=== PATIENT | female | born 1965 | race African-American/Black ===

== ENCOUNTER 2018-04-17 06:35 | Day surgery (SDC) | payer MEDICARE, OTHER ==
--- NOTE | 2018-04-15 10:47 | Pre-Procedure Note/Attestation ---
Pre-Procedure Note/Attestation Complete Prior to Procedure Planned Procedure: right Procedure Narrative: Phaco with IOL Indications for Procedure Pre-Operative Diagnosis: cataract Attestation I attest that I discussed the nature of the procedure; its benefits; risks and complications; and alternatives (and the risks and benefits of such alternatives ), prior to the procedure, with the patient (or the patient's legal outbound call center representative). I attest that, if there was a reasonable possibility of needing a blood transfusion, the patient (or the patient's legal outbound call center representative) was given the [facility] standardized written summary, pursuant to the Piyush [place] Blood Safety Act ([place] Health and Safety Code # 1645, as amended). I attest that I re-evaluated the patient just prior to the surgery and that there has been no change in the patient's H&P, except as documented below: Justus Vail MD Apr 15, 2018 10:47
--- NOTE | 2018-04-15 11:33 | Opthalmology H&P ---
Ophthalmology H&P H&P Chief Complaint: decreased vision in right eye HPI Vision Affects Ability to: read, manage personal affairs Past Ocular History: opacification HPI Narrative BLURRY VISION Exam Visual Acuity: OD; 20/80 OS;20/50 Tension: OD; 14 OS;15 Eye Exam: normal OU: external exam, palpebral fissure-width, marginal reflex distance, levator function, corneas, anterior chambers; findings: lens - OD;NS OS;NS, fundus exam - NPDR OU Assessment/Plan Diagnosis: (1) Nuclear sclerotic cataract of right eye Treatment Plan: cataract extraction w/ lens implant Goals of Treatment: improvement of vision, enhance quality of life Attestation Attestation The risks and benefits of the surgery as well as alternative procedures were explained to the patient in detail. Justus Vail MD Apr 15, 2018 11:33
[~2018-04-17] VITALS: Ht 154.9 cm; Wt 80.3 kg
[2018-04-17] VITALS (11 sets, daily range): BP systolic 103–115; BP diastolic 57–68
[~2018-04-17 06:35] MED LIST: NOVOLOG100 UNITS1 SUBQ; TOUJEO SOL300 UNIT/1 SQ
[2018-04-17] MEDS ORDERED: Tetracaine 0.5% Opth 4ml Soln RIGHT EYE ONE (07:00)
[2018-04-17] MEDS ORDERED: Diclofenac Sod 0.1% Op Soln RIGHT EYE SCH (07:00)
[2018-04-17] MEDS ORDERED: Akten 3.5% 1ml Btl RIGHT EYE ONE (07:00)
[2018-04-17] MEDS ORDERED: Proparacaine 0.5% Opth Soln 15ml RIGHT EYE ONE (07:00)
[2018-04-17] MEDS ORDERED: Dexamethasone 4mg/ml vial ONE (10:00)
[2018-04-17] MEDS ORDERED: Maxitrol Opth Oint 3.5gm ONE (10:00)
[2018-04-17] MEDS ORDERED: Pred Forte 1% Opth Susp 1ml ONE (10:00)
[2018-04-17] MEDS: Cyclopentolate 1% Opth Sol 2ml RIGHT EYE SCH ×3 (10:51→11:17)
[2018-04-17] MEDS: Tropicamide 1% Opth 15ml Soln RIGHT EYE SCH ×3 (10:52→11:17)
[2018-04-17] MEDS: Phenylephrine 10% Opth Soln 5ml RIGHT EYE SCH ×3 (10:53→11:17)
[2018-04-17] MEDS: Tobramycin Op Soln 0.3% 5ml RIGHT EYE SCH ×3 (10:53→11:17)
[2018-04-17] MEDS ORDERED: Pilocarpine 2% Opth 15ml Soln ONE (11:00)
[2018-04-17] MEDS ORDERED: LR 1000ml ONE (11:00)
[2018-04-17] MEDS ORDERED: BSS 500ml btl ONE (11:05)
[2018-04-17] MEDS ORDERED: EPINEPHrine 1mg/1ml Amp ONE (11:05)
[2018-04-17] MEDS ORDERED: BSS 15ml BTL ONE (11:06)
[2018-04-17] MEDS ORDERED: Sodium Hyaluronate 14 mg/ml 0.85ml ONE (11:06)
[2018-04-17] MEDS ORDERED: Povidone-Iodine 5% opth solution ONE (11:06)
--- NOTE | 2018-04-17 11:22 | Anethesia Preoperative Eval ---
Anesthesia Pre-op PMH/ROS General Date of Evaluation: Apr 17, 2018 Time of Evaluation: 11:20 Anesthesiologist: Perry ASA Score: ASA 1 Mallampati Score Class I : Soft palate, uvula, fauces, pillars visible Class II: Soft palate, uvula, fauces visible Class III: Soft palate, base of uvula visible Class IV: Only hard plate visible Mallampati Classification: Class II Surgeon: Genna Diagnosis: right eye cataract removal Surgical Procedure: Right eye cataract removal with IOL Anesthesia History: none Family History: no anesthesia problems Allergies: Coded Allergies: No Known Allergies (Unverified , 04/14/18) Medications: see eMAR Patient NPO?: Yes NPO Date: Apr 17, 2018 Past Medical History Cardiovascular: Denies: HTN, CAD, [place], valve dz, arrhythmia, other Pulmonary: Denies: asthma, COPD, JEREMIAS, other Gastrointestinal/Genitourinary: Denies: GERD, CRI, ESRD, other Neurologic/Psychiatric: Denies: dementia, CVA, depression/anxiety, TIA, other Endocrine: Reports: DM HEENT: Reports: cataract (L), cataract (R) Hematology/Immune: Denies: anemia, DVT, bleeding disorder, other Musculoskeletal/Integumentary: Reports: OA - right hip and knee Anesthesia Pre-op Phys. Exam Physician Exam Last Vital Signs Date Time Temp Pulse Resp B/P (MAP) Pulse Ox O2 Delivery O2 Flow Rate FiO2 04/17/18 11:06 97.9 97 20 105/64 100 Room Air Constitutional: NAD Neurologic: CN 2-12 intact Cardiovascular: RRR Respiratory: CTA Gastrointestinal: S/NT/ND Airway Exam Mallampati Score: Class II MO: full ROM: full Teeth: missing Dentures: no upper, no lower Anesthesia Pre-op A/P Labs chart reviewed Accucheck BS 166 Risk Assessment & Plan Assessment: A&Ox4 Plan: MAC Status Change Before Surgery: No Pre-Antibiotics Given Within 1 Hr of Incision: No Alexandrea Amador CRNA Apr 17, 2018 11:22
[2018-04-17] MEDS ORDERED: fentaNYL 100 mcg/2 mL IV ONE (11:28)
[2018-04-17] MEDS ORDERED: Midazolam 2mg/2ml Inj ONE ×2 (11:28→11:34)
--- NOTE | 2018-04-17 11:42 | Immediate Post-Op Evaluation ---
Immediate Post-Op Evalulation Immediate Post-Op Evalulation Procedure: right eye cataract removal Date of Evaluation: Apr 17, 2018 Time of Evaluation: 11:58 IV Fluids: LR 300 ml Blood Products: 0 Estimated Blood Loss: 0 Urinary Output: 0 Blood Pressure Systolic: 100 Blood Pressure Diastolic: 60 Pulse Rate: 98 Respiratory Rate: 18 O2 Sat by Pulse Oximetry: 98 Temperature (Fahrenheit): 97.6 Pain Score (1-10): 0 Nausea: No Vomiting: No Complications none Patient Status: awake, reacts, patent Hydration Status: adequate Given Within 1 Hr of Incision: Alexandrea Voss CRNA Apr 17, 2018 11:42
--- NOTE | 2018-04-17 11:43 | 48 Hour Post Anesthesia Eval ---
Post Anesthesia Evaluation Procedure: right eye cataract removal Date of Evaluation: Apr 17, 2018 Time of Evaluation: 12:52 Blood Pressure Systolic: 104 0: 62 Pulse Rate: 95 Respiratory Rate: 18 Temperature (Fahrenheit): 97.6 O2 Sat by Pulse Oximetry: 99 Airway: patent Nausea: No Vomiting: No Pain Intensity: 0 Hydration Status: adequate Cardiopulmonary Status: WNL Mental Status/LOC: patient returned to baseline Follow-up care needed: patient intructions given Alexandrea Amador CRNA Apr 17, 2018 11:43
--- NOTE | 2018-04-18 13:09 | Brief Operative Note ---
Immediate Post Operative Note Operative Note Chief Complaint: blurry vision Pre-op Diagnosis: cataract, OD Procedure: phaco with IOL Post-op Diagnosis: Pseudophakia Post-op Diagnosis: same as pre-op Findings: consistent w/pre-op dx studies Surgeon: Genna Anesthesiologist: Perry Specimen: none Complications: none Fluids: LR Estimated Blood Loss: none Drains: none Implant(s) used?: Yes Justus Vail MD Apr 18, 2018 13:09
--- NOTE | 2018-04-18 13:12 | Operative Note - PDOC ---
Operative Note Operative Note Chief Complaint: blurry vision Pre-op Diagnosis: cataract, OD Procedure: phaco with IOL Post-op Diagnosis: Pseudophakia Post-op Diagnosis: same as pre-op Operative Findings: consistent w/pre-op dx studies Surgeon: Genna Anesthesiologist: Perry Specimen: none Complications: none Fluids: LR Estimated Blood Loss: none Drains: none Implant(s) used?: Yes Indications for Procedure cataract Description of Procedure This patient has been complaining visually significant cataract in the affected eye with the best corrected visual acuity under moderate glare conditions worse. The patient complains of difficulties with glare in performing activities of daily living and wants to manage personal affairs with comfort and accuracy and see well enough to move with safety at home and outdoors. The risks, benefits and alternatives of the procedure were discussed with the patient in the office prior to scheduling surgery. All questions from the patient were answered after the surgical procedure was explained in detail. The risks of the procedure as explained to the patient include, but are not limited to, pain, infection, bleeding, loss of vision, retinal detachment, need for further surgery, loss of lens nucleus, double vision, etc. Alternative procedures were discussed which include, to do nothing or seek a second opinion. Informed consent for this procedure was obtained from the patient. The patient was referred to a primary care physician for a cardiopulmonary clearance prior to surgery, after proper evaluation was done patient was properly scheduled for outpatient surgery. The patient was brought to the operating room where the anesthesiologist established I.V. lines and cardiac monitoring leads. Mild intravenous sedation was administered. The patient was then prepared with a 5% solution of povidone -iodine to the conjunctival fornix and lashes, and a 5% solution of povidone- iodine to the lids and periorbital skin. The patient was then draped in the usual sterile fashion. A lid speculum was then placed in the operative eye. A keratome blade was then used to create a biplanar incision into the anterior chamber. Viscoelastics was then instilled into the anterior chamber. A 3-mm single pass clear corneal incision was made just anterior to the vascular arcade of the temporal limbus using a keratome. Anterior capsulorrhexis was created. The nucleus was hydrodissected and hydrodelineated, and was freely movable in the capsular bag. The nucleus was then phacoemulsified. Following the deep groove formation, the lens was split bimanually and epicortex removed under vacuum burst-mode phacoemulsification. Peripheral cortex was removed with the irrigation and aspiration handpiece. The capsular bag was expanded with viscoelastic. The intraocular lens was then inspected for right power and size and thought to be satisfactory. The implant was inspected under the microscope and found to be free of defects. The implant was inserted into the cartridge system under viscoelastic and placed in the capsular bag. The trailing haptic was positioned with the cartridge system. Viscoelastics was removed from the anterior chamber using the irrigation and aspiration unit. The corneal wound was then tested for leaks and none were found. The lid speculum were then removed. Sponge and needle counts were correct. An eye patch and shield were placed over the operative eye. The patient was taken to the recovery room in stable condition. There were no complications. The patient tolerated the procedure well. The patient was then transferred to the ambulatory surgery unit in stable and satisfactory condition , was given detailed written instructions and asked to follow up in the office the next day. Justus Vail MD Apr 18, 2018 13:12
== END 2018-04-17 13:30 | disposition home or self-care (01) ==
LOC: SUR 06:35
DX: H25.11 Age-related nuclear cataract, right eye (principal); E11.9 Type 2 diabetes mellitus without complications; Z79.4 Long term (current) use of insulin; M54.16 Radiculopathy, lumbar region; M16.11 Unilateral primary osteoarthritis, right hip; M17.11 Unilateral primary osteoarthritis, right knee
CPT/HCPCS: 66984; 82962; J0171; J1100; J2250; J3010; J3370; V2632; 94003; 94150

== ENCOUNTER 2018-05-22 05:05 | Day surgery (SDC) | payer MEDICARE, OTHER ==
--- NOTE | 2018-05-19 13:00 | Brief Operative Note ---
Immediate Post Operative Note Operative Note Chief Complaint: Blurry Vision Pre-op Diagnosis: Cataract Procedure: Cataract Extraction With Intra Ocular Lens Implant Left Eye Post-op Diagnosis: Pseudophakia Post-op Diagnosis: same as pre-op Surgeon: Justus Vail MD Anesthesiologist: Alvina Anesthesia: MAC Specimen: none Complications: none Condition: stable Fluids: LR Estimated Blood Loss: none Drains: none Implant(s) used?: Yes - IOL OS Justus Vail MD May 19, 2018 13:00
--- NOTE | 2018-05-19 13:01 | Pre-Procedure Note/Attestation ---
Pre-Procedure Note/Attestation Complete Prior to Procedure Planned Procedure: left Procedure Narrative: Cataract Extraction With Inner Ocular Lens Implant Left Eye Indications for Procedure Pre-Operative Diagnosis: Cataract Attestation I attest that I discussed the nature of the procedure; its benefits; risks and complications; and alternatives (and the risks and benefits of such alternatives ), prior to the procedure, with the patient (or the patient's legal patient support representative). I attest that, if there was a reasonable possibility of needing a blood transfusion, the patient (or the patient's legal patient support representative) was given the [facility] standardized written summary, pursuant to the Piyush [place] Blood Safety Act ([place] Health and Safety Code # 1645, as amended). I attest that I re-evaluated the patient just prior to the surgery and that there has been no change in the patient's H&P, except as documented below: Justus Vail MD May 19, 2018 13:01
--- NOTE | 2018-05-19 13:09 | Opthalmology H&P ---
Ophthalmology H&P H&P Chief Complaint: decreased vision in left eye HPI Vision Affects Ability to: read, manage personal affairs Past Ocular History: glaucoma HPI Narrative Blurry Vision Exam Visual Acuity: OD 20/30 OS Counting Fingers Eye Exam: normal OU: external exam, palpebral fissure-width, marginal reflex distance, levator function, corneas, anterior chambers; findings: lens - Nuclear Sclerotic Cataract OS, fundus exam - NPDR MILD Assessment/Plan Treatment Plan: cataract extraction w/ lens implant Goals of Treatment: improvement of vision Attestation Attestation The risks and benefits of the surgery as well as alternative procedures were explained to the patient in detail. Justus Vail MD May 19, 2018 13:09
--- NOTE | 2018-05-19 13:12 | Operative Note - PDOC ---
Operative Note Operative Note Date of Operation/Procedure: May 22, 2018 Chief Complaint: Blurry Vision Pre-op Diagnosis: Cataract Procedure: Cataract Extraction With lens implant, Left Eye Post-op Diagnosis: Pseudophakia Post-op Diagnosis: same as pre-op Surgeon: Justus Vail MD Anesthesiologist: Alvina Anesthesia: MAC Specimen: none Complications: none Condition: stable Fluids: LR Estimated Blood Loss: none Drains: none Implant(s) used?: Yes Indications for Procedure Cataract Description of Procedure This patient has been complaining visually significant cataract in the affected eye with the best corrected visual acuity under moderate glare conditions worse. The patient complains of difficulties with glare in performing activities of daily living and wants to manage personal affairs with comfort and accuracy and see well enough to move with safety at home and outdoors. The risks, benefits and alternatives of the procedure were discussed with the patient in the office prior to scheduling surgery. All questions from the patient were answered after the surgical procedure was explained in detail. The risks of the procedure as explained to the patient include, but are not limited to, pain, infection, bleeding, loss of vision, retinal detachment, need for further surgery, loss of lens nucleus, double vision, etc. Alternative procedures were discussed which include, to do nothing or seek a second opinion. Informed consent for this procedure was obtained from the patient. The patient was referred to a primary care physician for a cardiopulmonary clearance prior to surgery, after proper evaluation was done patient was properly scheduled for outpatient surgery. The patient was brought to the operating room where the anesthesiologist established I.V. lines and cardiac monitoring leads. Mild intravenous sedation was administered. The patient was then prepared with a 5% solution of povidone -iodine to the conjunctival fornix and lashes, and a 5% solution of povidone- iodine to the lids and periorbital skin. The patient was then draped in the usual sterile fashion. A lid speculum was then placed in the operative eye. A keratome blade was then used to create a biplanar incision into the anterior chamber. Viscoelastics was then instilled into the anterior chamber. A capsulorrhexis was then fashioned with an utrata forceps. BSS and a cannula were then used to hydrodissect and hydro delineate the lens. Paracentesis incision was made at 3 o'clock with sharp blade. The phacoemulsification unit, after being properly adjusted and tested, was then used to emulsify the nucleus. Residual cortical material was aspirated with the irrigation and aspiration unit. Healon was then instilled into the anterior chamber. The corneal wound was then enlarged to the size of the optic with the red keratome blade. The intraocular lens was then inspected for right power and size and thought to be satisfactory. Then the lens was gently placed in the capsular bag. Positioning within the capsular bag was confirmed by direct visualization. Optic centration was accomplished with a Sinskey hook. Viscoelastics was removed from the anterior chamber using the irrigation and aspiration unit. The corneal wound was then tested for leaks and none were found. The lid speculum were then removed. Sponge and needle counts were correct. An eye patch and shield were placed over the operative eye. The patient was taken to the recovery room in stable condition. There were no complications. The patient tolerated the procedure well. The patient was then transferred to the ambulatory surgery unit in stable and satisfactory condition , was given detailed written instructions and asked to follow up in the office the next day. Justus Vail MD May 19, 2018 13:12
[2018-05-22] VITALS (7 sets, daily range): BP systolic 96–117; BP diastolic 59–74
[~2018-05-22] VITALS: Ht 152.4 cm; Wt 80.3 kg
[2018-05-22] MEDS: Cyclopentolate 1% Opth Sol 2ml LEFT EYE SCH ×3 (05:47→06:24)
[2018-05-22] MEDS: Diclofenac Sod 0.1% Op Soln LEFT EYE SCH ×3 (05:47→06:25)
[2018-05-22] MEDS: Tropicamide 1% Opth 15ml Soln LEFT EYE SCH ×3 (05:48→06:25)
[2018-05-22] MEDS: Tobramycin Op Soln 0.3% 5ml LEFT EYE SCH ×3 (05:48→06:25)
[2018-05-22] MEDS: Phenylephrine 10% Opth Soln 5ml LEFT EYE SCH ×3 (05:48→06:25)
[2018-05-22] MEDS ORDERED: Tetracaine 0.5% Opth 4ml Soln LEFT EYE ONE (07:00)
[2018-05-22] MEDS ORDERED: Proparacaine 0.5% Opth Soln 15ml LEFT EYE ONE (07:00)
[2018-05-22] MEDS ORDERED: Akten 3.5% 1ml Btl LEFT EYE ONE (07:00)
[2018-05-22] MEDS ORDERED: Midazolam 2mg/2ml Inj ONE (07:08)
[2018-05-22] MEDS ORDERED: Propofol 200mg/20ml IV ONE (07:08)
[2018-05-22] MEDS ORDERED: fentaNYL 100 mcg/2 mL IV ONE (07:08)
[2018-05-22] MEDS ORDERED: EPINEPHrine 1mg/1ml Amp ONE (07:13)
[2018-05-22] MEDS ORDERED: Lidocaine 2% MPF 5ml Vial INJ ONE (07:13)
[2018-05-22] MEDS ORDERED: Lidocaine 4% Amp ONE (07:13)
[2018-05-22] MEDS ORDERED: acetaZOLAMIDE 500mg Inj ONE (07:14)
[2018-05-22] MEDS ORDERED: BSS 500ml btl ONE (07:14)
[2018-05-22] MEDS ORDERED: Povidone-Iodine 5% opth solution ONE (07:14)
[2018-05-22] MEDS ORDERED: Carbachol 0.01% Op Soln 1.5ml vial ONE (07:14)
[2018-05-22] MEDS ORDERED: BSS 15ml BTL ONE (07:14)
[2018-05-22] MEDS ORDERED: Bupivacaine 0.75% 30ml vial INJ ONE (07:15)
[2018-05-22] MEDS ORDERED: Sodium Hyaluronate 14 mg/ml 0.85ml ONE (07:15)
[2018-05-22] MEDS ORDERED: LR 1000ml 1,000 ML IVLG SCH (07:29)
--- NOTE | 2018-05-22 07:29 | Anethesia Preoperative Eval ---
Anesthesia Pre-op PMH/ROS General Date of Evaluation: May 22, 2018 Time of Evaluation: 07:26 Anesthesiologist: Alvina ASA Score: ASA 3 Mallampati Score Class I : Soft palate, uvula, fauces, pillars visible Class II: Soft palate, uvula, fauces visible Class III: Soft palate, base of uvula visible Class IV: Only hard plate visible Mallampati Classification: Class II Surgeon: Genna Diagnosis: L eye cataract Surgical Procedure: L eye cataract extraction Anesthesia History: none Family History: no anesthesia problems Allergies: Coded Allergies: No Known Allergies (Unverified , 04/14/18) Patient NPO?: Yes Past Medical History Cardiovascular: Denies: HTN, CAD, [place], valve dz, arrhythmia, other Pulmonary: Denies: asthma, COPD, JEREMIAS, other Gastrointestinal/Genitourinary: Reports: GERD; Denies: CRI, ESRD, other Neurologic/Psychiatric: Denies: dementia, CVA, depression/anxiety, TIA, other Endocrine: Reports: DM - on insulin; Denies: hypothyroidism, steroids, other HEENT: Reports: cataract (L), cataract (R); Denies: glaucoma, IGIUGIG (L), IGIUGIG (R), other Hematology/Immune: Reports: anemia - mild Musculoskeletal/Integumentary: Denies: OA, RA, DJD, DDD, edema, other Other: other - overweight PMH Narrative: as above PSxH Narrative: R eye cataract Anesthesia Pre-op Phys. Exam Physician Exam Last Vital Signs Date Time Temp Pulse Resp B/P (MAP) Pulse Ox O2 Delivery O2 Flow Rate FiO2 05/22/18 05:53 98.6 98 20 117/68 99 Room Air Constitutional: NAD Neurologic: CN 2-12 intact Cardiovascular: RRR, no M/R/G Respiratory: CTA Gastrointestinal: S/NT/ND Airway Exam Mallampati Score: Class II MO: full Neck: flexible ROM: full Teeth: missing Dentures: no upper, no lower Anesthesia Pre-op A/P Labs see chart Accucheck 211 at admission Studies Pre-op Studies: EKG - NSR Risk Assessment & Plan Assessment: ASA 3 Plan: MAC Status Change Before Surgery: No Pre-Antibiotics Drug: none Félix Tinsley MD May 22, 2018 07:29
[2018-05-22] MEDS ORDERED: LR 1000ml ONE (07:30)
[2018-05-22] MEDS ORDERED: fentaNYL 100 mcg/2 mL IV PRN (07:30)
[2018-05-22] MEDS ORDERED: DiphenhydrAMINE 50mg/ml Inj IVP PRN (07:30)
--- NOTE | 2018-05-22 08:18 | Immediate Post-Op Evaluation ---
Immediate Post-Op Evalulation Immediate Post-Op Evalulation Procedure: R eye cataract extraction with IOL Date of Evaluation: May 22, 2018 Time of Evaluation: 08:17 IV Fluids: 300 Blood Products: none Estimated Blood Loss: none Urinary Output: none Blood Pressure Systolic: 94 Blood Pressure Diastolic: 56 Pulse Rate: 82 Respiratory Rate: 20 O2 Sat by Pulse Oximetry: 99 Temperature (Fahrenheit): 97.6 Pain Score (1-10): 1 Nausea: No Vomiting: No Complications none Patient Status: awake, patent, none Hydration Status: adequate Félix Tinsley MD May 22, 2018 08:18
[2018-05-22] MEDS ORDERED: Pred Forte 1% Opth Susp 1ml ONE (08:30)
[2018-05-22] MEDS ORDERED: Maxitrol Opth Oint 3.5gm ONE (08:30)
[2018-05-22] MEDS ORDERED: Dexamethasone 4mg/ml vial ONE (08:30)
[2018-05-22] MEDS ORDERED: Pilocarpine 1% Opth 15ml Soln ONE (08:30)
--- NOTE | 2018-05-22 08:49 | 48 Hour Post Anesthesia Eval ---
Post Anesthesia Evaluation Procedure: R eye cataract extraction with IOL Date of Evaluation: May 22, 2018 Time of Evaluation: 08:48 Blood Pressure Systolic: 94 0: 52 Pulse Rate: 86 Respiratory Rate: 20 Temperature (Fahrenheit): 97.6 O2 Sat by Pulse Oximetry: 98 Airway: patent Nausea: No Vomiting: No Pain Intensity: 1 Hydration Status: adequate Cardiopulmonary Status: stable Mental Status/LOC: patient returned to baseline Follow-up Care/Observations: n/a Post-Anesthesia Complications: none Follow-up care needed: ready to discharge Félix Tinsley MD May 22, 2018 08:49
--- NOTE | 2018-05-23 15:38 | Brief Operative Note ---
Immediate Post Operative Note Operative Note Chief Complaint: blurry vision Pre-op Diagnosis: Cataract Procedure: Phaco with IOL, Left Eye Post-op Diagnosis: Pseudophakia Post-op Diagnosis: same as pre-op Findings: consistent w/pre-op dx studies Surgeon: Genna Anesthesiologist: Alvina Anesthesia: MAC Specimen: none Complications: none Condition: stable Fluids: LR Estimated Blood Loss: none Drains: none Implant(s) used?: Yes Justus Vail MD May 23, 2018 15:38
--- NOTE | 2018-05-23 15:41 | Operative Note - PDOC ---
Operative Note Operative Note Date of Operation/Procedure: May 22, 2018 Chief Complaint: blurry vision Pre-op Diagnosis: Cataract Procedure: Phaco with IOL, Left Eye Post-op Diagnosis: Pseudophakia Post-op Diagnosis: same as pre-op Operative Findings: consistent w/pre-op dx studies Surgeon: Genna Anesthesiologist: Alvina Anesthesia: MAC Specimen: none Complications: none Condition: stable Fluids: LR Estimated Blood Loss: none Drains: none Implant(s) used?: Yes Indications for Procedure cataract Description of Procedure This patient has been complaining visually significant cataract in the affected eye with the best corrected visual acuity under moderate glare conditions worse. The patient complains of difficulties with glare in performing activities of daily living and wants to manage personal affairs with comfort and accuracy and see well enough to move with safety at home and outdoors. The risks, benefits and alternatives of the procedure were discussed with the patient in the office prior to scheduling surgery. All questions from the patient were answered after the surgical procedure was explained in detail. The risks of the procedure as explained to the patient include, but are not limited to, pain, infection, bleeding, loss of vision, retinal detachment, need for further surgery, loss of lens nucleus, double vision, etc. Alternative procedures were discussed which include, to do nothing or seek a second opinion. Informed consent for this procedure was obtained from the patient. The patient was referred to a primary care physician for a cardiopulmonary clearance prior to surgery, after proper evaluation was done patient was properly scheduled for outpatient surgery. The patient was brought to the operating room where the anesthesiologist established I.V. lines and cardiac monitoring leads. Mild intravenous sedation was administered. The patient was then prepared with a 5% solution of povidone -iodine to the conjunctival fornix and lashes, and a 5% solution of povidone- iodine to the lids and periorbital skin. The patient was then draped in the usual sterile fashion. A lid speculum was then placed in the operative eye. A keratome blade was then used to create a biplanar incision into the anterior chamber. Viscoelastics was then instilled into the anterior chamber. A curvilinear capsulorrhexis was then fashioned with an utrata forceps. The lens nucleus was hydrodissected and hydrodelineated with a G 27 Cannula with a BSS. Paracentesis incision was made at 3 o'clock with sharp blade. The phacoemulsification unit, after being properly adjusted and tested, was then used to emulsify the nucleus followed by aspiration and irrigation of residual cortical material. Healon was then instilled into the anterior chamber. The corneal wound was then enlarged to the size of the optic with the red keratome blade. The intraocular lens was then inspected for right power and size and thought to be satisfactory. Then the lens was gently placed in the capsular bag. Positioning within the capsular bag was confirmed by direct visualization. Optic centration was accomplished with a Sinskey hook. Viscoelastics was removed from the anterior chamber using the irrigation and aspiration unit. The corneal wound was then tested for leaks and none were found. The lid speculum were then removed. Sponge and needle counts were correct. An eye patch and shield were placed over the operative eye. The patient was taken to the recovery room in stable condition. There were no complications. The patient tolerated the procedure well. The patient was then transferred to the ambulatory surgery unit in stable and satisfactory condition , was given detailed written instructions and asked to follow up in the office the next day. Justus Vail MD May 23, 2018 15:41
== END 2018-05-22 09:25 | disposition home or self-care (01) ==
LOC: SUR 05:05
DX: H25.12 Age-related nuclear cataract, left eye (principal); H40.9 Unspecified glaucoma; E11.9 Type 2 diabetes mellitus without complications; K21.9 Gastro-esophageal reflux disease without esophagitis; D64.9 Anemia, unspecified; M54.16 Radiculopathy, lumbar region; M54.30 Sciatica, unspecified side; E66.3 Overweight
CPT/HCPCS: 66984; 82962; J0171; J1100; J2250; J2704; J3010; J3370; V2632; 94003; 94150

== ENCOUNTER 2019-10-11 13:01 | Inpatient (IN) | payer MEDICARE, OTHER ==
[~2019-10-11] VITALS: Ht 167.6 cm; Wt 90.3 kg
[2019-10-11] VITALS (26 sets, daily range): BP systolic 74–106; BP diastolic 36–56
[2019-10-11 13:19] LABS: HEMATOCRIT 52.1 % (37.0-47.0); HEMOGLOBIN 15.4 G/DL (12.0-16.0); MEAN CORPUSCULAR VOLUME 82 FL (80-99); PLATELET COUNT 570 K/UL (150-450); RED BLOOD COUNT 6.31 M/UL (4.20-5.40); RED CELL DISTRIBUTION WIDTH 14.2 % (11.6-14.8)
[2019-10-11 13:27] LABS: WHITE BLOOD COUNT 33.9 K/UL (4.8-10.8)
--- NOTE | 2019-10-11 13:36 | Diagnostic Imaging Report ---
Indications: Altered mental status Technique: Spiral acquisitions obtained through the brain. Angled axial and coronal 5 x 5 mm slices were reconstructed. Total dose length product mGycm. CTDI vol(s) 992 mGy. Dose reduction achieved using automated exposure control Comparison: 53 Findings: Extra-axial CSF spaces are somewhat prominent for age. Ventricles are normal in caliber. No acute intracranial hemorrhage or edema. No mass effect nor midline shift. Chapman-white differentiation is normal. There is questionably evidence of prior bilateral cataract surgery. The visualized orbits are otherwise unremarkable. The sinuses are clear. The mastoids are clear. The calvarium is intact. There is questionably empty sella noted. Impression: Negative for acute intracranial bleed or mass effect Mild cerebral cortical volume loss The CT scanner at [facility] is accredited by the [employer] and the scans are performed using protocols designed to limit radiation exposure to as low as reasonably achievable to attain images of sufficient resolution adequate for diagnostic evaluation.
[2019-10-11] MEDS ORDERED: Azithromycin 500 MG in NS 275 ML IV ONE (13:45)
[2019-10-11] MEDS ORDERED: cefTRIAXone 1 GM in NS 55 ML IVPB ONE (13:45)
[2019-10-11 14:08] LABS: APPEARANCE,URINE CLEAR; BILIRUBIN, URINE NEGATIVE (NEGATIVE); COLOR,URINE PALE YELLOW; GLUCOSE, URINE (UA) 4+ (NEGATIVE); KETONES,URINE 4+ (NEGATIVE); LEUKOCYTE ESTERASE ,URINE NEGATIVE (NEGATIVE); NITRITE,URINE NEGATIVE (NEGATIVE); PH,URINE 5 (4.5-8.0); PROTEIN,URINE 1+ (NEGATIVE); UROBILINOGEN,URINE NORMAL MG/DL (0.0-1.0)
[2019-10-11] MEDS ORDERED: Insulin Reg 100 units Premix 100 ML IV SCH (14:30)
[2019-10-11 14:42] LABS: ALANINE AMINOTRANSFERASE 18 U/L (12-78); ALBUMIN 2.6 G/DL (3.4-5.0); ALBUMIN/GLOBULIN RATIO 0.8 (1.0-2.7); ALKALINE PHOSPHATASE 110 U/L (46-116); ASPARTATE AMINO TRANSFERASE 17 U/L (15-37); BILIRUBIN,TOTAL 0.3 MG/DL (0.2-1.0); BLOOD UREA NITROGEN 48 mg/dL (7-18); CALCIUM 8.1 MG/DL (8.5-10.1); CHLORIDE 112 MMOL/L (98-107); CREATININE 2.1 MG/DL (0.55-1.30); POTASSIUM 5.2 MMOL/L (3.5-5.1); SODIUM 151 MMOL/L (136-145)
[2019-10-11 14:44] LABS: CARBON DIOXIDE < 5 MMOL/L (21-32)
--- NOTE | 2019-10-11 14:51 | Diagnostic Imaging Report ---
Indication: Abdominal distention Technique: Spiral acquisitions obtained through the abdomen and pelvis. No oral contrast utilized, per emergency room physician request No IV contrast utilized, per referring physician request.. Multiplanar reconstructions were generated. Total dose length product 556 mGycm. CTDIvol(s) 10 mGy. Dose reduction achieved using automated exposure control Comparison: None Findings: Lack of enteric contrast limits assessment of the GI tract. The stomach is mildly distended and fluid-filled. No small bowel distention. No free or loculated intraperitoneal gas or fluid is evident. The rectum is minimally distended with stool. No evidence of diverticulosis or diverticulitis. The appendix is not definitely visualized, but no findings to suggest acute appendicitis are evident. Lack of IV contrast limits assessment of the solid organs. The liver, gallbladder, bile ducts, pancreas, spleen, adrenals, kidneys are unremarkable. No renal or ureteral calculi, hydronephrosis, or hydroureter. The uterus is mildly enlarged without discrete abnormality other than a few calcifications. The bladder is distended, reaches the level of the umbilicus. Otherwise, no pelvic mass or adenopathy demonstrated. No retroperitoneal or mesenteric mass or adenopathy. The included lung bases demonstrate patchy groundglass opacities bilaterally, with a more discrete focal abnormality seen in the left lung. The bones are unremarkable except for mild degenerative spondylosis changes. Impression: Bilateral basilar pulmonary groundglass opacities, may indicate early pneumonia changes. Correlate with clinical findings Limited assessment of the GI tract, due to lack of enteric contrast administration. Mild rectal distention with stool, mild rectal fecal impaction possible Distended bladder Mildly enlarged uterus with calcifications, may indicate diffuse fibroid change. Distended bladder. Incidental finding of degenerative spondylosis Findings discussed by phone with Dr. Raymundo in the emergency room at the time of interpretation The CT scanner at [facility] is accredited by the [employer] and the scans are performed using protocols designed to limit radiation exposure to as low as reasonably achievable to attain images of sufficient resolution adequate for diagnostic evaluation.
[2019-10-11 14:53] LABS: PHOSPHORUS 10.9 MG/DL (2.5-4.9)
[2019-10-11] MEDS ORDERED: Insulin Reg 100 units Premix 100 ML IVPB SCH ×2 (14:54→17:28)
--- NOTE | 2019-10-11 14:58 | Emergency Room Report ---
History of Present Illness General Chief Complaint: Abnormal Labs Source: Patient, Medical Record Present Illness HPI This patient has a history of type 1 diabetes. The patient is unable to give any type of history and the history obtained from EMS and the family is very limited. Apparently over the past couple days the patient has had recurrent vomiting and has been sleeping. The daughter of the patient states that she went to check on her mom today and found that she is completely unresponsive and does not seem to know her. There is no report of any other recent illness. There is no report of any other complaints other than vomiting over the past couple days. History is very limited. Allergies: Coded Allergies: No Known Allergies (Unverified , 04/14/18) COVID-19 Screening Contact w/high risk pt: No Recent Travel to affected area: No Experienced COVID-19 symptoms?: No COVID-19 Testing performed DRAPERY HANGER: No Patient History Past Medical History: see triage record, DM, other - OA Past Surgical History: unable to obtain Pertinent Family History: unable to obtain Social History: Denies: smoking, alcohol use, drug use Reviewed Nursing Documentation: PMH: Agreed; PSxH: Agreed Nursing Documentation-PMH Hx Cardiac Problems: No Hx Diabetes: Yes Hx Cancer: No Hx Gastrointestinal Problems: No Hx Neurological Problems: No Review of Systems All Other Systems: limited Physical Exam Vital Signs Date Time Temp Pulse Resp B/P (MAP) Pulse Ox O2 Delivery O2 Flow Rate FiO2 10/11/19 12:53 97.9 100 24 91/51 (64) 99 Room Air Sp02 EP Interpretation: reviewed, normal General Appearance: alert, other - Not responsive to verbal response. Eyes open. Head: normocephalic, atraumatic Eyes: bilateral eye normal inspection ENT: normal ENT inspection, no angioedema Neck: full range of motion, supple/symm/no masses Respiratory: lungs clear, normal breath sounds, no respiratory distress, no retraction, no accessory muscle use Cardiovascular #1: regular rate, rhythm, no edema Gastrointestinal: normal bowel sounds, distended - Large smooth mass palpated in lower abdomen Rectal: deferred Musculoskeletal: normal inspection, non-tender Neurologic: other - Altered, not answering questions. Non-focal. Psychiatric: judgement/insight normal, memory normal, mood/affect normal, no suicidal/homicidal ideation Skin: no rash, normal color Medical Decision Making Diagnostic Impression: Primary Impression: DKA (diabetic ketoacidoses) Additional Impressions: Leukocytosis Hypothermia Encephalopathy Hyperglycemia Suspected 2019 novel coronavirus infection Urinary retention Renal failure Metabolic acidosis ER Course This patient is critically ill. The patient is in severe DKA. She was given aggressive IV fluid resuscitation and started on insulin drip. The patient was also hypothermic. She is placed on a bear hugger. She underwent CT of the head as a precaution given her altered mental status and this was unremarkable. There were no focal findings on exam although her neurologic exam was limited secondary to her mental status. She underwent CT of the abdomen and pelvis because I had palpated a mass in her lower abdomen, and the CT identified ground -glass opacities in her lung bases during the current COVID-19 pandemic this likely represents COVID-19 infection. It was also identified that the mass I was palpating was a very distended bladder. Therefore, Coleman catheter was placed. Patient is in renal failure and has a leukocytosis. Although I did not identify a bacterial infection, given the findings on lab, I did go ahead and give the patient broad-spectrum antibiotics. This patient will be admitted to the ICU. This patient is critically ill. This patient required complex medical decision- making, aggressive intervention, extensive laboratory workup and monitoring. Critical care time: 40 minutes. This patient was evaluated in the context of the global COVID-19 pandemic, which necessitated consideration that the patient might be at risk for infection with the [id number] virus that causes COVID-19. Institutional protocols and algorithms that pertain to the evaluation of patients at risk for COVID-19 and the state of rapid change based on information released by multiple regulatory bodies including the CDC and federal and state organizations. These policies and algorithms were followed during the patient' s care in the ED. Laboratory Tests Test 10/11/19 13:05 10/11/19 13:30 10/11/19 14:18 White Blood Count 33.9 K/UL (4.8-10.8) *H Red Blood Count 6.31 M/UL (4.20-5.40) H Hemoglobin 15.4 G/DL (12.0-16.0) Hematocrit 52.1 % (37.0-47.0) H Mean Corpuscular Volume 82 FL (80-99) Mean Corpuscular Hemoglobin 24.4 PG (27.0-31.0) L Mean Corpuscular Hemoglobin Concent 29.5 G/DL (32.0-36.0) L Red Cell Distribution Width 14.2 % (11.6-14.8) Platelet Count 570 K/UL (150-450) H Mean Platelet Volume 6.2 FL (6.5-10.1) L Neutrophils (%) (Auto) % (45.0-75.0) Lymphocytes (%) (Auto) % (20.0-45.0) Monocytes (%) (Auto) % (1.0-10.0) Eosinophils (%) (Auto) % (0.0-3.0) Basophils (%) (Auto) % (0.0-2.0) Differential Total Cells Counted 100 Neutrophils % (Manual) 76 % (45-75) H Lymphocytes % (Manual) 13 % (20-45) L Monocytes % (Manual) 7 % (1-10) Eosinophils % (Manual) 0 % (0-3) Basophils % (Manual) 0 % (0-2) Band Neutrophils 4 % (0-8) Platelet Estimate Increased H Platelet Morphology Normal Anisocytosis 1+ Lactic Acid Level 3.50 mmol/L (0.4-2.0) H Pending Phosphorus Level Pending Total Creatine Kinase Pending Creatine Kinase MB Pending Troponin I 0.000 ng/mL (0.000-0.056) Urine Color Pale yellow Urine Appearance Clear Urine pH 5 (4.5-8.0) Urine Specific [place] 1.020 (1.005-1.035) Urine Protein 1+ (NEGATIVE) H Urine Glucose (UA) 4+ (NEGATIVE) H Urine Ketones 4+ (NEGATIVE) H Urine Blood Negative (NEGATIVE) Urine Nitrite Negative (NEGATIVE) Urine Bilirubin Negative (NEGATIVE) Urine Urobilinogen Normal MG/DL (0.0-1.0) Urine Leukocyte Esterase Negative (NEGATIVE) Urine RBC 0 /HPF (0 - 2) Urine WBC 0-2 /HPF (0 - 2) Urine Squamous Epithelial Cells Occasional /LPF Urine Bacteria Occasional /HPF (NONE) Sodium Level Pending Potassium Level Pending Chloride Level Pending Carbon Dioxide Level Pending Blood Urea Nitrogen Pending Creatinine Pending Estimated Glomerular Filtration Rate Pending Glucose Level Pending Calcium Level Pending Magnesium Level Pending Total Bilirubin Pending Aspartate Amino Transferase (AST) Pending Alanine Aminotransferase (ALT) Pending Alkaline Phosphatase Pending Total Protein Pending Albumin Pending Globulin Pending Acetone Level Pending EKG Diagnostic Results Rate: normal Rhythm: other - A.flutter ST Segments: no acute changes Rhythm Strip Diag. Results EP Interpretation: yes Rate: 90's Rhythm: no PVC's, no ectopy Chest X-Ray Diagnostic Results Chest X-Ray Diagnostic Results : Chest X-Ray Ordered: Yes # of Views/Limited/Complete: 1 View Indication: Other - ams EP Interpretation: Yes Interpretation: other - Questionable diffuse patchy opacities vs. poor technique/inspiration. Elevated R. hemidiaprhagm Impression: Other - See above. CT/MRI/US Diagnostic Results CT/MRI/US Diagnostic Results : Imaging Test Ordered: CT head, CT Abd/pelvis Impression No acute findings. Specifically no intracranial bleed, mass effect or edema. See official report. CT abd/pelvis: Distended bladder. Groundglass opacities in the lung bases. See the official report in electronic medical record. Last Vital Signs Date Time Temp Pulse Resp B/P (MAP) Pulse Ox O2 Delivery O2 Flow Rate FiO2 10/11/19 13:38 89.2 94 30 93/50 100 Room Air Disposition: ADMITTED INPATIENT Condition: Critical Referrals: NON PHYSICIAN (PCP) Jacqueline Vuong DO Oct 11, 2019 14:58
[2019-10-11] MEDS ORDERED: CYCLOBENZAPRINE10 MG ORAL (15:15)
[2019-10-11] MEDS ORDERED: CYMBALTA30 MG ORAL (15:15)
[2019-10-11] MEDS ORDERED: DICLOFENAC SOD100 MG PO (15:15)
[2019-10-11] MEDS ORDERED: PRILOSEC OTC20 MG ORAL (15:15)
[2019-10-11] MEDS ORDERED: TIZANIDINE HCL4 MG ORAL (15:15)
[2019-10-11] MEDS ORDERED: NOVOLOG100 UNITS1 SQ (15:15)
--- NOTE | 2019-10-11 16:21 | Diagnostic Imaging Report ---
Indication: Shortness of breath Technique: One view of the chest Comparison: none Findings: Bilateral mild interstitial prominence is noted. The heart size is upper limits normal. Pleural spaces are clear. Impression: Bilateral mild interstitial prominence, could indicate early infiltrates versus edema. Correlate with clinical findings
[2019-10-11] MEDS ORDERED: LORazepam Inj 2mg/ml 1ml IV PRN (17:30)
[2019-10-11] MEDS ORDERED: Miralax 17gm pkt ORAL PRN (17:30)
[2019-10-11] MEDS ORDERED: Nitroglycerin Subl 0.4mg tab SL PRN (17:30)
[2019-10-11] MEDS ORDERED: Albuterol/Ipratropium 3ml neb HHN PRN (17:30)
[2019-10-11] MEDS: DULoxetine 30mg cap ORAL SCH (18:00)
[2019-10-11] MEDS: Insulin Human Regular 100units/ml 3ml IV PRN ×6 (19:00→23:50)
[2019-10-11] MEDS: Heparin 5000 units/ml inj SUBQ SCH (20:29)
[2019-10-11 20:31] LABS: ALANINE AMINOTRANSFERASE 26 U/L (12-78); ALBUMIN 3.1 G/DL (3.4-5.0); ALBUMIN/GLOBULIN RATIO 0.8 (1.0-2.7); ALKALINE PHOSPHATASE 123 U/L (46-116); ANION GAP 30 mmol/L (5-15); ASPARTATE AMINO TRANSFERASE 21 U/L (15-37); BILIRUBIN,TOTAL 0.4 MG/DL (0.2-1.0); BLOOD UREA NITROGEN 56 mg/dL (7-18); CALCIUM 7.9 MG/DL (8.5-10.1); CHLORIDE 116 MMOL/L (98-107); POTASSIUM 4.3 MMOL/L (3.5-5.1); SODIUM 152 MMOL/L (136-145)
[2019-10-11 21:10] LABS: CARBON DIOXIDE 7 MMOL/L (21-32)
[2019-10-11] MEDS: Insulin Rate Change 1 Each MISC PRN ×3 (21:56→23:50)
[2019-10-11] MEDS: Insulin Reg 100 units Premix 100 ML IVPB SCH (22:38)
[2019-10-12] VITALS (46 sets, daily range): BP systolic 97–150; BP diastolic 40–78
[2019-10-12] MEDS: Insulin Reg 100 units Premix 100 ML IVPB SCH ×2 (00:07→15:53)
[2019-10-12] MEDS: Insulin Rate Change 1 Each MISC PRN ×6 (01:06→05:56)
[2019-10-12 08:11] LABS: ANION GAP 19 mmol/L (5-15); BLOOD UREA NITROGEN 51 mg/dL (7-18); CALCIUM 8.3 MG/DL (8.5-10.1); CARBON DIOXIDE 13 MMOL/L (21-32); CHLORIDE 129 MMOL/L (98-107); CREATININE 1.7 MG/DL (0.55-1.30); POTASSIUM 3.6 MMOL/L (3.5-5.1)
[2019-10-12 08:16] LABS: SODIUM 161 MMOL/L (136-145)
[2019-10-12 08:20] LABS: ALANINE AMINOTRANSFERASE 25 U/L (12-78); ALBUMIN 2.8 G/DL (3.4-5.0); ALKALINE PHOSPHATASE 98 U/L (46-116); ASPARTATE AMINO TRANSFERASE 32 U/L (15-37); BILIRUBIN,DIRECT < 0.1 MG/DL (0.0-0.3); BILIRUBIN,TOTAL 0.2 MG/DL (0.2-1.0)
[2019-10-12] MEDS: Cyclobenzaprine 10mg Tab ORAL SCH ×2 (08:40→09:00)
[2019-10-12] MEDS: DULoxetine 30mg cap ORAL SCH ×3 (08:40→17:50)
[2019-10-12] MEDS: Heparin 5000 units/ml inj SUBQ SCH ×2 (08:41→20:24)
[2019-10-12 09:42] LABS: CHOLESTEROL 162 MG/DL (< 200); HDL CHOLESTEROL 51 MG/DL (40-60); TRIGLYCERIDES 88 MG/DL (30-150)
[2019-10-12] MEDS ORDERED: Acetaminophen 650 MG SUPP RECTAL PRN (09:45)
[2019-10-12] MEDS: Potassium Phosphate 15mm/250ml 250 ML IVPB SCH ×2 (10:05→14:02)
[2019-10-12] MEDS: Morphine Sulfate 4mg/ml Inj (IV USE ONLY) IVP PRN ×3 (10:14→21:42)
[2019-10-12] MEDS ORDERED: D5W w/KCl 20mEq 1,000 ML IV SCH (11:30)
--- NOTE | 2019-10-12 12:01 | Consultation ---
History of Present Illness General Date patient seen: Oct 12, 2019 Chief Complaint: Abnormal Labs Reason for Consultation: icu management Present Illness HPI 54 year old female with history of type 1 diabetes presented to [facility] [place] with CC of recurrent vomiting and sleeping over a few days. The patient's daughter stated that she went to check on her mom today and found that she is completely unresponsive and does not seem to know her. There is no report of any other recent illness. She was found to be in severe DKA and admitted to ICU. She received around 5 liters of the fluid. She is awake and comfortable now but doesn't answer any question and keeps starring at the interviewer. Allergies: Coded Allergies: No Known Allergies (Unverified , 04/14/18) Medication History Scheduled Diclofenac Sodium (Diclofenac Sodium), Unknown Dose PO DAILY, (Reported) Duloxetine Hcl* (Cymbalta*), 30 MG ORAL TWICE A DAY, (Reported) Insulin Aspart (Novolog Flexpen), 30 UNIT SUBQ BE, (Reported) Insulin Glargine,Hum.rec.anlog (Toujeo Solostar), 5-7 UNIT SQ AC, (Reported) Omeprazole Magnesium (Prilosec Otc), 20 MG ORAL DAILY, (Reported) Tizanidine Hcl* (Zanaflex*), 4 MG ORAL Q4HR, (Reported) Miscellaneous Medications Cyclobenzaprine Hcl* (Flexeril*), 5 MG ORAL, (Reported) Insulin Aspart (Novolog Flexpen), SQ, (Reported) Patient History Healthcare decision maker N Resuscitation status Advanced Directive on File Past Medical/Surgical History Past Medical/Surgical History: (1) Diabetes mellitus Review of Systems All Other Systems: negative except mentioned in HPI Physical Exam General Appearance: WD/WN, confused Lines, tubes and drains: peripheral HEENT: normocephalic, atraumatic Neck: non-tender, normal alignment Respiratory/Chest: chest wall non-tender, lungs clear Breasts: no masses Cardiovascular/Chest: normal peripheral pulses Abdomen: normal bowel sounds Genitourinary/Rectal: normal genital exam Extremities: normal range of motion Neurologic: smash fixer II-XII grossly normal Last 24 Hour Vital Signs Date Time Temp Pulse Resp B/P (MAP) Pulse Ox O2 Delivery O2 Flow Rate FiO2 10/12/19 10:24 100.0 10/12/19 10:00 100.0 119 21 125/60 (81) 98 10/12/19 09:30 120 21 121/54 (76) 98 10/12/19 09:00 121 19 115/57 (76) 98 10/12/19 08:30 122 25 107/54 (71) 97 10/12/19 08:00 100.5 123 25 116/47 (70) 98 10/12/19 08:00 Room Air 10/12/19 07:41 123 10/12/19 07:37 123 24 96 Room Air 21 10/12/19 07:30 124 26 105/44 (64) 98 10/12/19 07:00 123 25 107/47 (67) 98 10/12/19 06:30 123 26 107/50 (69) 98 10/12/19 06:00 125 24 110/52 (71) 99 10/12/19 05:00 128 25 97/78 (84) 99 10/12/19 04:45 128 31 116/44 (68) 98 10/12/19 04:30 129 33 112/43 (66) 100 10/12/19 04:15 99.5 130 31 112/41 (64) 98 10/12/19 04:00 131 10/12/19 04:00 131 32 109/44 (65) 98 10/12/19 04:00 Room Air 10/12/19 03:45 131 34 108/44 (65) 98 10/12/19 03:30 131 34 111/43 (65) 98 10/12/19 03:00 132 37 113/43 (66) 98 10/12/19 02:30 134 39 116/40 (65) 98 10/12/19 02:00 99.5 135 36 115/43 (67) 98 10/12/19 01:30 135 38 111/43 (65) 99 10/12/19 01:00 136 36 109/44 (65) 98 10/12/19 00:15 136 41 102/42 (62) 99 10/12/19 00:00 Room Air 10/12/19 00:00 100.3 137 36 100/44 (62) 98 10/11/19 23:45 139 36 105/43 (63) 98 10/11/19 23:31 138 10/11/19 23:30 137 36 106/39 (61) 98 10/11/19 23:15 137 33 101/44 (63) 98 10/11/19 23:00 138 32 99/40 (59) 98 10/11/19 22:45 136 35 99/42 (61) 98 10/11/19 22:30 135 35 96/43 (60) 98 10/11/19 22:15 134 31 99/42 (61) 98 10/11/19 22:00 131 33 100/43 (62) 98 10/11/19 21:30 129 32 95/40 (58) 98 10/11/19 21:15 126 28 94/39 (57) 99 10/11/19 21:00 126 30 97/38 (57) 99 10/11/19 20:45 125 30 91/37 (55) 99 10/11/19 20:30 124 29 85/38 (54) 99 10/11/19 20:15 125 29 82/36 (51) 99 10/11/19 20:00 Room Air 10/11/19 20:00 98.6 126 27 75/40 (52) 99 10/11/19 19:49 124 28 77/37 (50) 99 10/11/19 19:46 123 26 79/38 (52) 99 10/11/19 19:32 120 26 77/38 (51) 99 10/11/19 19:23 121 10/11/19 19:07 117 29 75/39 (51) 99 10/11/19 19:05 116 25 74/43 (53) 99 10/11/19 19:00 117 31 99 10/11/19 17:30 108 28 84/48 (60) 100 10/11/19 17:15 Room Air 10/11/19 17:00 94.1 106 29 87/43 (58) 100 10/11/19 16:30 104 23 99/56 (70) 100 10/11/19 16:20 89.2 95 29 95/48 100 Room Air 10/11/19 15:11 95 29 95/48 100 Room Air 10/11/19 13:38 89.2 94 30 93/50 100 Room Air 10/11/19 13:10 97.9 99 24 91/51 99 Room Air 10/11/19 12:53 97.9 100 24 91/51 (64) 99 Room Air Intake and Output 10/11/19 10/12/19 19:00 07:00 Intake Total 4934.5 ml Output Total 400 ml 1000 ml Balance -400 ml 3934.5 ml Intake IV Total 4934.5 ml Output Urine Total 400 ml 1000 ml Laboratory Tests Test 10/11/19 13:05 10/11/19 13:30 10/11/19 14:18 10/11/19 19:03 White Blood Count 33.9 K/UL (4.8-10.8) *H Red Blood Count 6.31 M/UL (4.20-5.40) H Hemoglobin 15.4 G/DL (12.0-16.0) Hematocrit 52.1 % (37.0-47.0) H Mean Corpuscular Volume 82 FL (80-99) Mean Corpuscular Hemoglobin 24.4 PG (27.0-31.0) L Mean Corpuscular Hemoglobin Concent 29.5 G/DL (32.0-36.0) L Red Cell Distribution Width 14.2 % (11.6-14.8) Platelet Count 570 K/UL (150-450) H Mean Platelet Volume 6.2 FL (6.5-10.1) L Neutrophils (%) (Auto) % (45.0-75.0) Lymphocytes (%) (Auto) % (20.0-45.0) Monocytes (%) (Auto) % (1.0-10.0) Eosinophils (%) (Auto) % (0.0-3.0) Basophils (%) (Auto) % (0.0-2.0) Differential Total Cells Counted 100 Neutrophils % (Manual) 76 % (45-75) H Lymphocytes % (Manual) 13 % (20-45) L Monocytes % (Manual) 7 % (1-10) Eosinophils % (Manual) 0 % (0-3) Basophils % (Manual) 0 % (0-2) Band Neutrophils 4 % (0-8) Platelet Estimate Increased H Platelet Morphology Normal Anisocytosis 1+ Lactic Acid Level 3.50 mmol/L (0.4-2.0) H 2.70 mmol/L (0.66-2.22) H Phosphorus Level 10.9 MG/DL (2.5-4.9) H Total Creatine Kinase 236 U/L (26-308) Creatine Kinase MB 4.0 NG/ML (0.0-3.6) H Creatine Kinase MB Relative Index 1.6 Troponin I 0.000 ng/mL (0.000-0.056) Urine Color Pale yellow Urine Appearance Clear Urine pH 5 (4.5-8.0) Urine Specific [place] 1.020 (1.005-1.035) Urine Protein 1+ (NEGATIVE) H Urine Glucose (UA) 4+ (NEGATIVE) H Urine Ketones 4+ (NEGATIVE) H Urine Blood Negative (NEGATIVE) Urine Nitrite Negative (NEGATIVE) Urine Bilirubin Negative (NEGATIVE) Urine Urobilinogen Normal MG/DL (0.0-1.0) Urine Leukocyte Esterase Negative (NEGATIVE) Urine RBC 0 /HPF (0 - 2) Urine WBC 0-2 /HPF (0 - 2) Urine Squamous Epithelial Cells Occasional /LPF Urine Bacteria Occasional /HPF (NONE) Sodium Level 151 MMOL/L (136-145) H Potassium Level 5.2 MMOL/L (3.5-5.1) H Chloride Level 112 MMOL/L (98-107) H Carbon Dioxide Level < 5 MMOL/L (21-32) *L Blood Urea Nitrogen 48 mg/dL (7-18) H Creatinine 2.1 MG/DL (0.55-1.30) H Estimat Glomerular Filtration Rate 29.8 mL/min (>60) Glucose Level 929 MG/DL (74-106) *H Calcium Level 8.1 MG/DL (8.5-10.1) L Magnesium Level 2.9 MG/DL (1.8-2.4) H Total Bilirubin 0.3 MG/DL (0.2-1.0) Aspartate Amino Transf (AST/SGOT) 17 U/L (15-37) Alanine Aminotransferase (ALT/SGPT) 18 U/L (12-78) Alkaline Phosphatase 110 U/L (46-116) Total Protein 6.0 G/DL (6.4-8.2) L Albumin 2.6 G/DL (3.4-5.0) L Globulin 3.4 g/dL Albumin/Globulin Ratio 0.8 (1.0-2.7) L Acetone Level Positive-moderate (NEGATIVE) Arterial Blood pH 6.971 (7.350-7.450) Arterial Blood Partial Pressure CO2 16.2 mmHg (35.0-45.0) *L Arterial Blood Partial Pressure O2 142.4 mmHg (75.0-100.0) H Arterial Blood HCO3 3.7 mmol/L (22.0-26.0) *L Arterial Blood Oxygen Saturation 98.2 % (95-100) Arterial Blood Base Excess -26.5 (-2-2) *L Apolinar Test Positive Test 10/11/19 19:27 10/11/19 22:07 10/12/19 05:19 10/12/19 07:37 Sodium Level 152 MMOL/L (136-145) H 161 MMOL/L (136-145) *H Potassium Level 4.3 MMOL/L (3.5-5.1) 3.6 MMOL/L (3.5-5.1) Chloride Level 116 MMOL/L (98-107) H 129 MMOL/L (98-107) H Carbon Dioxide Level 7 MMOL/L (21-32) *L 13 MMOL/L (21-32) L Anion Gap 30 mmol/L (5-15) H 19 mmol/L (5-15) H Blood Urea Nitrogen 56 mg/dL (7-18) H 51 mg/dL (7-18) H Creatinine 2.0 MG/DL (0.55-1.30) H 1.7 MG/DL (0.55-1.30) H Estimat Glomerular Filtration Rate 31.5 mL/min (>60) 37.9 mL/min (>60) Glucose Level 672 MG/DL (74-106) #*H 139 MG/DL (74-106) #H Lactic Acid Level 1.60 mmol/L (0.4-2.0) Calcium Level 7.9 MG/DL (8.5-10.1) L 8.3 MG/DL (8.5-10.1) L Total Bilirubin 0.4 MG/DL (0.2-1.0) 0.2 MG/DL (0.2-1.0) Aspartate Amino Transf (AST/SGOT) 21 U/L (15-37) 32 U/L (15-37) Alanine Aminotransferase (ALT/SGPT) 26 U/L (12-78) 25 U/L (12-78) Alkaline Phosphatase 123 U/L (46-116) H 98 U/L (46-116) Total Protein 7.0 G/DL (6.4-8.2) 5.8 G/DL (6.4-8.2) L Albumin 3.1 G/DL (3.4-5.0) L 2.8 G/DL (3.4-5.0) L Globulin 3.9 g/dL Albumin/Globulin Ratio 0.8 (1.0-2.7) L Arterial Blood pH 7.180 (7.350-7.450) 7.401 (7.350-7.450) Arterial Blood Partial Pressure CO2 18.8 mmHg (35.0-45.0) *L 23.0 mmHg (35.0-45.0) *L Arterial Blood Partial Pressure O2 106.7 mmHg (75.0-100.0) H 91.3 mmHg (75.0-100.0) Arterial Blood HCO3 6.9 mmol/L (22.0-26.0) *L 14.0 mmol/L (22.0-26.0) *L Arterial Blood Oxygen Saturation 97.3 % (95-100) 96.9 % (95-100) Arterial Blood Base Excess -19.5 (-2-2) *L -9.0 (-2-2) L Apolinar Test Positive Positive Prothrombin Time 10.8 SEC (9.30-11.50) Prothromb Time International Ratio 1.0 (0.9-1.1) Activated Partial Thromboplast Time 22 SEC (23-33) L Hemoglobin A1c 15.8 % (4.3-6.0) H Phosphorus Level 1.0 MG/DL (2.5-4.9) L Direct Bilirubin < 0.1 MG/DL (0.0-0.3) Triglycerides Level 88 MG/DL (30-150) Cholesterol Level 162 MG/DL (< 200) LDL Cholesterol 87 mg/dL (<100) HDL Cholesterol 51 MG/DL (40-60) Cholesterol/HDL Ratio 3.2 (3.3-4.4) L Microbiology Date/Time Source Procedure Growth Status 10/11/19 15:00 Nasopharynx Coronavirus COVID-19 PCR (GOOD) - Final Complete 10/11/19 13:30 Rectum Received Height (Feet): 5 Height (Inches): 6.00 Weight (Pounds): 192 Medications Current Medications Medications (Trade) Dose Ordered Sig/Saul Route PRN Reason Start Time Stop Time Status Last Admin Dose Admin Acetaminophen (Tylenol) 650 mg Q4H PRN ORAL Fever 10/11/19 17:30 11/10/19 17:29 Acetaminophen (Tylenol) 650 mg Q4H PRN RECTAL Temp >100.5 10/12/19 09:45 11/11/19 09:44 10/12/19 09:54 Albuterol/ Ipratropium (Albuterol/ Ipratropium) 3 ml Q4H PRN HHN Shortness of Breath 10/11/19 17:30 10/16/19 17:29 Cyclobenzaprine HCl (Flexeril) 5 mg DAILY ORAL 10/12/19 09:00 11/11/19 08:59 Dextrose (Dextrose 50%) 25 ml Q30M PRN IV [id number] 10/11/19 17:30 01/09/20 17:29 Dextrose (Dextrose 50%) 50 ml Q30M PRN IV Hypoglycemia 10/11/19 17:30 01/09/20 17:29 Dextrose/ Electrolytes 1,000 ml @ 75 mls/hr [id number] IV 10/12/19 12:00 11/11/19 11:59 Duloxetine HCl (Cymbalta) 30 mg TWICE A DAY ORAL 10/11/19 18:00 01/09/20 17:59 Heparin Sodium (Porcine) (Heparin 5000 units/ml) 5,000 units EVERY 12 HOURS SUBQ 10/11/19 21:00 11/25/19 20:59 10/12/19 08:41 Insulin Human (Reg)/Sodium Chloride 100 ml @ 0 mls/hr Q24H IVPB 10/11/19 22:15 01/09/20 22:14 10/12/19 00:07 Insulin Human Regular (NovoLIN R) 5 units PRN PRN IV BS 200-299 10/11/19 17:30 01/09/20 17:29 10/11/19 23:50 Insulin Human Regular (NovoLIN R) 10 units PRN PRN IV BS=>300 10/11/19 17:30 01/09/20 17:29 10/11/19 21:54 Lorazepam (Ativan 2mg/ml 1ml) 2 mg Q2H PRN IV agitation 10/11/19 17:30 10/18/19 17:29 Miscellaneous Medication (Insulin Rate Change) 1 ea PRN PRN MISC To Patient Comfort 10/11/19 17:30 01/09/20 17:29 10/12/19 05:56 Morphine Sulfate (Morphine Sulfate) 4 mg Q4H PRN IVP Severe Pain (Pain Scale 7-10) 10/11/19 17:30 10/18/19 17:29 10/12/19 10:14 Nitroglycerin (Ntg) 0.4 mg Q5M PRN SL Prn Chest Pain 10/11/19 17:30 11/10/19 17:29 Ondansetron HCl (Zofran) 4 mg Q6H PRN IVP Nausea & Vomiting 10/11/19 17:30 11/10/19 17:29 10/12/19 05:59 Polyethylene Glycol (Miralax) 17 gm DAILYPRN PRN ORAL Constipation 10/11/19 17:30 11/10/19 17:29 Potassium Phosphate 250 ml @ 62.5 mls/hr Q4H IVPB 10/12/19 10:00 10/12/19 17:59 10/12/19 10:05 Tizanidine HCl (Zanaflex) 4 mg Q4HR ORAL 10/11/19 21:00 01/09/20 20:59 UNV Assessment/Plan Problem List: (1) DKA (diabetic ketoacidoses) ICD Codes: E11.10 - Type 2 diabetes mellitus with ketoacidosis without coma SNOMED: 490305696, 67612705 (2) Urinary retention ICD Codes: R33.9 - Retention of urine, unspecified SNOMED: 426218457 (3) Renal failure ICD Codes: N19 - Unspecified kidney failure SNOMED: 82903336, 177050168 (4) Suspected 2019 novel coronavirus infection ICD Codes: Z20.828 - Contact with and (suspected) exposure to other viral communicable diseases SNOMED: 219094272 Assessment/Plan: iv fluids check electrolytes K and phos supplement keep insulin drip until anion gap closes change IV fluid to D5w + kcl keep NPO until mental status improves Gera Nunn MD Oct 12, 2019 12:01
[2019-10-12] MEDS ORDERED: Insulin Reg 100 units Premix 100 ML IVPB SCH (12:02)
[2019-10-12 12:21] LABS: CREATINE KINASE 631 U/L (26-308)
[2019-10-12] MEDS: D5W w/KCl 20mEq 1,000 ML IV SCH (12:36)
--- NOTE | 2019-10-12 12:50 | Consultation ---
History of Present Illness General Date patient seen: Oct 12, 2019 Chief Complaint: Abnormal Labs Reason for Consultation: icu management Present Illness HPI 54 y/o M with hx of Dm1 presented to ED on 10/10 with few days of recurrent vomiting and after being found unresponsive by daughter. Upon admission, patient was found to be on severe DKA and admitted to ICU. She received around 5L of fluid. Allergies: Coded Allergies: No Known Allergies (Unverified , 04/14/18) Medication History Scheduled Diclofenac Sodium (Diclofenac Sodium), Unknown Dose PO DAILY, (Reported) Duloxetine Hcl* (Cymbalta*), 30 MG ORAL TWICE A DAY, (Reported) Insulin Aspart (Novolog Flexpen), 30 UNIT SUBQ BE, (Reported) Insulin Glargine,Hum.rec.anlog (Toujeo Solostar), 5-7 UNIT SQ AC, (Reported) Omeprazole Magnesium (Prilosec Otc), 20 MG ORAL DAILY, (Reported) Tizanidine Hcl* (Zanaflex*), 4 MG ORAL Q4HR, (Reported) Miscellaneous Medications Cyclobenzaprine Hcl* (Flexeril*), 5 MG ORAL, (Reported) Insulin Aspart (Novolog Flexpen), SQ, (Reported) Patient History Healthcare decision maker N Resuscitation status Advanced Directive on File Patient History Narrative Pmhx: as above SHx: Denies: smoking, alcohol use, drug use Fhx: non contributory Review of Systems All Other Systems: negative except mentioned in HPI Physical Exam Physical Exam Narrative General Appearance: alert, other - Not responsive to verbal response. Eyes open. Head: normocephalic, atraumatic Eyes: bilateral eye normal inspection ENT: normal ENT inspection, no angioedema Neck: full range of motion, supple/symm/no masses Respiratory: lungs clear, normal breath sounds, no respiratory distress, no retraction, no accessory muscle use Cardiovascular : regular rate, rhythm, no edema Gastrointestinal: normal bowel sounds, distended - Large smooth mass palpated in lower abdomen Musculoskeletal: normal inspection, non-tender Neurologic: other - Altered, not answering questions. Non-focal. Skin: no rash, normal color Last 24 Hour Vital Signs Date Time Temp Pulse Resp B/P (MAP) Pulse Ox O2 Delivery O2 Flow Rate FiO2 10/12/19 12:00 Room Air 10/12/19 12:00 99.2 115 19 117/54 (75) 97 10/12/19 11:30 116 22 113/53 (73) 97 10/12/19 11:00 118 21 123/57 (79) 98 10/12/19 10:30 121 19 122/55 (77) 98 10/12/19 10:24 100.0 10/12/19 10:00 100.0 119 21 125/60 (81) 98 10/12/19 09:30 120 21 121/54 (76) 98 10/12/19 09:00 121 19 115/57 (76) 98 10/12/19 08:30 122 25 107/54 (71) 97 10/12/19 08:00 100.5 123 25 116/47 (70) 98 10/12/19 08:00 Room Air 10/12/19 07:41 123 10/12/19 07:37 123 24 96 Room Air 21 10/12/19 07:30 124 26 105/44 (64) 98 10/12/19 07:00 123 25 107/47 (67) 98 10/12/19 06:30 123 26 107/50 (69) 98 10/12/19 06:00 125 24 110/52 (71) 99 10/12/19 05:00 128 25 97/78 (84) 99 10/12/19 04:45 128 31 116/44 (68) 98 10/12/19 04:30 129 33 112/43 (66) 100 10/12/19 04:15 99.5 130 31 112/41 (64) 98 10/12/19 04:00 131 10/12/19 04:00 131 32 109/44 (65) 98 10/12/19 04:00 Room Air 10/12/19 03:45 131 34 108/44 (65) 98 10/12/19 03:30 131 34 111/43 (65) 98 10/12/19 03:00 132 37 113/43 (66) 98 10/12/19 02:30 134 39 116/40 (65) 98 10/12/19 02:00 99.5 135 36 115/43 (67) 98 10/12/19 01:30 135 38 111/43 (65) 99 10/12/19 01:00 136 36 109/44 (65) 98 10/12/19 00:15 136 41 102/42 (62) 99 10/12/19 00:00 Room Air 10/12/19 00:00 100.3 137 36 100/44 (62) 98 10/11/19 23:45 139 36 105/43 (63) 98 10/11/19 23:31 138 10/11/19 23:30 137 36 106/39 (61) 98 10/11/19 23:15 137 33 101/44 (63) 98 10/11/19 23:00 138 32 99/40 (59) 98 10/11/19 22:45 136 35 99/42 (61) 98 10/11/19 22:30 135 35 96/43 (60) 98 10/11/19 22:15 134 31 99/42 (61) 98 10/11/19 22:00 131 33 100/43 (62) 98 10/11/19 21:30 129 32 95/40 (58) 98 10/11/19 21:15 126 28 94/39 (57) 99 10/11/19 21:00 126 30 97/38 (57) 99 10/11/19 20:45 125 30 91/37 (55) 99 10/11/19 20:30 124 29 85/38 (54) 99 10/11/19 20:15 125 29 82/36 (51) 99 10/11/19 20:00 Room Air 10/11/19 20:00 98.6 126 27 75/40 (52) 99 10/11/19 19:49 124 28 77/37 (50) 99 10/11/19 19:46 123 26 79/38 (52) 99 10/11/19 19:32 120 26 77/38 (51) 99 10/11/19 19:23 121 10/11/19 19:07 117 29 75/39 (51) 99 10/11/19 19:05 116 25 74/43 (53) 99 10/11/19 19:00 117 31 99 10/11/19 17:30 108 28 84/48 (60) 100 10/11/19 17:15 Room Air 10/11/19 17:00 94.1 106 29 87/43 (58) 100 10/11/19 16:30 104 23 99/56 (70) 100 10/11/19 16:20 89.2 95 29 95/48 100 Room Air 10/11/19 15:11 95 29 95/48 100 Room Air 10/11/19 13:38 89.2 94 30 93/50 100 Room Air 10/11/19 13:10 97.9 99 24 99 Room Air 10/11/19 12:53 97.9 100 24 (64) 99 Room Air Intake and Output 10/11/19 10/12/19 19:00 07:00 Intake Total 4934.5 ml Output Total 400 ml 1000 ml Balance -400 ml 3934.5 ml Intake IV Total 4934.5 ml Output Urine Total 400 ml 1000 ml Laboratory Tests Test 10/11/19 13:05 10/11/19 13:30 10/11/19 14:18 10/11/19 19:03 White Blood Count 33.9 K/UL (4.8-10.8) *H Red Blood Count 6.31 M/UL (4.20-5.40) H Hemoglobin 15.4 G/DL (12.0-16.0) Hematocrit 52.1 % (37.0-47.0) H Mean Corpuscular Volume 82 FL (80-99) Mean Corpuscular Hemoglobin 24.4 PG (27.0-31.0) L Mean Corpuscular Hemoglobin Concent 29.5 G/DL (32.0-36.0) L Red Cell Distribution Width 14.2 % (11.6-14.8) Platelet Count 570 K/UL (150-450) H Mean Platelet Volume 6.2 FL (6.5-10.1) L Neutrophils (%) (Auto) % (45.0-75.0) Lymphocytes (%) (Auto) % (20.0-45.0) Monocytes (%) (Auto) % (1.0-10.0) Eosinophils (%) (Auto) % (0.0-3.0) Basophils (%) (Auto) % (0.0-2.0) Differential Total Cells Counted 100 Neutrophils % (Manual) 76 % (45-75) H Lymphocytes % (Manual) 13 % (20-45) L Monocytes % (Manual) 7 % (1-10) Eosinophils % (Manual) 0 % (0-3) Basophils % (Manual) 0 % (0-2) Band Neutrophils 4 % (0-8) Platelet Estimate Increased H Platelet Morphology Normal Anisocytosis 1+ Lactic Acid Level 3.50 mmol/L (0.4-2.0) H 2.70 mmol/L (0.66-2.22) H Phosphorus Level 10.9 MG/DL (2.5-4.9) H Total Creatine Kinase 236 U/L (26-308) Creatine Kinase MB 4.0 NG/ML (0.0-3.6) H Creatine Kinase MB Relative Index 1.6 Troponin I 0.000 ng/mL (0.000-0.056) Urine Color Pale yellow Urine Appearance Clear Urine pH 5 (4.5-8.0) Urine Specific [place] 1.020 (1.005-1.035) Urine Protein 1+ (NEGATIVE) H Urine Glucose (UA) 4+ (NEGATIVE) H Urine Ketones 4+ (NEGATIVE) H Urine Blood Negative (NEGATIVE) Urine Nitrite Negative (NEGATIVE) Urine Bilirubin Negative (NEGATIVE) Urine Urobilinogen Normal MG/DL (0.0-1.0) Urine Leukocyte Esterase Negative (NEGATIVE) Urine RBC 0 /HPF (0 - 2) Urine WBC 0-2 /HPF (0 - 2) Urine Squamous Epithelial Cells Occasional /LPF Urine Bacteria Occasional /HPF (NONE) Sodium Level 151 MMOL/L (136-145) H Potassium Level 5.2 MMOL/L (3.5-5.1) H Chloride Level 112 MMOL/L (98-107) H Carbon Dioxide Level < 5 MMOL/L (21-32) *L Blood Urea Nitrogen 48 mg/dL (7-18) H Creatinine 2.1 MG/DL (0.55-1.30) H Estimat Glomerular Filtration Rate 29.8 mL/min (>60) Glucose Level 929 MG/DL (74-106) *H Calcium Level 8.1 MG/DL (8.5-10.1) L Magnesium Level 2.9 MG/DL (1.8-2.4) H Total Bilirubin 0.3 MG/DL (0.2-1.0) Aspartate Amino Transf (AST/SGOT) 17 U/L (15-37) Alanine Aminotransferase (ALT/SGPT) 18 U/L (12-78) Alkaline Phosphatase 110 U/L (46-116) Total Protein 6.0 G/DL (6.4-8.2) L Albumin 2.6 G/DL (3.4-5.0) L Globulin 3.4 g/dL Albumin/Globulin Ratio 0.8 (1.0-2.7) L Acetone Level Positive-moderate (NEGATIVE) Arterial Blood pH 6.971 (7.350-7.450) Arterial Blood Partial Pressure CO2 16.2 mmHg (35.0-45.0) *L Arterial Blood Partial Pressure O2 142.4 mmHg (75.0-100.0) H Arterial Blood HCO3 3.7 mmol/L (22.0-26.0) *L Arterial Blood Oxygen Saturation 98.2 % (95-100) Arterial Blood Base Excess -26.5 (-2-2) *L Apolinar Test Positive Test 10/11/19 19:27 10/11/19 22:07 10/12/19 05:19 10/12/19 07:37 Sodium Level 152 MMOL/L (136-145) H 161 MMOL/L (136-145) *H Potassium Level 4.3 MMOL/L (3.5-5.1) 3.6 MMOL/L (3.5-5.1) Chloride Level 116 MMOL/L (98-107) H 129 MMOL/L (98-107) H Carbon Dioxide Level 7 MMOL/L (21-32) *L 13 MMOL/L (21-32) L Anion Gap 30 mmol/L (5-15) H 19 mmol/L (5-15) H Blood Urea Nitrogen 56 mg/dL (7-18) H 51 mg/dL (7-18) H Creatinine 2.0 MG/DL (0.55-1.30) H 1.7 MG/DL (0.55-1.30) H Estimat Glomerular Filtration Rate 31.5 mL/min (>60) 37.9 mL/min (>60) Glucose Level 672 MG/DL (74-106) #*H 139 MG/DL (74-106) #H Lactic Acid Level 1.60 mmol/L (0.4-2.0) Calcium Level 7.9 MG/DL (8.5-10.1) L 8.3 MG/DL (8.5-10.1) L Total Bilirubin 0.4 MG/DL (0.2-1.0) 0.2 MG/DL (0.2-1.0) Aspartate Amino Transf (AST/SGOT) 21 U/L (15-37) 32 U/L (15-37) Alanine Aminotransferase (ALT/SGPT) 26 U/L (12-78) 25 U/L (12-78) Alkaline Phosphatase 123 U/L (46-116) H 98 U/L (46-116) Total Protein 7.0 G/DL (6.4-8.2) 5.8 G/DL (6.4-8.2) L Albumin 3.1 G/DL (3.4-5.0) L 2.8 G/DL (3.4-5.0) L Globulin 3.9 g/dL Albumin/Globulin Ratio 0.8 (1.0-2.7) L Arterial Blood pH 7.180 (7.350-7.450) 7.401 (7.350-7.450) Arterial Blood Partial Pressure CO2 18.8 mmHg (35.0-45.0) *L 23.0 mmHg (35.0-45.0) *L Arterial Blood Partial Pressure O2 106.7 mmHg (75.0-100.0) H 91.3 mmHg (75.0-100.0) Arterial Blood HCO3 6.9 mmol/L (22.0-26.0) *L 14.0 mmol/L (22.0-26.0) *L Arterial Blood Oxygen Saturation 97.3 % (95-100) 96.9 % (95-100) Arterial Blood Base Excess -19.5 (-2-2) *L -9.0 (-2-2) L Apolinar Test Positive Positive Prothrombin Time 10.8 SEC (9.30-11.50) Prothromb Time International Ratio 1.0 (0.9-1.1) Activated Partial Thromboplast Time 22 SEC (23-33) L Hemoglobin A1c 15.8 % (4.3-6.0) H Uric Acid 11.5 MG/DL (2.6-7.2) H Phosphorus Level 1.0 MG/DL (2.5-4.9) L Direct Bilirubin < 0.1 MG/DL (0.0-0.3) Total Creatine Kinase 631 U/L (26-308) H Triglycerides Level 88 MG/DL (30-150) Cholesterol Level 162 MG/DL (< 200) LDL Cholesterol 87 mg/dL (<100) HDL Cholesterol 51 MG/DL (40-60) Cholesterol/HDL Ratio 3.2 (3.3-4.4) L Microbiology Date/Time Source Procedure Growth Status 10/11/19 15:00 Nasopharynx Coronavirus COVID-19 PCR (GOOD) - Final Complete 10/11/19 13:30 Rectum Received Height (Feet): 5 Height (Inches): 6.00 Weight (Pounds): 192 Medications Current Medications Medications (Trade) Dose Ordered Sig/Saul Route PRN Reason Start Time Stop Time Status Last Admin Dose Admin Acetaminophen (Tylenol) 650 mg Q4H PRN ORAL Fever 10/11/19 17:30 11/10/19 17:29 Acetaminophen (Tylenol) 650 mg Q4H PRN RECTAL Temp >100.5 10/12/19 09:45 11/11/19 09:44 10/12/19 09:54 Albuterol/ Ipratropium (Albuterol/ Ipratropium) 3 ml Q4H PRN HHN Shortness of Breath 10/11/19 17:30 10/16/19 17:29 Cyclobenzaprine HCl (Flexeril) 5 mg DAILY ORAL 10/12/19 09:00 11/11/19 08:59 Dextrose (Dextrose 50%) 25 ml Q30M PRN IV HYPOGLYCEMIA 10/11/19 17:30 01/09/20 17:29 Dextrose (Dextrose 50%) 50 ml Q30M PRN IV Hypoglycemia 10/11/19 17:30 01/09/20 17:29 Dextrose/ Electrolytes 1,000 ml @ 75 mls/hr [id number] IV 10/12/19 12:00 11/11/19 11:59 Duloxetine HCl (Cymbalta) 30 mg TWICE A DAY ORAL 10/11/19 18:00 01/09/20 17:59 Heparin Sodium (Porcine) (Heparin 5000 units/ml) 5,000 units EVERY 12 HOURS SUBQ 10/11/19 21:00 11/25/19 20:59 10/12/19 08:41 Insulin Human (Reg)/Sodium Chloride 100 ml @ 0 mls/hr Q24H IVPB 10/12/19 12:02 01/10/20 12:01 Insulin Human Regular (NovoLIN R) 5 units PRN PRN IV BS 200-299 10/11/19 17:30 01/09/20 17:29 10/11/19 23:50 Insulin Human Regular (NovoLIN R) 10 units PRN PRN IV BS=>300 10/11/19 17:30 01/09/20 17:29 10/11/19 21:54 Lorazepam (Ativan 2mg/ml 1ml) 2 mg Q2H PRN IV agitation 10/11/19 17:30 10/18/19 17:29 Miscellaneous Medication (Insulin Rate Change) 1 ea PRN PRN MISC To Patient Comfort 10/11/19 17:30 01/09/20 17:29 10/12/19 05:56 Morphine Sulfate (Morphine Sulfate) 4 mg Q4H PRN IVP Severe Pain (Pain Scale 7-10) 10/11/19 17:30 10/18/19 17:29 10/12/19 10:14 Nitroglycerin (Ntg) 0.4 mg Q5M PRN SL Prn Chest Pain 10/11/19 17:30 11/10/19 17:29 Ondansetron HCl (Zofran) 4 mg Q6H PRN IVP Nausea & Vomiting 10/11/19 17:30 11/10/19 17:29 10/12/19 05:59 Polyethylene Glycol (Miralax) 17 gm DAILYPRN PRN ORAL Constipation 10/11/19 17:30 11/10/19 17:29 Potassium Phosphate 250 ml @ 62.5 mls/hr Q4H IVPB 10/12/19 10:00 10/12/19 17:59 10/12/19 10:05 Tizanidine HCl (Zanaflex) 4 mg Q4HR ORAL 10/11/19 21:00 01/09/20 20:59 UNV Assessment/Plan Assessment/Plan: Abx: Ceftriaxone x1 10/10 Azithromycin x1 10/10 Assessment: Severe sepsis Probable pNA vs pulmonary edema- r/o COVID -10/10 SARS-COV2 PCR neg Low grade fever Leukocytosis -CT abd/p: Bilateral basilar pulmonary groundglass opacities, may indicate early pneumonia changes. Limited assessment of the GI tract, due to lack of enteric contrast administration.Mild rectal distention with stool, mild rectal fecal impaction possible. Distended bladder. Mildly enlarged uterus with calcifications, may indicate diffuse fibroid change. Distended bladder. Incidental finding of degenerative spondylosis DKA severe anion gap metabolic acidosis ТАТЬЯНА, improving Acute encephalopathy- 2ry to above -CT head: no acute findings Dm1, uncontrolled Plan: -Continue empiric Ceftriaxone and Azithromycin #2 -f/u cx -Monitor CBC/CMP, temperature -COVID19 isolation and testing; send 2nd test -aspiration precautions Thank you for consulting [facility]. Will continue to follow along with you. Oxana Chi M.D. Oct 12, 2019 12:50
--- NOTE | 2019-10-12 12:58 | Consultation ---
Consult Note Consult Note I am asked to evaluate the patient at the request of PMD for fluid and electrolyte management. Patient also have abnormal renal parameters, abnormal electrolytes, and abnormal blood chemistries. Patient was seen in ICU room E. Evaluated data reviewed. Discussed with RN. Patient lethargic. Emergency room note: This patient has a history of type 1 diabetes. The patient is unable to give any type of history and the history obtained from EMS and the family is very limited. Apparently over the past couple days the patient has had recurrent vomiting and has been sleeping. The daughter of the patient states that she went to check on her mom today and found that she is completely unresponsive and does not seem to know her. There is no report of any other recent illness. There is no report of any other complaints other than vomiting over the past couple days. History is very limited. No Known Allergies (Unverified , 04/14/18) COVID-19 Screening Contact w/high risk pt: No Recent Travel to affected area: No Experienced COVID-19 symptoms?: No COVID-19 Testing performed STOCKROOM ASSOCIATE: No Past Medical History: see triage record, DM, other - OA Hx Diabetes: Yes History of psych disease Patient examined Data reviewed Discussed with RN . Assessment/Plan 54-year-old female admitted with a diagnosis of diabetic ketoacidosis Renal failure, mainly prerenal secondary to dehydration due to hyperglycemia and excess water loss Abnormal electrolyte related to underlying DKA and dehydration Leukocytosis, underlying sepsis Toxic metabolic encephalopathy Hypothermia Suspected 2019 novel coronavirus infection Metabolic acidosis due to DKA Suggestions: Hydrate Keep the electrolytes and blood chemistries under check Keep blood pressure and blood sugar under control N.p.o. until mental status improves Discussed with RN Per orders I spent an additional 36 minutes on review of medical records including prior hospital records,consult notes, progress notes, procedures ,imaging labs, hemodynamics, and other clinical documentation. Over 35 min Delvin Armas MD Oct 12, 2019 12:58
[2019-10-12] MEDS: Phospha 250 Neutral tab ORAL SCH ×2 (13:15→17:51)
[2019-10-12] MEDS: Sodium Citrate 30ml ORAL SCH ×3 (13:15→23:17)
[2019-10-12] MEDS: Azithromycin 500 MG in D5W 275 ML IV SCH (13:32)
[2019-10-12] MEDS: cefTRIAXone 1 GM in D5W 55 ML IVPB SCH (14:40)
--- NOTE | 2019-10-12 15:29 | Diagnostic Imaging Report ---
Indication: Abnormal renal function tests Technique: Grayscale and duplex images of the kidneys, retroperitoneum, and bladder were obtained. Comparison: none Findings: Right kidney measures 10.9 cm in length. Left kidney measures 11.2 cm in length. Both kidneys demonstrate normal echogenicity. No hydronephrosis. No focal abnormality. Normal inferior vena cava. Bladder is empty, contains a Coleman catheter. Impression: Negative for hydronephrosis or other renal abnormality Empty bladder with a Coleman catheter.
--- NOTE | 2019-10-12 16:40 | History & Physical ---
History and Physical History & Physicial H&P dictated, Keven Winslow MD Oct 12, 2019 16:40
[2019-10-12 18:09] LABS: ANION GAP 14 mmol/L (5-15); BLOOD UREA NITROGEN 38 mg/dL (7-18); CALCIUM 8.2 MG/DL (8.5-10.1); CARBON DIOXIDE 20 MMOL/L (21-32); CHLORIDE 130 MMOL/L (98-107); CREATININE 1.2 MG/DL (0.55-1.30)
[2019-10-12 18:13] LABS: SODIUM 163 MMOL/L (136-145)
[2019-10-12] MEDS: Pantoprazole Inj IVP SCH (21:41)
[2019-10-13] VITALS (24 sets, daily range): BP systolic 93–150; BP diastolic 53–95
[2019-10-13] MEDS: Insulin Reg 100 units Premix 100 ML IVPB SCH (00:11)
[2019-10-13] MEDS: D5W w/KCl 20mEq 1,000 ML IV SCH (01:59)
[2019-10-13] MEDS: Sodium Citrate 30ml ORAL SCH (05:27)
[2019-10-13 07:19] LABS: HEMATOCRIT 35.2 % (37.0-47.0); HEMOGLOBIN 11.9 G/DL (12.0-16.0); LYMPHOCYTES % (AUTO) 23.2 % (20.0-45.0); MEAN CORPUSCULAR VOLUME 76 FL (80-99); MONOCYTES % (AUTO) 7.6 % (1.0-10.0); NEUTROPHILS % (AUTO) 68.2 % (45.0-75.0); PLATELET COUNT 221 K/UL (150-450); RED BLOOD COUNT 4.65 M/UL (4.20-5.40); RED CELL DISTRIBUTION WIDTH 13.6 % (11.6-14.8); WHITE BLOOD COUNT 13.8 K/UL (4.8-10.8)
[2019-10-13 07:52] LABS: ALANINE AMINOTRANSFERASE 24 U/L (12-78); ALBUMIN 2.6 G/DL (3.4-5.0); ALBUMIN/GLOBULIN RATIO 0.8 (1.0-2.7); ALKALINE PHOSPHATASE 85 U/L (46-116); ANION GAP 12 mmol/L (5-15); ASPARTATE AMINO TRANSFERASE 60 U/L (15-37); BILIRUBIN,TOTAL 0.3 MG/DL (0.2-1.0); BLOOD UREA NITROGEN 23 mg/dL (7-18); CALCIUM 8.4 MG/DL (8.5-10.1); CARBON DIOXIDE 21 MMOL/L (21-32); CHLORIDE 129 MMOL/L (98-107); CREATININE 0.9 MG/DL (0.55-1.30); PHOSPHORUS 1.4 MG/DL (2.5-4.9); POTASSIUM 3.1 MMOL/L (3.5-5.1)
[2019-10-13 07:53] LABS: SODIUM 163 MMOL/L (136-145)
[2019-10-13 08:43] LABS: % IRON SATURATION 9 % (15-50); IRON 20 ug/dL (50-175); TOTAL IRON BINDING CAPACITY 212 ug/dL (250-450)
[2019-10-13] MEDS ORDERED: NovoLOG Insulin Flexpen SUBQ SCH (09:00)
[2019-10-13] MEDS: NovoLOG Insulin Flexpen SUBQ SCH ×8 (09:00→21:00)
[2019-10-13] MEDS: Cyclobenzaprine 10mg Tab ORAL SCH (09:27)
[2019-10-13] MEDS: Pantoprazole Inj IVP SCH ×2 (09:27→20:33)
[2019-10-13] MEDS: DULoxetine 30mg cap ORAL SCH ×2 (09:31→17:25)
[2019-10-13] MEDS: Phospha 250 Neutral tab ORAL SCH (09:31)
[2019-10-13] MEDS: Heparin 5000 units/ml inj SUBQ SCH ×2 (09:33→20:35)
[2019-10-13] MEDS: Levemir Flexpen SUBQ SCH ×2 (09:34→17:26)
--- NOTE | 2019-10-13 10:21 | Pulmonolgy Critical Care Note ---
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 Critical Care - Objective Last 24 Hour Vital Signs Date Time Temp Pulse Resp B/P (MAP) Pulse Ox O2 Delivery O2 Flow Rate FiO2 10/13/19 07:00 110 23 130/95 (107) 98 10/13/19 06:00 109 23 120/60 (80) 97 10/13/19 05:00 108 20 104/53 (70) 97 10/13/19 04:00 98.5 109 24 93/54 (67) 95 10/13/19 04:00 109 10/13/19 04:00 Room Air 10/13/19 03:00 115 21 141/93 (109) 100 10/13/19 02:00 110 19 129/63 (85) 98 10/13/19 01:00 114 19 143/69 (93) 100 10/13/19 00:00 Room Air 10/13/19 00:00 98.7 112 17 139/69 (92) 99 10/13/19 00:00 113 10/12/19 23:00 107 17 116/56 (76) 98 10/12/19 22:12 98.3 10/12/19 22:00 110 17 129/64 (85) 97 10/12/19 21:00 116 17 139/76 (97) 100 10/12/19 20:40 116 15 150/67 (94) 100 10/12/19 20:00 Room Air 10/12/19 20:00 98.5 115 22 150/67 (94) 97 10/12/19 20:00 115 10/12/19 19:42 111 22 92 Room Air 21 10/12/19 19:00 111 22 116/54 (74) 97 10/12/19 18:30 112 22 126/57 (80) 99 10/12/19 18:00 109 18 130/60 (83) 97 10/12/19 17:30 111 18 134/59 (84) 99 10/12/19 17:00 109 17 129/57 (81) 98 10/12/19 16:30 110 17 130/60 (83) 97 10/12/19 16:07 111 10/12/19 16:00 Room Air 10/12/19 16:00 98.3 110 25 114/60 (78) 98 10/12/19 15:30 109 15 119/60 (79) 97 10/12/19 15:00 114 23 126/67 (86) 98 10/12/19 14:30 113 22 117/64 (81) 98 10/12/19 14:00 113 22 110/58 (75) 97 10/12/19 13:30 116 20 131/56 (81) 97 10/12/19 13:00 117 20 127/62 (83) 98 10/12/19 12:30 116 22 130/58 (82) 100 10/12/19 12:26 116 10/12/19 12:00 Room Air 10/12/19 12:00 99.2 115 19 117/54 (75) 97 10/12/19 11:30 116 22 113/53 (73) 97 10/12/19 11:00 118 21 123/57 (79) 98 10/12/19 10:30 121 19 122/55 (77) 98 10/12/19 10:24 100.0 Status: somnolent Condition: critical Neck: full ROM Lungs: clear Heart: HR/BP stable, regular Abdomen: soft, active bowel sounds Extremities: no C/C/E Decubiti: location Micro: Microbiology Date/Time Source Procedure Growth Status 10/11/19 13:05 Blood Blood Culture - Preliminary NO GROWTH AFTER 24 HOURS Resulted 10/11/19 13:05 Blood Blood Culture - Preliminary NO GROWTH AFTER 24 HOURS Resulted 10/12/19 16:00 Nasopharynx Coronavirus COVID-19 PCR (GOOD) - Final Complete 10/11/19 15:00 Nasopharynx Coronavirus COVID-19 PCR (GOOD) - Final Complete 10/11/19 13:30 Nasal Nares MRSA Culture - Final NO METHICILLIN RESISTANT STAPH AUREUS... Complete 10/11/19 13:30 Rectum VRE Culture - Final NO VANCOMYCIN RESISTANT ENTEROCOCCUS ... Complete 10/11/19 13:00 Rectum - Final NO CARBAPENEM-RESISTANT ENTEROBACTERI... Complete Accucheck: 125 Critical Care - Subjective ROS Limited/Unobtainable: No Interval Events: still confused FI02: 21 Sputum Amount: None I&O: Intake and Output 10/12/19 10/13/19 19:00 07:00 Intake Total 1510.79 ml 1254.5 ml Output Total 850 ml 1095 ml Balance 660.79 ml 159.5 ml Intake IV Total 1510.79 ml 1254.5 ml Output Urine Total 850 ml 1095 ml Labs: Laboratory Tests Test 10/12/19 16:00 10/12/19 17:25 10/13/19 05:59 Urine Legionella Antigen Pending Sodium Level 163 MMOL/L (136-145) *H 163 MMOL/L (136-145) *H Potassium Level 3.0 MMOL/L (3.5-5.1) L 3.1 MMOL/L (3.5-5.1) L Chloride Level 130 MMOL/L (98-107) H 129 MMOL/L (98-107) H Carbon Dioxide Level 20 MMOL/L (21-32) L 21 MMOL/L (21-32) Anion Gap 14 mmol/L (5-15) 12 mmol/L (5-15) Blood Urea Nitrogen 38 mg/dL (7-18) H 23 mg/dL (7-18) H Creatinine 1.2 MG/DL (0.55-1.30) 0.9 MG/DL (0.55-1.30) Estimat Glomerular Filtration Rate 56.7 mL/min (>60) > 60 mL/min (>60) Glucose Level 129 MG/DL (74-106) H 147 MG/DL (74-106) H Calcium Level 8.2 MG/DL (8.5-10.1) L 8.4 MG/DL (8.5-10.1) L White Blood Count 13.8 K/UL (4.8-10.8) H Red Blood Count 4.65 M/UL (4.20-5.40) Hemoglobin 11.9 G/DL (12.0-16.0) L Hematocrit 35.2 % (37.0-47.0) L Mean Corpuscular Volume 76 FL (80-99) L Mean Corpuscular Hemoglobin 25.5 PG (27.0-31.0) L Mean Corpuscular Hemoglobin Concent 33.7 G/DL (32.0-36.0) Red Cell Distribution Width 13.6 % (11.6-14.8) Platelet Count 221 K/UL (150-450) Mean Platelet Volume 5.7 FL (6.5-10.1) L Neutrophils (%) (Auto) 68.2 % (45.0-75.0) Lymphocytes (%) (Auto) 23.2 % (20.0-45.0) Monocytes (%) (Auto) 7.6 % (1.0-10.0) Eosinophils (%) (Auto) 0.0 % (0.0-3.0) Basophils (%) (Auto) 1.0 % (0.0-2.0) Erythrocyte Sedimentation Rate 65 MM/HR (0-30) H Uric Acid 8.4 MG/DL (2.6-7.2) H Phosphorus Level 1.4 MG/DL (2.5-4.9) L Magnesium Level 2.1 MG/DL (1.8-2.4) Iron Level 20 ug/dL (50-175) L Total Iron Binding Capacity 212 ug/dL (250-450) L Percent Iron Saturation 9 % (15-50) L Unsaturated Iron Binding 192 ug/dL (112-346) Ferritin 144 NG/ML (8-388) Total Bilirubin 0.3 MG/DL (0.2-1.0) Gamma Glutamyl Transpeptidase 25 U/L (5-85) Aspartate Amino Transf (AST/SGOT) 60 U/L (15-37) H Alanine Aminotransferase (ALT/SGPT) 24 U/L (12-78) Alkaline Phosphatase 85 U/L (46-116) Troponin I 0.015 ng/mL (0.000-0.056) C-Reactive Protein, Quantitative 2.7 mg/dL (0.00-0.90) H Pro-B-Type Natriuretic Peptide 738 pg/mL (0-125) H Total Protein 5.9 G/DL (6.4-8.2) L Albumin 2.6 G/DL (3.4-5.0) L Globulin 3.3 g/dL Albumin/Globulin Ratio 0.8 (1.0-2.7) L Vitamin B12 Level 1012 PG/ML (193-986) H Folate 19.9 NG/ML (8.6-58.9) Gera Nunn MD Oct 13, 2019 10:21
--- NOTE | 2019-10-13 10:23 | Nephrology Progress Note ---
Assessment/Plan Problem List: (1) Renal failure Assessment: Mainly acute secondary to dehydration (2) DKA (diabetic ketoacidoses) (3) Urinary retention (4) Encephalopathy Assessment: Toxic metabolic (5) Dehydration (6) Electrolyte imbalance Assessment 54-year-old female admitted with a diagnosis of diabetic ketoacidosis Renal failure, mainly prerenal secondary to dehydration due to hyperglycemia and excess water loss Abnormal electrolyte related to underlying DKA and dehydration Leukocytosis, underlying sepsis Toxic metabolic encephalopathy Hypothermia Suspected 2019 novel coronavirus infection Metabolic acidosis due to DKA Plan Hydrate Keep the electrolytes and blood chemistries under check Keep blood pressure and blood sugar under control N.p.o. until mental status improves Discussed with RN Per orders Subjective ROS Limited/Unobtainable: No Constitutional: Reports: malaise, weakness Objective Objective Last 24 Hour Vital Signs Date Time Temp Pulse Resp B/P (MAP) Pulse Ox O2 Delivery O2 Flow Rate FiO2 10/13/19 07:00 110 23 130/95 (107) 98 10/13/19 06:00 109 23 120/60 (80) 97 10/13/19 05:00 108 20 104/53 (70) 97 10/13/19 04:00 98.5 109 24 93/54 (67) 95 10/13/19 04:00 109 10/13/19 04:00 Room Air 10/13/19 03:00 115 21 141/93 (109) 100 10/13/19 02:00 110 19 129/63 (85) 98 10/13/19 01:00 114 19 143/69 (93) 100 10/13/19 00:00 Room Air 10/13/19 00:00 98.7 112 17 139/69 (92) 99 10/13/19 00:00 113 10/12/19 23:00 107 17 116/56 (76) 98 10/12/19 22:12 98.3 10/12/19 22:00 110 17 129/64 (85) 97 10/12/19 21:00 116 17 139/76 (97) 100 10/12/19 20:40 116 15 150/67 (94) 100 10/12/19 20:00 Room Air 10/12/19 20:00 98.5 115 22 150/67 (94) 97 10/12/19 20:00 115 10/12/19 19:42 111 22 92 Room Air 21 10/12/19 19:00 111 22 116/54 (74) 97 10/12/19 18:30 112 22 126/57 (80) 99 10/12/19 18:00 109 18 130/60 (83) 97 10/12/19 17:30 111 18 134/59 (84) 99 10/12/19 17:00 109 17 129/57 (81) 98 10/12/19 16:30 110 17 130/60 (83) 97 10/12/19 16:07 111 10/12/19 16:00 Room Air 10/12/19 16:00 98.3 110 25 114/60 (78) 98 10/12/19 15:30 109 15 119/60 (79) 97 10/12/19 15:00 114 23 126/67 (86) 98 10/12/19 14:30 113 22 117/64 (81) 98 10/12/19 14:00 113 22 110/58 (75) 97 10/12/19 13:30 116 20 131/56 (81) 97 10/12/19 13:00 117 20 127/62 (83) 98 10/12/19 12:30 116 22 130/58 (82) 100 10/12/19 12:26 116 10/12/19 12:00 Room Air 10/12/19 12:00 99.2 115 19 117/54 (75) 97 10/12/19 11:30 116 22 113/53 (73) 97 10/12/19 11:00 118 21 123/57 (79) 98 10/12/19 10:30 121 19 122/55 (77) 98 10/12/19 10:24 100.0 Intake and Output 10/12/19 10/13/19 19:00 07:00 Intake Total 1510.79 ml 1254.5 ml Output Total 850 ml 1095 ml Balance 660.79 ml 159.5 ml Intake IV Total 1510.79 ml 1254.5 ml Output Urine Total 850 ml 1095 ml Laboratory Tests 10/12/19 16:00: Urine Legionella Antigen [Pending] 10/12/19 17:25: Sodium Level 163*H, Potassium Level 3.0L, Chloride Level 130H, Carbon Dioxide Level 20L, Anion Gap 14, Blood Urea Nitrogen 38H, Creatinine 1.2, Estimat Glomerular Filtration Rate 56.7, Glucose Level 129H, Calcium Level 8.2L 10/13/19 05:59: Sodium Level 163*H, Potassium Level 3.1L, Chloride Level 129H, Carbon Dioxide Level 21, Anion Gap 12, Blood Urea Nitrogen 23H, Creatinine 0.9, Estimat Glomerular Filtration Rate > 60, Glucose Level 147H, Calcium Level 8.4L, White Blood Count 13.8H, Red Blood Count 4.65, Hemoglobin 11.9L, Hematocrit 35.2L, Mean Corpuscular Volume 76L, Mean Corpuscular Hemoglobin 25.5L, Mean Corpuscular Hemoglobin Concent 33.7, Red Cell Distribution Width 13.6, Platelet Count 221, Mean Platelet Volume 5.7L, Neutrophils (%) (Auto) 68.2, Lymphocytes ( %) (Auto) 23.2, Monocytes (%) (Auto) 7.6, Eosinophils (%) (Auto) 0.0, Basophils (%) (Auto) 1.0, Erythrocyte Sedimentation Rate 65H, Uric Acid 8.4H, Phosphorus Level 1.4L, Magnesium Level 2.1, Iron Level 20L, Total Iron Binding Capacity 212L, Percent Iron Saturation 9L, Unsaturated Iron Binding 192, Ferritin 144, Total Bilirubin 0.3, Gamma Glutamyl Transpeptidase 25, Aspartate Amino Transf ( AST/SGOT) 60H, Alanine Aminotransferase (ALT/SGPT) 24, Alkaline Phosphatase 85, Troponin I 0.015, C-Reactive Protein, Quantitative 2.7H, Pro-B-Type Natriuretic Peptide 738H, Total Protein 5.9L, Albumin 2.6L, Globulin 3.3, Albumin/Globulin Ratio 0.8L, Vitamin B12 Level 1012H, Folate 19.9 Height (Feet): 5 Height (Inches): 6.00 Weight (Pounds): 191 General Appearance: no apparent distress, lethargic Cardiovascular: tachycardia Respiratory/Chest: decreased breath sounds Abdomen: soft Delvin Armas MD Oct 13, 2019 10:23
[2019-10-13] MEDS: Potassium Phosphate 15mm/250ml 250 ML IVPB SCH ×3 (11:58→20:33)
[2019-10-13] MEDS: Azithromycin 500 MG in D5W 275 ML IV SCH (12:01)
[2019-10-13] MEDS: cefTRIAXone 1 GM in D5W 55 ML IVPB SCH (14:05)
--- NOTE | 2019-10-13 15:35 | Internal Med Progress Note ---
Subjective Date of Service: Oct 13, 2019 Physician Name Jagdish Bear Attending Physician Keven Winslow MD Current Medications Medications (Trade) Dose Ordered Sig/Saul Route PRN Reason Start Time Stop Time Status Last Admin Dose Admin Acetaminophen (Tylenol) 650 mg Q4H PRN ORAL Fever 10/11/19 17:30 11/10/19 17:29 Acetaminophen (Tylenol) 650 mg Q4H PRN RECTAL Temp >100.5 10/12/19 09:45 11/11/19 09:44 10/12/19 09:54 Albuterol/ Ipratropium (Albuterol/ Ipratropium) 3 ml Q4H PRN HHN Shortness of Breath 10/11/19 17:30 10/16/19 17:29 Azithromycin 500 mg/Dextrose 275 ml @ 275 mls/hr Q24HRS IV 10/12/19 13:00 10/18/19 13:59 10/13/19 12:01 Ceftriaxone Sodium 1 gm/ Dextrose 55 ml @ 110 mls/hr Q24H IVPB 10/12/19 14:00 10/19/19 13:59 10/13/19 14:05 Dextrose 1,000 ml @ 75 mls/hr [id number] IV 10/13/19 10:30 11/12/19 10:29 10/13/19 10:30 Dextrose (Dextrose 50%) 25 ml Q30M PRN IV Hypoglycemia 10/13/19 08:00 01/11/20 07:59 Dextrose (Dextrose 50%) 50 ml Q30M PRN IV Hypoglycemia 10/13/19 08:00 01/11/20 07:59 Duloxetine HCl (Cymbalta) 30 mg TWICE A DAY ORAL 10/11/19 18:00 01/09/20 17:59 10/13/19 09:31 Heparin Sodium (Porcine) (Heparin 5000 units/ml) 5,000 units EVERY 12 HOURS SUBQ 10/11/19 21:00 11/25/19 20:59 10/13/19 09:33 Insulin Aspart (NovoLOG) 4 units Q4HR SUBQ 10/13/19 09:00 01/11/20 08:59 10/13/19 09:35 Insulin Aspart (NovoLOG) Administer even if pt is NPO Q4HR SUBQ 10/13/19 09:00 01/11/20 08:59 Insulin Detemir (Levemir) 20 units BID SUBQ 10/13/19 09:00 01/11/20 08:59 10/13/19 09:34 Lorazepam (Ativan 2mg/ml 1ml) 2 mg Q2H PRN IV agitation 10/11/19 17:30 10/18/19 17:29 10/13/19 02:30 Morphine Sulfate (Morphine Sulfate) 4 mg Q4H PRN IVP Severe Pain (Pain Scale 7-10) 10/11/19 17:30 10/18/19 17:29 10/12/19 21:42 Nitroglycerin (Ntg) 0.4 mg Q5M PRN SL Prn Chest Pain 10/11/19 17:30 11/10/19 17:29 Ondansetron HCl (Zofran) 4 mg Q6H PRN IVP Nausea & Vomiting 10/11/19 17:30 11/10/19 17:29 10/13/19 02:30 Pantoprazole (Protonix) 40 mg EVERY 12 HOURS IVP 10/12/19 21:30 11/11/19 21:29 10/13/19 09:27 Polyethylene Glycol (Miralax) 17 gm DAILYPRN PRN ORAL Constipation 10/11/19 17:30 11/10/19 17:29 Potassium Phosphate 250 ml @ 62.5 mls/hr Q4H IVPB 10/13/19 12:00 10/13/19 23:59 10/13/19 11:58 Allergies: Coded Allergies: No Known Allergies (Unverified , 04/14/18) ROS Limited/Unobtainable: Yes Subjective 54 YO F admitted with diabetic ketoacidosis. Now pneumonia. Cover for Int Jose Alfredo- Dr Winslow. ICU Objective Last Vital Signs Date Time Temp Pulse Resp B/P (MAP) Pulse Ox O2 Delivery O2 Flow Rate FiO2 10/13/19 15:00 104 19 120/63 (82) 99 10/13/19 12:00 98.6 10/13/19 12:00 Room Air Room Air 10/12/19 19:42 21 General Appearance: WD/WN, no apparent distress, lethargic EENT: PERRL/EOMI, normal ENT inspection, TMs normal Neck: non-tender, normal alignment, supple, normal inspection Cardiovascular: normal peripheral pulses, normal rate, regular rhythm, no gallop/murmur, no JVD Respiratory/Chest: chest wall non-tender, lungs clear, normal breath sounds, no respiratory distress, no accessory muscle use Abdomen: normal bowel sounds, non tender, soft, no organomegaly, no mass Extremities: normal range of motion, non-tender Neurologic: 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 II-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 grossly normal, no motor/sensory deficits Skin: normal pigmentation, warm/dry Laboratory Tests Test 10/12/19 16:00 10/12/19 17:25 10/13/19 05:59 Urine Legionella Antigen Pending Sodium Level 163 MMOL/L (136-145) *H 163 MMOL/L (136-145) *H Potassium Level 3.0 MMOL/L (3.5-5.1) L 3.1 MMOL/L (3.5-5.1) L Chloride Level 130 MMOL/L (98-107) H 129 MMOL/L (98-107) H Carbon Dioxide Level 20 MMOL/L (21-32) L 21 MMOL/L (21-32) Anion Gap 14 mmol/L (5-15) 12 mmol/L (5-15) Blood Urea Nitrogen 38 mg/dL (7-18) H 23 mg/dL (7-18) H Creatinine 1.2 MG/DL (0.55-1.30) 0.9 MG/DL (0.55-1.30) Estimat Glomerular Filtration Rate 56.7 mL/min (>60) > 60 mL/min (>60) Glucose Level 129 MG/DL (74-106) H 147 MG/DL (74-106) H Calcium Level 8.2 MG/DL (8.5-10.1) L 8.4 MG/DL (8.5-10.1) L White Blood Count 13.8 K/UL (4.8-10.8) H Red Blood Count 4.65 M/UL (4.20-5.40) Hemoglobin 11.9 G/DL (12.0-16.0) L Hematocrit 35.2 % (37.0-47.0) L Mean Corpuscular Volume 76 FL (80-99) L Mean Corpuscular Hemoglobin 25.5 PG (27.0-31.0) L Mean Corpuscular Hemoglobin Concent 33.7 G/DL (32.0-36.0) Red Cell Distribution Width 13.6 % (11.6-14.8) Platelet Count 221 K/UL (150-450) Mean Platelet Volume 5.7 FL (6.5-10.1) L Neutrophils (%) (Auto) 68.2 % (45.0-75.0) Lymphocytes (%) (Auto) 23.2 % (20.0-45.0) Monocytes (%) (Auto) 7.6 % (1.0-10.0) Eosinophils (%) (Auto) 0.0 % (0.0-3.0) Basophils (%) (Auto) 1.0 % (0.0-2.0) Erythrocyte Sedimentation Rate 65 MM/HR (0-30) H Uric Acid 8.4 MG/DL (2.6-7.2) H Phosphorus Level 1.4 MG/DL (2.5-4.9) L Magnesium Level 2.1 MG/DL (1.8-2.4) Iron Level 20 ug/dL (50-175) L Total Iron Binding Capacity 212 ug/dL (250-450) L Percent Iron Saturation 9 % (15-50) L Unsaturated Iron Binding 192 ug/dL (112-346) Ferritin 144 NG/ML (8-388) Total Bilirubin 0.3 MG/DL (0.2-1.0) Gamma Glutamyl Transpeptidase 25 U/L (5-85) Aspartate Amino Transf (AST/SGOT) 60 U/L (15-37) H Alanine Aminotransferase (ALT/SGPT) 24 U/L (12-78) Alkaline Phosphatase 85 U/L (46-116) Troponin I 0.015 ng/mL (0.000-0.056) C-Reactive Protein, Quantitative 2.7 mg/dL (0.00-0.90) H Pro-B-Type Natriuretic Peptide 738 pg/mL (0-125) H Total Protein 5.9 G/DL (6.4-8.2) L Albumin 2.6 G/DL (3.4-5.0) L Globulin 3.3 g/dL Albumin/Globulin Ratio 0.8 (1.0-2.7) L Vitamin B12 Level 1012 PG/ML (193-986) H Folate 19.9 NG/ML (8.6-58.9) Microbiology Date/Time Source Procedure Growth Status 10/11/19 13:05 Blood Blood Culture - Preliminary NO GROWTH AFTER 24 HOURS Resulted 10/11/19 13:05 Blood Blood Culture - Preliminary NO GROWTH AFTER 24 HOURS Resulted 10/12/19 16:00 Nasopharynx Coronavirus COVID-19 PCR (GOOD) - Final Complete 10/11/19 15:00 Nasopharynx Coronavirus COVID-19 PCR (GOOD) - Final Complete 10/11/19 13:30 Nasal Nares MRSA Culture - Final NO METHICILLIN RESISTANT STAPH AUREUS... Complete 10/11/19 13:30 Rectum VRE Culture - Final NO VANCOMYCIN RESISTANT ENTEROCOCCUS ... Complete 10/11/19 13:00 Rectum - Final NO CARBAPENEM-RESISTANT ENTEROBACTERI... Complete Intake and Output 10/12/19 10/13/19 19:00 07:00 Intake Total 1510.79 ml 1254.5 ml Output Total 850 ml 1095 ml Balance 660.79 ml 159.5 ml Intake IV Total 1510.79 ml 1254.5 ml Output Urine Total 850 ml 1095 ml Assessment/Plan Problem List: (1) Leukocytosis (2) Pneumonia Assessment & Plan: ID=Dr Chi; Pulmonary = Dr Nunn. Continue ceftriaxone and azithromycin (3) Metabolic acidosis due to diabetes mellitus (4) Hypernatremia (5) DKA (diabetic ketoacidoses) Assessment & Plan: Continue levemir and novolog sliding scale insulin. Endocrinology=Dr Lr (6) Encephalopathy Assessment & Plan: CT brain=normal (7) Diabetes mellitus (8) Renal failure Assessment & Plan: Nephrology = Dr Armas Status: not improved Jagdish Bear MD Oct 13, 2019 15:35
--- NOTE | 2019-10-13 19:14 | Infectious Diseases Prog Note ---
Assessment/Plan Assessment/Plan Abx: Ceftriaxone x1 10/10 Azithromycin x1 10/10 Assessment: Severe sepsis Probable pNA vs pulmonary edema- r/o COVID -10/10 SARS-COV2 PCR neg -10/11 SARS CoV PCR neg Low grade fever Leukocytosis -CT abd/p: Bilateral basilar pulmonary groundglass opacities, may indicate early pneumonia changes. Limited assessment of the GI tract, due to lack of enteric contrast administration.Mild rectal distention with stool, mild rectal fecal impaction possible. Distended bladder. Mildly enlarged uterus with calcifications, may indicate diffuse fibroid change. Distended bladder. Incidental finding of degenerative spondylosis DKA severe anion gap metabolic acidosis ТАТЬЯНА, improving Acute encephalopathy- 2ry to above -CT head: no acute findings Dm1, uncontrolled Plan: -Continue empiric Ceftriaxone and Azithromycin #3 -f/u cx -Monitor CBC/CMP, temperature -SARS CoV PCR neg x2, continue isolation for now given unclear etiology of fevers -aspiration precautions DW RN Thank you for consulting [facility]. Will continue to follow along with you. Subjective Allergies: Coded Allergies: No Known Allergies (Unverified , 04/14/18) Subjective Last fever yesterday morning on RA WBC better now on SQ insulin Objective Vital Signs Last 24 Hour Vital Signs Date Time Temp Pulse Resp B/P (MAP) Pulse Ox O2 Delivery O2 Flow Rate FiO2 10/13/19 18:00 101 24 133/69 (90) 100 10/13/19 17:00 98 21 112/63 (79) 83 10/13/19 16:00 Room Air Room Air 10/13/19 16:00 102 10/13/19 16:00 99.0 101 20 129/70 (89) 98 10/13/19 15:00 104 19 120/63 (82) 99 10/13/19 14:00 102 13 126/64 (84) 99 10/13/19 13:00 103 23 106/72 (83) 96 10/13/19 12:00 98.6 106 21 123/62 (82) 98 10/13/19 12:00 Room Air Room Air 10/13/19 12:00 104 10/13/19 11:00 106 23 113/64 (80) 98 10/13/19 10:00 112 23 120/65 (83) 98 10/13/19 09:00 115 24 127/82 (97) 99 10/13/19 08:00 Room Air Room Air 10/13/19 08:00 106 10/13/19 08:00 98.7 108 23 116/58 (77) 97 10/13/19 07:00 110 23 130/95 (107) 98 10/13/19 06:00 109 23 120/60 (80) 97 10/13/19 05:00 108 20 104/53 (70) 97 10/13/19 04:00 98.5 109 24 93/54 (67) 95 10/13/19 04:00 109 10/13/19 04:00 Room Air 10/13/19 03:00 115 21 141/93 (109) 100 10/13/19 02:00 110 19 129/63 (85) 98 10/13/19 01:00 114 19 143/69 (93) 100 10/13/19 00:00 Room Air 10/13/19 00:00 98.7 112 17 139/69 (92) 99 10/13/19 00:00 113 10/12/19 23:00 107 17 116/56 (76) 98 10/12/19 22:12 98.3 10/12/19 22:00 110 17 129/64 (85) 97 10/12/19 21:00 116 17 139/76 (97) 100 10/12/19 20:40 116 15 150/67 (94) 100 10/12/19 20:00 Room Air 10/12/19 20:00 98.5 115 22 150/67 (94) 97 10/12/19 20:00 115 10/12/19 19:42 111 22 92 Room Air 21 Height (Feet): 5 Height (Inches): 6.00 Weight (Pounds): 191 General Appearance: no acute distress HEENT: atraumatic Respiratory/Chest: no respiratory distress, no accessory muscle use Abdomen: non distended Skin: other - normal pigmentation Neurologic/Psychiatric: alert, responsive Microbiology Date/Time Source Procedure Growth Status 10/11/19 13:05 Blood Blood Culture - Preliminary NO GROWTH AFTER 24 HOURS Resulted 10/11/19 13:05 Blood Blood Culture - Preliminary NO GROWTH AFTER 24 HOURS Resulted 10/12/19 16:00 Nasopharynx Coronavirus COVID-19 PCR (GOOD) - Final Complete 10/11/19 15:00 Nasopharynx Coronavirus COVID-19 PCR (GOOD) - Final Complete 10/11/19 13:30 Nasal Nares MRSA Culture - Final NO METHICILLIN RESISTANT STAPH AUREUS... Complete 10/11/19 13:30 Rectum VRE Culture - Final NO VANCOMYCIN RESISTANT ENTEROCOCCUS ... Complete 10/11/19 13:00 Rectum - Final NO CARBAPENEM-RESISTANT ENTEROBACTERI... Complete Laboratory Tests Test 10/13/19 05:59 White Blood Count 13.8 K/UL (4.8-10.8) H Red Blood Count 4.65 M/UL (4.20-5.40) Hemoglobin 11.9 G/DL (12.0-16.0) L Hematocrit 35.2 % (37.0-47.0) L Mean Corpuscular Volume 76 FL (80-99) L Mean Corpuscular Hemoglobin 25.5 PG (27.0-31.0) L Mean Corpuscular Hemoglobin Concent 33.7 G/DL (32.0-36.0) Red Cell Distribution Width 13.6 % (11.6-14.8) Platelet Count 221 K/UL (150-450) Mean Platelet Volume 5.7 FL (6.5-10.1) L Neutrophils (%) (Auto) 68.2 % (45.0-75.0) Lymphocytes (%) (Auto) 23.2 % (20.0-45.0) Monocytes (%) (Auto) 7.6 % (1.0-10.0) Eosinophils (%) (Auto) 0.0 % (0.0-3.0) Basophils (%) (Auto) 1.0 % (0.0-2.0) Erythrocyte Sedimentation Rate 65 MM/HR (0-30) H Sodium Level 163 MMOL/L (136-145) *H Potassium Level 3.1 MMOL/L (3.5-5.1) L Chloride Level 129 MMOL/L (98-107) H Carbon Dioxide Level 21 MMOL/L (21-32) Anion Gap 12 mmol/L (5-15) Blood Urea Nitrogen 23 mg/dL (7-18) H Creatinine 0.9 MG/DL (0.55-1.30) Estimat Glomerular Filtration Rate > 60 mL/min (>60) Glucose Level 147 MG/DL (74-106) H Uric Acid 8.4 MG/DL (2.6-7.2) H Calcium Level 8.4 MG/DL (8.5-10.1) L Phosphorus Level 1.4 MG/DL (2.5-4.9) L Magnesium Level 2.1 MG/DL (1.8-2.4) Iron Level 20 ug/dL (50-175) L Total Iron Binding Capacity 212 ug/dL (250-450) L Percent Iron Saturation 9 % (15-50) L Unsaturated Iron Binding 192 ug/dL (112-346) Ferritin 144 NG/ML (8-388) Total Bilirubin 0.3 MG/DL (0.2-1.0) Gamma Glutamyl Transpeptidase 25 U/L (5-85) Aspartate Amino Transf (AST/SGOT) 60 U/L (15-37) H Alanine Aminotransferase (ALT/SGPT) 24 U/L (12-78) Alkaline Phosphatase 85 U/L (46-116) Troponin I 0.015 ng/mL (0.000-0.056) C-Reactive Protein, Quantitative 2.7 mg/dL (0.00-0.90) H Pro-B-Type Natriuretic Peptide 738 pg/mL (0-125) H Total Protein 5.9 G/DL (6.4-8.2) L Albumin 2.6 G/DL (3.4-5.0) L Globulin 3.3 g/dL Albumin/Globulin Ratio 0.8 (1.0-2.7) L Vitamin B12 Level 1012 PG/ML (193-986) H Folate 19.9 NG/ML (8.6-58.9) Current Medications Medications (Trade) Dose Ordered Sig/Saul Route PRN Reason Start Time Stop Time Status Last Admin Dose Admin Acetaminophen (Tylenol) 650 mg Q4H PRN ORAL Fever 10/11/19 17:30 11/10/19 17:29 Acetaminophen (Tylenol) 650 mg Q4H PRN RECTAL Temp >100.5 10/12/19 09:45 11/11/19 09:44 10/12/19 09:54 Albuterol/ Ipratropium (Albuterol/ Ipratropium) 3 ml Q4H PRN HHN Shortness of Breath 10/11/19 17:30 10/16/19 17:29 Azithromycin 500 mg/Dextrose 275 ml @ 275 mls/hr Q24HRS IV 10/12/19 13:00 10/18/19 13:59 10/13/19 12:01 Ceftriaxone Sodium 1 gm/ Dextrose 55 ml @ 110 mls/hr Q24H IVPB 10/12/19 14:00 10/19/19 13:59 10/13/19 14:05 Dextrose 1,000 ml @ 75 mls/hr [id number] IV 10/13/19 10:30 11/12/19 10:29 10/13/19 10:30 Dextrose (Dextrose 50%) 25 ml Q30M PRN IV Hypoglycemia 10/13/19 08:00 01/11/20 07:59 10/13/19 17:22 Dextrose (Dextrose 50%) 50 ml Q30M PRN IV Hypoglycemia 10/13/19 08:00 01/11/20 07:59 Duloxetine HCl (Cymbalta) 30 mg TWICE A DAY ORAL 10/11/19 18:00 01/09/20 17:59 10/13/19 09:31 Heparin Sodium (Porcine) (Heparin 5000 units/ml) 5,000 units EVERY 12 HOURS SUBQ 10/11/19 21:00 11/25/19 20:59 10/13/19 09:33 Insulin Aspart (NovoLOG) 4 units Q4HR SUBQ 10/13/19 09:00 01/11/20 08:59 10/13/19 09:35 Insulin Aspart (NovoLOG) Administer even if pt is NPO Q4HR SUBQ 10/13/19 09:00 01/11/20 08:59 Insulin Detemir (Levemir) 20 units BID SUBQ 10/13/19 09:00 01/11/20 08:59 10/13/19 09:34 Lorazepam (Ativan 2mg/ml 1ml) 2 mg Q2H PRN IV agitation 10/11/19 17:30 10/18/19 17:29 10/13/19 02:30 Morphine Sulfate (Morphine Sulfate) 4 mg Q4H PRN IVP Severe Pain (Pain Scale 7-10) 10/11/19 17:30 10/18/19 17:29 10/12/19 21:42 Nitroglycerin (Ntg) 0.4 mg Q5M PRN SL Prn Chest Pain 10/11/19 17:30 11/10/19 17:29 Ondansetron HCl (Zofran) 4 mg Q6H PRN IVP Nausea & Vomiting 10/11/19 17:30 11/10/19 17:29 10/13/19 02:30 Pantoprazole (Protonix) 40 mg EVERY 12 HOURS IVP 10/12/19 21:30 11/11/19 21:29 10/13/19 09:27 Polyethylene Glycol (Miralax) 17 gm DAILYPRN PRN ORAL Constipation 10/11/19 17:30 11/10/19 17:29 Potassium Phosphate 250 ml @ 62.5 mls/hr Q4H IVPB 10/13/19 12:00 10/13/19 23:59 10/13/19 16:00 Gerardo Nguyen MD Oct 13, 2019 19:14
[2019-10-13] MEDS: Morphine Sulfate 4mg/ml Inj (IV USE ONLY) IVP PRN (20:34)
--- NOTE | 2019-10-13 22:30 | Consultation ---
DATE OF CONSULTATION: 10/13/2019 ENDOCRINE CONSULTATION CONSULTING PHYSICIAN: Neo Lr MD REFERRING PHYSICIAN: Gera Nunn MD REASON FOR CONSULTATION: Diabetic ketoacidosis. HISTORY OF PRESENT ILLNESS: Ms. Waterman is a 54-year-old female with a history of type 1 diabetes, on insulin as an outpatient, who was brought into the hospital 2 days ago by paramedics. The patient's daughter went and checked on her on the day of admission and found her unresponsive. Apparently, the patient had nausea and vomiting for the past couple of days before that, no recent illness. The patient was thought to be severe DKA, admitted to the ICU, and started on insulin drip and was given rigorous amount of IV fluid. This was the under care of Dr. Nunn. The patient has been ruled out for COVID infection and so far her rapid test has been negative. PAST MEDICAL HISTORY: Type 1 diabetes, uncontrolled. Her hemoglobin A1c on [facility] lab was 17 in May 2018. PAST SURGICAL HISTORY: Unknown. REVIEW OF SYSTEMS: A 12 point review of systems was performed. The pertinent positives and negatives were mentioned in the history of present illness. ALLERGIES TO MEDICATIONS: None. MEDICATIONS: Reviewed and reconciled. LABORATORY VALUES: WBC 13.8, hemoglobin 11, hematocrit 35, platelets of 221. Sodium 163, potassium 3.1, chloride 129, bicarb 41, anion gap 12, BUN of 223, glucose of 147, hemoglobin A1c of 15.8. Uric acid is 8.4. Lactic acid on presentation was 3.5, but then normalized to 1.6. B12 was elevated at 1012, LDL is 87, triglyceride is 88. Troponin 0.015. PHYSICAL EXAM: VITAL SIGNS: BP 106/72, heart rate 103, temperature 98.6. HEENT: Pupils are equal and reactive to light. Sclerae are anicteric. NECK: No JVD. No thyromegaly. LUNGS: Clear. HEART: Regular rate and rhythm. ABDOMEN: Positive bowel sounds. EXTREMITIES: No clubbing, cyanosis or for edema. DIAGNOSES: 1. DKA. 2. Type 1 diabetes, out of control. PLAN: 1. Discontinue insulin drip. Anion gap is closed. 2. Continue IV fluids to treat hypernatremia. 3. Frequent electrolytes monitoring, repletion if needed. 4. Start Levemir 20 units b.i.d. 5. Start NovoLog 4 units every 4 hours. 6. NovoLog sliding scale before meals and at bedtime. 7. The patient is still on p.o. 8. Hypoglycemia protocol is in order. 9. I will follow the patient during the stay. Thank you Dr. Nunn for the courtesy of this consultation. Neo Lr M.D. DR: JUAQUIN JOB#: [id number] CC: [place]
--- NOTE | 2019-10-13 23:00 | History and Physical Report ---
DATE OF ADMISSION: 10/11/2019 CHIEF COMPLAINT: Altered mental status, nausea, vomiting. HISTORY OF PRESENT ILLNESS: This is a 54-year-old female with past medical history significant for diabetes type 1, morbid obesity, depression who presented to the emergency department complaining about recurrent nausea and vomiting and sleeping over the past few days, more somnolent. The patient's daughter stated that she went to check on her mom and was found to be completely unresponsive and does not seem to know what is going on. The patient has not reported other earlier illness; however, she was found to have severe DKA in the emergency department as well as abnormal chest x-ray with infiltrate. Subsequently, the patient was admitted to the ICU with altered mental status, most likely secondary to toxic metabolic encephalopathy as a result of the DKA as well as possible pneumonia on a chest x-ray, rule out COVID-19. PAST MEDICAL HISTORY AND PAST SURGICAL HISTORY: As above, history of diabetes type 1, morbid obesity, depression. ALLERGIES: No known drug allergies. SOCIAL HISTORY: Unknown. Patient at this time is altered and cannot get any appropriate history. FAMILY HISTORY: Noncontributory. REVIEW OF SYSTEMS: Mostly as above. No fever or chills was reported. However, the patient has been having nausea and vomiting. Denies any hemoptysis or hematochezia. No head or neck trauma was reported. PHYSICAL EXAMINATION: VITAL SIGNS: Temperature 97.9, pulse of 100, respirations 24, blood pressure 91/51. GENERAL: The patient is awake, responsive only with opening her eyes with deep stimulation, cannot follow commands. HEAD AND NECK: Pupils are equal and reactive to light. Extraocular movements intact. Neck was supple. No JVD. LUNGS: Good air entry. Poor inspiratory effort. No wheeze or rhonchi. Occasional crackles in bases. HEART: S1, S2. Regular rhythm. Distant heart sounds. The patient is tachycardic. ABDOMEN: Soft, nondistended, nontender. Positive bowel sounds. The patient has morbid obesity. EXTREMITIES: No cyanosis, clubbing, or edema. NEUROLOGIC: Very limited secondary to the patient's status. The patient is alert and oriented only to her name, x1, and the patient is moving extremities spontaneously; however, cannot follow commands. RECTAL/GENITOURINARY: Refused and deferred. PSYCHIATRIC: Mood and affect, unable to obtain. LABORATORY DATA: On admission from the emergency room is significant for ABG, pH of 6.971, pCO2 of 16, pO2 of 142, saturating 98.2. CBC, WBC of 33.9, hemoglobin 15, hematocrit 52, platelets 570. The patient has 75% neutrophils, 4 neutrophilic bands identified. PT of 10, INR 1.1, PTT of 22. The patient's lactic acid is 3.50, phosphorus is 10.9, sodium 151, potassium 5.2, chloride 112, bicarb is less than 5, BUN is 48, creatinine 2.1, GFR is 29, glucose level is 929, AST of 70, ALT of , alkaline phosphatase 110, total protein is 6.0, albumin is 2.6. Lactate level is positive moderate. Urine is clear, pH is 5, total protein is +1, glucose is +4, negative nitrite, negative leukocytes. The patient's chest x-ray was noted to be bilateral mild interstitial prominence, could indicate early infiltrate versus edema. CT of the head was done, negative for acute intracranial bleed or mass effect. Mild cerebral cortical volume loss. CT of the chest and abdomen, lack of enteric contrast, limited assessment of the GI tract. The stomach is mildly distended with fluid filled, no small bowel distention, no free or loculated intraperitoneal gas or fluid is evident. The rectum is minimally distended with stool. No evidence of diverticulosis or diverticulitis. Appendix is not definitely visualized, but no findings to suggest acute appendicitis are evident. Uterus is mildly enlarged without discrete abnormality. The lung bases demonstrate patchy ground-glass opacity bilaterally with more discrete focal abnormalities seen in the left side. Bones are unremarkable, mild degenerative spondylolysis changes. ASSESSMENT: 1. DKA. 2. Diabetes, type 2, uncontrolled. 3. Morbid obesity. 4. Acute kidney injury and chronic renal insufficiency. 5. Urinary retention. 6. Altered mental status, most likely secondary to toxic metabolic encephalopathy. 7. . 8. Metabolic acidosis. 9. . 10. Dehydration. 11. Pneumonia, possible, rule out COVID-19 infection. PLAN: Admit the patient to ICU. We will follow up with Dr. Nunn from Pulmonary Critical Care and Dr. Chi, Infection Disease, and Dr. Armas from Nephrology. Aggressive IV hydration. Keep the patient NPO. Monitor laboratory as well as cultures. Follow up with potassium phosphate supplements as needed. Monitor series of ABG. Broad-spectrum antibiotic with Rocephin and azithromycin. The patient was admitted to COVID-19 isolation room. Follow up with COVID-19 test. Code status is Full Code. DVT prophylaxis, heparin subcutaneous. Keven Winslow M.D. DR: SALUD JOB#: [id number] CC:
[2019-10-14] VITALS (10 sets, daily range): BP systolic 92–144; BP diastolic 48–87
[2019-10-14] MEDS ORDERED: Nitroglycerin Subl 0.4mg tab SL PRN (01:15)
[2019-10-14] MEDS ORDERED: LORazepam Inj 2mg/ml 1ml IV PRN (01:30)
[2019-10-14] MEDS ORDERED: Albuterol/Ipratropium 3ml neb HHN PRN (01:30)
[2019-10-14] MEDS ORDERED: Miralax 17gm pkt ORAL PRN (01:30)
[2019-10-14] MEDS ORDERED: Acetaminophen 650 MG SUPP RECTAL PRN (01:45)
[2019-10-14] MEDS: Morphine Sulfate 4mg/ml Inj (IV USE ONLY) IVP PRN ×4 (03:06→22:26)
[2019-10-14] MEDS: NovoLOG Insulin Flexpen SUBQ SCH ×9 (04:52→21:00)
--- NOTE | 2019-10-14 07:08 | Pulmonology Progress Note ---
Subjective ROS Limited/Unobtainable: Yes Allergies: Coded Allergies: No Known Allergies (Unverified , 04/14/18) Subjective leuk resolved, afebrile off insulin gtt seen by endo in tele reports being hungry low K this am Objective Last 24 Hour Vital Signs Date Time Temp Pulse Resp B/P (MAP) Pulse Ox O2 Delivery O2 Flow Rate FiO2 10/14/19 04:00 98.2 101 16 138/78 (98) 100 10/14/19 04:00 101 10/14/19 02:00 98.1 95 14 135/81 (99) 98 10/14/19 01:15 97.5 92 19 142/85 (104) 98 10/14/19 01:00 95 18 135/61 (85) 98 10/14/19 00:06 98.5 91 19 134/61 (85) 99 10/14/19 00:00 91 10/14/19 00:00 Room Air Room Air 10/13/19 23:00 95 129/61 (83) 98 10/13/19 22:00 95 18 136/67 (90) 98 10/13/19 21:04 98.7 10/13/19 21:00 94 18 150/90 (110) 99 10/13/19 20:00 99.0 96 19 132/79 (96) 99 10/13/19 20:00 Room Air Room Air 10/13/19 20:00 94 10/13/19 19:28 98 21 97 Room Air 21 10/13/19 19:00 95 31 120/65 (83) 98 10/13/19 18:00 101 24 133/69 (90) 100 10/13/19 17:00 98 21 112/63 (79) 83 10/13/19 16:00 Room Air Room Air 10/13/19 16:00 102 10/13/19 16:00 99.0 101 20 129/70 (89) 98 10/13/19 15:00 104 19 120/63 (82) 99 10/13/19 14:00 102 13 126/64 (84) 99 10/13/19 13:00 103 23 106/72 (83) 96 10/13/19 12:00 98.6 106 21 123/62 (82) 98 10/13/19 12:00 Room Air Room Air 10/13/19 12:00 104 10/13/19 11:00 106 23 113/64 (80) 98 10/13/19 10:00 112 23 120/65 (83) 98 10/13/19 09:00 115 24 127/82 (97) 99 10/13/19 08:00 Room Air Room Air 10/13/19 08:00 106 10/13/19 08:00 98.7 108 23 116/58 (77) 97 Intake and Output 10/13/19 10/14/19 19:00 07:00 Intake Total 1939.0 ml 579.5 ml Output Total 1150 ml 875 ml Balance 789.0 ml -295.5 ml Intake IV Total 1939.0 ml 579.5 ml Output Urine Total 1150 ml 875 ml General Appearance: no acute distress - obese AA female HEENT: anicteric, PERRL Respiratory: lungs clear, no respiratory distress, no accessory muscle use Cardiovascular: normal rate, regular rhythm, no JVD Abdomen: soft, non tender - obese Extremities: no edema Neurologic: alert, oriented x 3, responsive Musculoskeletal: normal muscle bulk Microbiology Date/Time Source Procedure Growth Status 10/11/19 13:05 Blood Blood Culture - Preliminary NO GROWTH AFTER 48 HOURS Resulted 10/11/19 13:05 Blood Blood Culture - Preliminary NO GROWTH AFTER 48 HOURS Resulted 10/12/19 16:00 Nasopharynx Coronavirus COVID-19 PCR (GOOD) - Final Complete 10/11/19 15:00 Nasopharynx Coronavirus COVID-19 PCR (GOOD) - Final Complete 10/11/19 13:30 Nasal Nares MRSA Culture - Final NO METHICILLIN RESISTANT STAPH AUREUS... Complete 10/11/19 13:30 Rectum VRE Culture - Final NO VANCOMYCIN RESISTANT ENTEROCOCCUS ... Complete 10/11/19 13:00 Rectum - Final NO CARBAPENEM-RESISTANT ENTEROBACTERI... Complete Current Medications Medications (Trade) Dose Ordered Sig/Saul Route PRN Reason Start Time Stop Time Status Last Admin Dose Admin Acetaminophen (Tylenol) 650 mg Q4H PRN ORAL Fever 10/14/19 01:30 11/10/19 17:29 Acetaminophen (Tylenol) 650 mg Q4H PRN RECTAL Temp >100.5 10/14/19 01:45 11/11/19 09:44 Albuterol/ Ipratropium (Albuterol/ Ipratropium) 3 ml Q4H PRN HHN Shortness of Breath 10/14/19 01:30 10/16/19 17:29 Azithromycin 500 mg/Dextrose 275 ml @ 275 mls/hr Q24HRS IV 10/14/19 13:00 10/18/19 13:59 Ceftriaxone Sodium 1 gm/ Dextrose 55 ml @ 110 mls/hr Q24H IVPB 10/14/19 14:00 10/19/19 13:59 Dextrose 1,000 ml @ 75 mls/hr [id number] IV 10/14/19 01:15 11/12/19 10:29 10/14/19 01:48 Dextrose (Dextrose 50%) 25 ml Q30M PRN IV Hypoglycemia 10/14/19 01:30 01/11/20 07:59 Dextrose (Dextrose 50%) 50 ml Q30M PRN IV Hypoglycemia 10/14/19 01:30 01/11/20 07:59 Duloxetine HCl (Cymbalta) 30 mg TWICE A DAY ORAL 10/14/19 09:00 01/09/20 17:59 Heparin Sodium (Porcine) (Heparin 5000 units/ml) 5,000 units EVERY 12 HOURS SUBQ 10/14/19 09:00 11/25/19 20:59 Insulin Aspart (NovoLOG) 4 units Q4HR SUBQ 10/14/19 05:00 01/11/20 08:59 Insulin Aspart (NovoLOG) Administer even if pt is NPO Q4HR SUBQ 10/14/19 05:00 01/11/20 08:59 Insulin Detemir (Levemir) 20 units BID SUBQ 10/14/19 09:00 01/11/20 08:59 Lorazepam (Ativan 2mg/ml 1ml) 2 mg Q2H PRN IV agitation 10/14/19 01:30 10/18/19 17:29 Morphine Sulfate (Morphine Sulfate) 4 mg Q4H PRN IVP Severe Pain (Pain Scale 7-10) 10/14/19 01:30 10/18/19 17:29 10/14/19 03:06 Nitroglycerin (Ntg) 0.4 mg Q5M PRN SL Prn Chest Pain 10/14/19 01:15 11/10/19 17:29 Ondansetron HCl (Zofran) 4 mg Q6H PRN IVP Nausea & Vomiting 10/14/19 01:30 11/10/19 01:29 Pantoprazole (Protonix) 40 mg EVERY 12 HOURS IVP 10/14/19 09:00 11/11/19 21:29 Polyethylene Glycol (Miralax) 17 gm DAILYPRN PRN ORAL Constipation 10/14/19 01:30 11/10/19 01:29 Assessment/Plan Assessment/Plan ASSESSMENT Sepsis Possible pneumonia Suspected COVID-19 infection DKA Diabetes mellitus [id number] with hemoglobin A1c 15.3 Renal failure, prerenal Dehydration Toxic metabolic encephalopathy Electrolyte imbalance Anemia PLAN OF CARE tele O2, pulmonary toilet fup with CXR in am abx as per ID DVT prophylaxis off insulin gtt on Levemir and NovoLog, per endo , optimize as needed Hemoglobin A1c 15.3 start diabetic diet IV fluids, monitor renal parameters, correct electrolytes as needed avoid nephrotoxic renal US -> no hydro replace K this am, Mg stable CT head no acute IC pathology GI prophylaxis monitor H&H with goal to keep hemoglobin above 7 anemia work-up C/W anemia of chronic disease supportive care case discussed and evaluated by supervising physician Britney Flannery NP Oct 14, 2019 07:08
[2019-10-14 07:50] LABS: HEMATOCRIT 33.8 % (37.0-47.0); HEMOGLOBIN 11.4 G/DL (12.0-16.0); MEAN CORPUSCULAR VOLUME 75 FL (80-99); PLATELET COUNT 240 K/UL (150-450); RED BLOOD COUNT 4.51 M/UL (4.20-5.40); RED CELL DISTRIBUTION WIDTH 13.5 % (11.6-14.8)
[2019-10-14 08:15] LABS: ALANINE AMINOTRANSFERASE 25 U/L (12-78); ALBUMIN 2.7 G/DL (3.4-5.0); ALBUMIN/GLOBULIN RATIO 0.8 (1.0-2.7); ALKALINE PHOSPHATASE 82 U/L (46-116); ANION GAP 12 mmol/L (5-15); ASPARTATE AMINO TRANSFERASE 57 U/L (15-37); BILIRUBIN,TOTAL 0.4 MG/DL (0.2-1.0); BLOOD UREA NITROGEN 13 mg/dL (7-18); CALCIUM 8.3 MG/DL (8.5-10.1); CARBON DIOXIDE 24 MMOL/L (21-32); CHLORIDE 119 MMOL/L (98-107); CREATININE 0.6 MG/DL (0.55-1.30); PHOSPHORUS 2.4 MG/DL (2.5-4.9); POTASSIUM 3.1 MMOL/L (3.5-5.1); SODIUM 155 MMOL/L (136-145)
[2019-10-14] MEDS ORDERED: Levemir Flexpen SUBQ SCH ×2 (09:00→21:00)
[2019-10-14] MEDS ORDERED: Pantoprazole Inj IVP SCH (09:00)
[2019-10-14] MEDS: DULoxetine 30mg cap ORAL SCH ×2 (09:08→17:17)
[2019-10-14] MEDS: Heparin 5000 units/ml inj SUBQ SCH ×2 (09:10→22:16)
--- NOTE | 2019-10-14 10:22 | Nephrology Progress Note ---
Assessment/Plan Problem List: (1) Renal failure Assessment: Mainly acute secondary to dehydration (2) DKA (diabetic ketoacidoses) (3) Urinary retention (4) Encephalopathy Assessment: Toxic metabolic (5) Dehydration (6) Electrolyte imbalance Assessment 54-year-old female admitted with a diagnosis of diabetic ketoacidosis Renal failure, mainly prerenal secondary to dehydration due to hyperglycemia and excess water loss Abnormal electrolyte related to underlying DKA and dehydration Leukocytosis, underlying sepsis Toxic metabolic encephalopathy Hypothermia Suspected 2019 novel coronavirus infection Metabolic acidosis due to DKA Plan October 13: Continue to correct low potassium and low phosphorus and low magnesium as needed. Continue to keep blood sugar and blood pressure in check. Patient clinically improving. Patient now on medium carbohydrate diet. Hydrate as needed. Keep the electrolytes and blood chemistries under check Keep blood pressure and blood sugar under control Discussed with RN Per orders Subjective ROS Limited/Unobtainable: No Interval Events/Complaints Much more alert and responsive Constitutional: Reports: malaise Objective Objective Last 24 Hour Vital Signs Date Time Temp Pulse Resp B/P (MAP) Pulse Ox O2 Delivery O2 Flow Rate FiO2 10/14/19 08:00 97.9 80 17 144/66 (92) 93 10/14/19 04:00 98.2 101 16 138/78 (98) 100 10/14/19 04:00 101 10/14/19 02:00 98.1 95 14 135/81 (99) 98 10/14/19 01:15 97.5 92 19 142/85 (104) 98 10/14/19 01:00 95 18 135/61 (85) 98 10/14/19 00:06 98.5 91 19 134/61 (85) 99 10/14/19 00:00 91 10/14/19 00:00 Room Air Room Air 10/13/19 23:00 95 129/61 (83) 98 10/13/19 22:00 95 18 136/67 (90) 98 10/13/19 21:04 98.7 10/13/19 21:00 94 18 150/90 (110) 99 10/13/19 20:00 99.0 96 19 132/79 (96) 99 10/13/19 20:00 Room Air Room Air 10/13/19 20:00 94 10/13/19 19:28 98 21 97 Room Air 21 10/13/19 19:00 95 31 120/65 (83) 98 10/13/19 18:00 101 24 133/69 (90) 100 10/13/19 17:00 98 21 112/63 (79) 83 10/13/19 16:00 Room Air Room Air 10/13/19 16:00 102 10/13/19 16:00 99.0 101 20 129/70 (89) 98 10/13/19 15:00 104 19 120/63 (82) 99 10/13/19 14:00 102 13 126/64 (84) 99 10/13/19 13:00 103 23 106/72 (83) 96 10/13/19 12:00 98.6 106 21 123/62 (82) 98 10/13/19 12:00 Room Air Room Air 10/13/19 12:00 104 10/13/19 11:00 106 23 113/64 (80) 98 Intake and Output 10/13/19 10/14/19 19:00 07:00 Intake Total 1939.0 ml 579.5 ml Output Total 1150 ml 875 ml Balance 789.0 ml -295.5 ml Intake IV Total 1939.0 ml 579.5 ml Output Urine Total 1150 ml 875 ml Laboratory Tests 10/14/19 06:20: White Blood Count 10.0, Red Blood Count 4.51, Hemoglobin 11.4L, Hematocrit 33.8L , Mean Corpuscular Volume 75L, Mean Corpuscular Hemoglobin 25.4L, Mean Corpuscular Hemoglobin Concent 33.8, Red Cell Distribution Width 13.5, Platelet Count 240, Mean Platelet Volume 5.5L, Neutrophils (%) (Auto) , Lymphocytes (%) ( Auto) , Monocytes (%) (Auto) , Eosinophils (%) (Auto) , Basophils (%) (Auto) , Differential Total Cells Counted 100, Neutrophils % (Manual) 47, Lymphocytes % ( Manual) 47H, Monocytes % (Manual) 6, Eosinophils % (Manual) 0, Basophils % ( Manual) 0, Band Neutrophils 0, Platelet Estimate Adequate, Platelet Morphology Normal, Microcytosis 1+, Erythrocyte Sedimentation Rate 54H, Sodium Level 155H, Potassium Level 3.1L, Chloride Level 119H, Carbon Dioxide Level 24, Anion Gap 12 , Blood Urea Nitrogen 13, Creatinine 0.6, Estimat Glomerular Filtration Rate > 60, Glucose Level 121H, Uric Acid 5.5, Calcium Level 8.3L, Phosphorus Level 2.4L , Magnesium Level 2.0, Total Bilirubin 0.4, Aspartate Amino Transf (AST/SGOT) 57H, Alanine Aminotransferase (ALT/SGPT) 25, Alkaline Phosphatase 82, C- Reactive Protein, Quantitative 1.4H, Pro-B-Type Natriuretic Peptide 424H, Total Protein 6.0L, Albumin 2.7L, Globulin 3.3, Albumin/Globulin Ratio 0.8L Height (Feet): 5 Height (Inches): 6.00 Weight (Pounds): 194 General Appearance: no apparent distress Cardiovascular: tachycardia Respiratory/Chest: decreased breath sounds Abdomen: distended Delvin Armas MD Oct 14, 2019 10:22
[2019-10-14] MEDS ORDERED: Phospha 250 Neutral tab ORAL SCH (10:30)
[2019-10-14] MEDS: Potassium Phosphate 15mm/250ml 250 ML IVPB SCH ×2 (12:22→14:57)
[2019-10-14] MEDS: Azithromycin 500 MG in D5W 275 ML IV SCH (12:22)
[2019-10-14] MEDS: cefTRIAXone 1 GM in D5W 55 ML IVPB SCH (14:05)
--- NOTE | 2019-10-14 14:34 | Internal Med Progress Note ---
Subjective Date of Service: Oct 14, 2019 Physician Name MarianelaJagdish Attending Physician Keven Winslow MD Current Medications Medications (Trade) Dose Ordered Sig/Saul Route PRN Reason Start Time Stop Time Status Last Admin Dose Admin Acetaminophen (Tylenol) 650 mg Q4H PRN ORAL Fever 10/14/19 01:30 11/10/19 17:29 Acetaminophen (Tylenol) 650 mg Q4H PRN RECTAL Temp >100.5 10/14/19 01:45 11/11/19 09:44 Albuterol/ Ipratropium (Albuterol/ Ipratropium) 3 ml Q4H PRN HHN Shortness of Breath 10/14/19 01:30 10/16/19 17:29 Azithromycin 500 mg/Dextrose 275 ml @ 275 mls/hr Q24HRS IV 10/14/19 13:00 10/18/19 13:59 10/14/19 12:22 Ceftriaxone Sodium 1 gm/ Dextrose 55 ml @ 110 mls/hr Q24H IVPB 10/14/19 14:00 10/19/19 13:59 10/14/19 14:05 Dextrose 1,000 ml @ 75 mls/hr [id number] IV 10/14/19 01:15 11/12/19 10:29 10/14/19 14:05 Dextrose (Dextrose 50%) 25 ml Q30M PRN IV Hypoglycemia 10/14/19 01:30 01/11/20 07:59 Dextrose (Dextrose 50%) 50 ml Q30M PRN IV Hypoglycemia 10/14/19 01:30 01/11/20 07:59 Duloxetine HCl (Cymbalta) 30 mg TWICE A DAY ORAL 10/14/19 09:00 01/09/20 17:59 10/14/19 09:08 Heparin Sodium (Porcine) (Heparin 5000 units/ml) 5,000 units EVERY 12 HOURS SUBQ 10/14/19 09:00 11/25/19 20:59 10/14/19 09:10 Insulin Aspart (NovoLOG) 4 units Q4HR SUBQ 10/14/19 05:00 01/11/20 08:59 10/14/19 13:04 Insulin Aspart (NovoLOG) Administer even if pt is NPO Q4HR SUBQ 10/14/19 05:00 01/11/20 08:59 10/14/19 09:32 Insulin Detemir (Levemir) 20 units BID SUBQ 10/14/19 09:00 01/11/20 08:59 10/14/19 09:30 Lorazepam (Ativan 2mg/ml 1ml) 2 mg Q2H PRN IV agitation 10/14/19 01:30 10/18/19 17:29 Morphine Sulfate (Morphine Sulfate) 4 mg Q4H PRN IVP Severe Pain (Pain Scale 7-10) 10/14/19 01:30 10/18/19 17:29 10/14/19 09:24 Nitroglycerin (Ntg) 0.4 mg Q5M PRN SL Prn Chest Pain 10/14/19 01:15 11/10/19 17:29 Ondansetron HCl (Zofran) 4 mg Q6H PRN IVP Nausea & Vomiting 10/14/19 01:30 11/10/19 01:29 Pantoprazole (Protonix) 40 mg EVERY 12 HOURS ORAL 10/14/19 21:00 11/13/19 20:59 Polyethylene Glycol (Miralax) 17 gm DAILYPRN PRN ORAL Constipation 10/14/19 01:30 11/10/19 01:29 Potassium Phosphate 250 ml @ 62.5 mls/hr Q4H IVPB 10/14/19 11:00 10/14/19 18:59 10/14/19 12:22 Allergies: Coded Allergies: No Known Allergies (Unverified , 04/14/18) ROS Limited/Unobtainable: No HEENT: Reports: no symptoms Cardiovascular: Reports: no symptoms Respiratory: Reports: no symptoms Gastrointestinal/Abdominal: Reports: no symptoms Genitourinary: Reports: no symptoms Neurologic/Psychiatric: Reports: no symptoms Subjective 54 YO F admitted with diabetic ketoacidosis. Now pneumonia. Cover for Int Jose Alfredo- Dr Winslow. Tele Objective Last Vital Signs Date Time Temp Pulse Resp B/P (MAP) Pulse Ox O2 Delivery O2 Flow Rate FiO2 10/14/19 12:00 92 10/14/19 12:00 97.9 18 104/55 (71) 100 10/14/19 09:00 Room Air Room Air 10/13/19 19:28 21 Laboratory Tests Test 10/14/19 06:20 White Blood Count 10.0 K/UL (4.8-10.8) Red Blood Count 4.51 M/UL (4.20-5.40) Hemoglobin 11.4 G/DL (12.0-16.0) L Hematocrit 33.8 % (37.0-47.0) L Mean Corpuscular Volume 75 FL (80-99) L Mean Corpuscular Hemoglobin 25.4 PG (27.0-31.0) L Mean Corpuscular Hemoglobin Concent 33.8 G/DL (32.0-36.0) Red Cell Distribution Width 13.5 % (11.6-14.8) Platelet Count 240 K/UL (150-450) Mean Platelet Volume 5.5 FL (6.5-10.1) L Neutrophils (%) (Auto) % (45.0-75.0) Lymphocytes (%) (Auto) % (20.0-45.0) Monocytes (%) (Auto) % (1.0-10.0) Eosinophils (%) (Auto) % (0.0-3.0) Basophils (%) (Auto) % (0.0-2.0) Differential Total Cells Counted 100 Neutrophils % (Manual) 47 % (45-75) Lymphocytes % (Manual) 47 % (20-45) H Monocytes % (Manual) 6 % (1-10) Eosinophils % (Manual) 0 % (0-3) Basophils % (Manual) 0 % (0-2) Band Neutrophils 0 % (0-8) Platelet Estimate Adequate Platelet Morphology Normal Microcytosis 1+ Erythrocyte Sedimentation Rate 54 MM/HR (0-30) H Sodium Level 155 MMOL/L (136-145) H Potassium Level 3.1 MMOL/L (3.5-5.1) L Chloride Level 119 MMOL/L (98-107) H Carbon Dioxide Level 24 MMOL/L (21-32) Anion Gap 12 mmol/L (5-15) Blood Urea Nitrogen 13 mg/dL (7-18) Creatinine 0.6 MG/DL (0.55-1.30) Estimat Glomerular Filtration Rate > 60 mL/min (>60) Glucose Level 121 MG/DL (74-106) H Uric Acid 5.5 MG/DL (2.6-7.2) Calcium Level 8.3 MG/DL (8.5-10.1) L Phosphorus Level 2.4 MG/DL (2.5-4.9) L Magnesium Level 2.0 MG/DL (1.8-2.4) Total Bilirubin 0.4 MG/DL (0.2-1.0) Aspartate Amino Transf (AST/SGOT) 57 U/L (15-37) H Alanine Aminotransferase (ALT/SGPT) 25 U/L (12-78) Alkaline Phosphatase 82 U/L (46-116) C-Reactive Protein, Quantitative 1.4 mg/dL (0.00-0.90) H Pro-B-Type Natriuretic Peptide 424 pg/mL (0-125) H Total Protein 6.0 G/DL (6.4-8.2) L Albumin 2.7 G/DL (3.4-5.0) L Globulin 3.3 g/dL Albumin/Globulin Ratio 0.8 (1.0-2.7) L Microbiology Date/Time Source Procedure Growth Status 10/12/19 16:00 Nasopharynx Coronavirus COVID-19 PCR (GOOD) - Final Complete 10/11/19 15:00 Nasopharynx Coronavirus COVID-19 PCR (GOOD) - Final Complete Intake and Output 10/13/19 10/14/19 19:00 07:00 Intake Total 1939.0 ml 579.5 ml Output Total 1150 ml 875 ml Balance 789.0 ml -295.5 ml Intake IV Total 1939.0 ml 579.5 ml Output Urine Total 1150 ml 875 ml Objective General Appearance: WD/WN, no apparent distress EENT: PERRL/EOMI, normal ENT inspection, TMs normal Neck: non-tender, normal alignment, supple, normal inspection Cardiovascular: normal peripheral pulses, normal rate, regular rhythm, no gallop/murmur, no JVD Respiratory/Chest: chest wall non-tender, lungs clear, normal breath sounds, no respiratory distress, no accessory muscle use Abdomen: normal bowel sounds, non tender, soft, no organomegaly, no mass Extremities: normal range of motion, non-tender Neurologic: executive secretary social welfare II-XII grossly normal, no motor/sensory deficits Skin: normal pigmentation, warm/dry Assessment/Plan Problem List: (1) Leukocytosis Assessment & Plan: Resolved on antibiotic (2) Pneumonia Assessment & Plan: ID=Dr Chi; Pulmonary = Dr Nunn. Continue ceftriaxone and azithromycin (3) Metabolic acidosis due to diabetes mellitus (4) Hypernatremia (5) DKA (diabetic ketoacidoses) Assessment & Plan: Continue levemir and novolog sliding scale insulin. Endocrinology=Dr Lr (6) Encephalopathy Assessment & Plan: CT brain=normal (7) Diabetes mellitus (8) Renal failure Assessment & Plan: Nephrology = Jagdish Vela MD Oct 14, 2019 14:34
--- NOTE | 2019-10-14 15:52 | General Progress Note ---
Assessment/Plan Problem List: (1) Foot drop, right (2) DKA (diabetic ketoacidoses) (3) Diabetes mellitus Assessment/Plan: change Levemir to 20 units qhs change Novolog to 6 units ac tid change Novolog sliding scale to ac / hs Hypoglycemia protocol in order consider neurology consultation Subjective Allergies: Coded Allergies: No Known Allergies (Unverified , 04/14/18) All Systems: reviewed and negative except above Subjective events noted interval notes reviewed glucose values improved diet initiated she is complaining of right foot drop Item Value Date Time Bedside Blood Glucose 131 mg/dl H 10/14/19 1304 Bedside Blood Glucose 151 mg/dl H 10/14/19 0932 Bedside Blood Glucose 108 mg/dl 10/14/19 0452 Bedside Blood Glucose 81 mg/dl 10/14/19 0031 Bedside Blood Glucose 67 mg/dl L 10/13/19 2100 Bedside Blood Glucose 98 mg/dl 10/13/19 1737 Bedside Blood Glucose 92 mg/dl 10/13/19 1245 Bedside Blood Glucose 125 mg/dl H 10/13/19 0935 Objective Last 24 Hour Vital Signs Date Time Temp Pulse Resp B/P (MAP) Pulse Ox O2 Delivery O2 Flow Rate FiO2 10/14/19 12:00 92 10/14/19 12:00 97.9 71 18 104/55 (71) 100 10/14/19 09:00 Room Air Room Air 10/14/19 08:00 97.9 67 18 95/48 (64) 100 10/14/19 08:00 89 10/14/19 04:00 98.2 101 16 138/78 (98) 100 10/14/19 04:00 101 10/14/19 02:00 98.1 95 14 135/81 (99) 98 10/14/19 01:15 97.5 92 19 142/85 (104) 98 10/14/19 01:00 95 18 135/61 (85) 98 10/14/19 00:06 98.5 91 19 134/61 (85) 99 10/14/19 00:00 91 10/14/19 00:00 Room Air Room Air 10/13/19 23:00 95 129/61 (83) 98 10/13/19 22:00 95 18 136/67 (90) 98 10/13/19 21:04 98.7 10/13/19 21:00 94 18 150/90 (110) 99 10/13/19 20:00 99.0 96 19 132/79 (96) 99 10/13/19 20:00 Room Air Room Air 10/13/19 20:00 94 10/13/19 19:28 98 21 97 Room Air 21 10/13/19 19:00 95 31 120/65 (83) 98 10/13/19 18:00 101 24 133/69 (90) 100 10/13/19 17:00 98 21 112/63 (79) 83 10/13/19 16:00 Room Air Room Air 10/13/19 16:00 102 10/13/19 16:00 99.0 101 20 129/70 (89) 98 Intake and Output 10/13/19 10/14/19 19:00 07:00 Intake Total 1939.0 ml 579.5 ml Output Total 1150 ml 875 ml Balance 789.0 ml -295.5 ml Intake IV Total 1939.0 ml 579.5 ml Output Urine Total 1150 ml 875 ml Laboratory Tests 10/14/19 06:20: White Blood Count 10.0, Red Blood Count 4.51, Hemoglobin 11.4L, Hematocrit 33.8L , Mean Corpuscular Volume 75L, Mean Corpuscular Hemoglobin 25.4L, Mean Corpuscular Hemoglobin Concent 33.8, Red Cell Distribution Width 13.5, Platelet Count 240, Mean Platelet Volume 5.5L, Neutrophils (%) (Auto) , Lymphocytes (%) ( Auto) , Monocytes (%) (Auto) , Eosinophils (%) (Auto) , Basophils (%) (Auto) , Differential Total Cells Counted 100, Neutrophils % (Manual) 47, Lymphocytes % ( Manual) 47H, Monocytes % (Manual) 6, Eosinophils % (Manual) 0, Basophils % ( Manual) 0, Band Neutrophils 0, Platelet Estimate Adequate, Platelet Morphology Normal, Microcytosis 1+, Erythrocyte Sedimentation Rate 54H, Sodium Level 155H, Potassium Level 3.1L, Chloride Level 119H, Carbon Dioxide Level 24, Anion Gap 12 , Blood Urea Nitrogen 13, Creatinine 0.6, Estimat Glomerular Filtration Rate > 60, Glucose Level 121H, Uric Acid 5.5, Calcium Level 8.3L, Phosphorus Level 2.4L , Magnesium Level 2.0, Total Bilirubin 0.4, Aspartate Amino Transf (AST/SGOT) 57H, Alanine Aminotransferase (ALT/SGPT) 25, Alkaline Phosphatase 82, C- Reactive Protein, Quantitative 1.4H, Pro-B-Type Natriuretic Peptide 424H, Total Protein 6.0L, Albumin 2.7L, Globulin 3.3, Albumin/Globulin Ratio 0.8L Height (Feet): 5 Height (Inches): 6.00 Weight (Pounds): 194 General Appearance: no apparent distress Neck: normal alignment Cardiovascular: normal rate Respiratory/Chest: lungs clear Abdomen: normal bowel sounds Neurologic: other - R foot drop Neo Lr MD Oct 14, 2019 15:52
[2019-10-15 04:00] VITALS: BP 118/66
[2019-10-15] MEDS: NovoLOG Insulin Flexpen SUBQ SCH ×7 (06:30→21:18)
--- NOTE | 2019-10-15 07:53 | General Progress Note ---
Assessment/Plan Problem List: (1) Foot drop, right ICD Codes: M21.371 - Foot drop, right foot SNOMED: 6662822, [id number] (2) DKA (diabetic ketoacidoses) ICD Codes: E11.10 - Type 2 diabetes mellitus with ketoacidosis without coma SNOMED: 482387563, [id number] (3) Diabetes mellitus ICD Codes: E11.9 - Type 2 diabetes mellitus without complications SNOMED: 20750479 Assessment/Plan: change Levemir to 12 units qhs change Novolog to 4 units ac tid change Novolog sliding scale to ac / hs Hypoglycemia protocol in order consider neurology consultation Subjective Allergies: Coded Allergies: No Known Allergies (Unverified , 04/14/18) All Systems: reviewed and negative except above Subjective events noted interval notes reviewed hypoglycemia this morning after Levremi 20 units last night Item Value Date Time Bedside Blood Glucose 160 mg/dl H 10/15/19 0702 Bedside Blood Glucose 56 mg/dl L 10/15/19 0634 Bedside Blood Glucose 133 mg/dl H 10/14/19 2217 Bedside Blood Glucose 100 mg/dl 10/14/19 1630 Bedside Blood Glucose 131 mg/dl H 10/14/19 1304 Bedside Blood Glucose 151 mg/dl H 10/14/19 0932 Bedside Blood Glucose 108 mg/dl 10/14/19 0452 Objective Last 24 Hour Vital Signs Date Time Temp Pulse Resp B/P (MAP) Pulse Ox O2 Delivery O2 Flow Rate FiO2 10/15/19 04:00 98.2 93 16 118/66 (83) 97 10/15/19 04:00 88 10/15/19 00:00 91 10/14/19 23:34 97.8 89 15 121/68 (85) 97 10/14/19 21:00 Room Air Room Air 10/14/19 20:24 101 21 96 Room Air 21 10/14/19 20:00 98.3 92 16 92/52 (65) 97 10/14/19 20:00 89 10/14/19 16:55 98.1 90 20 114/72 (86) 98 10/14/19 16:00 90 10/14/19 12:00 92 10/14/19 12:00 98.0 92 20 124/87 (99) 99 10/14/19 09:00 Room Air Room Air 10/14/19 08:00 98.1 89 20 131/79 (96) 99 10/14/19 08:00 89 Intake and Output 10/14/19 10/15/19 19:00 07:00 Intake Total 400 ml 1305 ml Output Total 1000 ml Balance 400 ml 305 ml Intake Oral 400 ml 480 ml IV Total 825 ml Output Urine Total 1000 ml # Voids 1 Height (Feet): 5 Height (Inches): 6.00 Weight (Pounds): 195 General Appearance: no apparent distress Neck: normal alignment Cardiovascular: normal rate Respiratory/Chest: lungs clear Abdomen: normal bowel sounds Objective Current Medications Medications (Trade) Dose Ordered Sig/Saul Route PRN Reason Start Time Stop Time Status Last Admin Dose Admin Acetaminophen (Tylenol) 650 mg Q4H PRN ORAL Fever 10/14/19 01:30 11/10/19 17:29 Acetaminophen (Tylenol) 650 mg Q4H PRN RECTAL Temp >100.5 10/14/19 01:45 11/11/19 09:44 Albuterol/ Ipratropium (Albuterol/ Ipratropium) 3 ml Q4H PRN HHN Shortness of Breath 10/14/19 01:30 10/16/19 17:29 Azithromycin 500 mg/Dextrose 275 ml @ 275 mls/hr Q24HRS IV 10/14/19 13:00 10/18/19 13:59 10/14/19 12:22 Ceftriaxone Sodium 1 gm/ Dextrose 55 ml @ 110 mls/hr Q24H IVPB 10/14/19 14:00 10/19/19 13:59 10/14/19 14:05 Dextrose 1,000 ml @ 75 mls/hr [id number] IV 10/14/19 01:15 11/12/19 10:29 10/14/19 14:05 Dextrose (Dextrose 50%) 25 ml Q30M PRN IV Hypoglycemia 10/14/19 01:30 01/11/20 07:59 Dextrose (Dextrose 50%) 50 ml Q30M PRN IV Hypoglycemia 10/14/19 01:30 01/11/20 07:59 10/15/19 06:34 Diphenhydramine HCl (Benadryl) 50 mg HSPRN PRN ORAL Insomnia 10/14/19 22:45 11/13/19 22:44 Duloxetine HCl (Cymbalta) 30 mg TWICE A DAY ORAL 10/14/19 09:00 01/09/20 17:59 10/14/19 17:17 Heparin Sodium (Porcine) (Heparin 5000 units/ml) 5,000 units EVERY 12 HOURS SUBQ 10/14/19 09:00 11/25/19 20:59 10/14/19 22:16 Insulin Aspart (NovoLOG) 6 units BEFORE MEALS SUBQ 10/14/19 16:30 01/11/20 08:59 Insulin Aspart (NovoLOG) Administer even if pt is NPO BEFORE MEALS AND HS SUBQ 10/14/19 16:30 01/11/20 08:59 Insulin Detemir (Levemir) 20 units QHS SUBQ 10/14/19 21:00 01/11/20 08:59 10/14/19 22:17 Lorazepam (Ativan 2mg/ml 1ml) 2 mg Q2H PRN IV agitation 10/14/19 01:30 10/18/19 17:29 Morphine Sulfate (Morphine Sulfate) 4 mg Q4H PRN IVP Severe Pain (Pain Scale 7-10) 10/14/19 01:30 10/18/19 17:29 10/14/19 22:26 Nitroglycerin (Ntg) 0.4 mg Q5M PRN SL Prn Chest Pain 10/14/19 01:15 11/10/19 17:29 Ondansetron HCl (Zofran) 4 mg Q6H PRN IVP Nausea & Vomiting 10/14/19 01:30 11/10/19 01:29 Pantoprazole (Protonix) 40 mg EVERY 12 HOURS ORAL 10/14/19 21:00 11/13/19 20:59 10/14/19 22:15 Polyethylene Glycol (Miralax) 17 gm DAILYPRN PRN ORAL Constipation 10/14/19 01:30 11/10/19 01:29 Neo Lr MD Oct 15, 2019 07:53
[2019-10-15 08:00] VITALS: BP 142/81
[2019-10-15] MEDS: DULoxetine 30mg cap ORAL SCH ×2 (08:10→16:59)
[2019-10-15] MEDS: Heparin 5000 units/ml inj SUBQ SCH ×2 (08:19→20:48)
--- NOTE | 2019-10-15 09:41 | Nephrology Progress Note ---
Assessment/Plan Problem List: (1) Renal failure Assessment: Mainly acute secondary to dehydration (2) DKA (diabetic ketoacidoses) (3) Urinary retention (4) Encephalopathy Assessment: Toxic metabolic (5) Dehydration (6) Electrolyte imbalance Assessment 54-year-old female admitted with a diagnosis of diabetic ketoacidosis Renal failure, mainly prerenal secondary to dehydration due to hyperglycemia and excess water loss Abnormal electrolyte related to underlying DKA and dehydration Leukocytosis, underlying sepsis Toxic metabolic encephalopathy Hypothermia Suspected 2019 novel coronavirus infection Metabolic acidosis due to DKA Plan October 14: Today's labs still pending. Aim to correct the electrolyte abnormalities. Continue per consultants. October 13: Continue to correct low potassium and low phosphorus and low magnesium as needed. Continue to keep blood sugar and blood pressure in check. Patient clinically improving. Patient now on medium carbohydrate diet. Hydrate as needed. Keep the electrolytes and blood chemistries under check Keep blood pressure and blood sugar under control Discussed with RN Per orders Subjective ROS Limited/Unobtainable: No Constitutional: Reports: malaise, weakness Objective Objective Last 24 Hour Vital Signs Date Time Temp Pulse Resp B/P (MAP) Pulse Ox O2 Delivery O2 Flow Rate FiO2 10/15/19 08:00 96.8 80 17 142/81 (101) 100 10/15/19 04:00 98.2 93 16 118/66 (83) 97 10/15/19 04:00 88 10/15/19 00:00 91 10/14/19 23:34 97.8 89 15 121/68 (85) 97 10/14/19 21:00 Room Air Room Air 10/14/19 20:24 101 21 96 Room Air 21 10/14/19 20:00 98.3 92 16 92/52 (65) 97 10/14/19 20:00 89 10/14/19 16:55 98.1 90 20 114/72 (86) 98 10/14/19 16:00 90 10/14/19 12:00 92 10/14/19 12:00 98.0 92 20 124/87 (99) 99 Intake and Output 10/14/19 10/15/19 19:00 07:00 Intake Total 400 ml 1305 ml Output Total 1000 ml Balance 400 ml 305 ml Intake Oral 400 ml 480 ml IV Total 825 ml Output Urine Total 1000 ml # Voids 1 Laboratory Tests 10/15/19 09:00: Sodium Level [Pending], Potassium Level [Pending], Chloride Level [Pending], Carbon Dioxide Level [Pending], Blood Urea Nitrogen [Pending], Creatinine [ Pending], Estimat Glomerular Filtration Rate [Pending], Glucose Level [Pending] , Calcium Level [Pending], Phosphorus Level [Pending], Magnesium Level [Pending] , Total Bilirubin [Pending], Aspartate Amino Transf (AST/SGOT) [Pending], Alanine Aminotransferase (ALT/SGPT) [Pending], Alkaline Phosphatase [Pending], Total Protein [Pending], Albumin [Pending], Globulin [Pending] Height (Feet): 5 Height (Inches): 6.00 Weight (Pounds): 195 General Appearance: no apparent distress Cardiovascular: normal rate Respiratory/Chest: decreased breath sounds Abdomen: soft Objective No change Delvin Armas MD Oct 15, 2019 09:41
[2019-10-15 09:57] LABS: PHOSPHORUS 3.4 MG/DL (2.5-4.9)
[2019-10-15 10:01] LABS: ALANINE AMINOTRANSFERASE 21 U/L (12-78); ALBUMIN 2.6 G/DL (3.4-5.0); ALKALINE PHOSPHATASE 84 U/L (46-116); ANION GAP 12 mmol/L (5-15); ASPARTATE AMINO TRANSFERASE 38 U/L (15-37); BILIRUBIN,TOTAL 0.3 MG/DL (0.2-1.0); BLOOD UREA NITROGEN 8 mg/dL (7-18); CARBON DIOXIDE 26 MMOL/L (21-32); CHLORIDE 110 MMOL/L (98-107); CREATININE 0.6 MG/DL (0.55-1.30); POTASSIUM 3.9 MMOL/L (3.5-5.1); SODIUM 148 MMOL/L (136-145)
[2019-10-15] MEDS: Morphine Sulfate 4mg/ml Inj (IV USE ONLY) IVP PRN (10:47)
--- NOTE | 2019-10-15 11:53 | Pulmonology Progress Note ---
Subjective ROS Limited/Unobtainable: No Constitutional: Reports: no symptoms HEENT: Repors: no symptoms Respiratory: Reports: no symptoms Allergies: Coded Allergies: No Known Allergies (Unverified , 04/14/18) All Systems: reviewed and negative except above Objective Last 24 Hour Vital Signs Date Time Temp Pulse Resp B/P (MAP) Pulse Ox O2 Delivery O2 Flow Rate FiO2 10/15/19 11:17 96.8 10/15/19 08:00 96.8 80 17 142/81 (101) 100 10/15/19 08:00 91 10/15/19 07:00 80 20 100 Room Air 21 10/15/19 04:00 98.2 93 16 118/66 (83) 97 10/15/19 04:00 88 10/15/19 00:00 91 10/14/19 23:34 97.8 89 15 121/68 (85) 97 10/14/19 21:00 Room Air Room Air 10/14/19 20:24 101 21 96 Room Air 21 10/14/19 20:00 98.3 92 16 92/52 (65) 97 10/14/19 20:00 89 10/14/19 16:55 98.1 90 20 114/72 (86) 98 10/14/19 16:00 90 10/14/19 12:00 92 10/14/19 12:00 98.0 92 20 124/87 (99) 99 Intake and Output 10/14/19 10/15/19 19:00 07:00 Intake Total 400 ml 1305 ml Output Total 1000 ml Balance 400 ml 305 ml Intake Oral 400 ml 480 ml IV Total 825 ml Output Urine Total 1000 ml # Voids 1 General Appearance: no acute distress - obese AA female HEENT: anicteric, PERRL Respiratory: lungs clear, no respiratory distress, no accessory muscle use Cardiovascular: normal rate, regular rhythm, no JVD Abdomen: soft, non tender - obese Extremities: no cyanosis, no edema Skin: no rash Neurologic: alert, oriented x 3, responsive Musculoskeletal: normal muscle bulk Microbiology Date/Time Source Procedure Growth Status 10/12/19 16:00 Nasopharynx Coronavirus COVID-19 PCR (GOOD) - Final Complete Laboratory Tests 10/15/19 09:00: Sodium Level 148H, Potassium Level 3.9, Chloride Level 110H, Carbon Dioxide Level 26, Anion Gap 12, Blood Urea Nitrogen 8, Creatinine 0.6, Estimat Glomerular Filtration Rate > 60, Glucose Level 158H, Calcium Level 8.0L, Phosphorus Level 3.4, Magnesium Level 1.9, Total Bilirubin 0.3, Aspartate Amino Transf (AST/SGOT) 38H, Alanine Aminotransferase (ALT/SGPT) 21, Alkaline Phosphatase 84, Total Protein 5.3L, Albumin 2.6L, Globulin 2.7, Albumin/ Globulin Ratio 1.0 Current Medications Medications (Trade) Dose Ordered Sig/Saul Route PRN Reason Start Time Stop Time Status Last Admin Dose Admin Acetaminophen (Tylenol) 650 mg Q4H PRN ORAL Fever 10/14/19 01:30 11/10/19 17:29 Acetaminophen (Tylenol) 650 mg Q4H PRN RECTAL Temp >100.5 10/14/19 01:45 11/11/19 09:44 Albuterol/ Ipratropium (Albuterol/ Ipratropium) 3 ml Q4H PRN HHN Shortness of Breath 10/14/19 01:30 10/16/19 17:29 Azithromycin 500 mg/Dextrose 275 ml @ 275 mls/hr Q24HRS IV 10/14/19 13:00 10/18/19 13:59 10/14/19 12:22 Ceftriaxone Sodium 1 gm/ Dextrose 55 ml @ 110 mls/hr Q24H IVPB 10/14/19 14:00 10/19/19 13:59 10/14/19 14:05 Dextrose 1,000 ml @ 75 mls/hr [id number] IV 10/14/19 01:15 11/12/19 10:29 10/14/19 14:05 Dextrose (Dextrose 50%) 25 ml Q30M PRN IV Hypoglycemia 10/14/19 01:30 01/11/20 07:59 Dextrose (Dextrose 50%) 50 ml Q30M PRN IV Hypoglycemia 10/14/19 01:30 01/11/20 07:59 10/15/19 06:34 Diphenhydramine HCl (Benadryl) 50 mg HSPRN PRN ORAL Insomnia 10/14/19 22:45 11/13/19 22:44 Duloxetine HCl (Cymbalta) 30 mg TWICE A DAY ORAL 10/14/19 09:00 01/09/20 17:59 10/15/19 08:10 Heparin Sodium (Porcine) (Heparin 5000 units/ml) 5,000 units EVERY 12 HOURS SUBQ 10/14/19 09:00 11/25/19 20:59 10/15/19 08:19 Insulin Aspart (NovoLOG) BEFORE MEALS AND HS SUBQ 10/15/19 11:30 01/13/20 11:29 Insulin Aspart (NovoLOG) 4 units BEFORE MEALS SUBQ 10/15/19 11:30 01/11/20 08:59 Insulin Detemir (Levemir) 12 units QHS SUBQ 10/15/19 21:00 01/11/20 08:59 Lorazepam (Ativan 2mg/ml 1ml) 2 mg Q2H PRN IV agitation 10/14/19 01:30 10/18/19 17:29 Morphine Sulfate (Morphine Sulfate) 4 mg Q4H PRN IVP Severe Pain (Pain Scale 7-10) 10/14/19 01:30 10/18/19 17:29 10/15/19 10:47 Nitroglycerin (Ntg) 0.4 mg Q5M PRN SL Prn Chest Pain 10/14/19 01:15 11/10/19 17:29 Ondansetron HCl (Zofran) 4 mg Q6H PRN IVP Nausea & Vomiting 10/14/19 01:30 11/10/19 01:29 Pantoprazole (Protonix) 40 mg EVERY 12 HOURS ORAL 10/14/19 21:00 11/13/19 20:59 10/15/19 08:10 Polyethylene Glycol (Miralax) 17 gm DAILYPRN PRN ORAL Constipation 10/14/19 01:30 11/10/19 01:29 Assessment/Plan Problems: (1) DKA (diabetic ketoacidoses) (2) Urinary retention (3) Renal failure (4) Suspected 2019 novel coronavirus infection Assessment/Plan improving dc IV fluids off insulin drip eating well BS between 90 and 150 neuro called for acute right foot drop watch electrolytes anemia w/u Venfor IV Gera Nunn MD Oct 15, 2019 11:53
[2019-10-15 12:00] VITALS: BP 138/84
[2019-10-15] MEDS: Azithromycin 500 MG in D5W 275 ML IV SCH (12:23)
--- NOTE | 2019-10-15 13:05 | Internal Med Progress Note ---
Subjective Date of Service: Oct 15, 2019 Physician Name MarianelaJagdish Attending Physician Keven Winslow MD Current Medications Medications (Trade) Dose Ordered Sig/Saul Route PRN Reason Start Time Stop Time Status Last Admin Dose Admin Acetaminophen (Tylenol) 650 mg Q4H PRN ORAL Fever 10/14/19 01:30 11/10/19 17:29 Acetaminophen (Tylenol) 650 mg Q4H PRN RECTAL Temp >100.5 10/14/19 01:45 11/11/19 09:44 Albuterol/ Ipratropium (Albuterol/ Ipratropium) 3 ml Q4H PRN HHN Shortness of Breath 10/14/19 01:30 10/16/19 17:29 Azithromycin 500 mg/Dextrose 275 ml @ 275 mls/hr Q24HRS IV 10/14/19 13:00 10/18/19 13:59 10/15/19 12:23 Ceftriaxone Sodium 1 gm/ Dextrose 55 ml @ 110 mls/hr Q24H IVPB 10/14/19 14:00 10/19/19 13:59 10/14/19 14:05 Dextrose (Dextrose 50%) 25 ml Q30M PRN IV Hypoglycemia 10/14/19 01:30 01/11/20 07:59 Dextrose (Dextrose 50%) 50 ml Q30M PRN IV Hypoglycemia 10/14/19 01:30 01/11/20 07:59 10/15/19 06:34 Diphenhydramine HCl (Benadryl) 50 mg HSPRN PRN ORAL Insomnia 10/14/19 22:45 11/13/19 22:44 Duloxetine HCl (Cymbalta) 30 mg TWICE A DAY ORAL 10/14/19 09:00 01/09/20 17:59 10/15/19 08:10 Heparin Sodium (Porcine) (Heparin 5000 units/ml) 5,000 units EVERY 12 HOURS SUBQ 10/14/19 09:00 11/25/19 20:59 10/15/19 08:19 Insulin Aspart (NovoLOG) BEFORE MEALS AND HS SUBQ 10/15/19 11:30 01/13/20 11:29 Insulin Aspart (NovoLOG) 4 units BEFORE MEALS SUBQ 10/15/19 11:30 01/11/20 08:59 Insulin Detemir (Levemir) 12 units QHS SUBQ 10/15/19 21:00 01/11/20 08:59 Lorazepam (Ativan 2mg/ml 1ml) 2 mg Q2H PRN IV agitation 10/14/19 01:30 10/18/19 17:29 Morphine Sulfate (Morphine Sulfate) 4 mg Q4H PRN IVP Severe Pain (Pain Scale 7-10) 10/14/19 01:30 10/18/19 17:29 10/15/19 10:47 Nitroglycerin (Ntg) 0.4 mg Q5M PRN SL Prn Chest Pain 10/14/19 01:15 11/10/19 17:29 Ondansetron HCl (Zofran) 4 mg Q6H PRN IVP Nausea & Vomiting 10/14/19 01:30 11/10/19 01:29 Pantoprazole (Protonix) 40 mg EVERY 12 HOURS ORAL 10/14/19 21:00 11/13/19 20:59 10/15/19 08:10 Polyethylene Glycol (Miralax) 17 gm DAILYPRN PRN ORAL Constipation 10/14/19 01:30 11/10/19 01:29 Allergies: Coded Allergies: No Known Allergies (Unverified , 04/14/18) ROS Limited/Unobtainable: No Constitutional: Reports: no symptoms HEENT: Reports: no symptoms Cardiovascular: Reports: no symptoms Respiratory: Reports: no symptoms Gastrointestinal/Abdominal: Reports: no symptoms Genitourinary: Reports: no symptoms Neurologic/Psychiatric: Reports: no symptoms Subjective 54 YO F admitted with diabetic ketoacidosis. Now pneumonia. Cover for Int Jose Alfredo- Dr Winslow. Tele Objective Last Vital Signs Date Time Temp Pulse Resp B/P (MAP) Pulse Ox O2 Delivery O2 Flow Rate FiO2 10/15/19 12:59 85 10/15/19 11:17 96.8 10/15/19 09:00 Room Air Room Air 10/15/19 08:00 17 142/81 (101) 100 10/15/19 07:00 21 Laboratory Tests Test 10/15/19 09:00 Sodium Level 148 MMOL/L (136-145) H Potassium Level 3.9 MMOL/L (3.5-5.1) Chloride Level 110 MMOL/L (98-107) H Carbon Dioxide Level 26 MMOL/L (21-32) Anion Gap 12 mmol/L (5-15) Blood Urea Nitrogen 8 mg/dL (7-18) Creatinine 0.6 MG/DL (0.55-1.30) Estimat Glomerular Filtration Rate > 60 mL/min (>60) Glucose Level 158 MG/DL (74-106) H Calcium Level 8.0 MG/DL (8.5-10.1) L Phosphorus Level 3.4 MG/DL (2.5-4.9) Magnesium Level 1.9 MG/DL (1.8-2.4) Total Bilirubin 0.3 MG/DL (0.2-1.0) Aspartate Amino Transf (AST/SGOT) 38 U/L (15-37) H Alanine Aminotransferase (ALT/SGPT) 21 U/L (12-78) Alkaline Phosphatase 84 U/L (46-116) Total Protein 5.3 G/DL (6.4-8.2) L Albumin 2.6 G/DL (3.4-5.0) L Globulin 2.7 g/dL Albumin/Globulin Ratio 1.0 (1.0-2.7) Microbiology Date/Time Source Procedure Growth Status 10/12/19 16:00 Nasopharynx Coronavirus COVID-19 PCR (GOOD) - Final Complete Intake and Output 10/14/19 10/15/19 19:00 07:00 Intake Total 400 ml 1305 ml Output Total 1000 ml Balance 400 ml 305 ml Intake Oral 400 ml 480 ml IV Total 825 ml Output Urine Total 1000 ml # Voids 1 Objective General Appearance: WD/WN, no apparent distress EENT: PERRL/EOMI, normal ENT inspection, TMs normal Neck: non-tender, normal alignment, supple, normal inspection Cardiovascular: normal peripheral pulses, normal rate, regular rhythm, no gallop/murmur, no JVD Respiratory/Chest: chest wall non-tender, lungs clear, normal breath sounds, no respiratory distress, no accessory muscle use Abdomen: normal bowel sounds, non tender, soft, no organomegaly, no mass Extremities: normal range of motion, non-tender Neurologic: lap hand tool II-XII grossly normal, no motor/sensory deficits Skin: normal pigmentation, warm/dry Assessment/Plan Problem List: (1) Leukocytosis Assessment & Plan: Resolved on antibiotic (2) Pneumonia Assessment & Plan: ID=Dr Chi; Pulmonary = Dr Nunn. Continue ceftriaxone and azithromycin (3) Metabolic acidosis due to diabetes mellitus (4) Hypernatremia (5) DKA (diabetic ketoacidoses) Assessment & Plan: Continue levemir and novolog sliding scale insulin. Endocrinology=Dr Lr (6) Encephalopathy Assessment & Plan: CT brain=normal (7) Diabetes mellitus (8) Renal failure Assessment & Plan: Nephrology = Dr Armas Status: progressing Jagdish Bear MD Oct 15, 2019 13:05
--- NOTE | 2019-10-15 13:56 | Diagnostic Imaging Report ---
Indication: Shortness of breath Technique: One view of the chest Comparison: 10/11/2019 Findings: Lungs and pleural spaces are clear. Heart size is normal. Previously demonstrated central congestive changes are no longer evident Impression: No acute process
[2019-10-15] MEDS: cefTRIAXone 1 GM in D5W 55 ML IVPB SCH (14:33)
--- NOTE | 2019-10-15 15:33 | Infectious Diseases Prog Note ---
Assessment/Plan Assessment/Plan Assessment: Severe sepsis Probable pNA vs pulmonary edema- COVIDneg x2 -10/14 CXR: no acute process -10/11 SARS CoV PCR neg -10/10 SARS-COV2 PCR neg BCx NTD u/a neg Low grade fever; SP Hyper Leukocytosis; SP -CT abd/p: Bilateral basilar pulmonary groundglass opacities, may indicate early pneumonia changes. Limited assessment of the GI tract, due to lack of enteric contrast administration.Mild rectal distention with stool, mild rectal fecal impaction possible. Distended bladder. Mildly enlarged uterus with calcifications, may indicate diffuse fibroid change. Distended bladder. Incidental finding of degenerative spondylosis DKA severe anion gap metabolic acidosis ТАТЬЯНА, improving -REnla US: Negative for hydronephrosis or other renal abnormality. Empty bladder with a Coleman catheter. Acute encephalopathy- 2ry to above -CT head: no acute findings Dm1, uncontrolled Plan: -Continue empiric Ceftriaxone and Azithromycin #5/5 -f/u cx -Monitor CBC/CMP, temperature -SARS CoV PCR neg x2, continue isolation for now given unclear etiology of fevers -aspiration precautions DW RN Thank you for consulting [facility]. Will continue to follow along with you. Subjective Allergies: Coded Allergies: No Known Allergies (Unverified , 04/14/18) Subjective afebrile >72hrs at RA Objective Vital Signs Last 24 Hour Vital Signs Date Time Temp Pulse Resp B/P (MAP) Pulse Ox O2 Delivery O2 Flow Rate FiO2 10/15/19 12:59 85 10/15/19 12:00 96.7 81 18 138/84 (102) 96 10/15/19 11:17 96.8 10/15/19 09:00 Room Air Room Air 10/15/19 08:00 96.8 80 17 142/81 (101) 100 10/15/19 08:00 91 10/15/19 07:00 80 20 100 Room Air 21 10/15/19 04:00 98.2 93 16 118/66 (83) 97 10/15/19 04:00 88 10/15/19 00:00 91 10/14/19 23:34 97.8 89 15 121/68 (85) 97 10/14/19 21:00 Room Air Room Air 10/14/19 20:24 101 21 96 Room Air 21 10/14/19 20:00 98.3 92 16 92/52 (65) 97 10/14/19 20:00 89 10/14/19 16:55 98.1 90 20 114/72 (86) 98 10/14/19 16:00 90 Height (Feet): 5 Height (Inches): 6.00 Weight (Pounds): 195 Objective General Appearance: no acute distress HEENT: atraumatic Respiratory/Chest: no respiratory distress, no accessory muscle use Abdomen: non distended Skin: other - normal pigmentation Neurologic/Psychiatric: alert, responsiv Microbiology Date/Time Source Procedure Growth Status 10/12/19 16:00 Nasopharynx Coronavirus COVID-19 PCR (GOOD) - Final Complete Laboratory Tests Test 10/15/19 09:00 Sodium Level 148 MMOL/L (136-145) H Potassium Level 3.9 MMOL/L (3.5-5.1) Chloride Level 110 MMOL/L (98-107) H Carbon Dioxide Level 26 MMOL/L (21-32) Anion Gap 12 mmol/L (5-15) Blood Urea Nitrogen 8 mg/dL (7-18) Creatinine 0.6 MG/DL (0.55-1.30) Estimat Glomerular Filtration Rate > 60 mL/min (>60) Glucose Level 158 MG/DL (74-106) H Calcium Level 8.0 MG/DL (8.5-10.1) L Phosphorus Level 3.4 MG/DL (2.5-4.9) Magnesium Level 1.9 MG/DL (1.8-2.4) Total Bilirubin 0.3 MG/DL (0.2-1.0) Aspartate Amino Transf (AST/SGOT) 38 U/L (15-37) H Alanine Aminotransferase (ALT/SGPT) 21 U/L (12-78) Alkaline Phosphatase 84 U/L (46-116) Total Protein 5.3 G/DL (6.4-8.2) L Albumin 2.6 G/DL (3.4-5.0) L Globulin 2.7 g/dL Albumin/Globulin Ratio 1.0 (1.0-2.7) Current Medications Medications (Trade) Dose Ordered Sig/Saul Route PRN Reason Start Time Stop Time Status Last Admin Dose Admin Acetaminophen (Tylenol) 650 mg Q4H PRN ORAL Fever 10/14/19 01:30 11/10/19 17:29 Acetaminophen (Tylenol) 650 mg Q4H PRN RECTAL Temp >100.5 10/14/19 01:45 11/11/19 09:44 Albuterol/ Ipratropium (Albuterol/ Ipratropium) 3 ml Q4H PRN HHN Shortness of Breath 10/14/19 01:30 10/16/19 17:29 Azithromycin 500 mg/Dextrose 275 ml @ 275 mls/hr Q24HRS IV 10/14/19 13:00 10/18/19 13:59 10/15/19 12:23 Ceftriaxone Sodium 1 gm/ Dextrose 55 ml @ 110 mls/hr Q24H IVPB 10/14/19 14:00 10/19/19 13:59 10/15/19 14:33 Dextrose (Dextrose 50%) 25 ml Q30M PRN IV Hypoglycemia 10/14/19 01:30 01/11/20 07:59 Dextrose (Dextrose 50%) 50 ml Q30M PRN IV Hypoglycemia 10/14/19 01:30 01/11/20 07:59 10/15/19 06:34 Diphenhydramine HCl (Benadryl) 50 mg HSPRN PRN ORAL Insomnia 10/14/19 22:45 11/13/19 22:44 Duloxetine HCl (Cymbalta) 30 mg TWICE A DAY ORAL 10/14/19 09:00 01/09/20 17:59 10/15/19 08:10 Heparin Sodium (Porcine) (Heparin 5000 units/ml) 5,000 units EVERY 12 HOURS SUBQ 10/14/19 09:00 11/25/19 20:59 10/15/19 08:19 Insulin Aspart (NovoLOG) BEFORE MEALS AND HS SUBQ 10/15/19 11:30 01/13/20 11:29 Insulin Aspart (NovoLOG) 4 units BEFORE MEALS SUBQ 10/15/19 11:30 01/11/20 08:59 Insulin Detemir (Levemir) 12 units QHS SUBQ 10/15/19 21:00 01/11/20 08:59 Lorazepam (Ativan 2mg/ml 1ml) 2 mg Q2H PRN IV agitation 10/14/19 01:30 10/18/19 17:29 Morphine Sulfate (Morphine Sulfate) 4 mg Q4H PRN IVP Severe Pain (Pain Scale 7-10) 10/14/19 01:30 10/18/19 17:29 10/15/19 10:47 Nitroglycerin (Ntg) 0.4 mg Q5M PRN SL Prn Chest Pain 10/14/19 01:15 11/10/19 17:29 Ondansetron HCl (Zofran) 4 mg Q6H PRN IVP Nausea & Vomiting 10/14/19 01:30 11/10/19 01:29 10/15/19 14:32 Pantoprazole (Protonix) 40 mg EVERY 12 HOURS ORAL 10/14/19 21:00 11/13/19 20:59 10/15/19 08:10 Polyethylene Glycol (Miralax) 17 gm DAILYPRN PRN ORAL Constipation 10/14/19 01:30 11/10/19 01:29 Oxana Chi M.D. Oct 15, 2019 15:33
[2019-10-15 16:00] VITALS: BP 137/85
[2019-10-15] MEDS ORDERED: D5W 275ml ONE (16:43)
[2019-10-15] MEDS ORDERED: Tubing IV Secondary IV ONE (16:43)
[2019-10-15 20:00] VITALS: BP 139/81
[2019-10-15] MEDS: Levemir Flexpen SUBQ SCH (21:17)
[2019-10-16] VITALS: BP 135/85
[2019-10-16] MEDS: Morphine Sulfate 4mg/ml Inj (IV USE ONLY) IVP PRN ×2 (01:14→16:09)
[2019-10-16 04:00] VITALS: BP 120/78
[2019-10-16] MEDS: NovoLOG Insulin Flexpen SUBQ SCH ×7 (06:30→22:06)
[2019-10-16 07:05] LABS: EOSINOPHILS % (AUTO) 3.8 % (0.0-3.0); HEMATOCRIT 34.2 % (37.0-47.0); HEMOGLOBIN 11.5 G/DL (12.0-16.0); MEAN CORPUSCULAR VOLUME 76 FL (80-99); MONOCYTES % (AUTO) 5.9 % (1.0-10.0); NEUTROPHILS % (AUTO) 44.4 % (45.0-75.0); PLATELET COUNT 223 K/UL (150-450); RED BLOOD COUNT 4.53 M/UL (4.20-5.40); RED CELL DISTRIBUTION WIDTH 12.9 % (11.6-14.8); WHITE BLOOD COUNT 8.3 K/UL (4.8-10.8)
[2019-10-16 07:45] LABS: ANION GAP 10 mmol/L (5-15); BLOOD UREA NITROGEN 7 mg/dL (7-18); CALCIUM 8.8 MG/DL (8.5-10.1); CARBON DIOXIDE 30 MMOL/L (21-32); CHLORIDE 108 MMOL/L (98-107); CREATININE 0.5 MG/DL (0.55-1.30); POTASSIUM 3.5 MMOL/L (3.5-5.1); SODIUM 148 MMOL/L (136-145)
[2019-10-16 08:00] VITALS: BP 120/69
--- NOTE | 2019-10-16 08:28 | General Progress Note ---
Assessment/Plan Problem List: (1) Foot drop, right ICD Codes: M21.371 - Foot drop, right foot SNOMED: 6115567, 9256367 (2) DKA (diabetic ketoacidoses) ICD Codes: E11.10 - Type 2 diabetes mellitus with ketoacidosis without coma SNOMED: 364295310, 81088350 (3) Diabetes mellitus ICD Codes: E11.9 - Type 2 diabetes mellitus without complications SNOMED: 38174870 Status: progressing Assessment/Plan: continue Levemir 12 units qhs continue Novolog 4 units ac tid change Novolog sliding scale to ac / hs Hypoglycemia protocol in order Subjective Allergies: Coded Allergies: No Known Allergies (Unverified , 04/14/18) All Systems: reviewed and negative except above Subjective events noted glucose values are more stable Item Value Date Time Bedside Blood Glucose 77 mg/dl 10/16/19 0630 Bedside Blood Glucose 175 mg/dl H 10/15/19 2118 Bedside Blood Glucose 134 mg/dl H 10/15/19 1631 Bedside Blood Glucose 99 mg/dl 10/15/19 1127 Bedside Blood Glucose 160 mg/dl H 10/15/19 0702 Bedside Blood Glucose 56 mg/dl L 10/15/19 0634 Objective Last 24 Hour Vital Signs Date Time Temp Pulse Resp B/P (MAP) Pulse Ox O2 Delivery O2 Flow Rate FiO2 10/16/19 04:00 99.5 91 20 120/78 (92) 98 10/16/19 04:00 93 10/16/19 00:00 99.8 97 21 135/85 (102) 95 10/16/19 00:00 97 10/15/19 21:43 100.3 10/15/19 21:00 Room Air Room Air 10/15/19 20:00 95 10/15/19 20:00 101.5 93 20 139/81 (100) 99 10/15/19 19:31 80 20 100 Room Air 21 10/15/19 16:00 89 10/15/19 16:00 98.1 84 20 137/85 (102) 98 10/15/19 12:59 85 10/15/19 12:00 96.7 81 18 138/84 (102) 96 10/15/19 11:17 96.8 10/15/19 09:00 Room Air Room Air Intake and Output 10/15/19 10/16/19 19:00 07:00 Intake Total 500 ml 1500 ml Output Total 1900 ml 2200 ml Balance -1400 ml -700 ml Intake Oral 1500 ml IV Total 500 ml Output Urine Total 1900 ml 2200 ml Laboratory Tests 10/15/19 09:00: Sodium Level 148H, Potassium Level 3.9, Chloride Level 110H, Carbon Dioxide Level 26, Anion Gap 12, Blood Urea Nitrogen 8, Creatinine 0.6, Estimat Glomerular Filtration Rate > 60, Glucose Level 158H, Calcium Level 8.0L, Phosphorus Level 3.4, Magnesium Level 1.9, Total Bilirubin 0.3, Aspartate Amino Transf (AST/SGOT) 38H, Alanine Aminotransferase (ALT/SGPT) 21, Alkaline Phosphatase 84, Total Protein 5.3L, Albumin 2.6L, Globulin 2.7, Albumin/ Globulin Ratio 1.0 10/16/19 05:40: Sodium Level 148H, Potassium Level 3.5, Chloride Level 108H, Carbon Dioxide Level 30, Anion Gap 10, Blood Urea Nitrogen 7, Creatinine 0.5L, Estimat Glomerular Filtration Rate > 60, Glucose Level 91, Calcium Level 8.8, Phosphorus Level [Pending], Magnesium Level [Pending], Total Bilirubin [Pending] , Aspartate Amino Transf (AST/SGOT) [Pending], Alanine Aminotransferase (ALT/ SGPT) [Pending], Alkaline Phosphatase [Pending], Total Protein [Pending], Albumin [Pending], White Blood Count 8.3, Red Blood Count 4.53, Hemoglobin 11.5L , Hematocrit 34.2L, Mean Corpuscular Volume 76L, Mean Corpuscular Hemoglobin 25.3L, Mean Corpuscular Hemoglobin Concent 33.5, Red Cell Distribution Width 12.9, Platelet Count 223, Mean Platelet Volume 5.5L, Neutrophils (%) (Auto) 44.4L, Lymphocytes (%) (Auto) 45.0, Monocytes (%) (Auto) 5.9, Eosinophils (%) ( Auto) 3.8H, Basophils (%) (Auto) 1.0, Direct Bilirubin [Pending] Height (Feet): 5 Height (Inches): 6.00 Weight (Pounds): 194 General Appearance: no apparent distress Neck: normal alignment Cardiovascular: normal rate Respiratory/Chest: lungs clear Abdomen: normal bowel sounds Pelvis: normal external exam Objective Current Medications Medications (Trade) Dose Ordered Sig/Saul Route PRN Reason Start Time Stop Time Status Last Admin Dose Admin Acetaminophen (Tylenol) 650 mg Q4H PRN ORAL Fever 10/14/19 01:30 11/10/19 17:29 Acetaminophen (Tylenol) 650 mg Q4H PRN RECTAL Temp >100.5 10/14/19 01:45 11/11/19 09:44 10/15/19 21:13 Albuterol/ Ipratropium (Albuterol/ Ipratropium) 3 ml Q4H PRN HHN Shortness of Breath 10/14/19 01:30 10/16/19 17:29 Dextrose (Dextrose 50%) 25 ml Q30M PRN IV Hypoglycemia 10/14/19 01:30 01/11/20 07:59 Dextrose (Dextrose 50%) 50 ml Q30M PRN IV Hypoglycemia 10/14/19 01:30 01/11/20 07:59 10/15/19 06:34 Diphenhydramine HCl (Benadryl) 50 mg HSPRN PRN ORAL Insomnia 10/14/19 22:45 11/13/19 22:44 Duloxetine HCl (Cymbalta) 30 mg TWICE A DAY ORAL 10/14/19 09:00 01/09/20 17:59 10/15/19 16:59 Heparin Sodium (Porcine) (Heparin 5000 units/ml) 5,000 units EVERY 12 HOURS SUBQ 10/14/19 09:00 11/25/19 20:59 10/15/19 20:48 Insulin Aspart (NovoLOG) BEFORE MEALS AND HS SUBQ 10/15/19 11:30 01/13/20 11:29 10/15/19 21:18 Insulin Aspart (NovoLOG) 4 units BEFORE MEALS SUBQ 10/15/19 11:30 01/11/20 08:59 Insulin Detemir (Levemir) 12 units QHS SUBQ 10/15/19 21:00 01/11/20 08:59 10/15/19 21:17 Lorazepam (Ativan 2mg/ml 1ml) 2 mg Q2H PRN IV agitation 10/14/19 01:30 10/18/19 17:29 Morphine Sulfate (Morphine Sulfate) 4 mg Q4H PRN IVP Severe Pain (Pain Scale 7-10) 10/14/19 01:30 10/18/19 17:29 10/16/19 01:14 Nitroglycerin (Ntg) 0.4 mg Q5M PRN SL Prn Chest Pain 10/14/19 01:15 11/10/19 17:29 Ondansetron HCl (Zofran) 4 mg Q6H PRN IVP Nausea & Vomiting 10/14/19 01:30 11/10/19 01:29 10/15/19 14:32 Pantoprazole (Protonix) 40 mg EVERY 12 HOURS ORAL 10/14/19 21:00 11/13/19 20:59 10/15/19 20:58 Polyethylene Glycol (Miralax) 17 gm DAILYPRN PRN ORAL Constipation 10/14/19 01:30 11/10/19 01:29 Neo rL MD Oct 16, 2019 08:28
[2019-10-16 08:32] LABS: ALANINE AMINOTRANSFERASE 25 U/L (12-78); ALBUMIN 2.5 G/DL (3.4-5.0); ALKALINE PHOSPHATASE 86 U/L (46-116); ASPARTATE AMINO TRANSFERASE 34 U/L (15-37); BILIRUBIN,DIRECT < 0.1 MG/DL (0.0-0.3); BILIRUBIN,TOTAL 0.2 MG/DL (0.2-1.0); PHOSPHORUS 3.3 MG/DL (2.5-4.9)
[2019-10-16] MEDS: DULoxetine 30mg cap ORAL SCH ×2 (08:37→17:20)
[2019-10-16] MEDS: Heparin 5000 units/ml inj SUBQ SCH ×2 (08:38→22:04)
--- NOTE | 2019-10-16 10:05 | Nephrology Progress Note ---
Assessment/Plan Problem List: (1) Renal failure Assessment: Mainly acute secondary to dehydration (2) DKA (diabetic ketoacidoses) (3) Urinary retention (4) Encephalopathy Assessment: Toxic metabolic (5) Dehydration (6) Electrolyte imbalance Assessment 54-year-old female admitted with a diagnosis of diabetic ketoacidosis Renal failure, mainly prerenal secondary to dehydration due to hyperglycemia and excess water loss Abnormal electrolyte related to underlying DKA and dehydration Leukocytosis, underlying sepsis Toxic metabolic encephalopathy Hypothermia Suspected 2019 novel coronavirus infection Metabolic acidosis due to DKA Plan October 15: Renal parameters and electrolytes stable. Continue per consultants. Clear for discharge from renal standpoint of view. October 14: Today's labs still pending. Aim to correct the electrolyte abnormalities. Continue per consultants. October 13: Continue to correct low potassium and low phosphorus and low magnesium as needed. Continue to keep blood sugar and blood pressure in check. Patient clinically improving. Patient now on medium carbohydrate diet. Hydrate as needed. Keep the electrolytes and blood chemistries under check Keep blood pressure and blood sugar under control Discussed with RN Per orders Subjective ROS Limited/Unobtainable: No Objective Objective Last 24 Hour Vital Signs Date Time Temp Pulse Resp B/P (MAP) Pulse Ox O2 Delivery O2 Flow Rate FiO2 10/16/19 08:00 98.6 90 21 120/69 (86) 97 10/16/19 04:00 99.5 91 20 120/78 (92) 98 10/16/19 04:00 93 10/16/19 00:00 99.8 97 21 135/85 (102) 95 10/16/19 00:00 97 10/15/19 21:43 100.3 10/15/19 21:00 Room Air Room Air 10/15/19 20:00 95 10/15/19 20:00 101.5 93 20 139/81 (100) 99 10/15/19 19:31 80 20 100 Room Air 21 10/15/19 16:00 89 10/15/19 16:00 98.1 84 20 137/85 (102) 98 10/15/19 12:59 85 10/15/19 12:00 96.7 81 18 138/84 (102) 96 10/15/19 11:17 96.8 Intake and Output 10/15/19 10/16/19 19:00 07:00 Intake Total 500 ml 1500 ml Output Total 1900 ml 2200 ml Balance -1400 ml -700 ml Intake Oral 1500 ml IV Total 500 ml Output Urine Total 1900 ml 2200 ml Current Medications Medications (Trade) Dose Ordered Sig/Saul Route PRN Reason Start Time Stop Time Status Last Admin Dose Admin Acetaminophen (Tylenol) 650 mg Q4H PRN ORAL Fever 10/14/19 01:30 11/10/19 17:29 Acetaminophen (Tylenol) 650 mg Q4H PRN RECTAL Temp >100.5 10/14/19 01:45 11/11/19 09:44 10/15/19 21:13 Albuterol/ Ipratropium (Albuterol/ Ipratropium) 3 ml Q4H PRN HHN Shortness of Breath 10/14/19 01:30 10/16/19 17:29 Dextrose (Dextrose 50%) 25 ml Q30M PRN IV Hypoglycemia 10/14/19 01:30 01/11/20 07:59 Dextrose (Dextrose 50%) 50 ml Q30M PRN IV Hypoglycemia 10/14/19 01:30 01/11/20 07:59 10/15/19 06:34 Diphenhydramine HCl (Benadryl) 50 mg HSPRN PRN ORAL Insomnia 10/14/19 22:45 11/13/19 22:44 Duloxetine HCl (Cymbalta) 30 mg TWICE A DAY ORAL 10/14/19 09:00 01/09/20 17:59 10/16/19 08:37 Heparin Sodium (Porcine) (Heparin 5000 units/ml) 5,000 units EVERY 12 HOURS SUBQ 10/14/19 09:00 11/25/19 20:59 10/16/19 08:38 Insulin Aspart (NovoLOG) BEFORE MEALS AND HS SUBQ 10/15/19 11:30 01/13/20 11:29 10/15/19 21:18 Insulin Aspart (NovoLOG) 4 units BEFORE MEALS SUBQ 10/15/19 11:30 01/11/20 08:59 Insulin Detemir (Levemir) 12 units QHS SUBQ 10/15/19 21:00 01/11/20 08:59 10/15/19 21:17 Lorazepam (Ativan 2mg/ml 1ml) 2 mg Q2H PRN IV agitation 10/14/19 01:30 10/18/19 17:29 Morphine Sulfate (Morphine Sulfate) 4 mg Q4H PRN IVP Severe Pain (Pain Scale 7-10) 10/14/19 01:30 10/18/19 17:29 10/16/19 01:14 Nitroglycerin (Ntg) 0.4 mg Q5M PRN SL Prn Chest Pain 10/14/19 01:15 11/10/19 17:29 Ondansetron HCl (Zofran) 4 mg Q6H PRN IVP Nausea & Vomiting 10/14/19 01:30 11/10/19 01:29 10/15/19 14:32 Pantoprazole (Protonix) 40 mg EVERY 12 HOURS ORAL 10/14/19 21:00 11/13/19 20:59 10/16/19 08:37 Polyethylene Glycol (Miralax) 17 gm DAILYPRN PRN ORAL Constipation 10/14/19 01:30 11/10/19 01:29 Laboratory Tests 10/16/19 05:40: White Blood Count 8.3, Red Blood Count 4.53, Hemoglobin 11.5L, Hematocrit 34.2L , Mean Corpuscular Volume 76L, Mean Corpuscular Hemoglobin 25.3L, Mean Corpuscular Hemoglobin Concent 33.5, Red Cell Distribution Width 12.9, Platelet Count 223, Mean Platelet Volume 5.5L, Neutrophils (%) (Auto) 44.4L, Lymphocytes (%) (Auto) 45.0, Monocytes (%) (Auto) 5.9, Eosinophils (%) (Auto) 3.8H, Basophils (%) (Auto) 1.0, Sodium Level 148H, Potassium Level 3.5, Chloride Level 108H, Carbon Dioxide Level 30, Anion Gap 10, Blood Urea Nitrogen 7, Creatinine 0.5L, Estimat Glomerular Filtration Rate > 60, Glucose Level 91, Calcium Level 8.8, Phosphorus Level 3.3, Magnesium Level 2.1, Total Bilirubin 0.2, Direct Bilirubin < 0.1, Aspartate Amino Transf (AST/SGOT) 34, Alanine Aminotransferase (ALT/SGPT) 25, Alkaline Phosphatase 86, Total Protein 6.0L, Albumin 2.5L Height (Feet): 5 Height (Inches): 6.00 Weight (Pounds): 194 General Appearance: no apparent distress Cardiovascular: normal rate Respiratory/Chest: lungs clear Abdomen: soft Objective No change Delvin Armas MD Oct 16, 2019 10:05
[2019-10-16 12:00] VITALS: BP 146/73
--- NOTE | 2019-10-16 13:04 | Pulmonology Progress Note ---
Subjective ROS Limited/Unobtainable: No Constitutional: Reports: no symptoms HEENT: Repors: no symptoms Respiratory: Reports: no symptoms Allergies: Coded Allergies: No Known Allergies (Unverified , 04/14/18) All Systems: reviewed and negative except above Objective Last 24 Hour Vital Signs Date Time Temp Pulse Resp B/P (MAP) Pulse Ox O2 Delivery O2 Flow Rate FiO2 10/16/19 12:00 99.3 89 19 146/73 (97) 98 10/16/19 09:59 Room Air Room Air 10/16/19 08:00 90 10/16/19 08:00 98.6 90 21 120/69 (86) 97 10/16/19 04:00 99.5 91 20 120/78 (92) 98 10/16/19 04:00 93 10/16/19 00:00 99.8 97 21 135/85 (102) 95 10/16/19 00:00 97 10/15/19 21:43 100.3 10/15/19 21:00 Room Air Room Air 10/15/19 20:00 95 10/15/19 20:00 101.5 93 20 139/81 (100) 99 10/15/19 19:31 80 20 100 Room Air 21 10/15/19 16:00 89 10/15/19 16:00 98.1 84 20 137/85 (102) 98 10/15/19 12:59 85 Intake and Output 10/15/19 10/16/19 19:00 07:00 Intake Total 500 ml 1500 ml Output Total 1900 ml 2200 ml Balance -1400 ml -700 ml Intake Oral 1500 ml IV Total 500 ml Output Urine Total 1900 ml 2200 ml General Appearance: no acute distress - obese AA female HEENT: anicteric, PERRL Respiratory: lungs clear, no respiratory distress, no accessory muscle use Cardiovascular: normal rate, regular rhythm, no JVD Abdomen: soft, non tender - obese Extremities: no cyanosis, no edema Skin: no rash Neurologic: alert, oriented x 3, responsive Musculoskeletal: normal muscle bulk Laboratory Tests 10/16/19 05:40: White Blood Count 8.3, Red Blood Count 4.53, Hemoglobin 11.5L, Hematocrit 34.2L , Mean Corpuscular Volume 76L, Mean Corpuscular Hemoglobin 25.3L, Mean Corpuscular Hemoglobin Concent 33.5, Red Cell Distribution Width 12.9, Platelet Count 223, Mean Platelet Volume 5.5L, Neutrophils (%) (Auto) 44.4L, Lymphocytes (%) (Auto) 45.0, Monocytes (%) (Auto) 5.9, Eosinophils (%) (Auto) 3.8H, Basophils (%) (Auto) 1.0, Sodium Level 148H, Potassium Level 3.5, Chloride Level 108H, Carbon Dioxide Level 30, Anion Gap 10, Blood Urea Nitrogen 7, Creatinine 0.5L, Estimat Glomerular Filtration Rate > 60, Glucose Level 91, Calcium Level 8.8, Phosphorus Level 3.3, Magnesium Level 2.1, Total Bilirubin 0.2, Direct Bilirubin < 0.1, Aspartate Amino Transf (AST/SGOT) 34, Alanine Aminotransferase (ALT/SGPT) 25, Alkaline Phosphatase 86, Total Protein 6.0L, Albumin 2.5L Current Medications Medications (Trade) Dose Ordered Sig/Saul Route PRN Reason Start Time Stop Time Status Last Admin Dose Admin Acetaminophen (Tylenol) 650 mg Q4H PRN ORAL Fever 10/14/19 01:30 11/10/19 17:29 Acetaminophen (Tylenol) 650 mg Q4H PRN RECTAL Temp >100.5 10/14/19 01:45 11/11/19 09:44 10/15/19 21:13 Albuterol/ Ipratropium (Albuterol/ Ipratropium) 3 ml Q4H PRN HHN Shortness of Breath 10/14/19 01:30 10/16/19 17:29 Dextrose (Dextrose 50%) 25 ml Q30M PRN IV Hypoglycemia 10/14/19 01:30 01/11/20 07:59 Dextrose (Dextrose 50%) 50 ml Q30M PRN IV Hypoglycemia 10/14/19 01:30 01/11/20 07:59 10/15/19 06:34 Diphenhydramine HCl (Benadryl) 50 mg HSPRN PRN ORAL Insomnia 10/14/19 22:45 11/13/19 22:44 Duloxetine HCl (Cymbalta) 30 mg TWICE A DAY ORAL 10/14/19 09:00 01/09/20 17:59 10/16/19 08:37 Heparin Sodium (Porcine) (Heparin 5000 units/ml) 5,000 units EVERY 12 HOURS SUBQ 10/14/19 09:00 11/25/19 20:59 10/16/19 08:38 Insulin Aspart (NovoLOG) BEFORE MEALS AND HS SUBQ 10/15/19 11:30 01/13/20 11:29 10/16/19 12:38 Insulin Aspart (NovoLOG) 4 units BEFORE MEALS SUBQ 10/15/19 11:30 01/11/20 08:59 Insulin Detemir (Levemir) 12 units QHS SUBQ 10/15/19 21:00 01/11/20 08:59 10/15/19 21:17 Lorazepam (Ativan 2mg/ml 1ml) 2 mg Q2H PRN IV agitation 10/14/19 01:30 10/18/19 17:29 Morphine Sulfate (Morphine Sulfate) 4 mg Q4H PRN IVP Severe Pain (Pain Scale 7-10) 10/14/19 01:30 10/18/19 17:29 10/16/19 01:14 Nitroglycerin (Ntg) 0.4 mg Q5M PRN SL Prn Chest Pain 10/14/19 01:15 11/10/19 17:29 Ondansetron HCl (Zofran) 4 mg Q6H PRN IVP Nausea & Vomiting 10/14/19 01:30 11/10/19 01:29 10/15/19 14:32 Pantoprazole (Protonix) 40 mg EVERY 12 HOURS ORAL 10/14/19 21:00 11/13/19 20:59 10/16/19 08:37 Polyethylene Glycol (Miralax) 17 gm DAILYPRN PRN ORAL Constipation 10/14/19 01:30 11/10/19 01:29 Assessment/Plan Problems: (1) DKA (diabetic ketoacidoses) (2) Urinary retention (3) Renal failure (4) Suspected 2019 novel coronavirus infection Assessment/Plan improving Low grade fever off insulin drip eating well BS between 90 and 150 neuro called for acute right foot drop watch electrolytes anemia w/u Gera Nunn MD Oct 16, 2019 13:04
--- NOTE | 2019-10-16 14:43 | Infectious Diseases Prog Note ---
Assessment/Plan Assessment/Plan Assessment: Severe sepsis Probable pNA vs pulmonary edema- COVIDneg x2 -10/14 CXR: no acute process -10/11 SARS CoV PCR neg -10/10 SARS-COV2 PCR neg BCx NTD u/a neg Fever; recurrent Hyper Leukocytosis; SP -CT abd/p: Bilateral basilar pulmonary groundglass opacities, may indicate early pneumonia changes. Limited assessment of the GI tract, due to lack of enteric contrast administration.Mild rectal distention with stool, mild rectal fecal impaction possible. Distended bladder. Mildly enlarged uterus with calcifications, may indicate diffuse fibroid change. Distended bladder. Incidental finding of degenerative spondylosis DKA, SP severe anion gap metabolic acidosis ТАТЬЯНА, SP -REnla US: Negative for hydronephrosis or other renal abnormality. Empty bladder with a Coleman catheter. Acute encephalopathy- 2ry to above -CT head: no acute findings Dm1, uncontrolled Plan: -Continue to monitor off abx -10/14 SP Ceftriaxone and Azithromycin #5 -f/u cx -Monitor CBC/CMP, temperature -SARS CoV PCR neg x2, ; recurrent fevers- unclear etiology- will order 3rd test -aspiration precautions -repeat cultures -CBC, CMP, amylase, lipase, CXR am EUFEMIA RN Thank you for consulting [facility]. Will continue to follow along with you. Subjective Allergies: Coded Allergies: No Known Allergies (Unverified , 04/14/18) Subjective Tm 101.8 at RA no leukocytosis Objective Vital Signs Last 24 Hour Vital Signs Date Time Temp Pulse Resp B/P (MAP) Pulse Ox O2 Delivery O2 Flow Rate FiO2 10/16/19 12:00 91 10/16/19 12:00 99.3 89 19 146/73 (97) 98 10/16/19 09:59 Room Air Room Air 10/16/19 08:00 90 10/16/19 08:00 98.6 90 21 120/69 (86) 97 10/16/19 04:00 99.5 91 20 120/78 (92) 98 10/16/19 04:00 93 10/16/19 00:00 99.8 97 21 135/85 (102) 95 10/16/19 00:00 97 10/15/19 21:43 100.3 10/15/19 21:00 Room Air Room Air 10/15/19 20:00 95 10/15/19 20:00 101.5 93 20 139/81 (100) 99 10/15/19 19:31 80 20 100 Room Air 21 10/15/19 16:00 89 10/15/19 16:00 98.1 84 20 137/85 (102) 98 Height (Feet): 5 Height (Inches): 6.00 Weight (Pounds): 194 Objective General Appearance: no acute distress HEENT: atraumatic Respiratory/Chest: no respiratory distress, no accessory muscle use Abdomen: non distended Skin: other - normal pigmentation Neurologic/Psychiatric: alert, responsiv Laboratory Tests Test 10/16/19 05:40 White Blood Count 8.3 K/UL (4.8-10.8) Red Blood Count 4.53 M/UL (4.20-5.40) Hemoglobin 11.5 G/DL (12.0-16.0) L Hematocrit 34.2 % (37.0-47.0) L Mean Corpuscular Volume 76 FL (80-99) L Mean Corpuscular Hemoglobin 25.3 PG (27.0-31.0) L Mean Corpuscular Hemoglobin Concent 33.5 G/DL (32.0-36.0) Red Cell Distribution Width 12.9 % (11.6-14.8) Platelet Count 223 K/UL (150-450) Mean Platelet Volume 5.5 FL (6.5-10.1) L Neutrophils (%) (Auto) 44.4 % (45.0-75.0) L Lymphocytes (%) (Auto) 45.0 % (20.0-45.0) Monocytes (%) (Auto) 5.9 % (1.0-10.0) Eosinophils (%) (Auto) 3.8 % (0.0-3.0) H Basophils (%) (Auto) 1.0 % (0.0-2.0) Sodium Level 148 MMOL/L (136-145) H Potassium Level 3.5 MMOL/L (3.5-5.1) Chloride Level 108 MMOL/L (98-107) H Carbon Dioxide Level 30 MMOL/L (21-32) Anion Gap 10 mmol/L (5-15) Blood Urea Nitrogen 7 mg/dL (7-18) Creatinine 0.5 MG/DL (0.55-1.30) L Estimat Glomerular Filtration Rate > 60 mL/min (>60) Glucose Level 91 MG/DL (74-106) Calcium Level 8.8 MG/DL (8.5-10.1) Phosphorus Level 3.3 MG/DL (2.5-4.9) Magnesium Level 2.1 MG/DL (1.8-2.4) Total Bilirubin 0.2 MG/DL (0.2-1.0) Direct Bilirubin < 0.1 MG/DL (0.0-0.3) Aspartate Amino Transf (AST/SGOT) 34 U/L (15-37) Alanine Aminotransferase (ALT/SGPT) 25 U/L (12-78) Alkaline Phosphatase 86 U/L (46-116) Total Protein 6.0 G/DL (6.4-8.2) L Albumin 2.5 G/DL (3.4-5.0) L Current Medications Medications (Trade) Dose Ordered Sig/Saul Route PRN Reason Start Time Stop Time Status Last Admin Dose Admin Acetaminophen (Tylenol) 650 mg Q4H PRN ORAL Fever 10/14/19 01:30 11/10/19 17:29 Acetaminophen (Tylenol) 650 mg Q4H PRN RECTAL Temp >100.5 10/14/19 01:45 11/11/19 09:44 10/15/19 21:13 Albuterol/ Ipratropium (Albuterol/ Ipratropium) 3 ml Q4H PRN HHN Shortness of Breath 10/14/19 01:30 10/16/19 17:29 Dextrose (Dextrose 50%) 25 ml Q30M PRN IV Hypoglycemia 10/14/19 01:30 01/11/20 07:59 Dextrose (Dextrose 50%) 50 ml Q30M PRN IV Hypoglycemia 10/14/19 01:30 01/11/20 07:59 10/15/19 06:34 Diphenhydramine HCl (Benadryl) 50 mg HSPRN PRN ORAL Insomnia 10/14/19 22:45 11/13/19 22:44 Duloxetine HCl (Cymbalta) 30 mg TWICE A DAY ORAL 10/14/19 09:00 01/09/20 17:59 10/16/19 08:37 Heparin Sodium (Porcine) (Heparin 5000 units/ml) 5,000 units EVERY 12 HOURS SUBQ 10/14/19 09:00 11/25/19 20:59 10/16/19 08:38 Insulin Aspart (NovoLOG) BEFORE MEALS AND HS SUBQ 10/15/19 11:30 01/13/20 11:29 10/16/19 12:38 Insulin Aspart (NovoLOG) 4 units BEFORE MEALS SUBQ 10/15/19 11:30 01/11/20 08:59 Insulin Detemir (Levemir) 12 units QHS SUBQ 10/15/19 21:00 01/11/20 08:59 10/15/19 21:17 Lorazepam (Ativan 2mg/ml 1ml) 2 mg Q2H PRN IV agitation 10/14/19 01:30 10/18/19 17:29 Morphine Sulfate (Morphine Sulfate) 4 mg Q4H PRN IVP Severe Pain (Pain Scale 7-10) 10/14/19 01:30 10/18/19 17:29 10/16/19 01:14 Nitroglycerin (Ntg) 0.4 mg Q5M PRN SL Prn Chest Pain 10/14/19 01:15 11/10/19 17:29 Ondansetron HCl (Zofran) 4 mg Q6H PRN IVP Nausea & Vomiting 10/14/19 01:30 11/10/19 01:29 10/15/19 14:32 Pantoprazole (Protonix) 40 mg EVERY 12 HOURS ORAL 10/14/19 21:00 11/13/19 20:59 10/16/19 08:37 Polyethylene Glycol (Miralax) 17 gm DAILYPRN PRN ORAL Constipation 10/14/19 01:30 11/10/19 01:29 Oxana Chi M.D. Oct 16, 2019 14:43
[2019-10-16 16:00] VITALS: BP 150/80
--- NOTE | 2019-10-16 16:49 | Internal Med Progress Note ---
Subjective Date of Service: Oct 16, 2019 Physician Name Jagdish Bear Attending Physician Keven Winslow MD Current Medications Medications (Trade) Dose Ordered Sig/Saul Route PRN Reason Start Time Stop Time Status Last Admin Dose Admin Acetaminophen (Tylenol) 650 mg Q4H PRN ORAL Fever 10/14/19 01:30 11/10/19 17:29 Acetaminophen (Tylenol) 650 mg Q4H PRN RECTAL Temp >100.5 10/14/19 01:45 11/11/19 09:44 10/15/19 21:13 Acyclovir 900 mg/ Sodium Chloride 275 ml @ 275 mls/hr Q8HR IV 10/16/19 22:00 11/15/19 21:59 Albuterol/ Ipratropium (Albuterol/ Ipratropium) 3 ml Q4H PRN HHN Shortness of Breath 10/14/19 01:30 10/16/19 17:29 Dextrose (Dextrose 50%) 25 ml Q30M PRN IV Hypoglycemia 10/14/19 01:30 01/11/20 07:59 Dextrose (Dextrose 50%) 50 ml Q30M PRN IV Hypoglycemia 10/14/19 01:30 01/11/20 07:59 10/15/19 06:34 Diphenhydramine HCl (Benadryl) 50 mg HSPRN PRN ORAL Insomnia 10/14/19 22:45 11/13/19 22:44 Duloxetine HCl (Cymbalta) 30 mg TWICE A DAY ORAL 10/14/19 09:00 01/09/20 17:59 10/16/19 08:37 Heparin Sodium (Porcine) (Heparin 5000 units/ml) 5,000 units EVERY 12 HOURS SUBQ 10/14/19 09:00 11/25/19 20:59 10/16/19 08:38 Insulin Aspart (NovoLOG) BEFORE MEALS AND HS SUBQ 10/15/19 11:30 01/13/20 11:29 10/16/19 12:38 Insulin Aspart (NovoLOG) 4 units BEFORE MEALS SUBQ 10/15/19 11:30 01/11/20 08:59 Insulin Detemir (Levemir) 12 units QHS SUBQ 10/15/19 21:00 01/11/20 08:59 10/15/19 21:17 Lorazepam (Ativan 2mg/ml 1ml) 2 mg Q2H PRN IV agitation 10/14/19 01:30 10/18/19 17:29 Morphine Sulfate (Morphine Sulfate) 4 mg Q4H PRN IVP Severe Pain (Pain Scale 7-10) 10/14/19 01:30 10/18/19 17:29 10/16/19 16:09 Nitroglycerin (Ntg) 0.4 mg Q5M PRN SL Prn Chest Pain 10/14/19 01:15 11/10/19 17:29 Ondansetron HCl (Zofran) 4 mg Q6H PRN IVP Nausea & Vomiting 10/14/19 01:30 11/10/19 01:29 10/15/19 14:32 Pantoprazole (Protonix) 40 mg EVERY 12 HOURS ORAL 10/14/19 21:00 11/13/19 20:59 10/16/19 08:37 Polyethylene Glycol (Miralax) 17 gm DAILYPRN PRN ORAL Constipation 10/14/19 01:30 11/10/19 01:29 Allergies: Coded Allergies: No Known Allergies (Unverified , 04/14/18) ROS Limited/Unobtainable: Yes Subjective 54 YO F admitted with diabetic ketoacidosis. Now pneumonia. Cover for Int Med- Dr Winslow. Tele Objective Last Vital Signs Date Time Temp Pulse Resp B/P (MAP) Pulse Ox O2 Delivery O2 Flow Rate FiO2 10/16/19 12:00 91 10/16/19 12:00 99.3 19 146/73 (97) 98 10/16/19 09:59 Room Air Room Air 10/15/19 19:31 21 Laboratory Tests Test 10/16/19 05:40 White Blood Count 8.3 K/UL (4.8-10.8) Red Blood Count 4.53 M/UL (4.20-5.40) Hemoglobin 11.5 G/DL (12.0-16.0) L Hematocrit 34.2 % (37.0-47.0) L Mean Corpuscular Volume 76 FL (80-99) L Mean Corpuscular Hemoglobin 25.3 PG (27.0-31.0) L Mean Corpuscular Hemoglobin Concent 33.5 G/DL (32.0-36.0) Red Cell Distribution Width 12.9 % (11.6-14.8) Platelet Count 223 K/UL (150-450) Mean Platelet Volume 5.5 FL (6.5-10.1) L Neutrophils (%) (Auto) 44.4 % (45.0-75.0) L Lymphocytes (%) (Auto) 45.0 % (20.0-45.0) Monocytes (%) (Auto) 5.9 % (1.0-10.0) Eosinophils (%) (Auto) 3.8 % (0.0-3.0) H Basophils (%) (Auto) 1.0 % (0.0-2.0) Sodium Level 148 MMOL/L (136-145) H Potassium Level 3.5 MMOL/L (3.5-5.1) Chloride Level 108 MMOL/L (98-107) H Carbon Dioxide Level 30 MMOL/L (21-32) Anion Gap 10 mmol/L (5-15) Blood Urea Nitrogen 7 mg/dL (7-18) Creatinine 0.5 MG/DL (0.55-1.30) L Estimat Glomerular Filtration Rate > 60 mL/min (>60) Glucose Level 91 MG/DL (74-106) Calcium Level 8.8 MG/DL (8.5-10.1) Phosphorus Level 3.3 MG/DL (2.5-4.9) Magnesium Level 2.1 MG/DL (1.8-2.4) Total Bilirubin 0.2 MG/DL (0.2-1.0) Direct Bilirubin < 0.1 MG/DL (0.0-0.3) Aspartate Amino Transf (AST/SGOT) 34 U/L (15-37) Alanine Aminotransferase (ALT/SGPT) 25 U/L (12-78) Alkaline Phosphatase 86 U/L (46-116) Total Protein 6.0 G/DL (6.4-8.2) L Albumin 2.5 G/DL (3.4-5.0) L Intake and Output 10/15/19 10/16/19 19:00 07:00 Intake Total 500 ml 1500 ml Output Total 1900 ml 2200 ml Balance -1400 ml -700 ml Intake Oral 1500 ml IV Total 500 ml Output Urine Total 1900 ml 2200 ml Objective General Appearance: WD/WN, no apparent distress EENT: PERRL/EOMI, normal ENT inspection, TMs normal Neck: non-tender, normal alignment, supple, normal inspection Cardiovascular: normal peripheral pulses, normal rate, regular rhythm, no gallop/murmur, no JVD Respiratory/Chest: chest wall non-tender, lungs clear, normal breath sounds, no respiratory distress, no accessory muscle use Abdomen: normal bowel sounds, non tender, soft, no organomegaly, no mass Extremities: normal range of motion, non-tender Neurologic: hand crocheter II-XII grossly normal, no motor/sensory deficits Skin: normal pigmentation, warm/dry Assessment/Plan Problem List: (1) Leukocytosis Assessment & Plan: Resolved on antibiotic (2) Pneumonia Assessment & Plan: ID=Dr Chi; Pulmonary = Dr Nunn. Continue ceftriaxone and azithromycin (3) Metabolic acidosis due to diabetes mellitus (4) Hypernatremia (5) DKA (diabetic ketoacidoses) Assessment & Plan: Continue levemir and novolog sliding scale insulin. Endocrinology=Dr Lr (6) Encephalopathy Assessment & Plan: CT brain=normal (7) Diabetes mellitus (8) Renal failure Assessment & Plan: Nephrology = Dr Armas (9) Right foot drop Assessment & Plan: await neuro consult Jagdish Bear MD Oct 16, 2019 16:49
--- NOTE | 2019-10-16 19:07 | Consultation ---
Consult Note Consult Note [facility] NEUROLOGY CONSULTATION October 16, [address] Nunn & Dr. Winslow, I evaluated Ms. Waterman and my assessement is as follows. HISTORY: Ms. Dinorah Waterman is a 54-year-old, right-handed, black lady, who has a long history of diabetes mellitus, obesity and depression. She was functioning relatively well until recently when her daughter noted that she was having significant nausea and vomiting. She apparently lives alone and was seen by her daughter 1 day prior to admission to the hospital functioning relatively well. On the day of hospitalization when her daughter went to see her she was poorly responsive. The paramedics were called in and she was brought into the [facility] emergency room. She was noted to have diabetic ketoacidosis. She was apparently comatose for the next few days and following that a little confused. Her cognitive function then improved and when she started to realize what was going on she noticed that she was unable to move her right foot in a normal manner. She had problems raising the foot up and moving the toes up. Consultation was requested to evaluate and manage the patient's new right foot drop. At this point in time she is unable to move her right foot up and out and in addition has altered sensations over the top of her right foot. She also has a pressure ulcer over her right lateral heel. She feels that her mind has cleared up completely. PAST HISTORY: Diabetes mellitus, obesity and depression. FAMILY HISTORY: Diabetes runs in the family. PERSONAL HISTORY: Home: She lives alone at home. 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 Habits: She used to smoke tobacco numerous years ago. She would also have a rare alcoholic drink on a social basis in the past. She used to smoke cannabinols in the past. ALLERGIES: No known allergies. NEUROLOGIC REVIEW OF SYSTEMS: Benign. PHYSICAL EXAMINATION: GENERAL: She is a well-developed, well-nourished, obese, black lady, lying in bed, in no acute distress. VITAL SIGNS: Pulse: 68/minute and regular. Blood Pressure: 150/80 mm of Hg. Respirations: 20/minute Temperature: 100.4 F HEAD: Normocephalic and atraumatic. NECK: No neck rigidity was observed. EENT: Benign. EXTREMITIES: She had a pressure ulcer over her right lateral heel. She also had tenderness over the right fibular head. NEUROLOGIC EXAMINATION: MENTAL STATUS EXAMINATION: The patient was alert and awake. The patient was oriented to person, place and time, except for the name of the hospital. The patient was able to recall 3/3 words immediately after 1 minute and after 3 minutes, on the second trial. The patient was able to remember Presidents Trump through [place] [employer] with hints. The patient's mathematical skills were good. The patient's visuospatial function was preserved. SPEECH: No dysarthria was noted. LANGUAGE: No aphasia was noted. CRANIAL NERVE EXAMINATION: II: The visual lyons were intact to confrontation testing. III, IV, : External ocular movements were full and pupils 3 mm in diameter equal, round, regular and reactive to light. V: The facial sensations were normal, and the temporales, masseters and pterygoids functioned normally. VII: The facial expressions were normal and no facial asymmetry was seen. VIII: The patient was able to hear well bilaterally and had no nystagmus. IX: The palate moved symmetrically on phonation. X: There was no hoarseness of voice. XI: The sternocleidomastoids and trapezii functioned normally. XII: The tongue was in the midline without any fasciculations or atrophy. MOTOR SYSTEM: The tone was normal in all 4 extremities except for flaccidity at the right ankle. Examination of muscle mass revealed no focal wasting. Examination of power revealed G 5/5 power except for G 0/5 in the ankle dorsiflexors, ankle evertors, and toe extensors. SENSORY EXAMINATION: Sensations to pinprick and light touch were altered in the distribution of the right peroneal nerve. Graphesthesia was normal. COORDINATION: [id number] and [id number] testing were performed normally. REFLEXES: 0 at the biceps, triceps, brachioradialis, knees and ankles. The plantar responses were flexor bilaterally. STANCE: She stood up with support. GAIT: She walks with support with a right foot drop. ABNORMAL MOVEMENTS: None DIAGNOSTIC IMPRESSION: 1. Ms. Dinorah Waterman is a 54-year-old, right-handed, black lady, who has a long history of diabetes mellitus, obesity and depression. She was seen functioning relatively well 1 day prior to admission, but on the day of admission she was found unresponsive at home by her daughter. It is unclear as to how long she had been unresponsive. When she was hospitalized she was found to be in diabetic ketoacidosis and remained unconscious for a few days. On awakening she was confused and disoriented but when she regained her senses she noticed a problem with strength and sensations in the right foot. 2. On neurological examination, at this time, she does have tenderness over her right fibular head, weakness in the right peroneal muscles, and altered sensations in the right peroneal nerve distribution. 3. 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 The compression of the nerve most probably occurred while the patient was unconscious. RECOMMENDATIONS: 1. The patient was given an explanation of the above- mentioned findings. 2. She should be fitted with an ankle foot orthosis on the right side. 3. She should get physical therapy to learn strategies to prevent injury to her right ankle and prevent falls until her nerve heals. 4. She should be worked up thoroughly for other treatable causes of neuropathy. 5. Diabetes should be controlled in the stricter fashion. Thank you for entrusting me to take care of Ms. Waterman's Neurologic needs. I shall follow her with you. Sincerely, Kulwinder Veliz M.D., M.S.P.H. Neurologist & Clinical Neurophysiologist Kulwinder Veliz MD Oct 16, 2019 19:07
[2019-10-16 20:00] VITALS: BP 142/87
[2019-10-16 21:31] LABS: APPEARANCE,URINE CLEAR; BILIRUBIN, URINE NEGATIVE (NEGATIVE); COLOR,URINE PALE YELLOW; GLUCOSE, URINE (UA) 4+ (NEGATIVE); KETONES,URINE 3+ (NEGATIVE); LEUKOCYTE ESTERASE ,URINE NEGATIVE (NEGATIVE); NITRITE,URINE NEGATIVE (NEGATIVE); PH,URINE 7 (4.5-8.0); PROTEIN,URINE NEGATIVE (NEGATIVE); UROBILINOGEN,URINE NORMAL MG/DL (0.0-1.0)
[2019-10-16] MEDS ORDERED: ACYCLOVIR IV SCH ×3 (22:00)
[2019-10-16] MEDS ORDERED: NS IV SCH ×2 (22:00)
[2019-10-16] MEDS ORDERED: D5W IV SCH (22:00)
[2019-10-16] MEDS: Levemir Flexpen SUBQ SCH (22:05)
[2019-10-17] VITALS: BP 135/53
[2019-10-17] MEDS: Morphine Sulfate 4mg/ml Inj (IV USE ONLY) IVP PRN (02:46)
[2019-10-17 04:00] VITALS: BP 129/68
[2019-10-17] MEDS ORDERED: Miralax 17gm pkt ORAL PRN (04:00)
[2019-10-17] MEDS ORDERED: Morphine Sulfate 4mg/ml Inj (IV USE ONLY) IVP PRN (04:00)
[2019-10-17] MEDS ORDERED: LORazepam Inj 2mg/ml 1ml IV PRN (04:00)
[2019-10-17] MEDS ORDERED: Acetaminophen 650 MG SUPP RECTAL PRN (04:00)
[2019-10-17] MEDS ORDERED: Nitroglycerin Subl 0.4mg tab SL PRN (04:00)
[2019-10-17] MEDS: NS IV SCH ×3 (04:45→21:42)
[2019-10-17] MEDS: ACYCLOVIR IV SCH ×3 (04:45→21:42)
[2019-10-17] MEDS: NovoLOG Insulin Flexpen SUBQ SCH ×7 (05:57→21:00)
--- NOTE | 2019-10-17 07:14 | General Progress Note ---
Assessment/Plan Problem List: (1) Foot drop, right ICD Codes: M21.371 - Foot drop, right foot SNOMED: 6833288, 4565518 (2) DKA (diabetic ketoacidoses) ICD Codes: E11.10 - Type 2 diabetes mellitus with ketoacidosis without coma SNOMED: 858790606, 40893980 (3) Diabetes mellitus ICD Codes: E11.9 - Type 2 diabetes mellitus without complications SNOMED: 78755145 Status: progressing Assessment/Plan: continue Levemir 12 units qhs continue Novolog 4 units ac tid change Novolog sliding scale to ac / hs Hypoglycemia protocol in order Subjective Allergies: Coded Allergies: No Known Allergies (Unverified , 04/14/18) All Systems: reviewed and negative except above Subjective events noted glucose values are labile but in fair control no hypoglycemia Item Value Date Time Bedside Blood Glucose 78 mg/dl 10/17/19 0557 Bedside Blood Glucose 241 mg/dl H 10/16/19 2206 Bedside Blood Glucose 240 mg/dl H 10/16/19 1722 Bedside Blood Glucose 180 mg/dl H 10/16/19 1238 Objective Last 24 Hour Vital Signs Date Time Temp Pulse Resp B/P (MAP) Pulse Ox O2 Delivery O2 Flow Rate FiO2 10/17/19 04:00 98.4 94 20 129/68 (88) 92 10/17/19 00:00 99.1 97 18 135/53 (80) 92 10/16/19 21:00 Room Air Room Air 10/16/19 20:00 98.9 89 18 142/87 (105) 96 10/16/19 17:30 99.4 10/16/19 16:39 100.4 10/16/19 16:00 100.4 68 20 150/80 (103) 98 10/16/19 16:00 92 10/16/19 12:00 91 10/16/19 12:00 99.3 89 19 146/73 (97) 98 10/16/19 09:59 Room Air Room Air 10/16/19 08:00 90 10/16/19 08:00 98.6 90 21 120/69 (86) 97 Intake and Output 10/16/19 10/17/19 19:00 07:00 Intake Total 1760 ml 600 ml Output Total 1900 ml 2 ml Balance -140 ml 598 ml Intake Oral 1760 ml Blood Product 600 ml Output Urine Total 1900 ml 2 ml # Voids 1 Laboratory Tests 10/16/19 18:00: Total Protein (PEP) [Pending], Albumin (PEP) [Pending], Globulin (PEP) [Pending] , Albumin/Globulin Ratio [Pending], Dbwsu-3-Ttzldywet [Pending], Alpha-2- Globulins [Pending], Beta Globulins [Pending], Beta Gamma Globulin [Pending], PEP Abnormal Protein Bands [Pending], Protein Electrophoresis Interpret [Pending ], Vitamin D 25-Hydroxy [Pending], 25-Hydroxy Vitamin D2 [Pending], 25-Hydroxy Vitamin D3 [Pending] 10/16/19 20:00: Urine Color Pale yellow, Urine Appearance Clear, Urine pH 7, Urine Specific [place] 1.010, Urine Protein Negative, Urine Glucose (UA) 4+H, Urine Ketones 3+H , Urine Blood 2+H, Urine Nitrite Negative, Urine Bilirubin Negative, Urine Urobilinogen Normal, Urine Leukocyte Esterase Negative, Urine RBC 0-2, Urine WBC 0-2, Urine Squamous Epithelial Cells Occasional, Urine Bacteria None, Urine Yeast FewH 10/17/19 06:49: Vitamin D 25-Hydroxy [Pending], 25-Hydroxy Vitamin D2 [Pending], 25-Hydroxy Vitamin D3 [Pending], White Blood Count [Pending], Red Blood Count [Pending], Hemoglobin [Pending], Hematocrit [Pending], Mean Corpuscular Volume [Pending], Mean Corpuscular Hemoglobin [Pending], Mean Corpuscular Hemoglobin Concent [ Pending], Red Cell Distribution Width [Pending], Platelet Count [Pending], Mean Platelet Volume [Pending], Neutrophils (%) (Auto) [Pending], Lymphocytes (%) ( Auto) [Pending], Monocytes (%) (Auto) [Pending], Eosinophils (%) (Auto) [Pending ], Basophils (%) (Auto) [Pending], CSF Herpes Simplex II DNA (PCR) [Pending], Sodium Level [Pending], Potassium Level [Pending], Chloride Level [Pending], Carbon Dioxide Level [Pending], Blood Urea Nitrogen [Pending], Creatinine [ Pending], Estimat Glomerular Filtration Rate [Pending], Glucose Level [Pending] , Calcium Level [Pending], Total Bilirubin [Pending], Aspartate Amino Transf ( AST/SGOT) [Pending], Alanine Aminotransferase (ALT/SGPT) [Pending], Alkaline Phosphatase [Pending], Total Protein [Pending], Albumin [Pending], Globulin [ Pending], Amylase Level [Pending], Lipase [Pending], Rapid Plasma Reagin [ Pending], Herpes Simplex Virus I DNA (PCR) [Pending], HIV (1&2) Antibody Rapid [ Pending] Height (Feet): 5 Height (Inches): 6.00 Weight (Pounds): 193 General Appearance: no apparent distress Neck: normal alignment Cardiovascular: normal rate Respiratory/Chest: lungs clear Abdomen: normal bowel sounds Pelvis: normal external exam Objective Current Medications Medications (Trade) Dose Ordered Sig/Saul Route PRN Reason Start Time Stop Time Status Last Admin Dose Admin Acetaminophen (Tylenol) 650 mg Q4H PRN ORAL Fever 10/17/19 04:00 11/10/19 03:59 Acetaminophen (Tylenol) 650 mg Q4H PRN RECTAL Temp >100.5 10/17/19 04:00 11/11/19 03:59 Acyclovir 900 mg/ Sodium Chloride 275 ml @ 275 mls/hr Q8HR IV 10/17/19 06:00 11/15/19 21:59 10/17/19 04:45 Dextrose (Dextrose 50%) 25 ml Q30M PRN IV Hypoglycemia 10/17/19 04:00 01/11/20 07:59 Dextrose (Dextrose 50%) 50 ml Q30M PRN IV Hypoglycemia 10/17/19 04:00 01/11/20 07:59 Diphenhydramine HCl (Benadryl) 50 mg HSPRN PRN ORAL Insomnia 10/17/19 04:00 11/13/19 03:59 Duloxetine HCl (Cymbalta) 30 mg TWICE A DAY ORAL 10/17/19 09:00 01/09/20 17:59 Heparin Sodium (Porcine) (Heparin 5000 units/ml) 5,000 units EVERY 12 HOURS SUBQ 10/17/19 09:00 11/25/19 20:59 Insulin Aspart (NovoLOG) BEFORE MEALS AND HS SUBQ 10/17/19 06:30 01/13/20 11:29 Insulin Aspart (NovoLOG) 4 units BEFORE MEALS SUBQ 10/17/19 06:30 01/11/20 08:59 Insulin Detemir (Levemir) 12 units QHS SUBQ 10/17/19 21:00 01/11/20 08:59 Lorazepam (Ativan 2mg/ml 1ml) 2 mg Q2H PRN IV agitation 10/17/19 04:00 10/18/19 03:59 10/17/19 04:16 Morphine Sulfate (Morphine Sulfate) 4 mg Q4H PRN IVP Severe Pain (Pain Scale 7-10) 10/17/19 04:00 10/18/19 03:59 Nitroglycerin (Ntg) 0.4 mg Q5M PRN SL Prn Chest Pain 10/17/19 04:00 11/10/19 17:29 Ondansetron HCl (Zofran) 4 mg Q6H PRN IVP Nausea & Vomiting 10/17/19 04:00 11/10/19 03:59 Pantoprazole (Protonix) 40 mg EVERY 12 HOURS ORAL 10/17/19 09:00 11/13/19 20:59 Polyethylene Glycol (Miralax) 17 gm DAILYPRN PRN ORAL Constipation 10/17/19 04:00 11/16/19 03:59 Neo Lr MD Oct 17, 2019 07:14
[2019-10-17 07:23] LABS: BASOPHILS % (AUTO) 1.3 % (0.0-2.0); EOSINOPHILS % (AUTO) 4.3 % (0.0-3.0); HEMATOCRIT 32.7 % (37.0-47.0); HEMOGLOBIN 11.1 G/DL (12.0-16.0); LYMPHOCYTES % (AUTO) 35.8 % (20.0-45.0); MEAN CORPUSCULAR VOLUME 75 FL (80-99); MONOCYTES % (AUTO) 12.7 % (1.0-10.0); NEUTROPHILS % (AUTO) 45.9 % (45.0-75.0); PLATELET COUNT 222 K/UL (150-450); RED BLOOD COUNT 4.34 M/UL (4.20-5.40); WHITE BLOOD COUNT 7.7 K/UL (4.8-10.8)
[2019-10-17 07:38] LABS: ALANINE AMINOTRANSFERASE 53 U/L (12-78); ALBUMIN 2.3 G/DL (3.4-5.0); ALBUMIN/GLOBULIN RATIO 0.7 (1.0-2.7); ALKALINE PHOSPHATASE 209 U/L (46-116); AMYLASE 32 U/L (25-115); ASPARTATE AMINO TRANSFERASE 148 U/L (15-37); BILIRUBIN,TOTAL 0.2 MG/DL (0.2-1.0); BLOOD UREA NITROGEN 8 mg/dL (7-18); CALCIUM 8.6 MG/DL (8.5-10.1); CARBON DIOXIDE 31 MMOL/L (21-32); CREATININE 0.5 MG/DL (0.55-1.30)
[2019-10-17 07:45] LABS: CHLORIDE 107 MMOL/L (98-107); POTASSIUM 3.3 MMOL/L (3.5-5.1); SODIUM 144 MMOL/L (136-145)
[2019-10-17 08:00] VITALS: BP 115/83
[2019-10-17] MEDS: Heparin 5000 units/ml inj SUBQ SCH ×2 (09:00→21:32)
[2019-10-17] MEDS: DULoxetine 30mg cap ORAL SCH ×2 (09:21→18:00)
--- NOTE | 2019-10-17 09:56 | Nephrology Progress Note ---
Assessment/Plan Problem List: (1) Renal failure Assessment: Mainly acute secondary to dehydration (2) DKA (diabetic ketoacidoses) (3) Urinary retention (4) Encephalopathy Assessment: Toxic metabolic (5) Dehydration (6) Electrolyte imbalance Assessment 54-year-old female admitted with a diagnosis of diabetic ketoacidosis Renal failure, mainly prerenal secondary to dehydration due to hyperglycemia and excess water loss Abnormal electrolyte related to underlying DKA and dehydration Leukocytosis, underlying sepsis Toxic metabolic encephalopathy Hypothermia Suspected 2019 novel coronavirus infection Metabolic acidosis due to DKA Plan October 16: Renal parameters are stable. Additional potassium supplement orally given. Continue per IV management. October 15: Renal parameters and electrolytes stable. Continue per consultants. Continue per ID management. October 14: Today's labs still pending. Aim to correct the electrolyte abnormalities. Continue per consultants. October 13: Continue to correct low potassium and low phosphorus and low magnesium as needed. Continue to keep blood sugar and blood pressure in check. Patient clinically improving. Patient now on medium carbohydrate diet. Hydrate as needed. Keep the electrolytes and blood chemistries under check Keep blood pressure and blood sugar under control Discussed with RN Per orders Subjective ROS Limited/Unobtainable: No Constitutional: Reports: malaise Objective Objective Last 24 Hour Vital Signs Date Time Temp Pulse Resp B/P (MAP) Pulse Ox O2 Delivery O2 Flow Rate FiO2 10/17/19 08:00 98.4 94 18 115/83 (94) 100 10/17/19 04:00 98.4 94 20 129/68 (88) 92 10/17/19 00:00 99.1 97 18 135/53 (80) 92 10/16/19 21:00 Room Air Room Air 10/16/19 20:00 98.9 89 18 142/87 (105) 96 10/16/19 17:30 99.4 10/16/19 16:39 100.4 10/16/19 16:00 100.4 68 20 150/80 (103) 98 10/16/19 16:00 92 10/16/19 12:00 91 10/16/19 12:00 99.3 89 19 146/73 (97) 98 10/16/19 09:59 Room Air Room Air Intake and Output 10/16/19 10/17/19 19:00 07:00 Intake Total 1760 ml 600 ml Output Total 1900 ml 2 ml Balance -140 ml 598 ml Intake Oral 1760 ml Blood Product 600 ml Output Urine Total 1900 ml 2 ml # Voids 1 Current Medications Medications (Trade) Dose Ordered Sig/Saul Route PRN Reason Start Time Stop Time Status Last Admin Dose Admin Acetaminophen (Tylenol) 650 mg Q4H PRN ORAL Fever 10/17/19 04:00 11/10/19 03:59 Acetaminophen (Tylenol) 650 mg Q4H PRN RECTAL Temp >100.5 10/17/19 04:00 11/11/19 03:59 Acyclovir 900 mg/ Sodium Chloride 275 ml @ 275 mls/hr Q8HR IV 10/17/19 06:00 11/15/19 21:59 10/17/19 04:45 Dextrose (Dextrose 50%) 25 ml Q30M PRN IV Hypoglycemia 10/17/19 04:00 01/11/20 07:59 Dextrose (Dextrose 50%) 50 ml Q30M PRN IV Hypoglycemia 10/17/19 04:00 01/11/20 07:59 Diphenhydramine HCl (Benadryl) 50 mg HSPRN PRN ORAL Insomnia 10/17/19 04:00 11/13/19 03:59 Duloxetine HCl (Cymbalta) 30 mg TWICE A DAY ORAL 10/17/19 09:00 01/09/20 17:59 10/17/19 09:21 Heparin Sodium (Porcine) (Heparin 5000 units/ml) 5,000 units EVERY 12 HOURS SUBQ 10/17/19 09:00 11/25/19 20:59 Insulin Aspart (NovoLOG) BEFORE MEALS AND HS SUBQ 10/17/19 06:30 01/13/20 11:29 Insulin Aspart (NovoLOG) 4 units BEFORE MEALS SUBQ 10/17/19 06:30 01/11/20 08:59 Insulin Detemir (Levemir) 12 units QHS SUBQ 10/17/19 21:00 01/11/20 08:59 Lorazepam (Ativan 2mg/ml 1ml) 2 mg Q2H PRN IV agitation 10/17/19 04:00 10/18/19 03:59 10/17/19 04:16 Morphine Sulfate (Morphine Sulfate) 4 mg Q4H PRN IVP Severe Pain (Pain Scale 7-10) 10/17/19 04:00 10/18/19 03:59 Nitroglycerin (Ntg) 0.4 mg Q5M PRN SL Prn Chest Pain 10/17/19 04:00 11/10/19 17:29 Ondansetron HCl (Zofran) 4 mg Q6H PRN IVP Nausea & Vomiting 10/17/19 04:00 11/10/19 03:59 Pantoprazole (Protonix) 40 mg EVERY 12 HOURS ORAL 10/17/19 09:00 11/13/19 20:59 10/17/19 09:21 Polyethylene Glycol (Miralax) 17 gm DAILYPRN PRN ORAL Constipation 10/17/19 04:00 11/16/19 03:59 Potassium Chloride (K-Dur) 40 meq DAILY ORAL 10/17/19 09:00 01/15/20 08:59 10/17/19 09:22 Laboratory Tests 10/16/19 18:00: Total Protein (PEP) [Pending], Albumin (PEP) [Pending], Globulin (PEP) [Pending] , Albumin/Globulin Ratio [Pending], [id number] [Pending], Alpha-2- Globulins [Pending], Beta Globulins [Pending], Beta Gamma Globulin [Pending], PEP Abnormal Protein Bands [Pending], Protein Electrophoresis Interpret [Pending ], Vitamin D 25-Hydroxy [Pending], 25-Hydroxy Vitamin D2 [Pending], 25-Hydroxy Vitamin D3 [Pending] 10/16/19 20:00: Urine Color Pale yellow, Urine Appearance Clear, Urine pH 7, Urine Specific [place] 1.010, Urine Protein Negative, Urine Glucose (UA) 4+H, Urine Ketones 3+H , Urine Blood 2+H, Urine Nitrite Negative, Urine Bilirubin Negative, Urine Urobilinogen Normal, Urine Leukocyte Esterase Negative, Urine RBC 0-2, Urine WBC 0-2, Urine Squamous Epithelial Cells Occasional, Urine Bacteria None, Urine Yeast FewH 10/17/19 06:49: Albumin/Globulin Ratio 0.7L, Vitamin D 25-Hydroxy [Pending], 25-Hydroxy Vitamin D2 [Pending], 25-Hydroxy Vitamin D3 [Pending], White Blood Count 7.7, Red Blood Count 4.34, Hemoglobin 11.1L, Hematocrit 32.7L, Mean Corpuscular Volume 75L, Mean Corpuscular Hemoglobin 25.6L, Mean Corpuscular Hemoglobin Concent 34.0, Red Cell Distribution Width 13.0, Platelet Count 222, Mean Platelet Volume 6.6, Neutrophils (%) (Auto) 45.9, Lymphocytes (%) (Auto) 35.8, Monocytes (%) (Auto) 12.7H, Eosinophils (%) (Auto) 4.3H, Basophils (%) (Auto) 1.3, CSF Herpes Simplex II DNA (PCR) [Pending], Sodium Level 144, Potassium Level 3.3L, Chloride Level 107, Carbon Dioxide Level 31, Blood Urea Nitrogen 8, Creatinine 0.5L, Estimat Glomerular Filtration Rate > 60, Glucose Level 76, Calcium Level 8.6, Phosphorus Level 4.0, Total Bilirubin 0.2, Aspartate Amino Transf (AST/SGOT ) 148H, Alanine Aminotransferase (ALT/SGPT) 53, Alkaline Phosphatase 209H, Total Protein 5.8L, Albumin 2.3L, Globulin 3.5, Amylase Level 32, Lipase 142, Rapid Plasma Reagin [Pending], Herpes Simplex Virus I DNA (PCR) [Pending], HIV ( 1&2) Antibody Rapid Negative Height (Feet): 5 Height (Inches): 6.00 Weight (Pounds): 193 General Appearance: no apparent distress Cardiovascular: tachycardia Respiratory/Chest: decreased breath sounds Abdomen: soft Objective No change Delvin Armas MD Oct 17, 2019 09:56
--- NOTE | 2019-10-17 11:41 | Diagnostic Imaging Report ---
Procedure: XRAY Chest 1v Reason for study: Reason For Exam: COUGH Comparison films: 10/15/2019. FINDINGS: A single one view chest is obtained. Vascularity is normal. Minimal linear atelectasis lateral left midlung. Lungs otherwise clear. Cardiac and mediastinal silhouette are within normal limits. No significant effusion noted. The bony thorax appear unremarkable. IMPRESSION: Minimal left lung atelectasis. No acute disease.
[2019-10-17 12:00] VITALS: BP 119/79
--- NOTE | 2019-10-17 13:03 | Infectious Diseases Prog Note ---
Assessment/Plan Assessment/Plan Assessment: Herpes Zoster buttocks area- r/o [employer] VZV causing foot drop Severe sepsis Probable pNA vs pulmonary edema- COVIDneg x2 -10/16 CXR: Minimal left lung atelectasis. No acute disease. -10/14 CXR: no acute process -10/11 SARS CoV PCR neg -10/10 SARS-COV2 PCR neg BCx NTD u/a neg Fever; recurrent Hyper Leukocytosis; SP -10/15 u/a neg; ucx NTD Bcx p -CT abd/p: Bilateral basilar pulmonary groundglass opacities, may indicate early pneumonia changes. Limited assessment of the GI tract, due to lack of enteric contrast administration.Mild rectal distention with stool, mild rectal fecal impaction possible. Distended bladder. Mildly enlarged uterus with calcifications, may indicate diffuse fibroid change. Distended bladder. Incidental finding of degenerative spondylosis DKA, SP severe anion gap metabolic acidosis ТАТЬЯНА, SP -REnla US: Negative for hydronephrosis or other renal abnormality. Empty bladder with a Coleman catheter. Acute encephalopathy- 2ry to above -CT head: no acute findings Dm1, uncontrolled Plan: -Continue IV Acyclovir #2 pending CSF studies -10/14 SP Ceftriaxone and Azithromycin #5 -f/u cx -Monitor CBC/CMP, temperature -SARS CoV PCR neg x2 -aspiration precautions -f/u repeat cultures -CBC, CMP, amylase, lipase, CXR am EUFEMIA T[place]O Thank you for consulting [facility]. Will continue to follow along with you. Subjective Allergies: Coded Allergies: No Known Allergies (Unverified , 04/14/18) Subjective Tm 100.4 at RA no leukocytosis Objective Vital Signs Last 24 Hour Vital Signs Date Time Temp Pulse Resp B/P (MAP) Pulse Ox O2 Delivery O2 Flow Rate FiO2 10/17/19 09:00 Room Air Room Air 10/17/19 08:00 98.4 94 18 115/83 (94) 100 10/17/19 04:00 98.4 94 20 129/68 (88) 92 10/17/19 00:00 99.1 97 18 135/53 (80) 92 10/16/19 21:00 Room Air Room Air 10/16/19 20:00 98.9 89 18 142/87 (105) 96 10/16/19 17:30 99.4 10/16/19 16:39 100.4 10/16/19 16:00 100.4 68 20 150/80 (103) 98 10/16/19 16:00 92 Height (Feet): 5 Height (Inches): 6.00 Weight (Pounds): 193 Objective General Appearance: no acute distress HEENT: atraumatic Respiratory/Chest: no respiratory distress, no accessory muscle use Abdomen: non distended Skin: fluid filled vesicles in linear patter on buttocks area; no other rash Neurologic/Psychiatric: alert, responsive, R foot drop Microbiology Date/Time Source Procedure Growth Status 10/16/19 20:00 Urine,Clean Catch Urine Culture - Preliminary NO GROWTH Resulted Laboratory Tests Test 10/16/19 18:00 10/16/19 20:00 10/17/19 06:49 Total Protein (PEP) Pending Albumin (PEP) Pending Globulin (PEP) Pending Albumin/Globulin Ratio Pending 0.7 (1.0-2.7) L [id number]-0-Bcjdxzwom Pending Hxjwz-3-Ebjwfupde Pending Beta Globulins Pending Beta Gamma Globulin Pending PEP Abnormal Protein Bands Pending Protein Electrophoresis Interpret Pending Vitamin D 25-Hydroxy Pending Pending 25-Hydroxy Vitamin D2 Pending Pending 25-Hydroxy Vitamin D3 Pending Pending Urine Color Pale yellow Urine Appearance Clear Urine pH 7 (4.5-8.0) Urine Specific [place] 1.010 (1.005-1.035) Urine Protein Negative (NEGATIVE) Urine Glucose (UA) 4+ (NEGATIVE) H Urine Ketones 3+ (NEGATIVE) H Urine Blood 2+ (NEGATIVE) H Urine Nitrite Negative (NEGATIVE) Urine Bilirubin Negative (NEGATIVE) Urine Urobilinogen Normal MG/DL (0.0-1.0) Urine Leukocyte Esterase Negative (NEGATIVE) Urine RBC 0-2 /HPF (0 - 2) Urine WBC 0-2 /HPF (0 - 2) Urine Squamous Epithelial Cells Occasional /LPF Urine Bacteria None /HPF (NONE) Urine Yeast Few /HPF (NONE) H White Blood Count 7.7 K/UL (4.8-10.8) Red Blood Count 4.34 M/UL (4.20-5.40) Hemoglobin 11.1 G/DL (12.0-16.0) L Hematocrit 32.7 % (37.0-47.0) L Mean Corpuscular Volume 75 FL (80-99) L Mean Corpuscular Hemoglobin 25.6 PG (27.0-31.0) L Mean Corpuscular Hemoglobin Concent 34.0 G/DL (32.0-36.0) Red Cell Distribution Width 13.0 % (11.6-14.8) Platelet Count 222 K/UL (150-450) Mean Platelet Volume 6.6 FL (6.5-10.1) Neutrophils (%) (Auto) 45.9 % (45.0-75.0) Lymphocytes (%) (Auto) 35.8 % (20.0-45.0) Monocytes (%) (Auto) 12.7 % (1.0-10.0) H Eosinophils (%) (Auto) 4.3 % (0.0-3.0) H Basophils (%) (Auto) 1.3 % (0.0-2.0) CSF Herpes Simplex II DNA (PCR) Pending Sodium Level 144 MMOL/L (136-145) Potassium Level 3.3 MMOL/L (3.5-5.1) L Chloride Level 107 MMOL/L (98-107) Carbon Dioxide Level 31 MMOL/L (21-32) Blood Urea Nitrogen 8 mg/dL (7-18) Creatinine 0.5 MG/DL (0.55-1.30) L Estimat Glomerular Filtration Rate > 60 mL/min (>60) Glucose Level 76 MG/DL (74-106) Calcium Level 8.6 MG/DL (8.5-10.1) Phosphorus Level 4.0 MG/DL (2.5-4.9) Total Bilirubin 0.2 MG/DL (0.2-1.0) Aspartate Amino Transf (AST/SGOT) 148 U/L (15-37) H Alanine Aminotransferase (ALT/SGPT) 53 U/L (12-78) Alkaline Phosphatase 209 U/L (46-116) H Total Protein 5.8 G/DL (6.4-8.2) L Albumin 2.3 G/DL (3.4-5.0) L Globulin 3.5 g/dL Amylase Level 32 U/L (25-115) Lipase 142 U/L (73-393) Rapid Plasma Reagin Pending Herpes Simplex Virus I DNA (PCR) Pending HIV (1&2) Antibody Rapid Negative (NEGATIVE) Current Medications Medications (Trade) Dose Ordered Sig/Saul Route PRN Reason Start Time Stop Time Status Last Admin Dose Admin Acetaminophen (Tylenol) 650 mg Q4H PRN ORAL Fever 10/17/19 04:00 11/10/19 03:59 Acetaminophen (Tylenol) 650 mg Q4H PRN RECTAL Temp >100.5 10/17/19 04:00 11/11/19 03:59 Acyclovir 900 mg/ Sodium Chloride 275 ml @ 275 mls/hr Q8HR IV 10/17/19 06:00 11/15/19 21:59 10/17/19 04:45 Dextrose (Dextrose 50%) 25 ml Q30M PRN IV Hypoglycemia 10/17/19 04:00 01/11/20 07:59 Dextrose (Dextrose 50%) 50 ml Q30M PRN IV Hypoglycemia 10/17/19 04:00 01/11/20 07:59 Diphenhydramine HCl (Benadryl) 50 mg HSPRN PRN ORAL Insomnia 10/17/19 04:00 11/13/19 03:59 Duloxetine HCl (Cymbalta) 30 mg TWICE A DAY ORAL 10/17/19 09:00 01/09/20 17:59 10/17/19 09:21 Heparin Sodium (Porcine) (Heparin 5000 units/ml) 5,000 units EVERY 12 HOURS SUBQ 10/17/19 09:00 11/25/19 20:59 Insulin Aspart (NovoLOG) BEFORE MEALS AND HS SUBQ 10/17/19 06:30 01/13/20 11:29 10/17/19 11:30 Insulin Aspart (NovoLOG) 4 units BEFORE MEALS SUBQ 10/17/19 06:30 01/11/20 08:59 Insulin Detemir (Levemir) 12 units QHS SUBQ 10/17/19 21:00 01/11/20 08:59 Lorazepam (Ativan 2mg/ml 1ml) 2 mg Q2H PRN IV agitation 10/17/19 04:00 10/18/19 03:59 10/17/19 04:16 Morphine Sulfate (Morphine Sulfate) 4 mg Q4H PRN IVP Severe Pain (Pain Scale 7-10) 10/17/19 04:00 10/18/19 03:59 Nitroglycerin (Ntg) 0.4 mg Q5M PRN SL Prn Chest Pain 10/17/19 04:00 11/10/19 17:29 Ondansetron HCl (Zofran) 4 mg Q6H PRN IVP Nausea & Vomiting 10/17/19 04:00 11/10/19 03:59 Pantoprazole (Protonix) 40 mg EVERY 12 HOURS ORAL 10/17/19 09:00 11/13/19 20:59 10/17/19 09:21 Polyethylene Glycol (Miralax) 17 gm DAILYPRN PRN ORAL Constipation 10/17/19 04:00 11/16/19 03:59 Potassium Chloride (K-Dur) 40 meq DAILY ORAL 10/17/19 09:00 01/15/20 08:59 10/17/19 09:22 Oxana Chi M.D. Oct 17, 2019 13:03
--- NOTE | 2019-10-17 13:49 | Pulmonology Progress Note ---
Subjective ROS Limited/Unobtainable: No Constitutional: Reports: no symptoms HEENT: Repors: no symptoms Respiratory: Reports: no symptoms Allergies: Coded Allergies: No Known Allergies (Unverified , 04/14/18) All Systems: reviewed and negative except above Objective Last 24 Hour Vital Signs Date Time Temp Pulse Resp B/P (MAP) Pulse Ox O2 Delivery O2 Flow Rate FiO2 10/17/19 12:00 98.2 90 19 119/79 (92) 98 10/17/19 09:00 Room Air Room Air 10/17/19 08:00 98.4 94 18 115/83 (94) 100 10/17/19 04:00 98.4 94 20 129/68 (88) 92 10/17/19 00:00 99.1 97 18 135/53 (80) 92 10/16/19 21:00 Room Air Room Air 10/16/19 20:00 98.9 89 18 142/87 (105) 96 10/16/19 17:30 99.4 10/16/19 16:39 100.4 10/16/19 16:00 100.4 68 20 150/80 (103) 98 10/16/19 16:00 92 Intake and Output 10/16/19 10/17/19 19:00 07:00 Intake Total 1760 ml 600 ml Output Total 1900 ml 2 ml Balance -140 ml 598 ml Intake Oral 1760 ml Blood Product 600 ml Output Urine Total 1900 ml 2 ml # Voids 1 General Appearance: no acute distress - obese AA female HEENT: anicteric, PERRL Respiratory: lungs clear, no respiratory distress, no accessory muscle use Cardiovascular: normal rate, regular rhythm, no JVD Abdomen: soft, non tender - obese Extremities: no cyanosis, no edema Skin: no rash Neurologic: alert, oriented x 3, responsive Musculoskeletal: normal muscle bulk Microbiology Date/Time Source Procedure Growth Status 10/16/19 20:00 Urine,Clean Catch Urine Culture - Preliminary NO GROWTH Resulted Laboratory Tests 10/16/19 18:00: Total Protein (PEP) [Pending], Albumin (PEP) [Pending], Globulin (PEP) [Pending] , Albumin/Globulin Ratio [Pending], [id number]-[id number] [Pending], Alpha-2- Globulins [Pending], Beta Globulins [Pending], Beta Gamma Globulin [Pending], PEP Abnormal Protein Bands [Pending], Protein Electrophoresis Interpret [Pending ], Vitamin D 25-Hydroxy [Pending], 25-Hydroxy Vitamin D2 [Pending], 25-Hydroxy Vitamin D3 [Pending] 10/16/19 20:00: Urine Color Pale yellow, Urine Appearance Clear, Urine pH 7, Urine Specific [place] 1.010, Urine Protein Negative, Urine Glucose (UA) 4+H, Urine Ketones 3+H , Urine Blood 2+H, Urine Nitrite Negative, Urine Bilirubin Negative, Urine Urobilinogen Normal, Urine Leukocyte Esterase Negative, Urine RBC 0-2, Urine WBC 0-2, Urine Squamous Epithelial Cells Occasional, Urine Bacteria None, Urine Yeast FewH 10/17/19 06:49: Albumin/Globulin Ratio 0.7L, Vitamin D 25-Hydroxy [Pending], 25-Hydroxy Vitamin D2 [Pending], 25-Hydroxy Vitamin D3 [Pending], White Blood Count 7.7, Red Blood Count 4.34, Hemoglobin 11.1L, Hematocrit 32.7L, Mean Corpuscular Volume 75L, Mean Corpuscular Hemoglobin 25.6L, Mean Corpuscular Hemoglobin Concent 34.0, Red Cell Distribution Width 13.0, Platelet Count 222, Mean Platelet Volume 6.6, Neutrophils (%) (Auto) 45.9, Lymphocytes (%) (Auto) 35.8, Monocytes (%) (Auto) 12.7H, Eosinophils (%) (Auto) 4.3H, Basophils (%) (Auto) 1.3, CSF Herpes Simplex II DNA (PCR) [Pending], Sodium Level 144, Potassium Level 3.3L, Chloride Level 107, Carbon Dioxide Level 31, Blood Urea Nitrogen 8, Creatinine 0.5L, Estimat Glomerular Filtration Rate > 60, Glucose Level 76, Calcium Level 8.6, Phosphorus Level 4.0, Total Bilirubin 0.2, Aspartate Amino Transf (AST/SGOT ) 148H, Alanine Aminotransferase (ALT/SGPT) 53, Alkaline Phosphatase 209H, Total Protein 5.8L, Albumin 2.3L, Globulin 3.5, Amylase Level 32, Lipase 142, Rapid Plasma Reagin [Pending], Herpes Simplex Virus I DNA (PCR) [Pending], HIV ( 1&2) Antibody Rapid Negative Current Medications Medications (Trade) Dose Ordered Sig/Saul Route PRN Reason Start Time Stop Time Status Last Admin Dose Admin Acetaminophen (Tylenol) 650 mg Q4H PRN ORAL Fever 10/17/19 04:00 11/10/19 03:59 Acetaminophen (Tylenol) 650 mg Q4H PRN RECTAL Temp >100.5 10/17/19 04:00 11/11/19 03:59 Acyclovir 900 mg/ Sodium Chloride 275 ml @ 275 mls/hr Q8HR IV 10/17/19 06:00 11/15/19 21:59 10/17/19 04:45 Dextrose (Dextrose 50%) 25 ml Q30M PRN IV Hypoglycemia 10/17/19 04:00 01/11/20 07:59 Dextrose (Dextrose 50%) 50 ml Q30M PRN IV Hypoglycemia 10/17/19 04:00 01/11/20 07:59 Diphenhydramine HCl (Benadryl) 50 mg HSPRN PRN ORAL Insomnia 10/17/19 04:00 11/13/19 03:59 Duloxetine HCl (Cymbalta) 30 mg TWICE A DAY ORAL 10/17/19 09:00 01/09/20 17:59 10/17/19 09:21 Heparin Sodium (Porcine) (Heparin 5000 units/ml) 5,000 units EVERY 12 HOURS SUBQ 10/17/19 09:00 11/25/19 20:59 Insulin Aspart (NovoLOG) BEFORE MEALS AND HS SUBQ 10/17/19 06:30 01/13/20 11:29 10/17/19 11:30 Insulin Aspart (NovoLOG) 4 units BEFORE MEALS SUBQ 10/17/19 06:30 01/11/20 08:59 Insulin Detemir (Levemir) 12 units QHS SUBQ 10/17/19 21:00 01/11/20 08:59 Lorazepam (Ativan 2mg/ml 1ml) 2 mg Q2H PRN IV agitation 10/17/19 04:00 10/18/19 03:59 10/17/19 04:16 Morphine Sulfate (Morphine Sulfate) 4 mg Q4H PRN IVP Severe Pain (Pain Scale 7-10) 10/17/19 04:00 10/18/19 03:59 Nitroglycerin (Ntg) 0.4 mg Q5M PRN SL Prn Chest Pain 10/17/19 04:00 7/4/20 17:29 Ondansetron HCl (Zofran) 4 mg Q6H PRN IVP Nausea & Vomiting 10/17/19 04:00 11/10/19 03:59 Pantoprazole (Protonix) 40 mg EVERY 12 HOURS ORAL 10/17/19 09:00 11/13/19 20:59 10/17/19 09:21 Polyethylene Glycol (Miralax) 17 gm DAILYPRN PRN ORAL Constipation 10/17/19 04:00 11/16/19 03:59 Potassium Chloride (K-Dur) 40 meq DAILY ORAL 10/17/19 09:00 01/15/20 08:59 10/17/19 09:22 Assessment/Plan Problems: (1) DKA (diabetic ketoacidoses) (2) Compression neuropathy (3) Renal failure (4) Urinary retention Assessment/Plan improving Low grade fever off insulin drip eating well BS between 90 and 150 Neuro evaluation appreciated: 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 watch electrolytes anemia w/u Gera Nunn MD Oct 17, 2019 13:49
--- NOTE | 2019-10-17 13:54 | Consultation ---
History of Present Illness General Chief Complaint: Abnormal Labs Reason for Consultation: icu management Present Illness HPI Pt seen bedside for Right heel blister formation. Pt denies any acute SOI to the area. Pt resting comfortable at bedside. States she was admitted for DKA. Allergies: Coded Allergies: No Known Allergies (Unverified , 04/14/18) Medication History Scheduled Diclofenac Sodium (Diclofenac Sodium), Unknown Dose PO DAILY, (Reported) Duloxetine Hcl* (Cymbalta*), 30 MG ORAL TWICE A DAY, (Reported) Insulin Aspart (Novolog Flexpen), 30 UNIT SUBQ BE, (Reported) Insulin Glargine,Hum.rec.anlog (Toujeo Solostar), 5-7 UNIT SQ AC, (Reported) Omeprazole Magnesium (Prilosec Otc), 20 MG ORAL DAILY, (Reported) Tizanidine Hcl* (Zanaflex*), 4 MG ORAL Q4HR, (Reported) Miscellaneous Medications Cyclobenzaprine Hcl* (Flexeril*), 5 MG ORAL, (Reported) Insulin Aspart (Novolog Flexpen), SQ, (Reported) Patient History Healthcare decision maker N Resuscitation status Advanced Directive on File Physical Exam Physical Exam Narrative Focused RLE Exam: Derm: Right heel blister noted, negative increased edema and erythema. Minimal serous drainage blister noted, intact. Vasc: 2/4 DP/PT pulses. 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 Neuro: SILT diminished. MSK: MS/ROM diminished. Last 24 Hour Vital Signs Date Time Temp Pulse Resp B/P (MAP) Pulse Ox O2 Delivery O2 Flow Rate FiO2 10/17/19 12:00 98.2 90 19 119/79 (92) 98 10/17/19 09:00 Room Air Room Air 10/17/19 08:00 98.4 94 18 115/83 (94) 100 10/17/19 04:00 98.4 94 20 129/68 (88) 92 10/17/19 00:00 99.1 97 18 135/53 (80) 92 10/16/19 21:00 Room Air Room Air 10/16/19 20:00 98.9 89 18 142/87 (105) 96 10/16/19 17:30 99.4 10/16/19 16:39 100.4 10/16/19 16:00 100.4 68 20 150/80 (103) 98 10/16/19 16:00 92 Intake and Output 10/16/19 10/17/19 19:00 07:00 Intake Total 1760 ml 600 ml Output Total 1900 ml 2 ml Balance -140 ml 598 ml Intake Oral 1760 ml Blood Product 600 ml Output Urine Total 1900 ml 2 ml # Voids 1 Laboratory Tests Test 10/16/19 18:00 10/16/19 20:00 10/17/19 06:49 Total Protein (PEP) Pending Albumin (PEP) Pending Globulin (PEP) Pending Albumin/Globulin Ratio Pending 0.7 (1.0-2.7) L Wlbmd-8-Zmmeerndo Pending Hhysi-2-Nvsdfpnnm Pending Beta Globulins Pending Beta Gamma Globulin Pending PEP Abnormal Protein Bands Pending Protein Electrophoresis Interpret Pending Vitamin D 25-Hydroxy Pending Pending 25-Hydroxy Vitamin D2 Pending Pending 25-Hydroxy Vitamin D3 Pending Pending Urine Color Pale yellow Urine Appearance Clear Urine pH 7 (4.5-8.0) Urine Specific [place] 1.010 (1.005-1.035) Urine Protein Negative (NEGATIVE) Urine Glucose (UA) 4+ (NEGATIVE) H Urine Ketones 3+ (NEGATIVE) H Urine Blood 2+ (NEGATIVE) H Urine Nitrite Negative (NEGATIVE) Urine Bilirubin Negative (NEGATIVE) Urine Urobilinogen Normal MG/DL (0.0-1.0) Urine Leukocyte Esterase Negative (NEGATIVE) Urine RBC 0-2 /HPF (0 - 2) Urine WBC 0-2 /HPF (0 - 2) Urine Squamous Epithelial Cells Occasional /LPF Urine Bacteria None /HPF (NONE) Urine Yeast Few /HPF (NONE) H White Blood Count 7.7 K/UL (4.8-10.8) Red Blood Count 4.34 M/UL (4.20-5.40) Hemoglobin 11.1 G/DL (12.0-16.0) L Hematocrit 32.7 % (37.0-47.0) L Mean Corpuscular Volume 75 FL (80-99) L Mean Corpuscular Hemoglobin 25.6 PG (27.0-31.0) L Mean Corpuscular Hemoglobin Concent 34.0 G/DL (32.0-36.0) Red Cell Distribution Width 13.0 % (11.6-14.8) Platelet Count 222 K/UL (150-450) Mean Platelet Volume 6.6 FL (6.5-10.1) Neutrophils (%) (Auto) 45.9 % (45.0-75.0) Lymphocytes (%) (Auto) 35.8 % (20.0-45.0) Monocytes (%) (Auto) 12.7 % (1.0-10.0) H Eosinophils (%) (Auto) 4.3 % (0.0-3.0) H Basophils (%) (Auto) 1.3 % (0.0-2.0) CSF Herpes Simplex II DNA (PCR) Pending Sodium Level 144 MMOL/L (136-145) Potassium Level 3.3 MMOL/L (3.5-5.1) L Chloride Level 107 MMOL/L (98-107) Carbon Dioxide Level 31 MMOL/L (21-32) Blood Urea Nitrogen 8 mg/dL (7-18) Creatinine 0.5 MG/DL (0.55-1.30) L Estimat Glomerular Filtration Rate > 60 mL/min (>60) Glucose Level 76 MG/DL (74-106) Calcium Level 8.6 MG/DL (8.5-10.1) Phosphorus Level 4.0 MG/DL (2.5-4.9) Total Bilirubin 0.2 MG/DL (0.2-1.0) Aspartate Amino Transf (AST/SGOT) 148 U/L (15-37) H Alanine Aminotransferase (ALT/SGPT) 53 U/L (12-78) Alkaline Phosphatase 209 U/L (46-116) H Total Protein 5.8 G/DL (6.4-8.2) L Albumin 2.3 G/DL (3.4-5.0) L Globulin 3.5 g/dL Amylase Level 32 U/L (25-115) Lipase 142 U/L (73-393) Rapid Plasma Reagin Pending Herpes Simplex Virus I DNA (PCR) Pending HIV (1&2) Antibody Rapid Negative (NEGATIVE) Microbiology Date/Time Source Procedure Growth Status 10/16/19 20:00 Urine,Clean Catch Urine Culture - Preliminary NO GROWTH Resulted Height (Feet): 5 Height (Inches): 6.00 Weight (Pounds): 193 Medications Current Medications Medications (Trade) Dose Ordered Sig/Saul Route PRN Reason Start Time Stop Time Status Last Admin Dose Admin Acetaminophen (Tylenol) 650 mg Q4H PRN ORAL Fever 10/17/19 04:00 11/10/19 03:59 Acetaminophen (Tylenol) 650 mg Q4H PRN RECTAL Temp >100.5 10/17/19 04:00 11/11/19 03:59 Acyclovir 900 mg/ Sodium Chloride 275 ml @ 275 mls/hr Q8HR IV 10/17/19 06:00 11/15/19 21:59 10/17/19 04:45 Dextrose (Dextrose 50%) 25 ml Q30M PRN IV Hypoglycemia 10/17/19 04:00 01/11/20 07:59 Dextrose (Dextrose 50%) 50 ml Q30M PRN IV Hypoglycemia 10/17/19 04:00 01/11/20 07:59 Diphenhydramine HCl (Benadryl) 50 mg HSPRN PRN ORAL Insomnia 10/17/19 04:00 11/13/19 03:59 Duloxetine HCl (Cymbalta) 30 mg TWICE A DAY ORAL 10/17/19 09:00 01/09/20 17:59 10/17/19 09:21 Heparin Sodium (Porcine) (Heparin 5000 units/ml) 5,000 units EVERY 12 HOURS SUBQ 10/17/19 09:00 11/25/19 20:59 Insulin Aspart (NovoLOG) BEFORE MEALS AND HS SUBQ 10/17/19 06:30 01/13/20 11:29 10/17/19 11:30 Insulin Aspart (NovoLOG) 4 units BEFORE MEALS SUBQ 10/17/19 06:30 01/11/20 08:59 Insulin Detemir (Levemir) 12 units QHS SUBQ 10/17/19 21:00 01/11/20 08:59 Lorazepam (Ativan 2mg/ml 1ml) 2 mg Q2H PRN IV agitation 10/17/19 04:00 10/18/19 03:59 10/17/19 04:16 Morphine Sulfate (Morphine Sulfate) 4 mg Q4H PRN IVP Severe Pain (Pain Scale 7-10) 10/17/19 04:00 10/18/19 03:59 Nitroglycerin (Ntg) 0.4 mg Q5M PRN SL Prn Chest Pain 10/17/19 04:00 11/10/19 17:29 Ondansetron HCl (Zofran) 4 mg Q6H PRN IVP Nausea & Vomiting 10/17/19 04:00 11/10/19 03:59 Pantoprazole (Protonix) 40 mg EVERY 12 HOURS ORAL 10/17/19 09:00 11/13/19 20:59 10/17/19 09:21 Polyethylene Glycol (Miralax) 17 gm DAILYPRN PRN ORAL Constipation 10/17/19 04:00 11/16/19 03:59 Potassium Chloride (K-Dur) 40 meq DAILY ORAL 10/17/19 09:00 01/15/20 08:59 10/17/19 09:22 Assessment/Plan Assessment/Plan: A: R heel Blister. DM Obesity Depression P: - Pt seen and evaluated. - Discuss findings with patient. - lab and chart reviewed. - R foot blister appears stable at this time. - R foot XR ordered, R/O infectious process. - Daily betadine dressing to R heel with compression. - Rec off-loading measures to B/L L/E. - No acute surgical intervention required at this time. - Podiatry will cont to monitor. Norbert Snyder DPM Oct 17, 2019 13:54
--- NOTE | 2019-10-17 14:24 | Pre-Procedure Note/Attestation ---
Pre-Procedure Note/Attestation Complete Prior to Procedure Planned Procedure: not applicable Procedure Narrative: Lumbar puncture Indications for Procedure Pre-Operative Diagnosis: Shingles Attestation I attest that I discussed the nature of the procedure; its benefits; risks and complications; and alternatives (and the risks and benefits of such alternatives ), prior to the procedure, with the patient (or the patient's legal sales representatives). I attest that, if there was a reasonable possibility of needing a blood transfusion, the patient (or the patient's legal sales representatives) was given the [facility] standardized written summary, pursuant to the Piyush Randal Blood Safety Act ([place] Health and Safety Code # 1645, as amended). I attest that I re-evaluated the patient just prior to the surgery and that there has been no change in the patient's H&P, except as documented below: Nikolay Ospina MD Oct 17, 2019 14:24
--- NOTE | 2019-10-17 14:44 | Brief Operative Note ---
Immediate Post Operative Note Operative Note Pre-op Diagnosis: Shingles Procedure: lumbar puncture Post-op Diagnosis: same Findings: other - Opening pressure 26 closing pressure 16 Surgeon: Dexter Ospina Anesthesia: local Specimen: yes - 9 ml clear CSF Complications: none Fluids: none Implant(s) used?: No Nikolay Ospina MD Oct 17, 2019 14:44
[2019-10-17 16:00] VITALS: BP 113/80
--- NOTE | 2019-10-17 16:19 | Diagnostic Imaging Report ---
Indication: History altered mental status, shingles Technique: Informed consent obtained from the patient prior to commencement of the procedure. Risks, including but not limited to hemorrhage, infection, nerve damage discussed with the patient, questions answered. She indicated her willingness to proceed. Fluoroscopy used to localize optimal puncture site. Skin was sterilely prepped and draped. Local anesthesia functional lidocaine. Under fluoroscopic guidance, the thecal sac was accessed using a 22-gauge spinal needle at L3-4 using a left of midline sublaminar approach. Orthogonal images confirmed satisfactory needle placement. The stylette was removed. Spontaneous return of CSF noted. Opening pressure pain, found to be 26 cm H2O. Total 9 mL of clear CSF obtained, divided into 4 vials. Closing pressure pain, found to be 17 cm H2O. A bandage was placed. The patient tolerated the procedure well, without immediate complication. Total fluoroscopy time 39.3 seconds. Total dose area product [id number] Number of images: 3 Comparison: None. Reference made to brain CT dated 10/11/2019 Findings: As above Impression: Successful lumbar puncture, as described Note elevated opening pressure, 26 cm H2O
--- NOTE | 2019-10-17 17:10 | Neurology Progress Note ---
Interim History Interim History Interim History Ms. Dinorah Waterman is a 54-year-old, right-handed, black lady, who has a long history of diabetes mellitus, obesity and depression. She was seen functioning relatively well 1 day prior to admission, but on the day of admission she was found unresponsive at home by her daughter. It is unclear as to how long she had been unresponsive. When she was hospitalized she was found to be in diabetic ketoacidosis and remained unconscious for a few days. On awakening she was confused and disoriented but when she regained her senses she noticed a problem with strength and sensations in the right foot. She feels relatively well today. The right foot weakness is approximately the same. The altered sensation over her right leg and foot is also about the same. She denies any new neurological symptoms. Objective Physical Exam Last Vital Signs Date Time Temp Pulse Resp B/P (MAP) Pulse Ox O2 Delivery O2 Flow Rate FiO2 10/17/19 12:00 98.2 90 19 119/79 (92) 98 10/17/19 09:00 Room Air Room Air 10/15/19 19:31 21 Laboratory Tests Test 10/16/19 18:00 10/16/19 20:00 10/17/19 06:49 Total Protein (PEP) Pending Albumin (PEP) Pending Globulin (PEP) Pending Albumin/Globulin Ratio Pending 0.7 (1.0-2.7) L Idvxj-5-Buvpfidvs Pending Xoyej-0-Nkwcatxhz Pending Beta Globulins Pending Beta Gamma Globulin Pending PEP Abnormal Protein Bands Pending Protein Electrophoresis Interpret Pending Vitamin D 25-Hydroxy Pending Pending 25-Hydroxy Vitamin D2 Pending Pending 25-Hydroxy Vitamin D3 Pending Pending Urine Color Pale yellow Urine Appearance Clear Urine pH 7 (4.5-8.0) Urine Specific [place] 1.010 (1.005-1.035) Urine Protein Negative (NEGATIVE) Urine Glucose (UA) 4+ (NEGATIVE) H Urine Ketones 3+ (NEGATIVE) H Urine Blood 2+ (NEGATIVE) H Urine Nitrite Negative (NEGATIVE) Urine Bilirubin Negative (NEGATIVE) Urine Urobilinogen Normal MG/DL (0.0-1.0) Urine Leukocyte Esterase Negative (NEGATIVE) Urine RBC 0-2 /HPF (0 - 2) Urine WBC 0-2 /HPF (0 - 2) Urine Squamous Epithelial Cells Occasional /LPF Urine Bacteria None /HPF (NONE) Urine Yeast Few /HPF (NONE) H White Blood Count 7.7 K/UL (4.8-10.8) Red Blood Count 4.34 M/UL (4.20-5.40) Hemoglobin 11.1 G/DL (12.0-16.0) L Hematocrit 32.7 % (37.0-47.0) L Mean Corpuscular Volume 75 FL (80-99) L Mean Corpuscular Hemoglobin 25.6 PG (27.0-31.0) L Mean Corpuscular Hemoglobin Concent 34.0 G/DL (32.0-36.0) Red Cell Distribution Width 13.0 % (11.6-14.8) Platelet Count 222 K/UL (150-450) Mean Platelet Volume 6.6 FL (6.5-10.1) Neutrophils (%) (Auto) 45.9 % (45.0-75.0) Lymphocytes (%) (Auto) 35.8 % (20.0-45.0) Monocytes (%) (Auto) 12.7 % (1.0-10.0) H Eosinophils (%) (Auto) 4.3 % (0.0-3.0) H Basophils (%) (Auto) 1.3 % (0.0-2.0) CSF Herpes Simplex II DNA (PCR) Pending Sodium Level 144 MMOL/L (136-145) Potassium Level 3.3 MMOL/L (3.5-5.1) L Chloride Level 107 MMOL/L (98-107) Carbon Dioxide Level 31 MMOL/L (21-32) Blood Urea Nitrogen 8 mg/dL (7-18) Creatinine 0.5 MG/DL (0.55-1.30) L Estimat Glomerular Filtration Rate > 60 mL/min (>60) Glucose Level 76 MG/DL (74-106) Calcium Level 8.6 MG/DL (8.5-10.1) Phosphorus Level 4.0 MG/DL (2.5-4.9) Total Bilirubin 0.2 MG/DL (0.2-1.0) Aspartate Amino Transf (AST/SGOT) 148 U/L (15-37) H Alanine Aminotransferase (ALT/SGPT) 53 U/L (12-78) Alkaline Phosphatase 209 U/L (46-116) H Total Protein 5.8 G/DL (6.4-8.2) L Albumin 2.3 G/DL (3.4-5.0) L Globulin 3.5 g/dL Amylase Level 32 U/L (25-115) Lipase 142 U/L (73-393) Rapid Plasma Reagin Pending Herpes Simplex Virus I DNA (PCR) Pending HIV (1&2) Antibody Rapid Negative (NEGATIVE) Neurologic Exam Objective PHYSICAL EXAMINATION: GENERAL: She is a well-developed, well-nourished, obese, black lady, lying in bed, in no acute distress. HEAD: Normocephalic and atraumatic. NECK: No neck rigidity was observed. EENT: Benign. EXTREMITIES: She had a pressure ulcer over her right lateral heel. She also had tenderness over the right fibular head. NEUROLOGIC EXAMINATION: MENTAL STATUS EXAMINATION: The patient was alert and awake. The patient was oriented to person, place and time. The patient was able to recall 3/3 words immediately after 1 minute and after 3 minutes, on the second trial. The patient was able to remember Presidents Trump through [employer] Senior with hints. The patient's mathematical skills were good. The patient's visuospatial function was preserved. SPEECH: No dysarthria was noted. LANGUAGE: No aphasia was noted. CRANIAL NERVE EXAMINATION: II: The visual lyons were intact to confrontation testing. III, IV, : External ocular movements were full and pupils 3 mm in diameter equal, round, regular and reactive to light. V: The facial sensations were normal, and the temporales, masseters and pterygoids functioned normally. VII: The facial expressions were normal and no facial asymmetry was seen. VIII: The patient was able to hear well bilaterally and had no nystagmus. IX: The palate moved symmetrically on phonation. X: There was no hoarseness of voice. XI: The sternocleidomastoids and trapezii functioned normally. XII: The tongue was in the midline without any fasciculations or atrophy. MOTOR SYSTEM: The tone was normal in all 4 extremities except for flaccidity at the right ankle. Examination of muscle mass revealed no focal wasting. Examination of power revealed G 5/5 power except for G 0/5 in the ankle dorsiflexors, ankle evertors, and toe extensors. SENSORY EXAMINATION: Sensations to pinprick and light touch were altered in the distribution of the right peroneal nerve. Graphesthesia was normal. COORDINATION: Mnvlaj-tj-uhbb and [id number]-[id number] testing were performed normally. REFLEXES: 0 at the biceps, triceps, brachioradialis, knees and ankles. The plantar responses were flexor bilaterally. STANCE: She stood up with support. GAIT: She walks with support with a right foot drop. ABNORMAL MOVEMENTS: None Impression/Recommendations Diagnostic Impression DIAGNOSTIC IMPRESSION: 1. Ms. Dinorah Waterman is a 54-year-old, right-handed, black lady, who has a long history of diabetes mellitus, obesity and depression. She was seen functioning relatively well 1 day prior to admission, but on the day of admission she was found unresponsive at home by her daughter. It is unclear as to how long she had been unresponsive. When she was hospitalized she was found to be in diabetic ketoacidosis and remained unconscious for a few days. On awakening she was confused and disoriented but when she regained her senses she noticed a problem with strength and sensations in the right foot. 2. She feels relatively well today. The right foot weakness is approximately the same. The altered sensation over her right leg and foot is also about the same. She denies any new neurological symptoms. 3. On neurological examination, at this time, she does have tenderness over her right fibular head, weakness in the right peroneal muscles, and altered sensations in the right peroneal nerve distribution. 4. 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 The compression of the nerve most probably occurred while the patient was unconscious. Recommendations RECOMMENDATIONS: 1. The patient was given an explanation of the above- mentioned findings. 2. She should be fitted with an ankle foot orthosis on the right side. I was unfortunately unable to order it yesterday but her nurse has assured me that he will make sure that it is ordered today. 3. Physical therapy to learn strategies to prevent injury to her right ankle and prevent falls until her nerve heals. 4. Await results of test for other treatable causes of neuropathy. 5. Her diabetes should be controlled in the strict fashion. Kulwinder Veliz M.D., M.S.P.H. Neurologist & Clinical Neurophysiologist Kulwinder Veliz MD Oct 17, 2019 17:10
[2019-10-17 20:00] VITALS: BP 123/67
[2019-10-17] MEDS ORDERED: Levemir Flexpen SUBQ SCH (21:00)
[2019-10-18] VITALS: BP 124/74
[2019-10-18 04:00] VITALS: BP 119/67
[2019-10-18] MEDS: NovoLOG Insulin Flexpen SUBQ SCH ×7 (06:18→21:00)
[2019-10-18] MEDS: ACYCLOVIR IV SCH ×3 (06:21→22:08)
[2019-10-18] MEDS: NS IV SCH ×3 (06:21→22:08)
[2019-10-18 08:00] VITALS: BP 118/58
[2019-10-18] MEDS: DULoxetine 30mg cap ORAL SCH ×2 (08:32→17:40)
[2019-10-18] MEDS: Heparin 5000 units/ml inj SUBQ SCH ×2 (08:34→21:27)
[2019-10-18] MEDS: HYDROcodone/Acetamin 5/325 tab ORAL PRN ×2 (11:42→17:44)
[2019-10-18 12:00] VITALS: BP 119/59
--- NOTE | 2019-10-18 12:26 | Nephrology Progress Note ---
Assessment/Plan Problem List: (1) Renal failure Assessment: Mainly acute secondary to dehydration (2) DKA (diabetic ketoacidoses) (3) Urinary retention (4) Encephalopathy Assessment: Toxic metabolic (5) Dehydration (6) Electrolyte imbalance Assessment 54-year-old female admitted with a diagnosis of diabetic ketoacidosis Renal failure, mainly prerenal secondary to dehydration due to hyperglycemia and excess water loss Abnormal electrolyte related to underlying DKA and dehydration Leukocytosis, underlying sepsis Toxic metabolic encephalopathy Hypothermia Suspected 2019 novel coronavirus infection Metabolic acidosis due to DKA Plan October 17: No labs done today. Remains stable from renal standpoint to view. October 16: Renal parameters are stable. Additional potassium supplement orally given. Continue per IV management. October 15: Renal parameters and electrolytes stable. Continue per consultants. Continue per ID management. October 14: Today's labs still pending. Aim to correct the electrolyte abnormalities. Continue per consultants. October 13: Continue to correct low potassium and low phosphorus and low magnesium as needed. Continue to keep blood sugar and blood pressure in check. Patient clinically improving. Patient now on medium carbohydrate diet. Hydrate as needed. Keep the electrolytes and blood chemistries under check Keep blood pressure and blood sugar under control Discussed with RN Per orders Subjective ROS Limited/Unobtainable: No Constitutional: Reports: malaise Objective Objective Last 24 Hour Vital Signs Date Time Temp Pulse Resp B/P (MAP) Pulse Ox O2 Delivery O2 Flow Rate FiO2 10/18/19 09:00 Room Air Room Air 10/18/19 08:00 98.2 95 18 118/58 (78) 98 10/18/19 04:00 99.1 95 22 119/67 (84) 98 10/18/19 00:00 98.2 102 22 124/74 (91) 96 10/17/19 21:00 Room Air Room Air 10/17/19 20:00 98.2 99 21 123/67 (85) 98 10/17/19 16:00 98.4 88 18 113/80 (91) 97 Intake and Output 10/17/19 10/18/19 19:00 07:00 Intake Total 800 ml 635 ml Output Total 850 ml Balance -50 ml 635 ml Intake Oral 800 ml IV Total 275 ml Other 360 ml Output Urine Total 850 ml # Voids 3 6 # Bowel Movements 1 Laboratory Tests 10/17/19 14:00: CSF Varicella-Zoster IgM Antibody [Pending], Herpes Simplex Virus IgM Ab Screen [Pending] Height (Feet): 5 Height (Inches): 6.00 Weight (Pounds): 194 General Appearance: no apparent distress Cardiovascular: tachycardia Respiratory/Chest: decreased breath sounds Abdomen: soft Objective No change Delvin Armas MD Oct 18, 2019 12:26
--- NOTE | 2019-10-18 13:27 | Pulmonology Progress Note ---
Subjective ROS Limited/Unobtainable: No Constitutional: Reports: no symptoms HEENT: Repors: no symptoms Respiratory: Reports: no symptoms Allergies: Coded Allergies: No Known Allergies (Unverified , 04/14/18) All Systems: reviewed and negative except above Objective Last 24 Hour Vital Signs Date Time Temp Pulse Resp B/P (MAP) Pulse Ox O2 Delivery O2 Flow Rate FiO2 10/18/19 12:00 98.3 90 18 119/59 (79) 97 10/18/19 09:00 Room Air Room Air 10/18/19 08:00 98.2 95 18 118/58 (78) 98 10/18/19 04:00 99.1 95 22 119/67 (84) 98 10/18/19 00:00 98.2 102 22 124/74 (91) 96 10/17/19 21:00 Room Air Room Air 10/17/19 20:00 98.2 99 21 123/67 (85) 98 10/17/19 16:00 98.4 88 18 113/80 (91) 97 Intake and Output 10/17/19 10/18/19 19:00 07:00 Intake Total 800 ml 635 ml Output Total 850 ml Balance -50 ml 635 ml Intake Oral 800 ml IV Total 275 ml Other 360 ml Output Urine Total 850 ml # Voids 3 6 # Bowel Movements 1 General Appearance: no acute distress - obese AA female HEENT: anicteric, PERRL Respiratory: lungs clear, no respiratory distress, no accessory muscle use Cardiovascular: normal rate, regular rhythm, no JVD Abdomen: soft, non tender - obese Extremities: no cyanosis, no edema Skin: no rash Neurologic: alert, oriented x 3, responsive Musculoskeletal: normal muscle bulk Microbiology Date/Time Source Procedure Growth Status 10/16/19 18:00 Blood Blood Culture - Preliminary NO GROWTH AFTER 24 HOURS Resulted 10/16/19 17:45 Blood Blood Culture - Preliminary NO GROWTH AFTER 24 HOURS Resulted 10/16/19 14:00 Cerebral Spinal Fluid Gram Stain Pending Resulted 10/16/19 14:00 Cerebral Spinal Fluid CSF Culture - Preliminary NO GROWTH Resulted 10/16/19 20:00 Urine,Clean Catch Urine Culture - Preliminary Resulted Laboratory Tests 10/17/19 14:00: CSF Varicella-Zoster IgM Antibody [Pending], Herpes Simplex Virus IgM Ab Screen [Pending] Current Medications Medications (Trade) Dose Ordered Sig/Saul Route PRN Reason Start Time Stop Time Status Last Admin Dose Admin Acetaminophen (Tylenol) 650 mg Q4H PRN ORAL Fever 10/17/19 04:00 11/10/19 03:59 10/18/19 08:49 Acetaminophen (Tylenol) 650 mg Q4H PRN RECTAL Temp >100.5 10/17/19 04:00 11/11/19 03:59 Acetaminophen/ Hydrocodone Bitart ([place] 5/325) 1 tab Q6H PRN ORAL For Pain 10/18/19 11:30 10/25/19 11:29 10/18/19 11:42 Acyclovir 900 mg/ Sodium Chloride 275 ml @ 275 mls/hr Q8HR IV 10/17/19 06:00 11/15/19 21:59 10/18/19 06:21 Dextrose (Dextrose 50%) 25 ml Q30M PRN IV Hypoglycemia 10/17/19 04:00 01/11/20 07:59 Dextrose (Dextrose 50%) 50 ml Q30M PRN IV Hypoglycemia 10/17/19 04:00 01/11/20 07:59 Diphenhydramine HCl (Benadryl) 50 mg HSPRN PRN ORAL Insomnia 10/17/19 04:00 11/13/19 03:59 Duloxetine HCl (Cymbalta) 30 mg TWICE A DAY ORAL 10/17/19 09:00 01/09/20 17:59 10/18/19 08:32 Heparin Sodium (Porcine) (Heparin 5000 units/ml) 5,000 units EVERY 12 HOURS SUBQ 10/17/19 09:00 11/25/19 20:59 10/18/19 08:34 Insulin Aspart (NovoLOG) BEFORE MEALS AND HS SUBQ 10/17/19 06:30 01/13/20 11:29 10/17/19 21:00 Insulin Aspart (NovoLOG) 4 units BEFORE MEALS SUBQ 10/17/19 06:30 01/11/20 08:59 10/17/19 16:30 Insulin Detemir (Levemir) 12 units QHS SUBQ 10/17/19 21:00 01/11/20 08:59 10/17/19 21:33 Nitroglycerin (Ntg) 0.4 mg Q5M PRN SL Prn Chest Pain 10/17/19 04:00 11/10/19 17:29 Ondansetron HCl (Zofran) 4 mg Q6H PRN IVP Nausea & Vomiting 10/17/19 04:00 11/10/19 03:59 Pantoprazole (Protonix) 40 mg EVERY 12 HOURS ORAL 10/17/19 09:00 11/13/19 20:59 10/18/19 08:32 Polyethylene Glycol (Miralax) 17 gm DAILYPRN PRN ORAL Constipation 10/17/19 04:00 11/16/19 03:59 Potassium Chloride (K-Dur) 40 meq DAILY ORAL 10/17/19 09:00 01/15/20 08:59 10/18/19 08:32 Assessment/Plan Problems: (1) DKA (diabetic ketoacidoses) (2) Compression neuropathy (3) Renal failure (4) Urinary retention Assessment/Plan CSF fluid reviewed pt has pain where spinal tap was done. improving Low grade fever off insulin drip eating well BS between 90 and 150 Neuro evaluation appreciated: 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 watch electrolytes anemia w/u Gera Nunn MD Oct 18, 2019 13:27
--- NOTE | 2019-10-18 14:13 | Infectious Diseases Prog Note ---
Assessment/Plan Assessment/Plan Assessment: Herpes Zoster buttocks area- r/o OFFAL BALER VZV causing foot drop -10/16 SP LP: Note elevated opening pressure, 26 cm H2O WBC 2, glucose 85, protein 52; CSF cx stain pending,c x NTD HSV, VDRL, VZV p Severe sepsis Probable pNA vs pulmonary edema- COVIDneg x2 -10/16 CXR: Minimal left lung atelectasis. No acute disease. -10/14 CXR: no acute process -10/11 SARS CoV PCR neg -10/10 SARS-COV2 PCR neg BCx NTD u/a neg Fever; recurrent Hyper Leukocytosis; SP -10/15 u/a neg; ucx NTD Bcx p -CT abd/p: Bilateral basilar pulmonary groundglass opacities, may indicate early pneumonia changes. Limited assessment of the GI tract, due to lack of enteric contrast administration.Mild rectal distention with stool, mild rectal fecal impaction possible. Distended bladder. Mildly enlarged uterus with calcifications, may indicate diffuse fibroid change. Distended bladder. Incidental finding of degenerative spondylosis DKA, SP severe anion gap metabolic acidosis ТАТЬЯНА, SP -REnla US: Negative for hydronephrosis or other renal abnormality. Empty bladder with a Coleman catheter. Acute encephalopathy- 2ry to above -CT head: no acute findings Dm1, uncontrolled Plan: -Continue IV Acyclovir #3 pending CSF studies -10/14 SP Ceftriaxone and Azithromycin #5 -f/u cx -Monitor CBC/CMP, temperature -SARS CoV PCR neg x2 -aspiration precautions -f/u repeat cultures -CBC, CMP, amylase, lipase, CXR am EUFEMIA TOLEDO Thank you for consulting [facility]. Will continue to follow along with you. Subjective Allergies: Coded Allergies: No Known Allergies (Unverified , 04/14/18) Subjective afebrile >36hrs sp LP yesterday no leukocytosis Objective Vital Signs Last 24 Hour Vital Signs Date Time Temp Pulse Resp B/P (MAP) Pulse Ox O2 Delivery O2 Flow Rate FiO2 10/18/19 12:00 98.3 90 18 119/59 (79) 97 10/18/19 09:00 Room Air Room Air 10/18/19 08:00 98.2 95 18 118/58 (78) 98 10/18/19 04:00 99.1 95 22 119/67 (84) 98 10/18/19 00:00 98.2 102 22 124/74 (91) 96 10/17/19 21:00 Room Air Room Air 10/17/19 20:00 98.2 99 21 123/67 (85) 98 10/17/19 16:00 98.4 88 18 113/80 (91) 97 Height (Feet): 5 Height (Inches): 6.00 Weight (Pounds): 194 Objective General Appearance: no acute distress HEENT: atraumatic Respiratory/Chest: no respiratory distress, no accessory muscle use Abdomen: non distended Skin: fluid filled vesicles in linear patter on buttocks area; no other rash Neurologic/Psychiatric: alert, responsive, R foot drop Microbiology Date/Time Source Procedure Growth Status 10/16/19 18:00 Blood Blood Culture - Preliminary NO GROWTH AFTER 24 HOURS Resulted 10/16/19 17:45 Blood Blood Culture - Preliminary NO GROWTH AFTER 24 HOURS Resulted 10/16/19 14:00 Cerebral Spinal Fluid Gram Stain Pending Resulted 10/16/19 14:00 Cerebral Spinal Fluid CSF Culture - Preliminary NO GROWTH Resulted 10/16/19 20:00 Urine,Clean Catch Urine Culture - Preliminary Resulted Current Medications Medications (Trade) Dose Ordered Sig/Saul Route PRN Reason Start Time Stop Time Status Last Admin Dose Admin Acetaminophen (Tylenol) 650 mg Q4H PRN ORAL Fever 10/17/19 04:00 11/10/19 03:59 10/18/19 08:49 Acetaminophen (Tylenol) 650 mg Q4H PRN RECTAL Temp >100.5 10/17/19 04:00 11/11/19 03:59 Acetaminophen/ Hydrocodone Bitart ([place] 5/325) 1 tab Q6H PRN ORAL For Pain 10/18/19 11:30 10/25/19 11:29 10/18/19 11:42 Acyclovir 900 mg/ Sodium Chloride 275 ml @ 275 mls/hr Q8HR IV 10/17/19 06:00 11/15/19 21:59 10/18/19 14:03 Dextrose (Dextrose 50%) 25 ml Q30M PRN IV Hypoglycemia 10/17/19 04:00 01/11/20 07:59 Dextrose (Dextrose 50%) 50 ml Q30M PRN IV Hypoglycemia 10/17/19 04:00 01/11/20 07:59 Diphenhydramine HCl (Benadryl) 50 mg HSPRN PRN ORAL Insomnia 10/17/19 04:00 11/13/19 03:59 Duloxetine HCl (Cymbalta) 30 mg TWICE A DAY ORAL 10/17/19 09:00 01/09/20 17:59 10/18/19 08:32 Heparin Sodium (Porcine) (Heparin 5000 units/ml) 5,000 units EVERY 12 HOURS SUBQ 10/17/19 09:00 11/25/19 20:59 10/18/19 08:34 Insulin Aspart (NovoLOG) BEFORE MEALS AND HS SUBQ 10/17/19 06:30 01/13/20 11:29 10/18/19 11:30 Insulin Aspart (NovoLOG) 4 units BEFORE MEALS SUBQ 10/17/19 06:30 01/11/20 08:59 10/18/19 11:30 Insulin Detemir (Levemir) 12 units QHS SUBQ 10/17/19 21:00 01/11/20 08:59 10/17/19 21:33 Nitroglycerin (Ntg) 0.4 mg Q5M PRN SL Prn Chest Pain 10/17/19 04:00 11/10/19 17:29 Ondansetron HCl (Zofran) 4 mg Q6H PRN IVP Nausea & Vomiting 10/17/19 04:00 11/10/19 03:59 Pantoprazole (Protonix) 40 mg EVERY 12 HOURS ORAL 10/17/19 09:00 11/13/19 20:59 10/18/19 08:32 Polyethylene Glycol (Miralax) 17 gm DAILYPRN PRN ORAL Constipation 10/17/19 04:00 11/16/19 03:59 Potassium Chloride (K-Dur) 40 meq DAILY ORAL 10/17/19 09:00 01/15/20 08:59 10/18/19 08:32 Oxana Chi M.D. Oct 18, 2019 14:13
[2019-10-18 16:00] VITALS: BP 119/61
--- NOTE | 2019-10-18 16:49 | Internal Med Progress Note ---
Subjective Date of Service: Oct 17, 2019 Physician Name Jagdish Bear Attending Physician Keven Winslow MD Current Medications Medications (Trade) Dose Ordered Sig/Saul Route PRN Reason Start Time Stop Time Status Last Admin Dose Admin Acetaminophen (Tylenol) 650 mg Q4H PRN ORAL Fever 10/17/19 04:00 11/10/19 03:59 10/18/19 08:49 Acetaminophen (Tylenol) 650 mg Q4H PRN RECTAL Temp >100.5 10/17/19 04:00 11/11/19 03:59 Acetaminophen/ Hydrocodone Bitart ([place] 5/325) 1 tab Q6H PRN ORAL For Pain 10/18/19 11:30 10/25/19 11:29 10/18/19 11:42 Acyclovir 900 mg/ Sodium Chloride 275 ml @ 275 mls/hr Q8HR IV 10/17/19 06:00 11/15/19 21:59 10/18/19 14:03 Dextrose (Dextrose 50%) 25 ml Q30M PRN IV Hypoglycemia 10/17/19 04:00 01/11/20 07:59 Dextrose (Dextrose 50%) 50 ml Q30M PRN IV Hypoglycemia 10/17/19 04:00 01/11/20 07:59 Diphenhydramine HCl (Benadryl) 50 mg HSPRN PRN ORAL Insomnia 10/17/19 04:00 11/13/19 03:59 Duloxetine HCl (Cymbalta) 30 mg TWICE A DAY ORAL 10/17/19 09:00 01/09/20 17:59 10/18/19 08:32 Heparin Sodium (Porcine) (Heparin 5000 units/ml) 5,000 units EVERY 12 HOURS SUBQ 10/17/19 09:00 11/25/19 20:59 10/18/19 08:34 Insulin Aspart (NovoLOG) BEFORE MEALS AND HS SUBQ 10/17/19 06:30 01/13/20 11:29 10/18/19 11:30 Insulin Aspart (NovoLOG) 4 units BEFORE MEALS SUBQ 10/17/19 06:30 01/11/20 08:59 10/18/19 11:30 Insulin Detemir (Levemir) 12 units QHS SUBQ 10/17/19 21:00 01/11/20 08:59 10/17/19 21:33 Nitroglycerin (Ntg) 0.4 mg Q5M PRN SL Prn Chest Pain 10/17/19 04:00 11/10/19 17:29 Ondansetron HCl (Zofran) 4 mg Q6H PRN IVP Nausea & Vomiting 10/17/19 04:00 11/10/19 03:59 Pantoprazole (Protonix) 40 mg EVERY 12 HOURS ORAL 10/17/19 09:00 11/13/19 20:59 10/18/19 08:32 Polyethylene Glycol (Miralax) 17 gm DAILYPRN PRN ORAL Constipation 10/17/19 04:00 11/16/19 03:59 Potassium Chloride (K-Dur) 40 meq DAILY ORAL 10/17/19 09:00 01/15/20 08:59 10/18/19 08:32 Allergies: Coded Allergies: No Known Allergies (Unverified , 04/14/18) Subjective 54 YO F admitted with diabetic ketoacidosis. Now pneumonia. Cover for Int Med- Dr Winslow. Tele. Late entry; computer down 10/17/19 Objective Last Vital Signs Date Time Temp Pulse Resp B/P (MAP) Pulse Ox O2 Delivery O2 Flow Rate FiO2 10/18/19 12:00 98.3 90 18 119/59 (79) 97 10/18/19 09:00 Room Air Room Air 10/15/19 19:31 21 Microbiology Date/Time Source Procedure Growth Status 10/16/19 18:00 Blood Blood Culture - Preliminary NO GROWTH AFTER 24 HOURS Resulted 10/16/19 17:45 Blood Blood Culture - Preliminary NO GROWTH AFTER 24 HOURS Resulted 10/16/19 14:00 Cerebral Spinal Fluid Gram Stain Pending Resulted 10/16/19 14:00 Cerebral Spinal Fluid CSF Culture - Preliminary NO GROWTH Resulted 10/16/19 20:00 Urine,Clean Catch Urine Culture - Preliminary Resulted Intake and Output 10/17/19 10/18/19 19:00 07:00 Intake Total 800 ml 635 ml Output Total 850 ml Balance -50 ml 635 ml Intake Oral 800 ml IV Total 275 ml Other 360 ml Output Urine Total 850 ml # Voids 3 6 # Bowel Movements 1 Objective General Appearance: WD/WN, no apparent distress EENT: PERRL/EOMI, normal ENT inspection, TMs normal Neck: non-tender, normal alignment, supple, normal inspection Cardiovascular: normal peripheral pulses, normal rate, regular rhythm, no gallop/murmur, no JVD Respiratory/Chest: chest wall non-tender, lungs clear, normal breath sounds, no respiratory distress, no accessory muscle use Abdomen: normal bowel sounds, non tender, soft, no organomegaly, no mass Extremities: normal range of motion, non-tender 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 Continue ceftriaxone and azithromycin (3) Metabolic acidosis due to diabetes mellitus (4) Hypernatremia (5) DKA (diabetic ketoacidoses) Assessment & Plan: Continue levemir and novolog sliding scale insulin. Endocrinology=Dr Lr (6) Encephalopathy Assessment & Plan: CT brain=normal (7) Diabetes mellitus (8) Renal failure Assessment & Plan: Nephrology = Dr Armas (9) Right foot drop Assessment & Plan: see neurology consult Jagdish Bear MD Oct 18, 2019 16:49
--- NOTE | 2019-10-18 16:52 | Internal Med Progress Note ---
Subjective Date of Service: Oct 18, 2019 Physician Name Jagdish Bear Attending Physician Keven Winslow MD Current Medications Medications (Trade) Dose Ordered Sig/Saul Route PRN Reason Start Time Stop Time Status Last Admin Dose Admin Acetaminophen (Tylenol) 650 mg Q4H PRN ORAL Fever 10/17/19 04:00 11/10/19 03:59 10/18/19 08:49 Acetaminophen (Tylenol) 650 mg Q4H PRN RECTAL Temp >100.5 10/17/19 04:00 11/11/19 03:59 Acetaminophen/ Hydrocodone Bitart ([place] 5/325) 1 tab Q6H PRN ORAL For Pain 10/18/19 11:30 10/25/19 11:29 10/18/19 11:42 Acyclovir 900 mg/ Sodium Chloride 275 ml @ 275 mls/hr Q8HR IV 10/17/19 06:00 11/15/19 21:59 10/18/19 14:03 Dextrose (Dextrose 50%) 25 ml Q30M PRN IV Hypoglycemia 10/17/19 04:00 01/11/20 07:59 Dextrose (Dextrose 50%) 50 ml Q30M PRN IV Hypoglycemia 10/17/19 04:00 01/11/20 07:59 Diphenhydramine HCl (Benadryl) 50 mg HSPRN PRN ORAL Insomnia 10/17/19 04:00 11/13/19 03:59 Duloxetine HCl (Cymbalta) 30 mg TWICE A DAY ORAL 10/17/19 09:00 01/09/20 17:59 10/18/19 08:32 Heparin Sodium (Porcine) (Heparin 5000 units/ml) 5,000 units EVERY 12 HOURS SUBQ 10/17/19 09:00 11/25/19 20:59 10/18/19 08:34 Insulin Aspart (NovoLOG) BEFORE MEALS AND HS SUBQ 10/17/19 06:30 01/13/20 11:29 10/18/19 11:30 Insulin Aspart (NovoLOG) 4 units BEFORE MEALS SUBQ 10/17/19 06:30 01/11/20 08:59 10/18/19 11:30 Insulin Detemir (Levemir) 12 units QHS SUBQ 10/17/19 21:00 01/11/20 08:59 10/17/19 21:33 Nitroglycerin (Ntg) 0.4 mg Q5M PRN SL Prn Chest Pain 10/17/19 04:00 11/10/19 17:29 Ondansetron HCl (Zofran) 4 mg Q6H PRN IVP Nausea & Vomiting 10/17/19 04:00 11/10/19 03:59 Pantoprazole (Protonix) 40 mg EVERY 12 HOURS ORAL 10/17/19 09:00 11/13/19 20:59 10/18/19 08:32 Polyethylene Glycol (Miralax) 17 gm DAILYPRN PRN ORAL Constipation 10/17/19 04:00 11/16/19 03:59 Potassium Chloride (K-Dur) 40 meq DAILY ORAL 10/17/19 09:00 01/15/20 08:59 10/18/19 08:32 Allergies: Coded Allergies: No Known Allergies (Unverified , 04/14/18) ROS Limited/Unobtainable: No Constitutional: Reports: no symptoms HEENT: Reports: no symptoms Cardiovascular: Reports: no symptoms Respiratory: Reports: no symptoms Gastrointestinal/Abdominal: Reports: no symptoms Genitourinary: Reports: no symptoms Neurologic/Psychiatric: Reports: no symptoms Subjective 54 YO F admitted with diabetic ketoacidosis. Now pneumonia. Cover for Int Med- Dr Winslow. Objective Last Vital Signs Date Time Temp Pulse Resp B/P (MAP) Pulse Ox O2 Delivery O2 Flow Rate FiO2 10/18/19 12:00 98.3 90 18 119/59 (79) 97 10/18/19 09:00 Room Air Room Air 10/15/19 19:31 21 Microbiology Date/Time Source Procedure Growth Status 10/16/19 18:00 Blood Blood Culture - Preliminary NO GROWTH AFTER 24 HOURS Resulted 10/16/19 17:45 Blood Blood Culture - Preliminary NO GROWTH AFTER 24 HOURS Resulted 10/16/19 14:00 Cerebral Spinal Fluid Gram Stain Pending Resulted 10/16/19 14:00 Cerebral Spinal Fluid CSF Culture - Preliminary NO GROWTH Resulted 10/16/19 20:00 Urine,Clean Catch Urine Culture - Preliminary Resulted Intake and Output 10/17/19 10/18/19 19:00 07:00 Intake Total 800 ml 635 ml Output Total 850 ml Balance -50 ml 635 ml Intake Oral 800 ml IV Total 275 ml Other 360 ml Output Urine Total 850 ml # Voids 3 6 # Bowel Movements 1 Objective General Appearance: WD/WN, no apparent distress EENT: PERRL/EOMI, normal ENT inspection, TMs normal Neck: non-tender, normal alignment, supple, normal inspection Cardiovascular: normal peripheral pulses, normal rate, regular rhythm, no gallop/murmur, no JVD Respiratory/Chest: chest wall non-tender, lungs clear, normal breath sounds, no respiratory distress, no accessory muscle use Abdomen: normal bowel sounds, non tender, soft, no organomegaly, no mass Extremities: normal range of motion, non-tender 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 S/P ceftriaxone and azithromycin (3) Metabolic acidosis due to diabetes mellitus (4) Hypernatremia (5) DKA (diabetic ketoacidoses) Assessment & Plan: Continue levemir and novolog sliding scale insulin. Endocrinology=Dr Lr (6) Encephalopathy Assessment & Plan: CT brain=normal (7) Diabetes mellitus (8) Renal failure Assessment & Plan: Nephrology = Dr Armas (9) Right foot drop Assessment & Plan: see neurology consult; right foot/ankle orthosis ordered Jagdish Bear MD Oct 18, 2019 16:52
--- NOTE | 2019-10-18 18:25 | Neurology Progress Note ---
Interim History Interim History Interim History Ms. Dinorah Waterman is a 54-year-old, right-handed, black lady, who has a long history of diabetes mellitus, obesity and depression. She was seen functioning relatively well 1 day prior to admission, but on the day of admission she was found unresponsive at home by her daughter. It is unclear as to how long she had been unresponsive. When she was hospitalized she was found to be in diabetic ketoacidosis and remained unconscious for a few days. On awakening she was confused and disoriented but when she regained her senses she noticed a problem with strength and sensations in the right foot. She feels relatively well today. The right foot weakness is approximately the same. The altered sensation over her right leg and foot is also about the same. She denies any new neurological symptoms. Review of Systems Neuro Review of Systems Benign. Objective Physical Exam Last Vital Signs Date Time Temp Pulse Resp B/P (MAP) Pulse Ox O2 Delivery O2 Flow Rate FiO2 10/18/19 16:00 97.9 83 19 119/61 (80) 98 10/18/19 09:00 Room Air Room Air 10/15/19 19:31 21 Neurologic Exam Objective PHYSICAL EXAMINATION: GENERAL: She is a well-developed, well-nourished, obese, black lady, lying in bed, in no acute distress. HEAD: Normocephalic and atraumatic. NECK: No neck rigidity was observed. EENT: Benign. EXTREMITIES: She had a pressure ulcer over her right lateral heel. She also had tenderness over the right fibular head. NEUROLOGIC EXAMINATION: MENTAL STATUS EXAMINATION: The patient was alert and awake. The patient was oriented to person, place and time. The patient was able to recall 3/3 words immediately after 1 minute and after 3 minutes, on the second trial. The patient was able to remember Presidents Trump through [employer] with hints. The patient's mathematical skills were good. The patient's visuospatial function was preserved. SPEECH: No dysarthria was noted. LANGUAGE: No aphasia was noted. CRANIAL NERVE EXAMINATION: II: The visual lyons were intact to confrontation testing. III, IV, : External ocular movements were full and pupils 3 mm in diameter equal, round, regular and reactive to light. V: The facial sensations were normal, and the temporales, masseters and pterygoids functioned normally. VII: The facial expressions were normal and no facial asymmetry was seen. VIII: The patient was able to hear well bilaterally and had no nystagmus. IX: The palate moved symmetrically on phonation. X: There was no hoarseness of voice. XI: The sternocleidomastoids and trapezii functioned normally. XII: The tongue was in the midline without any fasciculations or atrophy. MOTOR SYSTEM: The tone was normal in all 4 extremities except for flaccidity at the right ankle. Examination of muscle mass revealed no focal wasting. Examination of power revealed G 5/5 power except for G 0/5 in the ankle dorsiflexors, ankle evertors, and toe extensors. SENSORY EXAMINATION: Sensations to pinprick and light touch were altered in the distribution of the right peroneal nerve. Graphesthesia was normal. COORDINATION: [id number] and [id number] testing were performed normally. REFLEXES: 0 at the biceps, triceps, brachioradialis, knees and ankles. The plantar responses were flexor bilaterally. STANCE: She stood up with support. GAIT: She walks with support with a right foot drop. ABNORMAL MOVEMENTS: None Impression/Recommendations Diagnostic Impression DIAGNOSTIC IMPRESSION: 1. Ms. Dinorah Waterman is a 54-year-old, right-handed, black lady, who has a long history of diabetes mellitus, obesity and depression. She was seen functioning relatively well 1 day prior to admission, but on the day of admission she was found unresponsive at home by her daughter. It is unclear as to how long she had been unresponsive. When she was hospitalized she was found to be in diabetic ketoacidosis and remained unconscious for a few days. On awakening she was confused and disoriented but when she regained her senses she noticed a problem with strength and sensations in the right foot. 2. She feels relatively well today. The right foot weakness is approximately the same. The altered sensation over her right leg and foot is also about the same. She denies any new neurological symptoms. 3. On neurological examination, at this time, she does have tenderness over her right fibular head, weakness in the right peroneal muscles, and altered sensations in the right peroneal nerve distribution. 4. 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 The compression of the nerve most probably occurred while the patient was unconscious. Recommendations RECOMMENDATIONS: 1. The patient was given an explanation of the above- mentioned findings. 2. She should be fitted with an ankle foot orthosis on the right side. We are awaiting it to be delivered. 3. Physical therapy to learn strategies to prevent injury to her right ankle and prevent falls until her nerve heals. 4. Await results of test for other treatable causes of neuropathy. 5. Her diabetes should be controlled in the strict fashion. Kulwinder Veliz M.D., M.S.P.H. Neurologist & Clinical Neurophysiologist Kulwinder Veliz MD Oct 18, 2019 18:25
--- NOTE | 2019-10-18 19:50 | General Progress Note ---
Assessment/Plan Problem List: (1) Foot drop, right ICD Codes: M21.371 - Foot drop, right foot SNOMED: 7560056, 4100354 (2) DKA (diabetic ketoacidoses) ICD Codes: E11.10 - Type 2 diabetes mellitus with ketoacidosis without coma SNOMED: 128675943, 78839730 (3) Diabetes mellitus ICD Codes: E11.9 - Type 2 diabetes mellitus without complications SNOMED: 54155469 Assessment/Plan: reduce Levemir to 9 units qhs continue Novolog 4 units ac tid change Novolog sliding scale to ac / hs Hypoglycemia protocol in order Subjective Allergies: Coded Allergies: No Known Allergies (Unverified , 04/14/18) All Systems: reviewed and negative except above Subjective events noted recurrence of fasting hypoglycemia with Levemir 12 units qhs Item Value Date Time Bedside Blood Glucose 174 mg/dl H 10/18/19 1630 Bedside Blood Glucose 237 mg/dl H 10/18/19 1130 Bedside Blood Glucose 97 mg/dl 10/18/19 0705 Bedside Blood Glucose 61 mg/dl L 10/18/19 0631 Objective Last 24 Hour Vital Signs Date Time Temp Pulse Resp B/P (MAP) Pulse Ox O2 Delivery O2 Flow Rate FiO2 10/18/19 16:00 97.9 83 19 119/61 (80) 98 10/18/19 12:00 98.3 90 18 119/59 (79) 97 10/18/19 09:00 Room Air Room Air 10/18/19 08:00 98.2 95 18 118/58 (78) 98 10/18/19 04:00 99.1 95 22 119/67 (84) 98 10/18/19 00:00 98.2 102 22 124/74 (91) 96 10/17/19 21:00 Room Air Room Air 10/17/19 20:00 98.2 99 21 123/67 (85) 98 Intake and Output 10/17/19 10/18/19 19:00 07:00 Intake Total 800 ml 635 ml Output Total 850 ml Balance -50 ml 635 ml Intake Oral 800 ml IV Total 275 ml Other 360 ml Output Urine Total 850 ml # Voids 3 6 # Bowel Movements 1 Height (Feet): 5 Height (Inches): 6.00 Weight (Pounds): 194 General Appearance: no apparent distress Neck: normal alignment Cardiovascular: normal rate Respiratory/Chest: lungs clear Abdomen: normal bowel sounds Objective Current Medications Medications (Trade) Dose Ordered Sig/Saul Route PRN Reason Start Time Stop Time Status Last Admin Dose Admin Acetaminophen (Tylenol) 650 mg Q4H PRN ORAL Fever 10/17/19 04:00 11/10/19 03:59 10/18/19 08:49 Acetaminophen (Tylenol) 650 mg Q4H PRN RECTAL Temp >100.5 10/17/19 04:00 11/11/19 03:59 Acetaminophen/ Hydrocodone Bitart ([place] 5/325) 1 tab Q6H PRN ORAL For Pain 10/18/19 11:30 10/25/19 11:29 10/18/19 17:44 Acyclovir 900 mg/ Sodium Chloride 275 ml @ 275 mls/hr Q8HR IV 10/17/19 06:00 11/15/19 21:59 10/18/19 14:03 Dextrose (Dextrose 50%) 25 ml Q30M PRN IV Hypoglycemia 10/17/19 04:00 01/11/20 07:59 Dextrose (Dextrose 50%) 50 ml Q30M PRN IV Hypoglycemia 10/17/19 04:00 01/11/20 07:59 Diphenhydramine HCl (Benadryl) 50 mg HSPRN PRN ORAL Insomnia 10/17/19 04:00 11/13/19 03:59 Duloxetine HCl (Cymbalta) 30 mg TWICE A DAY ORAL 10/17/19 09:00 01/09/20 17:59 10/18/19 17:40 Heparin Sodium (Porcine) (Heparin 5000 units/ml) 5,000 units EVERY 12 HOURS SUBQ 10/17/19 09:00 11/25/19 20:59 10/18/19 08:34 Insulin Aspart (NovoLOG) BEFORE MEALS AND HS SUBQ 10/17/19 06:30 01/13/20 11:29 10/18/19 16:30 Insulin Aspart (NovoLOG) 4 units BEFORE MEALS SUBQ 10/17/19 06:30 01/11/20 08:59 10/18/19 16:30 Insulin Detemir (Levemir) 9 units QHS SUBQ 10/18/19 21:00 01/11/20 08:59 Nitroglycerin (Ntg) 0.4 mg Q5M PRN SL Prn Chest Pain 10/17/19 04:00 11/10/19 17:29 Ondansetron HCl (Zofran) 4 mg Q6H PRN IVP Nausea & Vomiting 10/17/19 04:00 11/10/19 03:59 Pantoprazole (Protonix) 40 mg EVERY 12 HOURS ORAL 10/17/19 09:00 11/13/19 20:59 10/18/19 08:32 Polyethylene Glycol (Miralax) 17 gm DAILYPRN PRN ORAL Constipation 10/17/19 04:00 11/16/19 03:59 Potassium Chloride (K-Dur) 40 meq DAILY ORAL 10/17/19 09:00 01/15/20 08:59 10/18/19 08:32 Neo Lr MD Oct 18, 2019 19:50
[2019-10-18 20:00] VITALS: BP 136/77
[2019-10-18] MEDS: Levemir Flexpen SUBQ SCH (21:29)
[2019-10-19] VITALS: BP 137/88
[2019-10-19] MEDS: HYDROcodone/Acetamin 5/325 tab ORAL PRN ×4 (02:02→22:56)
[2019-10-19 04:00] VITALS: BP 120/60
[2019-10-19] MEDS: NS IV SCH ×3 (06:14→22:19)
[2019-10-19] MEDS: ACYCLOVIR IV SCH ×3 (06:14→22:19)
[2019-10-19] MEDS: NovoLOG Insulin Flexpen SUBQ SCH ×7 (06:30→22:21)
--- NOTE | 2019-10-19 07:07 | General Progress Note ---
Assessment/Plan Problem List: (1) Foot drop, right ICD Codes: M21.371 - Foot drop, right foot SNOMED: 3741094, 2229832 (2) DKA (diabetic ketoacidoses) ICD Codes: E11.10 - Type 2 diabetes mellitus with ketoacidosis without coma SNOMED: 649387649, 33883714 (3) Diabetes mellitus ICD Codes: E11.9 - Type 2 diabetes mellitus without complications SNOMED: 94181427 Assessment/Plan: continue Levemir 9 units qhs continue Novolog 4 units ac tid continue Novolog sliding scale to ac / hs Hypoglycemia protocol in order Subjective Allergies: Coded Allergies: No Known Allergies (Unverified , 04/14/18) All Systems: reviewed and negative except above Subjective events noted no more hypoglycemia this after Levemir 12 qhs was reduced to 9 units Item Value Date Time Bedside Blood Glucose 132 mg/dl H 10/19/19 0641 Bedside Blood Glucose 247 mg/dl H 10/18/19 2129 Bedside Blood Glucose 174 mg/dl H 10/18/19 1630 Bedside Blood Glucose 237 mg/dl H 10/18/19 1130 Bedside Blood Glucose 97 mg/dl 10/18/19 0705 Bedside Blood Glucose 61 mg/dl L 10/18/19 0631 Objective Last 24 Hour Vital Signs Date Time Temp Pulse Resp B/P (MAP) Pulse Ox O2 Delivery O2 Flow Rate FiO2 10/19/19 04:00 98.2 88 20 120/60 (80) 96 10/19/19 00:00 98.2 99 20 137/88 (104) 96 10/18/19 21:00 Room Air Room Air 10/18/19 20:55 86 20 97 Room Air 21 10/18/19 20:00 98.2 86 20 136/77 (96) 94 10/18/19 16:00 97.9 83 19 119/61 (80) 98 10/18/19 12:00 98.3 90 18 119/59 (79) 97 10/18/19 09:00 Room Air Room Air 10/18/19 08:00 98.2 95 18 118/58 (78) 98 Intake and Output 10/18/19 10/19/19 19:00 07:00 Intake Total 950 ml 635 ml Output Total 850 ml Balance 100 ml 635 ml Intake Oral 950 ml IV Total 275 ml Other 360 ml Output Urine Total 850 ml # Voids 3 5 # Bowel Movements 1 Laboratory Tests 10/19/19 05:45: White Blood Count [Pending], Red Blood Count [Pending], Hemoglobin [Pending], Hematocrit [Pending], Mean Corpuscular Volume [Pending], Mean Corpuscular Hemoglobin [Pending], Mean Corpuscular Hemoglobin Concent [Pending], Red Cell Distribution Width [Pending], Platelet Count [Pending], Mean Platelet Volume [ Pending], Neutrophils (%) (Auto) [Pending], Lymphocytes (%) (Auto) [Pending], Monocytes (%) (Auto) [Pending], Eosinophils (%) (Auto) [Pending], Basophils (%) (Auto) [Pending], Sodium Level [Pending], Potassium Level [Pending], Chloride Level [Pending], Carbon Dioxide Level [Pending], Blood Urea Nitrogen [Pending], Creatinine [Pending], Estimat Glomerular Filtration Rate [Pending], Glucose Level [Pending], Uric Acid [Pending], Calcium Level [Pending], Phosphorus Level [Pending], Magnesium Level [Pending], Total Bilirubin [Pending], Aspartate Amino Transf (AST/SGOT) [Pending], Alanine Aminotransferase (ALT/SGPT) [Pending] , Alkaline Phosphatase [Pending], Total Protein [Pending], Albumin [Pending], Globulin [Pending] Height (Feet): 5 Height (Inches): 6.00 Weight (Pounds): 199 General Appearance: no apparent distress Neck: normal alignment Cardiovascular: normal rate Respiratory/Chest: lungs clear Abdomen: normal bowel sounds Objective Current Medications Medications (Trade) Dose Ordered Sig/Saul Route PRN Reason Start Time Stop Time Status Last Admin Dose Admin Acetaminophen (Tylenol) 650 mg Q4H PRN ORAL Fever 10/17/19 04:00 11/10/19 03:59 10/18/19 08:49 Acetaminophen (Tylenol) 650 mg Q4H PRN RECTAL Temp >100.5 10/17/19 04:00 11/11/19 03:59 Acetaminophen/ Hydrocodone Bitart ([place] 5/325) 1 tab Q6H PRN ORAL For Pain 10/18/19 11:30 10/25/19 11:29 10/19/19 02:02 Acyclovir 900 mg/ Sodium Chloride 275 ml @ 275 mls/hr Q8HR IV 10/17/19 06:00 11/15/19 21:59 10/19/19 06:14 Dextrose (Dextrose 50%) 25 ml Q30M PRN IV Hypoglycemia 10/17/19 04:00 01/11/20 07:59 Dextrose (Dextrose 50%) 50 ml Q30M PRN IV Hypoglycemia 10/17/19 04:00 01/11/20 07:59 Diphenhydramine HCl (Benadryl) 50 mg HSPRN PRN ORAL Insomnia 10/17/19 04:00 11/13/19 03:59 Duloxetine HCl (Cymbalta) 30 mg TWICE A DAY ORAL 10/17/19 09:00 01/09/20 17:59 10/18/19 17:40 Heparin Sodium (Porcine) (Heparin 5000 units/ml) 5,000 units EVERY 12 HOURS SUBQ 10/17/19 09:00 11/25/19 20:59 10/18/19 21:27 Insulin Aspart (NovoLOG) BEFORE MEALS AND HS SUBQ 10/17/19 06:30 01/13/20 11:29 10/18/19 21:00 Insulin Aspart (NovoLOG) 4 units BEFORE MEALS SUBQ 10/17/19 06:30 01/11/20 08:59 10/19/19 06:41 Insulin Detemir (Levemir) 9 units QHS SUBQ 10/18/19 21:00 01/11/20 08:59 10/18/19 21:29 Nitroglycerin (Ntg) 0.4 mg Q5M PRN SL Prn Chest Pain 10/17/19 04:00 11/10/19 17:29 Ondansetron HCl (Zofran) 4 mg Q6H PRN IVP Nausea & Vomiting 10/17/19 04:00 11/10/19 03:59 Pantoprazole (Protonix) 40 mg EVERY 12 HOURS ORAL 10/17/19 09:00 11/13/19 20:59 10/18/19 21:27 Polyethylene Glycol (Miralax) 17 gm DAILYPRN PRN ORAL Constipation 10/17/19 04:00 11/16/19 03:59 Potassium Chloride (K-Dur) 40 meq DAILY ORAL 10/17/19 09:00 01/15/20 08:59 10/18/19 08:32 Neo Lr MD Oct 19, 2019 07:07
[2019-10-19 07:29] LABS: BASOPHILS % (AUTO) 0.8 % (0.0-2.0); EOSINOPHILS % (AUTO) 3.4 % (0.0-3.0); HEMATOCRIT 33.2 % (37.0-47.0); HEMOGLOBIN 10.5 G/DL (12.0-16.0); LYMPHOCYTES % (AUTO) 45.1 % (20.0-45.0); MEAN CORPUSCULAR VOLUME 81 FL (80-99); MONOCYTES % (AUTO) 11.9 % (1.0-10.0); NEUTROPHILS % (AUTO) 38.9 % (45.0-75.0); PLATELET COUNT 232 K/UL (150-450); RED BLOOD COUNT 4.08 M/UL (4.20-5.40); RED CELL DISTRIBUTION WIDTH 12.9 % (11.6-14.8); WHITE BLOOD COUNT 7.7 K/UL (4.8-10.8)
[2019-10-19 07:36] LABS: ALANINE AMINOTRANSFERASE 36 U/L (12-78); ALBUMIN 2.4 G/DL (3.4-5.0); ALBUMIN/GLOBULIN RATIO 0.7 (1.0-2.7); ALKALINE PHOSPHATASE 157 U/L (46-116); ANION GAP 5 mmol/L (5-15); ASPARTATE AMINO TRANSFERASE 34 U/L (15-37); BILIRUBIN,TOTAL 0.1 MG/DL (0.2-1.0); BLOOD UREA NITROGEN 7 mg/dL (7-18); CALCIUM 8.3 MG/DL (8.5-10.1); CARBON DIOXIDE 31 MMOL/L (21-32); CHLORIDE 105 MMOL/L (98-107); CREATININE 0.6 MG/DL (0.55-1.30); PHOSPHORUS 2.9 MG/DL (2.5-4.9); SODIUM 141 MMOL/L (136-145)
[2019-10-19 08:00] VITALS: BP 123/77
[2019-10-19] MEDS: DULoxetine 30mg cap ORAL SCH ×2 (08:23→17:06)
[2019-10-19] MEDS: Heparin 5000 units/ml inj SUBQ SCH ×2 (08:24→22:15)
[2019-10-19 12:00] VITALS: BP 137/84
--- NOTE | 2019-10-19 13:24 | Nephrology Progress Note ---
Assessment/Plan Problem List: (1) Renal failure Assessment: Mainly acute secondary to dehydration (2) DKA (diabetic ketoacidoses) (3) Urinary retention (4) Encephalopathy Assessment: Toxic metabolic (5) Dehydration (6) Electrolyte imbalance Assessment 54-year-old female admitted with a diagnosis of diabetic ketoacidosis Renal failure, mainly prerenal secondary to dehydration due to hyperglycemia and excess water loss Abnormal electrolyte related to underlying DKA and dehydration Leukocytosis, underlying sepsis Toxic metabolic encephalopathy Hypothermia Suspected 2018 novel coronavirus infection Metabolic acidosis due to DKA Plan October 18: Today's labs reviewed. Stable from renal standpoint of view. Continue per consultants. October 17: No labs done today. Remains stable from renal standpoint to view. October 16: Renal parameters are stable. Additional potassium supplement orally given. Continue per IV management. October 15: Renal parameters and electrolytes stable. Continue per consultants. Continue per ID management. October 14: Today's labs still pending. Aim to correct the electrolyte abnormalities. Continue per consultants. October 13: Continue to correct low potassium and low phosphorus and low magnesium as needed. Continue to keep blood sugar and blood pressure in check. Patient clinically improving. Patient now on medium carbohydrate diet. Hydrate as needed. Keep the electrolytes and blood chemistries under check Keep blood pressure and blood sugar under control Discussed with RN Per orders Subjective ROS Limited/Unobtainable: No Constitutional: Reports: malaise Objective Objective Last 24 Hour Vital Signs Date Time Temp Pulse Resp B/P (MAP) Pulse Ox O2 Delivery O2 Flow Rate FiO2 10/19/19 12:00 98.2 94 20 137/84 (101) 96 10/19/19 09:00 Room Air Room Air 10/19/19 08:00 97.9 97 20 123/77 (92) 96 10/19/19 04:00 98.2 88 20 120/60 (80) 96 10/19/19 00:00 98.2 99 20 137/88 (104) 96 10/18/19 21:00 Room Air Room Air 10/18/19 20:55 86 20 97 Room Air 21 10/18/19 20:00 98.2 86 20 136/77 (96) 94 10/18/19 16:00 97.9 83 19 119/61 (80) 98 Intake and Output 10/18/19 10/19/19 19:00 07:00 Intake Total 950 ml 635 ml Output Total 850 ml Balance 100 ml 635 ml Intake Oral 950 ml IV Total 275 ml Other 360 ml Output Urine Total 850 ml # Voids 3 5 # Bowel Movements 1 Laboratory Tests 10/19/19 05:45: White Blood Count 7.7, Red Blood Count 4.08L, Hemoglobin 10.5L, Hematocrit 33.2L , Mean Corpuscular Volume 81, Mean Corpuscular Hemoglobin 25.8L, Mean Corpuscular Hemoglobin Concent 31.6L, Red Cell Distribution Width 12.9, Platelet Count 232, Mean Platelet Volume 6.7, Neutrophils (%) (Auto) 38.9L, Lymphocytes (%) (Auto) 45.1H, Monocytes (%) (Auto) 11.9H, Eosinophils (%) (Auto ) 3.4H, Basophils (%) (Auto) 0.8, Sodium Level 141, Potassium Level 4.0, Chloride Level 105, Carbon Dioxide Level 31, Anion Gap 5, Blood Urea Nitrogen 7 , Creatinine 0.6, Estimat Glomerular Filtration Rate > 60, Glucose Level 163H, Uric Acid 3.7, Calcium Level 8.3L, Phosphorus Level 2.9, Magnesium Level 2.2, Total Bilirubin 0.1L, Aspartate Amino Transf (AST/SGOT) 34, Alanine Aminotransferase (ALT/SGPT) 36, Alkaline Phosphatase 157H, Total Protein 5.9L, Albumin 2.4L, Globulin 3.5, Albumin/Globulin Ratio 0.7L Height (Feet): 5 Height (Inches): 6.00 Weight (Pounds): 199 General Appearance: no apparent distress Cardiovascular: tachycardia Respiratory/Chest: decreased breath sounds Abdomen: soft Objective No change Delvin Armas MD Oct 19, 2019 13:24
--- NOTE | 2019-10-19 13:36 | Pulmonology Progress Note ---
Subjective ROS Limited/Unobtainable: No Constitutional: Reports: no symptoms HEENT: Repors: no symptoms Respiratory: Reports: no symptoms Allergies: Coded Allergies: No Known Allergies (Unverified , 04/14/18) All Systems: reviewed and negative except above Objective Last 24 Hour Vital Signs Date Time Temp Pulse Resp B/P (MAP) Pulse Ox O2 Delivery O2 Flow Rate FiO2 10/19/19 12:00 98.2 94 20 137/84 (101) 96 10/19/19 09:00 Room Air Room Air 10/19/19 08:00 97.9 97 20 123/77 (92) 96 10/19/19 04:00 98.2 88 20 120/60 (80) 96 10/19/19 00:00 98.2 99 20 137/88 (104) 96 10/18/19 21:00 Room Air Room Air 10/18/19 20:55 86 20 97 Room Air 21 10/18/19 20:00 98.2 86 20 136/77 (96) 94 10/18/19 16:00 97.9 83 19 119/61 (80) 98 Intake and Output 10/18/19 10/19/19 19:00 07:00 Intake Total 950 ml 635 ml Output Total 850 ml Balance 100 ml 635 ml Intake Oral 950 ml IV Total 275 ml Other 360 ml Output Urine Total 850 ml # Voids 3 5 # Bowel Movements 1 General Appearance: no acute distress - obese AA female HEENT: anicteric, PERRL Respiratory: lungs clear, no respiratory distress, no accessory muscle use Cardiovascular: normal rate, regular rhythm, no JVD Abdomen: soft, non tender - obese Extremities: no cyanosis, no edema Skin: no rash Neurologic: alert, oriented x 3, responsive Musculoskeletal: normal muscle bulk Microbiology Date/Time Source Procedure Growth Status 10/16/19 18:00 Blood Blood Culture - Preliminary NO GROWTH AFTER 48 HOURS Resulted 10/16/19 17:45 Blood Blood Culture - Preliminary NO GROWTH AFTER 48 HOURS Resulted 10/16/19 14:00 Cerebral Spinal Fluid Gram Stain - Final Resulted 10/16/19 14:00 Cerebral Spinal Fluid CSF Culture - Preliminary NO GROWTH AFTER 24 HOURS Resulted 10/16/19 20:00 Urine,Clean Catch Urine Culture - Preliminary Yeast Species Gram Positive Cocci Resulted Laboratory Tests 10/19/19 05:45: White Blood Count 7.7, Red Blood Count 4.08L, Hemoglobin 10.5L, Hematocrit 33.2L , Mean Corpuscular Volume 81, Mean Corpuscular Hemoglobin 25.8L, Mean Corpuscular Hemoglobin Concent 31.6L, Red Cell Distribution Width 12.9, Platelet Count 232, Mean Platelet Volume 6.7, Neutrophils (%) (Auto) 38.9L, Lymphocytes (%) (Auto) 45.1H, Monocytes (%) (Auto) 11.9H, Eosinophils (%) (Auto ) 3.4H, Basophils (%) (Auto) 0.8, Sodium Level 141, Potassium Level 4.0, Chloride Level 105, Carbon Dioxide Level 31, Anion Gap 5, Blood Urea Nitrogen 7 , Creatinine 0.6, Estimat Glomerular Filtration Rate > 60, Glucose Level 163H, Uric Acid 3.7, Calcium Level 8.3L, Phosphorus Level 2.9, Magnesium Level 2.2, Total Bilirubin 0.1L, Aspartate Amino Transf (AST/SGOT) 34, Alanine Aminotransferase (ALT/SGPT) 36, Alkaline Phosphatase 157H, Total Protein 5.9L, Albumin 2.4L, Globulin 3.5, Albumin/Globulin Ratio 0.7L Current Medications Medications (Trade) Dose Ordered Sig/Saul Route PRN Reason Start Time Stop Time Status Last Admin Dose Admin Acetaminophen (Tylenol) 650 mg Q4H PRN ORAL Fever 10/17/19 04:00 11/10/19 03:59 10/18/19 08:49 Acetaminophen (Tylenol) 650 mg Q4H PRN RECTAL Temp >100.5 10/17/19 04:00 11/11/19 03:59 Acetaminophen/ Hydrocodone Bitart ([place] 5/325) 1 tab Q6H PRN ORAL For Pain 10/18/19 11:30 10/25/19 11:29 10/19/19 08:27 Acyclovir 900 mg/ Sodium Chloride 275 ml @ 275 mls/hr Q8HR IV 10/17/19 06:00 11/15/19 21:59 10/19/19 06:14 Dextrose (Dextrose 50%) 25 ml Q30M PRN IV Hypoglycemia 10/17/19 04:00 01/11/20 07:59 Dextrose (Dextrose 50%) 50 ml Q30M PRN IV Hypoglycemia 10/17/19 04:00 01/11/20 07:59 Diphenhydramine HCl (Benadryl) 50 mg HSPRN PRN ORAL Insomnia 10/17/19 04:00 11/13/19 03:59 Duloxetine HCl (Cymbalta) 30 mg TWICE A DAY ORAL 10/17/19 09:00 01/09/20 17:59 10/19/19 08:23 Heparin Sodium (Porcine) (Heparin 5000 units/ml) 5,000 units EVERY 12 HOURS SUBQ 10/17/19 09:00 11/25/19 20:59 10/19/19 08:24 Insulin Aspart (NovoLOG) BEFORE MEALS AND HS SUBQ 10/17/19 06:30 01/13/20 11:29 10/18/19 21:00 Insulin Aspart (NovoLOG) 4 units BEFORE MEALS SUBQ 10/17/19 06:30 01/11/20 08:59 10/19/19 12:04 Insulin Detemir (Levemir) 9 units QHS SUBQ 10/18/19 21:00 01/11/20 08:59 10/18/19 21:29 Nitroglycerin (Ntg) 0.4 mg Q5M PRN SL Prn Chest Pain 10/17/19 04:00 11/10/19 17:29 Ondansetron HCl (Zofran) 4 mg Q6H PRN IVP Nausea & Vomiting 10/17/19 04:00 11/10/19 03:59 Pantoprazole (Protonix) 40 mg EVERY 12 HOURS ORAL 10/17/19 09:00 11/13/19 20:59 10/19/19 08:24 Polyethylene Glycol (Miralax) 17 gm DAILYPRN PRN ORAL Constipation 10/17/19 04:00 11/16/19 03:59 Potassium Chloride (K-Dur) 40 meq DAILY ORAL 10/17/19 09:00 01/15/20 08:59 10/19/19 08:23 Assessment/Plan Problems: (1) DKA (diabetic ketoacidoses) (2) Compression neuropathy (3) Renal failure (4) Herpes zoster (5) Urinary retention (6) Right foot drop (7) Encephalopathy Assessment/Plan on Acyclovir improving Low grade fever off insulin drip eating well BS between 90 and 150 Neuro evaluation appreciated: 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 watch electrolytes anemia w/u Gera Nunn MD Oct 19, 2019 13:36
--- NOTE | 2019-10-19 14:08 | Infectious Diseases Prog Note ---
Assessment/Plan Assessment/Plan Assessment: Herpes Zoster buttocks area- r/o [employer] VZV causing foot drop -10/16 SP LP: Note elevated opening pressure, 26 cm H2O WBC 2, glucose 85, protein 52; CSF cx stain no organisms no wbc,c x NTD HSV, VDRL, VZV p --RPR neg Severe sepsis Probable pNA vs pulmonary edema- COVIDneg x2 -10/16 CXR: Minimal left lung atelectasis. No acute disease. -10/14 CXR: no acute process -10/11 SARS CoV PCR neg -10/10 SARS-COV2 PCR neg BCx NTD u/a neg Fever; recurrent; improving Hyper Leukocytosis; SP -10/15 u/a neg; ucx NTD Bcx NTD -CT abd/p: Bilateral basilar pulmonary groundglass opacities, may indicate early pneumonia changes. Limited assessment of the GI tract, due to lack of enteric contrast administration.Mild rectal distention with stool, mild rectal fecal impaction possible. Distended bladder. Mildly enlarged uterus with calcifications, may indicate diffuse fibroid change. Distended bladder. Incidental finding of degenerative spondylosis DKA, SP severe anion gap metabolic acidosis ТАТЬЯНА, SP -REnla US: Negative for hydronephrosis or other renal abnormality. Empty bladder with a Coleman catheter. Acute encephalopathy- 2ry to above -CT head: no acute findings Dm1, uncontrolled Plan: -Continue IV Acyclovir #4 pending CSF studies -10/14 SP Ceftriaxone and Azithromycin #5 -f/u cx -Monitor CBC/CMP, temperature -SARS CoV PCR neg x2 -aspiration precautions -f/u repeat cultures DW RN Thank you for consulting [facility]. Will continue to follow along with you. Subjective Allergies: Coded Allergies: No Known Allergies (Unverified , 04/14/18) Subjective afebrile >36hrs sp LP yesterday no leukocytosis Objective Vital Signs Last 24 Hour Vital Signs Date Time Temp Pulse Resp B/P (MAP) Pulse Ox O2 Delivery O2 Flow Rate FiO2 10/19/19 12:00 98.2 94 20 137/84 (101) 96 10/19/19 09:00 Room Air Room Air 10/19/19 08:00 97.9 97 20 123/77 (92) 96 10/19/19 04:00 98.2 88 20 120/60 (80) 96 6/12/20 00:00 98.2 99 20 137/88 (104) 96 10/18/19 21:00 Room Air Room Air 10/18/19 20:55 86 20 97 Room Air 21 10/18/19 20:00 98.2 86 20 136/77 (96) 94 10/18/19 16:00 97.9 83 19 119/61 (80) 98 Height (Feet): 5 Height (Inches): 6.00 Weight (Pounds): 199 Objective General Appearance: no acute distress HEENT: atraumatic Respiratory/Chest: no respiratory distress, no accessory muscle use Abdomen: non distended Skin: fluid filled vesicles in linear patter on buttocks area; no other rash Neurologic/Psychiatric: alert, responsive, R foot drop Microbiology Date/Time Source Procedure Growth Status 10/16/19 18:00 Blood Blood Culture - Preliminary NO GROWTH AFTER 48 HOURS Resulted 10/16/19 17:45 Blood Blood Culture - Preliminary NO GROWTH AFTER 48 HOURS Resulted 10/16/19 14:00 Cerebral Spinal Fluid Gram Stain - Final Resulted 10/16/19 14:00 Cerebral Spinal Fluid CSF Culture - Preliminary NO GROWTH AFTER 24 HOURS Resulted 10/16/19 20:00 Urine,Clean Catch Urine Culture - Preliminary Yeast Species Gram Positive Cocci Resulted Laboratory Tests Test 10/19/19 05:45 White Blood Count 7.7 K/UL (4.8-10.8) Red Blood Count 4.08 M/UL (4.20-5.40) L Hemoglobin 10.5 G/DL (12.0-16.0) L Hematocrit 33.2 % (37.0-47.0) L Mean Corpuscular Volume 81 FL (80-99) Mean Corpuscular Hemoglobin 25.8 PG (27.0-31.0) L Mean Corpuscular Hemoglobin Concent 31.6 G/DL (32.0-36.0) L Red Cell Distribution Width 12.9 % (11.6-14.8) Platelet Count 232 K/UL (150-450) Mean Platelet Volume 6.7 FL (6.5-10.1) Neutrophils (%) (Auto) 38.9 % (45.0-75.0) L Lymphocytes (%) (Auto) 45.1 % (20.0-45.0) H Monocytes (%) (Auto) 11.9 % (1.0-10.0) H Eosinophils (%) (Auto) 3.4 % (0.0-3.0) H Basophils (%) (Auto) 0.8 % (0.0-2.0) Sodium Level 141 MMOL/L (136-145) Potassium Level 4.0 MMOL/L (3.5-5.1) Chloride Level 105 MMOL/L (98-107) Carbon Dioxide Level 31 MMOL/L (21-32) Anion Gap 5 mmol/L (5-15) Blood Urea Nitrogen 7 mg/dL (7-18) Creatinine 0.6 MG/DL (0.55-1.30) Estimat Glomerular Filtration Rate > 60 mL/min (>60) Glucose Level 163 MG/DL (74-106) H Uric Acid 3.7 MG/DL (2.6-7.2) Calcium Level 8.3 MG/DL (8.5-10.1) L Phosphorus Level 2.9 MG/DL (2.5-4.9) Magnesium Level 2.2 MG/DL (1.8-2.4) Total Bilirubin 0.1 MG/DL (0.2-1.0) L Aspartate Amino Transf (AST/SGOT) 34 U/L (15-37) Alanine Aminotransferase (ALT/SGPT) 36 U/L (12-78) Alkaline Phosphatase 157 U/L (46-116) H Total Protein 5.9 G/DL (6.4-8.2) L Albumin 2.4 G/DL (3.4-5.0) L Globulin 3.5 g/dL Albumin/Globulin Ratio 0.7 (1.0-2.7) L Current Medications Medications (Trade) Dose Ordered Sig/Saul Route PRN Reason Start Time Stop Time Status Last Admin Dose Admin Acetaminophen (Tylenol) 650 mg Q4H PRN ORAL Fever 10/17/19 04:00 11/10/19 03:59 10/18/19 08:49 Acetaminophen (Tylenol) 650 mg Q4H PRN RECTAL Temp >100.5 10/17/19 04:00 11/11/19 03:59 Acetaminophen/ Hydrocodone Bitart ([place] 5/325) 1 tab Q6H PRN ORAL For Pain 10/18/19 11:30 10/25/19 11:29 10/19/19 08:27 Acyclovir 900 mg/ Sodium Chloride 275 ml @ 275 mls/hr Q8HR IV 10/17/19 06:00 11/15/19 21:59 10/19/19 06:14 Dextrose (Dextrose 50%) 25 ml Q30M PRN IV Hypoglycemia 10/17/19 04:00 01/11/20 07:59 Dextrose (Dextrose 50%) 50 ml Q30M PRN IV Hypoglycemia 10/17/19 04:00 01/11/20 07:59 Diphenhydramine HCl (Benadryl) 50 mg HSPRN PRN ORAL Insomnia 10/17/19 04:00 11/13/19 03:59 Duloxetine HCl (Cymbalta) 30 mg TWICE A DAY ORAL 10/17/19 09:00 01/09/20 17:59 10/19/19 08:23 Heparin Sodium (Porcine) (Heparin 5000 units/ml) 5,000 units EVERY 12 HOURS SUBQ 10/17/19 09:00 11/25/19 20:59 10/19/19 08:24 Insulin Aspart (NovoLOG) BEFORE MEALS AND HS SUBQ 10/17/19 06:30 01/13/20 11:29 10/18/19 21:00 Insulin Aspart (NovoLOG) 4 units BEFORE MEALS SUBQ 10/17/19 06:30 01/11/20 08:59 10/19/19 12:04 Insulin Detemir (Levemir) 9 units QHS SUBQ 10/18/19 21:00 01/11/20 08:59 10/18/19 21:29 Nitroglycerin (Ntg) 0.4 mg Q5M PRN SL Prn Chest Pain 10/17/19 04:00 11/10/19 17:29 Ondansetron HCl (Zofran) 4 mg Q6H PRN IVP Nausea & Vomiting 10/17/19 04:00 11/10/19 03:59 Pantoprazole (Protonix) 40 mg EVERY 12 HOURS ORAL 10/17/19 09:00 11/13/19 20:59 10/19/19 08:24 Polyethylene Glycol (Miralax) 17 gm DAILYPRN PRN ORAL Constipation 10/17/19 04:00 11/16/19 03:59 Potassium Chloride (K-Dur) 40 meq DAILY ORAL 10/17/19 09:00 01/15/20 08:59 10/19/19 08:23 Oxana Chi M.D. Oct 19, 2019 14:08
--- NOTE | 2019-10-19 14:29 | Neurology Progress Note ---
Interim History Interim History Interim History Ms. Dinorah Waterman is a 54-year-old, right-handed, black lady, who has a long history of diabetes mellitus, obesity and depression. She was seen functioning relatively well 1 day prior to admission, but on the day of admission she was found unresponsive at home by her daughter. It is unclear as to how long she had been unresponsive. When she was hospitalized she was found to be in diabetic ketoacidosis and remained unconscious for a few days. On awakening she was confused and disoriented but when she regained her senses she noticed a problem with strength and sensations in the right foot. She feels relatively well. The right foot weakness is approximately the same. The altered sensation over her right leg and foot is also about the same. She denies any new neurological symptoms. She still does not have her AFO. Review of Systems Neuro Review of Systems Benign. Objective Physical Exam Last Vital Signs Date Time Temp Pulse Resp B/P (MAP) Pulse Ox O2 Delivery O2 Flow Rate FiO2 10/19/19 12:00 98.2 94 20 137/84 (101) 96 10/19/19 09:00 Room Air Room Air 10/18/19 20:55 21 Laboratory Tests Test 10/19/19 05:45 White Blood Count 7.7 K/UL (4.8-10.8) Red Blood Count 4.08 M/UL (4.20-5.40) L Hemoglobin 10.5 G/DL (12.0-16.0) L Hematocrit 33.2 % (37.0-47.0) L Mean Corpuscular Volume 81 FL (80-99) Mean Corpuscular Hemoglobin 25.8 PG (27.0-31.0) L Mean Corpuscular Hemoglobin Concent 31.6 G/DL (32.0-36.0) L Red Cell Distribution Width 12.9 % (11.6-14.8) Platelet Count 232 K/UL (150-450) Mean Platelet Volume 6.7 FL (6.5-10.1) Neutrophils (%) (Auto) 38.9 % (45.0-75.0) L Lymphocytes (%) (Auto) 45.1 % (20.0-45.0) H Monocytes (%) (Auto) 11.9 % (1.0-10.0) H Eosinophils (%) (Auto) 3.4 % (0.0-3.0) H Basophils (%) (Auto) 0.8 % (0.0-2.0) Sodium Level 141 MMOL/L (136-145) Potassium Level 4.0 MMOL/L (3.5-5.1) Chloride Level 105 MMOL/L (98-107) Carbon Dioxide Level 31 MMOL/L (21-32) Anion Gap 5 mmol/L (5-15) Blood Urea Nitrogen 7 mg/dL (7-18) Creatinine 0.6 MG/DL (0.55-1.30) Estimat Glomerular Filtration Rate > 60 mL/min (>60) Glucose Level 163 MG/DL (74-106) H Uric Acid 3.7 MG/DL (2.6-7.2) Calcium Level 8.3 MG/DL (8.5-10.1) L Phosphorus Level 2.9 MG/DL (2.5-4.9) Magnesium Level 2.2 MG/DL (1.8-2.4) Total Bilirubin 0.1 MG/DL (0.2-1.0) L Aspartate Amino Transf (AST/SGOT) 34 U/L (15-37) Alanine Aminotransferase (ALT/SGPT) 36 U/L (12-78) Alkaline Phosphatase 157 U/L (46-116) H Total Protein 5.9 G/DL (6.4-8.2) L Albumin 2.4 G/DL (3.4-5.0) L Globulin 3.5 g/dL Albumin/Globulin Ratio 0.7 (1.0-2.7) L Neurologic Exam Objective PHYSICAL EXAMINATION: GENERAL: She is a well-developed, well-nourished, obese, black lady, lying in bed, in no acute distress. HEAD: Normocephalic and atraumatic. NECK: No neck rigidity was observed. EENT: Benign. EXTREMITIES: She had a pressure ulcer over her right lateral heel. She also had tenderness over the right fibular head. NEUROLOGIC EXAMINATION: MENTAL STATUS EXAMINATION: The patient was alert and awake. The patient was oriented to person, place and time. The patient was able to recall 3/3 words immediately after 1 minute and after 3 minutes, on the second trial. The patient was able to remember Presidents Trump through [employer] Senior with hints. The patient's mathematical skills were good. The patient's visuospatial function was preserved. SPEECH: No dysarthria was noted. LANGUAGE: No aphasia was noted. CRANIAL NERVE EXAMINATION: II: The visual lyons were intact to confrontation testing. III, IV, : External ocular movements were full and pupils 3 mm in diameter equal, round, regular and reactive to light. V: The facial sensations were normal, and the temporales, masseters and pterygoids functioned normally. VII: The facial expressions were normal and no facial asymmetry was seen. VIII: The patient was able to hear well bilaterally and had no nystagmus. IX: The palate moved symmetrically on phonation. X: There was no hoarseness of voice. XI: The sternocleidomastoids and trapezii functioned normally. XII: The tongue was in the midline without any fasciculations or atrophy. MOTOR SYSTEM: The tone was normal in all 4 extremities except for flaccidity at the right ankle. Examination of muscle mass revealed no focal wasting. Examination of power revealed G 5/5 power except for G 0/5 in the ankle dorsiflexors, ankle evertors, and toe extensors. SENSORY EXAMINATION: Sensations to pinprick and light touch were altered in the distribution of the right peroneal nerve. Graphesthesia was normal. COORDINATION: [id number] and [id number]-[id number] testing were performed normally. REFLEXES: 0 at the biceps, triceps, brachioradialis, knees and ankles. The plantar responses were flexor bilaterally. STANCE: She stood up with support. GAIT: She walks with support with a right foot drop. ABNORMAL MOVEMENTS: None Impression/Recommendations Diagnostic Impression DIAGNOSTIC IMPRESSION: 1. Ms. Dinorah Waterman is a 54-year-old, right-handed, black lady, who has a long history of diabetes mellitus, obesity and depression. She was seen functioning relatively well 1 day prior to admission, but on the day of admission she was found unresponsive at home by her daughter. It is unclear as to how long she had been unresponsive. When she was hospitalized she was found to be in diabetic ketoacidosis and remained unconscious for a few days. On awakening she was confused and disoriented but when she regained her senses she noticed a problem with strength and sensations in the right foot. 2. She feels relatively well. The right foot weakness is approximately the same. The altered sensation over her right leg and foot is also about the same. She denies any new neurological symptoms. She still does not have her AFO. 3. On neurological examination, at this time, she does have tenderness over her right fibular head, weakness in the right peroneal muscles, and altered sensations in the right peroneal nerve distribution. 4. 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 The compression of the nerve most probably occurred while the patient was unconscious. 5. The right peroneal neuropathy is stable. Recommendations RECOMMENDATIONS: 1. The patient was given an explanation of the above- mentioned findings. 2. She should be fitted with an ankle foot orthosis on the right side. We are awaiting it to be delivered. 3. Physical therapy to learn strategies to prevent injury to her right ankle and prevent falls until her nerve heals. 4. Await results of test for other treatable causes of neuropathy. 5. Her diabetes should be controlled in the strict fashion. Kulwinder Veliz M.D., M.S.P.H. Neurologist & Clinical Neurophysiologist Kulwinder Veliz MD Oct 19, 2019 14:29
[2019-10-19 16:00] VITALS: BP 135/78
--- NOTE | 2019-10-19 16:28 | Internal Med Progress Note ---
Subjective Physician Name Keven Winslow Attending Physician Keven Winslow MD Current Medications Medications (Trade) Dose Ordered Sig/Saul Route PRN Reason Start Time Stop Time Status Last Admin Dose Admin Acetaminophen (Tylenol) 650 mg Q4H PRN ORAL Fever 10/17/19 04:00 11/10/19 03:59 10/18/19 08:49 Acetaminophen (Tylenol) 650 mg Q4H PRN RECTAL Temp >100.5 10/17/19 04:00 11/11/19 03:59 Acetaminophen/ Hydrocodone Bitart ([place] 5/325) 1 tab Q6H PRN ORAL For Pain 10/18/19 11:30 10/25/19 11:29 10/19/19 08:27 Acyclovir 900 mg/ Sodium Chloride 275 ml @ 275 mls/hr Q8HR IV 10/17/19 06:00 11/15/19 21:59 10/19/19 15:03 Dextrose (Dextrose 50%) 25 ml Q30M PRN IV Hypoglycemia 10/17/19 04:00 01/11/20 07:59 Dextrose (Dextrose 50%) 50 ml Q30M PRN IV Hypoglycemia 10/17/19 04:00 01/11/20 07:59 Diphenhydramine HCl (Benadryl) 50 mg HSPRN PRN ORAL Insomnia 10/17/19 04:00 11/13/19 03:59 Duloxetine HCl (Cymbalta) 30 mg TWICE A DAY ORAL 10/17/19 09:00 01/09/20 17:59 10/19/19 08:23 Heparin Sodium (Porcine) (Heparin 5000 units/ml) 5,000 units EVERY 12 HOURS SUBQ 10/17/19 09:00 11/25/19 20:59 10/19/19 08:24 Insulin Aspart (NovoLOG) BEFORE MEALS AND HS SUBQ 10/17/19 06:30 01/13/20 11:29 10/18/19 21:00 Insulin Aspart (NovoLOG) 4 units BEFORE MEALS SUBQ 10/17/19 06:30 01/11/20 08:59 10/19/19 12:04 Insulin Detemir (Levemir) 9 units QHS SUBQ 10/18/19 21:00 01/11/20 08:59 10/18/19 21:29 Nitroglycerin (Ntg) 0.4 mg Q5M PRN SL Prn Chest Pain 10/17/19 04:00 11/10/19 17:29 Ondansetron HCl (Zofran) 4 mg Q6H PRN IVP Nausea & Vomiting 10/17/19 04:00 11/10/19 03:59 Pantoprazole (Protonix) 40 mg EVERY 12 HOURS ORAL 10/17/19 09:00 11/13/19 20:59 10/19/19 08:24 Polyethylene Glycol (Miralax) 17 gm DAILYPRN PRN ORAL Constipation 10/17/19 04:00 11/16/19 03:59 Potassium Chloride (K-Dur) 40 meq DAILY ORAL 10/17/19 09:00 01/15/20 08:59 10/19/19 08:23 Allergies: Coded Allergies: No Known Allergies (Unverified , 04/14/18) Subjective Awake, alert, responsive, denies any chest pain or shortness of breath. Complain about lower back pain at the area with a rash. Objective Last Vital Signs Date Time Temp Pulse Resp B/P (MAP) Pulse Ox O2 Delivery O2 Flow Rate FiO2 10/19/19 16:00 98.8 89 20 135/78 (97) 97 10/19/19 09:00 Room Air Room Air 10/18/19 20:55 21 Laboratory Tests Test 10/19/19 05:45 White Blood Count 7.7 K/UL (4.8-10.8) Red Blood Count 4.08 M/UL (4.20-5.40) L Hemoglobin 10.5 G/DL (12.0-16.0) L Hematocrit 33.2 % (37.0-47.0) L Mean Corpuscular Volume 81 FL (80-99) Mean Corpuscular Hemoglobin 25.8 PG (27.0-31.0) L Mean Corpuscular Hemoglobin Concent 31.6 G/DL (32.0-36.0) L Red Cell Distribution Width 12.9 % (11.6-14.8) Platelet Count 232 K/UL (150-450) Mean Platelet Volume 6.7 FL (6.5-10.1) Neutrophils (%) (Auto) 38.9 % (45.0-75.0) L Lymphocytes (%) (Auto) 45.1 % (20.0-45.0) H Monocytes (%) (Auto) 11.9 % (1.0-10.0) H Eosinophils (%) (Auto) 3.4 % (0.0-3.0) H Basophils (%) (Auto) 0.8 % (0.0-2.0) Sodium Level 141 MMOL/L (136-145) Potassium Level 4.0 MMOL/L (3.5-5.1) Chloride Level 105 MMOL/L (98-107) Carbon Dioxide Level 31 MMOL/L (21-32) Anion Gap 5 mmol/L (5-15) Blood Urea Nitrogen 7 mg/dL (7-18) Creatinine 0.6 MG/DL (0.55-1.30) Estimat Glomerular Filtration Rate > 60 mL/min (>60) Glucose Level 163 MG/DL (74-106) H Uric Acid 3.7 MG/DL (2.6-7.2) Calcium Level 8.3 MG/DL (8.5-10.1) L Phosphorus Level 2.9 MG/DL (2.5-4.9) Magnesium Level 2.2 MG/DL (1.8-2.4) Total Bilirubin 0.1 MG/DL (0.2-1.0) L Aspartate Amino Transf (AST/SGOT) 34 U/L (15-37) Alanine Aminotransferase (ALT/SGPT) 36 U/L (12-78) Alkaline Phosphatase 157 U/L (46-116) H Total Protein 5.9 G/DL (6.4-8.2) L Albumin 2.4 G/DL (3.4-5.0) L Globulin 3.5 g/dL Albumin/Globulin Ratio 0.7 (1.0-2.7) L Microbiology Date/Time Source Procedure Growth Status 10/16/19 18:00 Blood Blood Culture - Preliminary NO GROWTH AFTER 48 HOURS Resulted 10/16/19 17:45 Blood Blood Culture - Preliminary NO GROWTH AFTER 48 HOURS Resulted 10/16/19 20:00 Urine,Clean Catch Urine Culture - Preliminary Yeast Species Gram Positive Cocci Resulted Intake and Output 10/18/19 10/19/19 19:00 07:00 Intake Total 950 ml 635 ml Output Total 850 ml Balance 100 ml 635 ml Intake Oral 950 ml IV Total 275 ml Other 360 ml Output Urine Total 850 ml # Voids 3 5 # Bowel Movements 1 Objective Physical Exam General: No acute distress, awake and alert HEENT: NCAT, sclera anicteric, PERRL, EOMI. Neck: Supple, no significant jugular venous distention, Lungs: Good inspiratory effort, clear to auscultation bilaterally, no Wheeze or Rales. Heart: Regular rate and rhythm, normal S1/S2, no murmurs/gallops Abdomen: soft, nontender, nondistended. Normoactive bowel sounds. Morbid obesity. / Rectal: Refused and deferred. Extremities: No Cyanosis , clubbing or edema. Neuro: A&O x 3, Able to move all extremities Skin: warm, rash located on the left buttock area. Psych: Normal mood and affect Assessment/Plan Assessment/Plan (1) Leukocytosis Assessment & Plan: Resolved on antibiotic (2) Pneumonia Assessment & Plan: ID=Dr Chi; Pulmonary = Dr Nunn. S/P ceftriaxone and azithromycin (Compleated at this time off all antibiotics) (3) Metabolic acidosis due to diabetes mellitus (4) Hypernatremia (5) DKA (diabetic ketoacidoses) Assessment & Plan: Continue levemir and novolog sliding scale insulin. Endocrinology=Dr Lr (6) Encephalopathy Assessment & Plan: CT brain=normal (7) Diabetes mellitus (8) Renal failure Assessment & Plan: Nephrology = Dr Armas (9) Right foot drop Assessment & Plan: see neurology consult; right foot/ankle orthosis ordered On acyclovir. Keven Winslow MD Oct 19, 2019 16:28
[2019-10-19 20:00] VITALS: BP 134/76
[2019-10-19] MEDS: Levemir Flexpen SUBQ SCH (22:20)
[2019-10-20 04:00] VITALS: BP 131/77
[2019-10-20] MEDS: NovoLOG Insulin Flexpen SUBQ SCH ×7 (06:30→21:02)
[2019-10-20] MEDS: NS IV SCH ×3 (06:59→21:03)
[2019-10-20] MEDS: ACYCLOVIR IV SCH ×3 (06:59→21:03)
[2019-10-20] MEDS: HYDROcodone/Acetamin 5/325 tab ORAL PRN ×3 (07:55→21:18)
[2019-10-20 08:00] VITALS: BP 132/80
--- NOTE | 2019-10-20 08:24 | Pulmonology Progress Note ---
Vazquez Flanneryet RAYON TESTER 10/20/19 0824: Subjective Allergies: Coded Allergies: No Known Allergies (Unverified , 04/14/18) Subjective leuk resolved, afebrile pulse ox stable on RA Objective Last 24 Hour Vital Signs Date Time Temp Pulse Resp B/P (MAP) Pulse Ox O2 Delivery O2 Flow Rate FiO2 10/20/19 04:00 97.9 105 18 131/77 (95) 96 10/19/19 21:00 Room Air Room Air 10/19/19 20:00 98.4 93 18 134/76 (95) 98 10/19/19 16:00 98.8 89 20 135/78 (97) 97 10/19/19 12:00 98.2 94 20 137/84 (101) 96 10/19/19 09:00 Room Air Room Air Intake and Output 10/19/19 10/20/19 19:00 07:00 Intake Total 1355 ml 275 ml Balance 1355 ml 275 ml Intake Oral 1080 ml IV Total 275 ml 275 ml # Voids 3 2 General Appearance: no acute distress - obese AA female HEENT: anicteric, PERRL Respiratory: lungs clear, no respiratory distress, no accessory muscle use Cardiovascular: normal rate, regular rhythm, no JVD Abdomen: soft, non tender - obese Extremities: no cyanosis, no edema Skin: no rash Neurologic: alert, oriented x 3, responsive Musculoskeletal: normal muscle bulk, other - R foot drop Laboratory Tests 10/19/19 18:04: Stool Occult Blood Negative Current Medications Medications (Trade) Dose Ordered Sig/Saul Route PRN Reason Start Time Stop Time Status Last Admin Dose Admin Acetaminophen (Tylenol) 650 mg Q4H PRN ORAL Fever 10/17/19 04:00 11/10/19 03:59 10/18/19 08:49 Acetaminophen (Tylenol) 650 mg Q4H PRN RECTAL Temp >100.5 10/17/19 04:00 11/11/19 03:59 Acetaminophen/ Hydrocodone Bitart ([place] 5/325) 1 tab Q6H PRN ORAL For Pain 10/18/19 11:30 10/25/19 11:29 10/20/19 07:55 Acyclovir 900 mg/ Sodium Chloride 275 ml @ 275 mls/hr Q8HR IV 10/17/19 06:00 11/15/19 21:59 10/20/19 06:59 Dextrose (Dextrose 50%) 25 ml Q30M PRN IV Hypoglycemia 10/17/19 04:00 01/11/20 07:59 Dextrose (Dextrose 50%) 50 ml Q30M PRN IV Hypoglycemia 10/17/19 04:00 01/11/20 07:59 Diphenhydramine HCl (Benadryl) 50 mg HSPRN PRN ORAL Insomnia 10/17/19 04:00 11/13/19 03:59 Duloxetine HCl (Cymbalta) 30 mg TWICE A DAY ORAL 10/17/19 09:00 01/09/20 17:59 10/19/19 17:06 Heparin Sodium (Porcine) (Heparin 5000 units/ml) 5,000 units EVERY 12 HOURS SUBQ 10/17/19 09:00 11/25/19 20:59 10/19/19 22:15 Insulin Aspart (NovoLOG) BEFORE MEALS AND HS SUBQ 10/17/19 06:30 01/13/20 11:29 10/19/19 22:21 Insulin Aspart (NovoLOG) 4 units BEFORE MEALS SUBQ 10/17/19 06:30 01/11/20 08:59 10/19/19 17:09 Insulin Detemir (Levemir) 9 units QHS SUBQ 10/18/19 21:00 01/11/20 08:59 10/19/19 22:20 Nitroglycerin (Ntg) 0.4 mg Q5M PRN SL Prn Chest Pain 10/17/19 04:00 11/10/19 17:29 Ondansetron HCl (Zofran) 4 mg Q6H PRN IVP Nausea & Vomiting 10/17/19 04:00 11/10/19 03:59 Pantoprazole (Protonix) 40 mg EVERY 12 HOURS ORAL 10/17/19 09:00 11/13/19 20:59 10/19/19 22:19 Polyethylene Glycol (Miralax) 17 gm DAILYPRN PRN ORAL Constipation 10/17/19 04:00 11/16/19 03:59 Potassium Chloride (K-Dur) 40 meq DAILY ORAL 10/17/19 09:00 01/15/20 08:59 10/19/19 08:23 Assessment/Plan Assessment/Plan ASSESSMENT Sepsis Probably pneumonia Suspected COVID-19 infection -ruled out DKA-resolved Diabetes mellitus [id number] with hemoglobin A1c 15.3 Renal failure, prerenal R foot drop., 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) Herpes buttock, r/o CVS VZV s/p LP Dehydration Toxic metabolic encephalopathy Electrolyte imbalance Anemia PLAN OF CARE MS O2, pulmonary toilet fup CXR stable s/p abx as per ID leuk resolved DVT prophylaxis off insulin gtt on Levemir and NovoLog, per endo , optimize as needed Hemoglobin A1c 15.3 diabetic diet s/p IV fluids, monitor renal parameters, correct electrolytes as needed avoid nephrotoxic renal US -> no hydro CT head no acute IC pathology herpes at buttock area on IV Acyclovir as epr ID s/p LP, spinal cx NGT fluid analysis noted :glucose 85, protein 52 fup with cx form spinal fluid VZV pending, HSV NGT RPR non reactive, HIV non reactive seen by neuro likely R foot drop likely due to compressive neuropathy of R peroneal nerve GI prophylaxis monitor H&H with goal to keep hemoglobin above 7 anemia work-up C/W anemia of chronic disease supportive care case discussed and evaluated by supervising physician Gera Nunn MD 10/25/19 1333: Subjective ROS Limited/Unobtainable: No Constitutional: Reports: no symptoms HEENT: Repors: no symptoms Allergies: Coded Allergies: No Known Allergies (Unverified , 04/14/18) Objective General Appearance: WD/WN HEENT: normocephalic, mucous membranes moist Respiratory: chest wall non-tender, normal breath sounds Cardiovascular: normal peripheral pulses, normal rate Abdomen: normal bowel sounds Genitourinary: normal external genitalia Skin: no rash Assessment/Plan Problems: (1) DKA, type 1 (2) Dehydration (3) Compression neuropathy (4) Metabolic acidosis due to diabetes mellitus Assessment/Plan improving iv fluids sliding scale check electrolytes dvt prophylaxis all noted and reviewed medication reviewed. Britney Flannery NP Oct 20, 2019 08:24 Gera Nunn MD Oct 25, 2019 13:33
[2019-10-20] MEDS: DULoxetine 30mg cap ORAL SCH ×2 (08:32→17:39)
[2019-10-20] MEDS: Heparin 5000 units/ml inj SUBQ SCH ×2 (08:33→21:00)
--- NOTE | 2019-10-20 10:21 | Infectious Diseases Prog Note ---
Assessment/Plan Assessment/Plan Assessment: Herpes Zoster buttocks area- r/o SWITCHBOARD WIRER VZV causing foot drop -10/16 SP LP: Note elevated opening pressure, 26 cm H2O WBC 2, glucose 85, protein 52; CSF cx stain no organisms no wbc,c x NTD HSV, VDRL, VZV p --RPR neg Severe sepsis Probable pNA vs pulmonary edema- COVIDneg x2 -10/16 CXR: Minimal left lung atelectasis. No acute disease. -10/14 CXR: no acute process -10/11 SARS CoV PCR neg -10/10 SARS-COV2 PCR neg BCx NTD u/a neg Fever; recurrent; improving Hyper Leukocytosis; SP -10/15 u/a neg; ucx NTD Bcx NTD -CT abd/p: Bilateral basilar pulmonary groundglass opacities, may indicate early pneumonia changes. Limited assessment of the GI tract, due to lack of enteric contrast administration.Mild rectal distention with stool, mild rectal fecal impaction possible. Distended bladder. Mildly enlarged uterus with calcifications, may indicate diffuse fibroid change. Distended bladder. Incidental finding of degenerative spondylosis DKA, SP severe anion gap metabolic acidosis ТАТЬЯНА, SP -REnla US: Negative for hydronephrosis or other renal abnormality. Empty bladder with a Coleman catheter. Acute encephalopathy- 2ry to above -CT head: no acute findings Dm1, uncontrolled Plan: -Continue IV Acyclovir #5 pending CSF studies -10/14 SP Ceftriaxone and Azithromycin #5 -f/u cx -Monitor CBC/CMP, temperature -SARS CoV PCR neg x2 -aspiration precautions -f/u repeat cultures DW RN Thank you for consulting [facility]. Will continue to follow along with you. Subjective Allergies: Coded Allergies: No Known Allergies (Unverified , 04/14/18) Subjective Afebrile Sattign well on RA No Leukocytosis Objective Vital Signs Last 24 Hour Vital Signs Date Time Temp Pulse Resp B/P (MAP) Pulse Ox O2 Delivery O2 Flow Rate FiO2 10/20/19 09:00 Room Air Room Air 10/20/19 08:00 98.1 98 19 132/80 (97) 97 10/20/19 04:00 97.9 105 18 131/77 (95) 96 10/19/19 21:00 Room Air Room Air 10/19/19 20:00 98.4 93 18 134/76 (95) 98 10/19/19 16:00 98.8 89 20 135/78 (97) 97 10/19/19 12:00 98.2 94 20 137/84 (101) 96 Height (Feet): 5 Height (Inches): 6.00 Weight (Pounds): 200 Objective General Appearance: no acute distress HEENT: NCAT, MMM Respiratory/Chest: no respiratory distress, no accessory muscle use Abdomen: Soft, non distended Skin: fluid filled vesicles in linear patter on buttocks area; no other rash Neurologic/Psychiatric: alert, responsive, R foot drop Laboratory Tests Test 10/19/19 18:04 Stool Occult Blood Negative (NEGATIVE) Current Medications Medications (Trade) Dose Ordered Sig/Saul Route PRN Reason Start Time Stop Time Status Last Admin Dose Admin Acetaminophen (Tylenol) 650 mg Q4H PRN ORAL Fever 10/17/19 04:00 11/10/19 03:59 10/18/19 08:49 Acetaminophen (Tylenol) 650 mg Q4H PRN RECTAL Temp >100.5 10/17/19 04:00 11/11/19 03:59 Acetaminophen/ Hydrocodone Bitart ([place] 5/325) 1 tab Q6H PRN ORAL For Pain 10/18/19 11:30 10/25/19 11:29 10/20/19 07:55 Acyclovir 900 mg/ Sodium Chloride 275 ml @ 275 mls/hr Q8HR IV 10/17/19 06:00 11/15/19 21:59 10/20/19 06:59 Dextrose (Dextrose 50%) 25 ml Q30M PRN IV Hypoglycemia 10/17/19 04:00 01/11/20 07:59 Dextrose (Dextrose 50%) 50 ml Q30M PRN IV Hypoglycemia 10/17/19 04:00 01/11/20 07:59 Diphenhydramine HCl (Benadryl) 50 mg HSPRN PRN ORAL Insomnia 10/17/19 04:00 11/13/19 03:59 Duloxetine HCl (Cymbalta) 30 mg TWICE A DAY ORAL 10/17/19 09:00 01/09/20 17:59 10/20/19 08:32 Heparin Sodium (Porcine) (Heparin 5000 units/ml) 5,000 units EVERY 12 HOURS SUBQ 10/17/19 09:00 11/25/19 20:59 10/20/19 08:33 Insulin Aspart (NovoLOG) BEFORE MEALS AND HS SUBQ 10/17/19 06:30 01/13/20 11:29 10/19/19 22:21 Insulin Aspart (NovoLOG) 4 units BEFORE MEALS SUBQ 10/17/19 06:30 01/11/20 08:59 10/19/19 17:09 Insulin Detemir (Levemir) 9 units QHS SUBQ 10/18/19 21:00 01/11/20 08:59 10/19/19 22:20 Nitroglycerin (Ntg) 0.4 mg Q5M PRN SL Prn Chest Pain 10/17/19 04:00 11/10/19 17:29 Ondansetron HCl (Zofran) 4 mg Q6H PRN IVP Nausea & Vomiting 10/17/19 04:00 11/10/19 03:59 Pantoprazole (Protonix) 40 mg EVERY 12 HOURS ORAL 10/17/19 09:00 11/13/19 20:59 10/20/19 08:32 Polyethylene Glycol (Miralax) 17 gm DAILYPRN PRN ORAL Constipation 10/17/19 04:00 11/16/19 03:59 Potassium Chloride (K-Dur) 40 meq DAILY ORAL 10/17/19 09:00 01/15/20 08:59 10/20/19 08:32 Devin Humphrey MD Oct 20, 2019 10:21
--- NOTE | 2019-10-20 10:29 | Nephrology Progress Note ---
Assessment/Plan Problem List: (1) Renal failure Assessment: Mainly acute secondary to dehydration (2) DKA (diabetic ketoacidoses) (3) Urinary retention (4) Encephalopathy Assessment: Toxic metabolic (5) Dehydration (6) Electrolyte imbalance Assessment 54-year-old female admitted with a diagnosis of diabetic ketoacidosis Renal failure, mainly prerenal secondary to dehydration due to hyperglycemia and excess water loss Abnormal electrolyte related to underlying DKA and dehydration Leukocytosis, underlying sepsis Toxic metabolic encephalopathy Hypothermia Suspected 2019 novel coronavirus infection Metabolic acidosis due to DKA Plan October 19: No labs done today. Remains tachycardic. 2D echocardiogram ordered. Low-dose Coreg started. Continue per consultants. October 18: Today's labs reviewed. Stable from renal standpoint of view. Continue per consultants. October 17: No labs done today. Remains stable from renal standpoint to view. October 16: Renal parameters are stable. Additional potassium supplement orally given. Continue per IV management. October 15: Renal parameters and electrolytes stable. Continue per consultants. Continue per ID management. October 14: Today's labs still pending. Aim to correct the electrolyte abnormalities. Continue per consultants. October 13: Continue to correct low potassium and low phosphorus and low magnesium as needed. Continue to keep blood sugar and blood pressure in check. Patient clinically improving. Patient now on medium carbohydrate diet. Hydrate as needed. Keep the electrolytes and blood chemistries under check Keep blood pressure and blood sugar under control Discussed with RN Per orders Subjective ROS Limited/Unobtainable: No Constitutional: Reports: malaise Objective Objective Last 24 Hour Vital Signs Date Time Temp Pulse Resp B/P (MAP) Pulse Ox O2 Delivery O2 Flow Rate FiO2 10/20/19 09:00 Room Air Room Air 10/20/19 08:00 98.1 98 19 132/80 (97) 97 10/20/19 04:00 97.9 105 18 131/77 (95) 96 10/19/19 21:00 Room Air Room Air 10/19/19 20:00 98.4 93 18 134/76 (95) 98 10/19/19 16:00 98.8 89 20 135/78 (97) 97 10/19/19 12:00 98.2 94 20 137/84 (101) 96 Intake and Output 10/19/19 10/20/19 19:00 07:00 Intake Total 1355 ml 275 ml Balance 1355 ml 275 ml Intake Oral 1080 ml IV Total 275 ml 275 ml # Voids 3 2 Laboratory Tests 10/19/19 18:04: Stool Occult Blood Negative No chemistry panel today Height (Feet): 5 Height (Inches): 6.00 Weight (Pounds): 200 General Appearance: no apparent distress, lethargic Cardiovascular: tachycardia Respiratory/Chest: decreased breath sounds Abdomen: soft Objective No change Delvin Armas MD Oct 20, 2019 10:29
[2019-10-20] MEDS ORDERED: Carvedilol 6.25mg Tab ORAL SCH (10:30)
[2019-10-20] MEDS ORDERED: D5W 275ml ONE (10:50)
[2019-10-20 12:00] VITALS: BP 115/72
--- NOTE | 2019-10-20 12:07 | Internal Med Progress Note ---
Subjective Date of Service: Oct 20, 2019 Physician Name Jagdish Bear Attending Physician Keven Winslow MD Current Medications Medications (Trade) Dose Ordered Sig/Saul Route PRN Reason Start Time Stop Time Status Last Admin Dose Admin Acetaminophen (Tylenol) 650 mg Q4H PRN ORAL Fever 10/17/19 04:00 11/10/19 03:59 10/20/19 11:40 Acetaminophen (Tylenol) 650 mg Q4H PRN RECTAL Temp >100.5 10/17/19 04:00 11/11/19 03:59 Acetaminophen/ Hydrocodone Bitart ([place] 5/325) 1 tab Q6H PRN ORAL For Pain 10/18/19 11:30 10/25/19 11:29 10/20/19 07:55 Acyclovir 900 mg/ Sodium Chloride 275 ml @ 275 mls/hr Q8HR IV 10/17/19 06:00 11/15/19 21:59 10/20/19 06:59 Carvedilol (Coreg) 6.25 mg EVERY 12 HOURS ORAL 10/20/19 21:00 11/19/19 20:59 Dextrose (Dextrose 50%) 25 ml Q30M PRN IV Hypoglycemia 10/17/19 04:00 01/11/20 07:59 Dextrose (Dextrose 50%) 50 ml Q30M PRN IV Hypoglycemia 10/17/19 04:00 01/11/20 07:59 Diphenhydramine HCl (Benadryl) 50 mg HSPRN PRN ORAL Insomnia 10/17/19 04:00 11/13/19 03:59 Duloxetine HCl (Cymbalta) 30 mg TWICE A DAY ORAL 10/17/19 09:00 01/09/20 17:59 10/20/19 08:32 Heparin Sodium (Porcine) (Heparin 5000 units/ml) 5,000 units EVERY 12 HOURS SUBQ 10/17/19 09:00 11/25/19 20:59 10/20/19 08:33 Insulin Aspart (NovoLOG) BEFORE MEALS AND HS SUBQ 10/17/19 06:30 01/13/20 11:29 10/20/19 11:42 Insulin Aspart (NovoLOG) 4 units BEFORE MEALS SUBQ 10/17/19 06:30 01/11/20 08:59 10/20/19 11:42 Insulin Detemir (Levemir) 9 units QHS SUBQ 10/18/19 21:00 01/11/20 08:59 10/19/19 22:20 Nitroglycerin (Ntg) 0.4 mg Q5M PRN SL Prn Chest Pain 10/17/19 04:00 11/10/19 17:29 Ondansetron HCl (Zofran) 4 mg Q6H PRN IVP Nausea & Vomiting 10/17/19 04:00 11/10/19 03:59 Pantoprazole (Protonix) 40 mg EVERY 12 HOURS ORAL 10/17/19 09:00 11/13/19 20:59 10/20/19 08:32 Polyethylene Glycol (Miralax) 17 gm DAILYPRN PRN ORAL Constipation 10/17/19 04:00 11/16/19 03:59 Potassium Chloride (K-Dur) 40 meq DAILY ORAL 10/17/19 09:00 01/15/20 08:59 10/20/19 08:32 Allergies: Coded Allergies: No Known Allergies (Unverified , 04/14/18) ROS Limited/Unobtainable: No Constitutional: Reports: no symptoms HEENT: Reports: no symptoms Cardiovascular: Reports: no symptoms Respiratory: Reports: no symptoms Gastrointestinal/Abdominal: Reports: no symptoms Genitourinary: Reports: no symptoms Subjective 54 YO F admitted with diabetic ketoacidosis. Now pneumonia. Cover for Int Med- Dr Winslow. Objective Last Vital Signs Date Time Temp Pulse Resp B/P (MAP) Pulse Ox O2 Delivery O2 Flow Rate FiO2 10/20/19 11:33 98 132/80 10/20/19 09:00 Room Air Room Air 10/20/19 08:00 98.1 19 97 10/18/19 20:55 21 Laboratory Tests Test 10/19/19 18:04 Stool Occult Blood Negative (NEGATIVE) Intake and Output 10/19/19 10/20/19 19:00 07:00 Intake Total 1355 ml 275 ml Balance 1355 ml 275 ml Intake Oral 1080 ml IV Total 275 ml 275 ml # Voids 3 2 Objective General Appearance: WD/WN, no apparent distress EENT: PERRL/EOMI, normal ENT inspection, TMs normal Neck: non-tender, normal alignment, supple, normal inspection Cardiovascular: normal peripheral pulses, normal rate, regular rhythm, no gallop/murmur, no JVD Respiratory/Chest: chest wall non-tender, lungs clear, normal breath sounds, no respiratory distress, no accessory muscle use Abdomen: normal bowel sounds, non tender, soft, no organomegaly, no mass Extremities: normal range of motion, non-tender 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 S/P ceftriaxone and azithromycin (3) Metabolic acidosis due to diabetes mellitus (4) Hypernatremia (5) DKA (diabetic ketoacidoses) Assessment & Plan: Continue levemir and novolog sliding scale insulin. Endocrinology=Dr Lr (6) Encephalopathy Assessment & Plan: CT brain=normal (7) Diabetes mellitus (8) Renal failure Assessment & Plan: Nephrology = Dr Armas (9) Right foot drop Assessment & Plan: S/P lumbar puncture. See neurology consult; right foot/ ankle orthosis ordered (10) Herpes zoster Assessment & Plan: right buttock. Continue acyclovir per ID=Dr Humphrey. Status: progressing Jagdish Bear MD Oct 20, 2019 12:07
--- NOTE | 2019-10-20 14:07 | Neurology Progress Note ---
Interim History Interim History Interim History Ms. Dinorah Waterman is a 54-year-old, right-handed, black lady, who has a long history of diabetes mellitus, obesity and depression. She was seen functioning relatively well 1 day prior to admission, but on the day of admission she was found unresponsive at home by her daughter. It is unclear as to how long she had been unresponsive. When she was hospitalized she was found to be in diabetic ketoacidosis and remained unconscious for a few days. On awakening she was confused and disoriented but when she regained her senses she noticed a problem with strength and sensations in the right foot. She feels relatively well. The right foot weakness is approximately the same. She did some walking today but noticed a significant right foot drop when she walked. The altered sensation over her right leg and foot is also about the same. She denies any new neurological symptoms. She still does not have her AFO. She has been told that she can only get the AFO after she leaves the hospital. Review of Systems Neuro Review of Systems Benign. Objective Physical Exam Last Vital Signs Date Time Temp Pulse Resp B/P (MAP) Pulse Ox O2 Delivery O2 Flow Rate FiO2 10/20/19 12:00 98.1 98 18 115/72 (86) 95 10/20/19 09:00 Room Air Room Air 10/18/19 20:55 21 Laboratory Tests Test 10/19/19 18:04 Stool Occult Blood Negative (NEGATIVE) Neurologic Exam Objective PHYSICAL EXAMINATION: GENERAL: She is a well-developed, well-nourished, obese, black lady, lying in bed, in no acute distress. HEAD: Normocephalic and atraumatic. NECK: No neck rigidity was observed. EENT: Benign. EXTREMITIES: She had a pressure ulcer over her right lateral heel. She also had tenderness over the right fibular head. NEUROLOGIC EXAMINATION: MENTAL STATUS EXAMINATION: The patient was alert and awake. The patient was oriented to person, place and time. The patient was able to recall 3/3 words immediately after 1 minute and after 3 minutes, on the second trial. The patient was able to remember Presidents Trump through [employer] Senior with hints. The patient's mathematical skills were good. The patient's visuospatial function was preserved. SPEECH: No dysarthria was noted. LANGUAGE: No aphasia was noted. CRANIAL NERVE EXAMINATION: II: The visual lyons were intact to confrontation testing. III, IV, : External ocular movements were full and pupils 3 mm in diameter equal, round, regular and reactive to light. V: The facial sensations were normal, and the temporales, masseters and pterygoids functioned normally. VII: The facial expressions were normal and no facial asymmetry was seen. VIII: The patient was able to hear well bilaterally and had no nystagmus. IX: The palate moved symmetrically on phonation. X: There was no hoarseness of voice. XI: The sternocleidomastoids and trapezii functioned normally. XII: The tongue was in the midline without any fasciculations or atrophy. MOTOR SYSTEM: The tone was normal in all 4 extremities except for flaccidity at the right ankle. Examination of muscle mass revealed no focal wasting. Examination of power revealed G 5/5 power except for G 0/5 in the ankle dorsiflexors, ankle evertors, and toe extensors. SENSORY EXAMINATION: Sensations to pinprick and light touch were altered in the distribution of the right peroneal nerve. Graphesthesia was normal. COORDINATION: [id number] and revu-vi-[id number] testing were performed normally. REFLEXES: 0 at the biceps, triceps, brachioradialis, knees and ankles. The plantar responses were flexor bilaterally. STANCE: She stood up with support. GAIT: She walks with support with a right foot drop. ABNORMAL MOVEMENTS: None Impression/Recommendations Diagnostic Impression DIAGNOSTIC IMPRESSION: 1. Ms. Dinorah Waterman is a 54-year-old, right-handed, black lady, who has a long history of diabetes mellitus, obesity and depression. She was seen functioning relatively well 1 day prior to admission, but on the day of admission she was found unresponsive at home by her daughter. It is unclear as to how long she had been unresponsive. When she was hospitalized she was found to be in diabetic ketoacidosis and remained unconscious for a few days. On awakening she was confused and disoriented but when she regained her senses she noticed a problem with strength and sensations in the right foot. 2. She feels relatively well. The right foot weakness is approximately the same. She did some walking today but noticed a significant right foot drop when she walked. The altered sensation over her right leg and foot is also about the same. She denies any new neurological symptoms. She still does not have her AFO. She has been told that she can only get the AFO after she leaves the hospital. 3. On neurological examination, at this time, she does have tenderness over her right fibular head, weakness in the right peroneal muscles, and altered sensations in the right peroneal nerve distribution. 4. 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 The compression of the nerve most probably occurred while the patient was unconscious. 5. The right peroneal neuropathy is stable. Recommendations RECOMMENDATIONS: 1. The patient was given an explanation of the above- mentioned findings. 2. She should be fitted with an ankle foot orthosis on the right side SUNNY. 3. Physical therapy to learn strategies to prevent injury to her right ankle and prevent falls until her nerve heals. 4. Await results of test for other treatable causes of neuropathy. 5. Her diabetes should be controlled in the strict fashion. Kulwinder Veliz M.D., M.S.P.H. Neurologist & Clinical Neurophysiologist Kulwinder Veliz MD Oct 20, 2019 14:07
[2019-10-20 16:00] VITALS: BP 108/51
[2019-10-20 20:00] VITALS: BP 111/56
[2019-10-20] MEDS: Carvedilol 6.25mg Tab ORAL SCH (20:58)
[2019-10-20] MEDS: Levemir Flexpen SUBQ SCH (21:01)
[2019-10-21] VITALS: BP 108/60
[2019-10-21] MEDS: HYDROcodone/Acetamin 5/325 tab ORAL PRN ×3 (04:50→18:07)
[2019-10-21] MEDS: NS IV SCH ×2 (04:52→14:18)
[2019-10-21] MEDS: ACYCLOVIR IV SCH ×2 (04:52→14:18)
[2019-10-21 05:33] VITALS: BP 131/83
[2019-10-21] MEDS: NovoLOG Insulin Flexpen SUBQ SCH ×7 (05:37→21:19)
[2019-10-21 07:48] LABS: ANION GAP 8 mmol/L (5-15); BLOOD UREA NITROGEN 8 mg/dL (7-18); CALCIUM 9.1 MG/DL (8.5-10.1); CARBON DIOXIDE 29 MMOL/L (21-32); CHLORIDE 103 MMOL/L (98-107); CREATININE 0.7 MG/DL (0.55-1.30); POTASSIUM 3.6 MMOL/L (3.5-5.1); SODIUM 140 MMOL/L (136-145)
[2019-10-21 07:55] LABS: BASOPHILS % (AUTO) 1.1 % (0.0-2.0); EOSINOPHILS % (AUTO) 2.6 % (0.0-3.0); HEMATOCRIT 35.1 % (37.0-47.0); LYMPHOCYTES % (AUTO) 40.1 % (20.0-45.0); MEAN CORPUSCULAR VOLUME 82 FL (80-99); MONOCYTES % (AUTO) 11.7 % (1.0-10.0); NEUTROPHILS % (AUTO) 44.6 % (45.0-75.0); PLATELET COUNT 286 K/UL (150-450); RED BLOOD COUNT 4.28 M/UL (4.20-5.40); RED CELL DISTRIBUTION WIDTH 14.9 % (11.6-14.8); WHITE BLOOD COUNT 7.3 K/UL (4.8-10.8)
[2019-10-21 08:00] VITALS: BP 109/68
--- NOTE | 2019-10-21 08:04 | Pulmonology Progress Note ---
Subjective Allergies: Coded Allergies: No Known Allergies (Unverified , 04/14/18) Subjective leuk resolved, afebrile pulse ox stable on RA Objective Last 24 Hour Vital Signs Date Time Temp Pulse Resp B/P (MAP) Pulse Ox O2 Delivery O2 Flow Rate FiO2 10/21/19 05:33 98.1 91 20 131/83 (99) 97 10/21/19 00:00 98.1 90 20 108/60 (76) 95 10/20/19 21:00 Room Air Room Air 10/20/19 20:58 95 111/56 10/20/19 20:00 98.4 95 20 111/56 (74) 94 10/20/19 16:00 98.2 99 19 108/51 (70) 94 10/20/19 12:00 98.1 98 18 115/72 (86) 95 10/20/19 11:33 98 132/80 10/20/19 09:00 Room Air Room Air Intake and Output 10/20/19 10/21/19 19:00 07:00 Intake Total 1410 ml Output Total 300 ml Balance 1410 ml -300 ml Intake Oral 860 ml IV Total 550 ml Output Urine Total 300 ml # Voids 3 2 General Appearance: no acute distress - obese AA female HEENT: anicteric, PERRL Respiratory: lungs clear, no respiratory distress, no accessory muscle use Cardiovascular: normal rate, regular rhythm, no JVD Abdomen: soft, non tender - obese Extremities: no cyanosis, no edema Skin: no rash Neurologic: alert, oriented x 3, responsive Musculoskeletal: normal muscle bulk, other - R foot drop Laboratory Tests 10/21/19 06:55: White Blood Count 7.3, Red Blood Count 4.28, Hemoglobin 11.0L, Hematocrit 35.1L , Mean Corpuscular Volume 82, Mean Corpuscular Hemoglobin 25.6L, Mean Corpuscular Hemoglobin Concent 31.2L, Red Cell Distribution Width 14.9H, Platelet Count 286, Mean Platelet Volume 6.4L, Neutrophils (%) (Auto) 44.6L, Lymphocytes (%) (Auto) 40.1, Monocytes (%) (Auto) 11.7H, Eosinophils (%) (Auto) 2.6, Basophils (%) (Auto) 1.1, Sodium Level 140, Potassium Level 3.6, Chloride Level 103, Carbon Dioxide Level 29, Anion Gap 8, Blood Urea Nitrogen 8, Creatinine 0.7, Estimat Glomerular Filtration Rate > 60, Glucose Level 141H, Calcium Level 9.1 Current Medications Medications (Trade) Dose Ordered Sig/Saul Route PRN Reason Start Time Stop Time Status Last Admin Dose Admin Acetaminophen (Tylenol) 650 mg Q4H PRN ORAL Fever 10/17/19 04:00 11/10/19 03:59 10/20/19 11:40 Acetaminophen (Tylenol) 650 mg Q4H PRN RECTAL Temp >100.5 10/17/19 04:00 11/11/19 03:59 Acetaminophen/ Hydrocodone Bitart ([place] 5/325) 1 tab Q6H PRN ORAL For Pain 10/18/19 11:30 10/25/19 11:29 10/21/19 04:50 Acyclovir 900 mg/ Sodium Chloride 275 ml @ 275 mls/hr Q8HR IV 10/17/19 06:00 11/15/19 21:59 10/21/19 04:52 Carvedilol (Coreg) 6.25 mg EVERY 12 HOURS ORAL 10/20/19 21:00 11/19/19 20:59 Dextrose (Dextrose 50%) 25 ml Q30M PRN IV Hypoglycemia 10/17/19 04:00 01/11/20 07:59 Dextrose (Dextrose 50%) 50 ml Q30M PRN IV Hypoglycemia 10/17/19 04:00 01/11/20 07:59 Diphenhydramine HCl (Benadryl) 50 mg HSPRN PRN ORAL Insomnia 10/17/19 04:00 11/13/19 03:59 Duloxetine HCl (Cymbalta) 30 mg TWICE A DAY ORAL 10/17/19 09:00 01/09/20 17:59 10/20/19 17:39 Heparin Sodium (Porcine) (Heparin 5000 units/ml) 5,000 units EVERY 12 HOURS SUBQ 10/17/19 09:00 11/25/19 20:59 10/20/19 21:00 Insulin Aspart (NovoLOG) BEFORE MEALS AND HS SUBQ 10/17/19 06:30 01/13/20 11:29 10/21/19 05:37 Insulin Aspart (NovoLOG) 4 units BEFORE MEALS SUBQ 10/17/19 06:30 01/11/20 08:59 10/21/19 05:39 Insulin Detemir (Levemir) 9 units QHS SUBQ 10/18/19 21:00 01/11/20 08:59 10/20/19 21:01 Nitroglycerin (Ntg) 0.4 mg Q5M PRN SL Prn Chest Pain 10/17/19 04:00 11/10/19 17:29 Ondansetron HCl (Zofran) 4 mg Q6H PRN IVP Nausea & Vomiting 10/17/19 04:00 11/10/19 03:59 Pantoprazole (Protonix) 40 mg EVERY 12 HOURS ORAL 10/17/19 09:00 11/13/19 20:59 10/20/19 20:57 Polyethylene Glycol (Miralax) 17 gm DAILYPRN PRN ORAL Constipation 10/17/19 04:00 11/16/19 03:59 Potassium Chloride (K-Dur) 40 meq DAILY ORAL 10/17/19 09:00 01/15/20 08:59 10/20/19 08:32 Assessment/Plan Assessment/Plan ASSESSMENT Sepsis Probably pneumonia Suspected COVID-19 infection -ruled out DKA-resolved Diabetes mellitus [id number] with hemoglobin A1c 15.3 Renal failure, prerenal R foot drop., 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) Herpes buttock, r/o CVS VZV s/p LP Dehydration Toxic metabolic encephalopathy Electrolyte imbalance Anemia PLAN OF CARE MS O2, pulmonary toilet fup CXR stable s/p abx as per ID leuk resolved DVT prophylaxis off insulin gtt on Levemir and NovoLog, per endo , optimize as needed Hemoglobin A1c 15.3 diabetic diet s/p IV fluids, monitor renal parameters, correct electrolytes as needed avoid nephrotoxic renal US -> no hydro CT head no acute IC pathology herpes at buttock area on IV Acyclovir as epr ID s/p LP, spinal cx NGT fluid analysis noted :glucose 85, protein 52 fup with cx form spinal fluid VZV pending, HSV NGT RPR non reactive, HIV non reactive seen by neuro likely R foot drop likely due to compressive neuropathy of R peroneal nerve GI prophylaxis monitor H&H with goal to keep hemoglobin above 7 anemia work-up C/W anemia of chronic disease supportive care case discussed and evaluated by supervising physician Britney Flannery CLEARANCE REPRESENTATIVE Oct 21, 2019 08:04
[2019-10-21 08:50] LABS: ALANINE AMINOTRANSFERASE 37 U/L (12-78); ALBUMIN 2.7 G/DL (3.4-5.0); ALKALINE PHOSPHATASE 138 U/L (46-116); ASPARTATE AMINO TRANSFERASE 27 U/L (15-37); BILIRUBIN,DIRECT < 0.1 MG/DL (0.0-0.3); BILIRUBIN,TOTAL 0.1 MG/DL (0.2-1.0); PHOSPHORUS 3.9 MG/DL (2.5-4.9)
[2019-10-21] MEDS: DULoxetine 30mg cap ORAL SCH ×2 (09:10→18:06)
[2019-10-21] MEDS: Carvedilol 6.25mg Tab ORAL SCH ×2 (09:12→21:12)
[2019-10-21] MEDS: Heparin 5000 units/ml inj SUBQ SCH ×2 (09:16→21:14)
--- NOTE | 2019-10-21 09:57 | General Progress Note ---
Assessment/Plan Problem List: (1) Foot drop, right ICD Codes: M21.371 - Foot drop, right foot SNOMED: 9511909, 4122986 (2) DKA (diabetic ketoacidoses) ICD Codes: E11.10 - Type 2 diabetes mellitus with ketoacidosis without coma SNOMED: 247085458, 17231300 (3) Diabetes mellitus ICD Codes: E11.9 - Type 2 diabetes mellitus without complications SNOMED: 20812724 Assessment/Plan: continue Levemir 9 units qhs continue Novolog 4 units ac tid continue Novolog sliding scale to ac / hs Hypoglycemia protocol in order Subjective Allergies: Coded Allergies: No Known Allergies (Unverified , 04/14/18) Subjective events noted labile glucose Item Value Date Time Bedside Blood Glucose 190 mg/dl H 10/21/19 0539 Bedside Blood Glucose 246 mg/dl H 10/20/19 2102 Bedside Blood Glucose 222 mg/dl H 10/20/19 1630 Bedside Blood Glucose 219 mg/dl H 10/20/19 1142 Objective Last 24 Hour Vital Signs Date Time Temp Pulse Resp B/P (MAP) Pulse Ox O2 Delivery O2 Flow Rate FiO2 10/21/19 09:12 94 109/68 10/21/19 09:00 Room Air Room Air 10/21/19 08:00 98.6 94 18 109/68 (82) 95 10/21/19 05:33 98.1 91 20 131/83 (99) 97 10/21/19 00:00 98.1 90 20 108/60 (76) 95 10/20/19 21:00 Room Air Room Air 10/20/19 20:58 95 111/56 10/20/19 20:00 98.4 95 20 111/56 (74) 94 10/20/19 16:00 98.2 99 19 108/51 (70) 94 10/20/19 12:00 98.1 98 18 115/72 (86) 95 10/20/19 11:33 98 132/80 Intake and Output 10/20/19 10/21/19 19:00 07:00 Intake Total 1410 ml Output Total 300 ml Balance 1410 ml -300 ml Intake Oral 860 ml IV Total 550 ml Output Urine Total 300 ml # Voids 3 2 Laboratory Tests 10/21/19 06:55: White Blood Count 7.3, Red Blood Count 4.28, Hemoglobin 11.0L, Hematocrit 35.1L , Mean Corpuscular Volume 82, Mean Corpuscular Hemoglobin 25.6L, Mean Corpuscular Hemoglobin Concent 31.2L, Red Cell Distribution Width 14.9H, Platelet Count 286, Mean Platelet Volume 6.4L, Neutrophils (%) (Auto) 44.6L, Lymphocytes (%) (Auto) 40.1, Monocytes (%) (Auto) 11.7H, Eosinophils (%) (Auto) 2.6, Basophils (%) (Auto) 1.1, Sodium Level 140, Potassium Level 3.6, Chloride Level 103, Carbon Dioxide Level 29, Anion Gap 8, Blood Urea Nitrogen 8, Creatinine 0.7, Estimat Glomerular Filtration Rate > 60, Glucose Level 141H, Calcium Level 9.1, Phosphorus Level 3.9, Magnesium Level 2.0, Total Bilirubin 0.1L, Direct Bilirubin < 0.1, Aspartate Amino Transf (AST/SGOT) 27, Alanine Aminotransferase (ALT/SGPT) 37, Alkaline Phosphatase 138H, Total Protein 5.9L, Albumin 2.7L Height (Feet): 5 Height (Inches): 6.00 Weight (Pounds): 199 General Appearance: no apparent distress Neck: normal alignment Respiratory/Chest: lungs clear Abdomen: normal bowel sounds Objective Current Medications Medications (Trade) Dose Ordered Sig/Saul Route PRN Reason Start Time Stop Time Status Last Admin Dose Admin Acetaminophen (Tylenol) 650 mg Q4H PRN ORAL Fever 10/17/19 04:00 11/10/19 03:59 10/20/19 11:40 Acetaminophen (Tylenol) 650 mg Q4H PRN RECTAL Temp >100.5 10/17/19 04:00 11/11/19 03:59 Acetaminophen/ Hydrocodone Bitart ([place] 5/325) 1 tab Q6H PRN ORAL For Pain 10/18/19 11:30 10/25/19 11:29 10/21/19 04:50 Acyclovir 900 mg/ Sodium Chloride 275 ml @ 275 mls/hr Q8HR IV 10/17/19 06:00 11/15/19 21:59 10/21/19 04:52 Carvedilol (Coreg) 6.25 mg EVERY 12 HOURS ORAL 10/20/19 21:00 11/19/19 20:59 10/21/19 09:12 Dextrose (Dextrose 50%) 25 ml Q30M PRN IV Hypoglycemia 10/17/19 04:00 01/11/20 07:59 Dextrose (Dextrose 50%) 50 ml Q30M PRN IV Hypoglycemia 10/17/19 04:00 01/11/20 07:59 Diphenhydramine HCl (Benadryl) 50 mg HSPRN PRN ORAL Insomnia 10/17/19 04:00 11/13/19 03:59 Duloxetine HCl (Cymbalta) 30 mg TWICE A DAY ORAL 10/17/19 09:00 01/09/20 17:59 10/21/19 09:10 Heparin Sodium (Porcine) (Heparin 5000 units/ml) 5,000 units EVERY 12 HOURS SUBQ 10/17/19 09:00 11/25/19 20:59 10/21/19 09:16 Insulin Aspart (NovoLOG) BEFORE MEALS AND HS SUBQ 10/17/19 06:30 01/13/20 11:29 10/21/19 05:37 Insulin Aspart (NovoLOG) 4 units BEFORE MEALS SUBQ 10/17/19 06:30 01/11/20 08:59 10/21/19 05:39 Insulin Detemir (Levemir) 9 units QHS SUBQ 10/18/19 21:00 01/11/20 08:59 10/20/19 21:01 Nitroglycerin (Ntg) 0.4 mg Q5M PRN SL Prn Chest Pain 10/17/19 04:00 11/10/19 17:29 Ondansetron HCl (Zofran) 4 mg Q6H PRN IVP Nausea & Vomiting 10/17/19 04:00 11/10/19 03:59 Pantoprazole (Protonix) 40 mg EVERY 12 HOURS ORAL 10/17/19 09:00 11/13/19 20:59 10/21/19 09:10 Polyethylene Glycol (Miralax) 17 gm DAILYPRN PRN ORAL Constipation 10/17/19 04:00 11/16/19 03:59 Potassium Chloride (K-Dur) 40 meq DAILY ORAL 10/17/19 09:00 01/15/20 08:59 10/21/19 09:13 Neo Lr MD Oct 21, 2019 09:57
--- NOTE | 2019-10-21 11:00 | Nephrology Progress Note ---
Assessment/Plan Problem List: (1) Renal failure Assessment: Mainly acute secondary to dehydration (2) DKA (diabetic ketoacidoses) (3) Urinary retention (4) Encephalopathy Assessment: Toxic metabolic (5) Dehydration (6) Electrolyte imbalance Assessment 54-year-old female admitted with a diagnosis of diabetic ketoacidosis Renal failure, mainly prerenal secondary to dehydration due to hyperglycemia and excess water loss Abnormal electrolyte related to underlying DKA and dehydration Leukocytosis, underlying sepsis Toxic metabolic encephalopathy Hypothermia Suspected 2019 novel coronavirus infection Metabolic acidosis due to DKA Plan October 20: Labs reviewed. Stable from renal standpoint of view. 2D echocardiogram suggests 55% ejection fraction. October 19: No labs done today. Remains tachycardic. 2D echocardiogram ordered. Low-dose Coreg started. Continue per consultants. October 18: Today's labs reviewed. Stable from renal standpoint of view. Continue per consultants. October 17: No labs done today. Remains stable from renal standpoint to view. October 16: Renal parameters are stable. Additional potassium supplement orally given. Continue per IV management. October 15: Renal parameters and electrolytes stable. Continue per consultants. Continue per ID management. October 14: Today's labs still pending. Aim to correct the electrolyte abnormalities. Continue per consultants. October 13: Continue to correct low potassium and low phosphorus and low magnesium as needed. Continue to keep blood sugar and blood pressure in check. Patient clinically improving. Patient now on medium carbohydrate diet. Hydrate as needed. Keep the electrolytes and blood chemistries under check Keep blood pressure and blood sugar under control Discussed with RN Per orders Subjective ROS Limited/Unobtainable: No Constitutional: Reports: malaise Objective Objective Last 24 Hour Vital Signs Date Time Temp Pulse Resp B/P (MAP) Pulse Ox O2 Delivery O2 Flow Rate FiO2 10/21/19 09:12 94 109/68 10/21/19 09:00 Room Air Room Air 10/21/19 08:00 98.6 94 18 109/68 (82) 95 10/21/19 05:33 98.1 91 20 131/83 (99) 97 10/21/19 00:00 98.1 90 20 108/60 (76) 95 10/20/19 21:00 Room Air Room Air 10/20/19 20:58 95 111/56 10/20/19 20:00 98.4 95 20 111/56 (74) 94 10/20/19 16:00 98.2 99 19 108/51 (70) 94 10/20/19 12:00 98.1 98 18 115/72 (86) 95 10/20/19 11:33 98 132/80 Intake and Output 10/20/19 10/21/19 19:00 07:00 Intake Total 1410 ml Output Total 300 ml Balance 1410 ml -300 ml Intake Oral 860 ml IV Total 550 ml Output Urine Total 300 ml # Voids 3 2 Laboratory Tests 10/21/19 06:55: White Blood Count 7.3, Red Blood Count 4.28, Hemoglobin 11.0L, Hematocrit 35.1L , Mean Corpuscular Volume 82, Mean Corpuscular Hemoglobin 25.6L, Mean Corpuscular Hemoglobin Concent 31.2L, Red Cell Distribution Width 14.9H, Platelet Count 286, Mean Platelet Volume 6.4L, Neutrophils (%) (Auto) 44.6L, Lymphocytes (%) (Auto) 40.1, Monocytes (%) (Auto) 11.7H, Eosinophils (%) (Auto) 2.6, Basophils (%) (Auto) 1.1, Sodium Level 140, Potassium Level 3.6, Chloride Level 103, Carbon Dioxide Level 29, Anion Gap 8, Blood Urea Nitrogen 8, Creatinine 0.7, Estimat Glomerular Filtration Rate > 60, Glucose Level 141H, Calcium Level 9.1, Phosphorus Level 3.9, Magnesium Level 2.0, Total Bilirubin 0.1L, Direct Bilirubin < 0.1, Aspartate Amino Transf (AST/SGOT) 27, Alanine Aminotransferase (ALT/SGPT) 37, Alkaline Phosphatase 138H, Total Protein 5.9L, Albumin 2.7L Height (Feet): 5 Height (Inches): 6.00 Weight (Pounds): 199 Objective No change Delvni Armas MD Oct 21, 2019 11:00
[2019-10-21 12:00] VITALS: BP 128/77
--- NOTE | 2019-10-21 13:38 | Neurology Progress Note ---
Interim History Interim History Interim History Ms. Dinorah Waterman is a 54-year-old, right-handed, black lady, who has a long history of diabetes mellitus, obesity and depression. She was seen functioning relatively well 1 day prior to admission, but on the day of admission she was found unresponsive at home by her daughter. It is unclear as to how long she had been unresponsive. When she was hospitalized she was found to be in diabetic ketoacidosis and remained unconscious for a few days. On awakening she was confused and disoriented but when she regained her senses she noticed a problem with strength and sensations in the right foot. She feels relatively well. For the last few days she has been bothered by headaches which usually last for a few hours and then resolve spontaneously. She does not describe any postural component to the headache. Earlier this morning she did have a headache but it has now resolved. The right foot weakness is approximately the same. She did some walking today but noticed a significant right foot drop when she walked. The altered sensation over her right leg and foot is also about the same. She denies any new neurological symptoms. She still does not have her AFO. She has been told that she can only get the AFO after she leaves the hospital. Review of Systems Neuro Review of Systems Benign. Objective Physical Exam Last Vital Signs Date Time Temp Pulse Resp B/P (MAP) Pulse Ox O2 Delivery O2 Flow Rate FiO2 10/21/19 12:00 98.2 94 16 128/77 (94) 97 10/21/19 09:00 Room Air Room Air 10/18/19 20:55 21 Laboratory Tests Test 10/21/19 06:55 White Blood Count 7.3 K/UL (4.8-10.8) Red Blood Count 4.28 M/UL (4.20-5.40) Hemoglobin 11.0 G/DL (12.0-16.0) L Hematocrit 35.1 % (37.0-47.0) L Mean Corpuscular Volume 82 FL (80-99) Mean Corpuscular Hemoglobin 25.6 PG (27.0-31.0) L Mean Corpuscular Hemoglobin Concent 31.2 G/DL (32.0-36.0) L Red Cell Distribution Width 14.9 % (11.6-14.8) H Platelet Count 286 K/UL (150-450) Mean Platelet Volume 6.4 FL (6.5-10.1) L Neutrophils (%) (Auto) 44.6 % (45.0-75.0) L Lymphocytes (%) (Auto) 40.1 % (20.0-45.0) Monocytes (%) (Auto) 11.7 % (1.0-10.0) H Eosinophils (%) (Auto) 2.6 % (0.0-3.0) Basophils (%) (Auto) 1.1 % (0.0-2.0) Sodium Level 140 MMOL/L (136-145) Potassium Level 3.6 MMOL/L (3.5-5.1) Chloride Level 103 MMOL/L (98-107) Carbon Dioxide Level 29 MMOL/L (21-32) Anion Gap 8 mmol/L (5-15) Blood Urea Nitrogen 8 mg/dL (7-18) Creatinine 0.7 MG/DL (0.55-1.30) Estimat Glomerular Filtration Rate > 60 mL/min (>60) Glucose Level 141 MG/DL (74-106) H Calcium Level 9.1 MG/DL (8.5-10.1) Phosphorus Level 3.9 MG/DL (2.5-4.9) Magnesium Level 2.0 MG/DL (1.8-2.4) Total Bilirubin 0.1 MG/DL (0.2-1.0) L Direct Bilirubin < 0.1 MG/DL (0.0-0.3) Aspartate Amino Transf (AST/SGOT) 27 U/L (15-37) Alanine Aminotransferase (ALT/SGPT) 37 U/L (12-78) Alkaline Phosphatase 138 U/L (46-116) H Total Protein 5.9 G/DL (6.4-8.2) L Albumin 2.7 G/DL (3.4-5.0) L Neurologic Exam Objective PHYSICAL EXAMINATION: GENERAL: She is a well-developed, well-nourished, obese, black lady, lying in bed, in no acute distress. HEAD: Normocephalic and atraumatic. NECK: No neck rigidity was observed. EENT: Benign. EXTREMITIES: She had a pressure ulcer over her right lateral heel. She also had tenderness over the right fibular head. NEUROLOGIC EXAMINATION: MENTAL STATUS EXAMINATION: The patient was alert and awake. The patient was oriented to person, place and time. The patient was able to recall 3/3 words immediately after 1 minute and after 3 minutes, on the second trial. The patient was able to remember Presidents Trump through [employer] with hints. The patient's mathematical skills were good. The patient's visuospatial function was preserved. SPEECH: No dysarthria was noted. LANGUAGE: No aphasia was noted. CRANIAL NERVE EXAMINATION: II: The visual lyons were intact to confrontation testing. III, IV, : External ocular movements were full and pupils 3 mm in diameter equal, round, regular and reactive to light. V: The facial sensations were normal, and the temporales, masseters and pterygoids functioned normally. VII: The facial expressions were normal and no facial asymmetry was seen. VIII: The patient was able to hear well bilaterally and had no nystagmus. IX: The palate moved symmetrically on phonation. X: There was no hoarseness of voice. XI: The sternocleidomastoids and trapezii functioned normally. XII: The tongue was in the midline without any fasciculations or atrophy. MOTOR SYSTEM: The tone was normal in all 4 extremities except for flaccidity at the right ankle. Examination of muscle mass revealed no focal wasting. Examination of power revealed G 5/5 power except for G 0/5 in the ankle dorsiflexors, ankle evertors, and toe extensors. SENSORY EXAMINATION: Sensations to pinprick and light touch were altered in the distribution of the right peroneal nerve. Graphesthesia was normal. COORDINATION: [id number] and [id number] testing were performed normally. REFLEXES: 0 at the biceps, triceps, brachioradialis, knees and ankles. The plantar responses were flexor bilaterally. STANCE: She stood up with support. GAIT: She walked with support with a right foot drop. ABNORMAL MOVEMENTS: None Impression/Recommendations Diagnostic Impression DIAGNOSTIC IMPRESSION: 1. Ms. Dinorah Waterman is a 54-year-old, right-handed, black lady, who has a long history of diabetes mellitus, obesity and depression. She was seen functioning relatively well 1 day prior to admission, but on the day of admission she was found unresponsive at home by her daughter. It is unclear as to how long she had been unresponsive. When she was hospitalized she was found to be in diabetic ketoacidosis and remained unconscious for a few days. On awakening she was confused and disoriented but when she regained her senses she noticed a problem with strength and sensations in the right foot. 2. For the last few days she has been bothered by headaches which usually last for a few hours and then resolve spontaneously. She does not describe any postural component to the headache. Earlier this morning she did have a headache but it has now resolved. 3. The right foot weakness is approximately the same. She did some walking today but noticed a significant right foot drop when she walked. The altered sensation over her right leg and foot is also about the same.She denies any new neurological symptoms. She still does not have her AFO. She has been told that she can only get the AFO after she leaves the hospital. 4. On neurological examination, at this time, she does have tenderness over her right fibular head, weakness in the right peroneal muscles, and altered sensations in the right peroneal nerve distribution. 5. 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 The compression of the nerve most probably occurred while the patient was unconscious. The right peroneal neuropathy is stable. 6. For the last few days she has been having mild generalized headaches which are off-and-on postural nature. They most probably represent mild muscle contraction headaches. Recommendations RECOMMENDATIONS: 1. The patient was given an explanation of the above- mentioned findings. 2. She should be fitted with an ankle foot orthosis on the right side SUNNY. 3. Physical therapy to learn strategies to prevent injury to her right ankle and prevent falls until her nerve heals. 4. Her diabetes should be controlled in the strict fashion. 5. She was told to increase activity level. Kulwinder Veliz M.D., M.S.P.H. Neurologist & Clinical Neurophysiologist Kulwinder Veliz MD Oct 21, 2019 13:38
--- NOTE | 2019-10-21 14:40 | Internal Med Progress Note ---
Subjective Date of Service: Oct 21, 2019 Physician Name Jagdish Bear Attending Physician Keven Winslow MD Current Medications Medications (Trade) Dose Ordered Sig/Saul Route PRN Reason Start Time Stop Time Status Last Admin Dose Admin Acetaminophen (Tylenol) 650 mg Q4H PRN ORAL Fever 10/17/19 04:00 11/10/19 03:59 10/20/19 11:40 Acetaminophen (Tylenol) 650 mg Q4H PRN RECTAL Temp >100.5 10/17/19 04:00 11/11/19 03:59 Acetaminophen/ Hydrocodone Bitart ([place] 5/325) 1 tab Q6H PRN ORAL For Pain 10/18/19 11:30 10/25/19 11:29 10/21/19 11:54 Acyclovir (Zovirax) 800 mg FIVE TIMES A DAY ORAL 10/21/19 16:00 11/20/19 15:59 UNV Carvedilol (Coreg) 6.25 mg EVERY 12 HOURS ORAL 10/20/19 21:00 11/19/19 20:59 10/21/19 09:12 Dextrose (Dextrose 50%) 25 ml Q30M PRN IV Hypoglycemia 10/17/19 04:00 01/11/20 07:59 Dextrose (Dextrose 50%) 50 ml Q30M PRN IV Hypoglycemia 10/17/19 04:00 01/11/20 07:59 Diphenhydramine HCl (Benadryl) 50 mg HSPRN PRN ORAL Insomnia 10/17/19 04:00 11/13/19 03:59 Duloxetine HCl (Cymbalta) 30 mg TWICE A DAY ORAL 10/17/19 09:00 01/09/20 17:59 10/21/19 09:10 Heparin Sodium (Porcine) (Heparin 5000 units/ml) 5,000 units EVERY 12 HOURS SUBQ 10/17/19 09:00 11/25/19 20:59 10/21/19 09:16 Insulin Aspart (NovoLOG) BEFORE MEALS AND HS SUBQ 10/17/19 06:30 01/13/20 11:29 10/21/19 11:30 Insulin Aspart (NovoLOG) 4 units BEFORE MEALS SUBQ 10/17/19 06:30 01/11/20 08:59 10/21/19 11:30 Insulin Detemir (Levemir) 9 units QHS SUBQ 10/18/19 21:00 01/11/20 08:59 10/20/19 21:01 Nitroglycerin (Ntg) 0.4 mg Q5M PRN SL Prn Chest Pain 10/17/19 04:00 11/10/19 17:29 Ondansetron HCl (Zofran) 4 mg Q6H PRN IVP Nausea & Vomiting 10/17/19 04:00 11/10/19 03:59 Pantoprazole (Protonix) 40 mg EVERY 12 HOURS ORAL 10/17/19 09:00 11/13/19 20:59 10/21/19 09:10 Polyethylene Glycol (Miralax) 17 gm DAILYPRN PRN ORAL Constipation 10/17/19 04:00 11/16/19 03:59 Potassium Chloride (K-Dur) 40 meq DAILY ORAL 10/17/19 09:00 01/15/20 08:59 10/21/19 09:13 Allergies: Coded Allergies: No Known Allergies (Unverified , 04/14/18) ROS Limited/Unobtainable: No Constitutional: Reports: no symptoms HEENT: Reports: no symptoms Cardiovascular: Reports: no symptoms Respiratory: Reports: no symptoms Gastrointestinal/Abdominal: Reports: no symptoms Genitourinary: Reports: no symptoms Neurologic/Psychiatric: Reports: no symptoms Subjective 54 YO F admitted with diabetic ketoacidosis. Now pneumonia. Cover for Int Med- Dr Winslow. Objective Last Vital Signs Date Time Temp Pulse Resp B/P (MAP) Pulse Ox O2 Delivery O2 Flow Rate FiO2 10/21/19 12:00 98.2 94 16 128/77 (94) 97 10/21/19 09:00 Room Air Room Air 10/18/19 20:55 21 Laboratory Tests Test 10/21/19 06:55 White Blood Count 7.3 K/UL (4.8-10.8) Red Blood Count 4.28 M/UL (4.20-5.40) Hemoglobin 11.0 G/DL (12.0-16.0) L Hematocrit 35.1 % (37.0-47.0) L Mean Corpuscular Volume 82 FL (80-99) Mean Corpuscular Hemoglobin 25.6 PG (27.0-31.0) L Mean Corpuscular Hemoglobin Concent 31.2 G/DL (32.0-36.0) L Red Cell Distribution Width 14.9 % (11.6-14.8) H Platelet Count 286 K/UL (150-450) Mean Platelet Volume 6.4 FL (6.5-10.1) L Neutrophils (%) (Auto) 44.6 % (45.0-75.0) L Lymphocytes (%) (Auto) 40.1 % (20.0-45.0) Monocytes (%) (Auto) 11.7 % (1.0-10.0) H Eosinophils (%) (Auto) 2.6 % (0.0-3.0) Basophils (%) (Auto) 1.1 % (0.0-2.0) Sodium Level 140 MMOL/L (136-145) Potassium Level 3.6 MMOL/L (3.5-5.1) Chloride Level 103 MMOL/L (98-107) Carbon Dioxide Level 29 MMOL/L (21-32) Anion Gap 8 mmol/L (5-15) Blood Urea Nitrogen 8 mg/dL (7-18) Creatinine 0.7 MG/DL (0.55-1.30) Estimat Glomerular Filtration Rate > 60 mL/min (>60) Glucose Level 141 MG/DL (74-106) H Calcium Level 9.1 MG/DL (8.5-10.1) Phosphorus Level 3.9 MG/DL (2.5-4.9) Magnesium Level 2.0 MG/DL (1.8-2.4) Total Bilirubin 0.1 MG/DL (0.2-1.0) L Direct Bilirubin < 0.1 MG/DL (0.0-0.3) Aspartate Amino Transf (AST/SGOT) 27 U/L (15-37) Alanine Aminotransferase (ALT/SGPT) 37 U/L (12-78) Alkaline Phosphatase 138 U/L (46-116) H Total Protein 5.9 G/DL (6.4-8.2) L Albumin 2.7 G/DL (3.4-5.0) L Intake and Output 10/20/19 10/21/19 19:00 07:00 Intake Total 1410 ml Output Total 300 ml Balance 1410 ml -300 ml Intake Oral 860 ml IV Total 550 ml Output Urine Total 300 ml # Voids 3 2 Objective General Appearance: WD/WN, no apparent distress EENT: PERRL/EOMI, normal ENT inspection, TMs normal Neck: non-tender, normal alignment, supple, normal inspection Cardiovascular: normal peripheral pulses, normal rate, regular rhythm, no gallop/murmur, no JVD Respiratory/Chest: chest wall non-tender, lungs clear, normal breath sounds, no respiratory distress, no accessory muscle use Abdomen: normal bowel sounds, non tender, soft, no organomegaly, no mass Extremities: normal range of motion, non-tender Neurologic: note keeper II-XII grossly normal, no motor/sensory deficits Skin: normal pigmentation, warm/dry Assessment/Plan Problem List: (1) Leukocytosis Assessment & Plan: Resolved on antibiotic (2) Pneumonia Assessment & Plan: ID=Dr Chi; Pulmonary = Dr Nunn. S/P ceftriaxone and azithromycin (3) Metabolic acidosis due to diabetes mellitus (4) Hypernatremia (5) DKA (diabetic ketoacidoses) Assessment & Plan: Continue levemir and novolog sliding scale insulin. Endocrinology=Dr Lr (6) Encephalopathy Assessment & Plan: CT brain=normal (7) Diabetes mellitus (8) Renal failure Assessment & Plan: Nephrology = Dr Armas (9) Right foot drop Assessment & Plan: S/P lumbar puncture. See neurology consult; right foot/ ankle orthosis ordered (10) Herpes zoster Assessment & Plan: right buttock. Continue acyclovir per ID=Dr Humphrey. Assessment/Plan Discharge planning: Home health/Physical therapy Jagdish Bear MD Oct 21, 2019 14:40
[2019-10-21 16:00] VITALS: BP 115/69
[2019-10-21 20:00] VITALS: BP 131/74
[2019-10-21] MEDS: Levemir Flexpen SUBQ SCH (21:17)
[2019-10-22] VITALS: BP 146/79
[2019-10-22] MEDS: HYDROcodone/Acetamin 5/325 tab ORAL PRN ×3 (00:06→12:35)
[2019-10-22 04:00] VITALS: BP 147/81
[2019-10-22] MEDS: NovoLOG Insulin Flexpen SUBQ SCH ×2 (06:10→06:11)
--- NOTE | 2019-10-22 06:46 | General Progress Note ---
Assessment/Plan Problem List: (1) Foot drop, right ICD Codes: M21.371 - Foot drop, right foot SNOMED: 3522168, 9613510 (2) DKA (diabetic ketoacidoses) ICD Codes: E11.10 - Type 2 diabetes mellitus with ketoacidosis without coma SNOMED: 725862809, 03716015 (3) Diabetes mellitus ICD Codes: E11.9 - Type 2 diabetes mellitus without complications SNOMED: 15747505 Assessment/Plan: increase Levemir to 10 units qhs continue Novolog 4 units ac tid continue Novolog sliding scale to ac / hs Hypoglycemia protocol in order Subjective Allergies: Coded Allergies: No Known Allergies (Unverified , 04/14/18) Subjective events noted fasting glucose elevated Item Value Date Time Bedside Blood Glucose 229 mg/dl H 10/22/19 0611 Bedside Blood Glucose 167 mg/dl H 10/21/19 2119 Bedside Blood Glucose 207 mg/dl H 10/21/19 1630 Bedside Blood Glucose 205 mg/dl H 10/21/19 1130 Bedside Blood Glucose 190 mg/dl H 10/21/19 0539 Objective Last 24 Hour Vital Signs Date Time Temp Pulse Resp B/P (MAP) Pulse Ox O2 Delivery O2 Flow Rate FiO2 10/22/19 04:00 97.2 91 24 147/81 (103) 97 10/22/19 00:00 98.1 88 22 146/79 (101) 96 10/21/19 21:12 88 131/74 10/21/19 21:00 Room Air Room Air 10/21/19 20:00 98.4 88 22 131/74 (93) 98 10/21/19 17:16 98.4 10/21/19 16:00 98.4 94 17 115/69 (84) 95 10/21/19 12:00 98.2 94 16 128/77 (94) 97 10/21/19 09:12 94 109/68 10/21/19 09:00 Room Air Room Air 10/21/19 08:00 98.6 94 18 109/68 (82) 95 Intake and Output 10/21/19 10/22/19 19:00 07:00 Intake Total 400 ml Balance 400 ml Intake Oral 400 ml # Voids 3 Laboratory Tests 10/21/19 06:55: White Blood Count 7.3, Red Blood Count 4.28, Hemoglobin 11.0L, Hematocrit 35.1L , Mean Corpuscular Volume 82, Mean Corpuscular Hemoglobin 25.6L, Mean Corpuscular Hemoglobin Concent 31.2L, Red Cell Distribution Width 14.9H, Platelet Count 286, Mean Platelet Volume 6.4L, Neutrophils (%) (Auto) 44.6L, Lymphocytes (%) (Auto) 40.1, Monocytes (%) (Auto) 11.7H, Eosinophils (%) (Auto) 2.6, Basophils (%) (Auto) 1.1, Sodium Level 140, Potassium Level 3.6, Chloride Level 103, Carbon Dioxide Level 29, Anion Gap 8, Blood Urea Nitrogen 8, Creatinine 0.7, Estimat Glomerular Filtration Rate > 60, Glucose Level 141H, Calcium Level 9.1, Phosphorus Level 3.9, Magnesium Level 2.0, Total Bilirubin 0.1L, Direct Bilirubin < 0.1, Aspartate Amino Transf (AST/SGOT) 27, Alanine Aminotransferase (ALT/SGPT) 37, Alkaline Phosphatase 138H, Total Protein 5.9L, Albumin 2.7L Height (Feet): 5 Height (Inches): 6.00 Weight (Pounds): 199 General Appearance: no apparent distress Neck: normal alignment Cardiovascular: normal rate Respiratory/Chest: lungs clear Abdomen: normal bowel sounds Objective Current Medications Medications (Trade) Dose Ordered Sig/Saul Route PRN Reason Start Time Stop Time Status Last Admin Dose Admin Acetaminophen (Tylenol) 650 mg Q4H PRN ORAL Fever 10/17/19 04:00 11/10/19 03:59 10/21/19 16:46 Acetaminophen (Tylenol) 650 mg Q4H PRN RECTAL Temp >100.5 10/17/19 04:00 11/11/19 03:59 Acetaminophen/ Hydrocodone Bitart ([place] 5/325) 1 tab Q6H PRN ORAL For Pain 10/18/19 11:30 10/25/19 11:29 10/22/19 06:09 Acyclovir (Zovirax) 800 mg FIVE TIMES A DAY ORAL 10/21/19 16:00 11/20/19 15:59 10/22/19 06:12 Carvedilol (Coreg) 6.25 mg EVERY 12 HOURS ORAL 10/20/19 21:00 11/19/19 20:59 10/21/19 21:12 Dextrose (Dextrose 50%) 25 ml Q30M PRN IV Hypoglycemia 10/17/19 04:00 01/11/20 07:59 Dextrose (Dextrose 50%) 50 ml Q30M PRN IV Hypoglycemia 10/17/19 04:00 01/11/20 07:59 Diphenhydramine HCl (Benadryl) 50 mg HSPRN PRN ORAL Insomnia 10/17/19 04:00 11/13/19 03:59 Duloxetine HCl (Cymbalta) 30 mg TWICE A DAY ORAL 10/17/19 09:00 01/09/20 17:59 10/21/19 18:06 Heparin Sodium (Porcine) (Heparin 5000 units/ml) 5,000 units EVERY 12 HOURS SUBQ 10/17/19 09:00 11/25/19 20:59 10/21/19 21:14 Insulin Aspart (NovoLOG) BEFORE MEALS AND HS SUBQ 10/17/19 06:30 01/13/20 11:29 10/22/19 06:10 Insulin Aspart (NovoLOG) 4 units BEFORE MEALS SUBQ 10/17/19 06:30 01/11/20 08:59 10/22/19 06:11 Insulin Detemir (Levemir) 9 units QHS SUBQ 10/18/19 21:00 01/11/20 08:59 10/21/19 21:17 Nitroglycerin (Ntg) 0.4 mg Q5M PRN SL Prn Chest Pain 10/17/19 04:00 11/10/19 17:29 Ondansetron HCl (Zofran) 4 mg Q6H PRN IVP Nausea & Vomiting 10/17/19 04:00 11/10/19 03:59 Pantoprazole (Protonix) 40 mg EVERY 12 HOURS ORAL 10/17/19 09:00 11/13/19 20:59 10/21/19 21:12 Polyethylene Glycol (Miralax) 17 gm DAILYPRN PRN ORAL Constipation 10/17/19 04:00 11/16/19 03:59 Potassium Chloride (K-Dur) 40 meq DAILY ORAL 10/17/19 09:00 01/15/20 08:59 10/21/19 09:13 Neo Lr MD Oct 22, 2019 06:46
[2019-10-22 07:18] LABS: BASOPHILS % (AUTO) 0.8 % (0.0-2.0); EOSINOPHILS % (AUTO) 2.7 % (0.0-3.0); HEMATOCRIT 36.7 % (37.0-47.0); HEMOGLOBIN 11.4 G/DL (12.0-16.0); LYMPHOCYTES % (AUTO) 43.2 % (20.0-45.0); MEAN CORPUSCULAR VOLUME 82 FL (80-99); MONOCYTES % (AUTO) 9.5 % (1.0-10.0); NEUTROPHILS % (AUTO) 43.8 % (45.0-75.0); PLATELET COUNT 300 K/UL (150-450); RED BLOOD COUNT 4.45 M/UL (4.20-5.40); WHITE BLOOD COUNT 8.2 K/UL (4.8-10.8)
[2019-10-22 08:00] VITALS: BP 114/86
[2019-10-22 08:02] LABS: ANION GAP 9 mmol/L (5-15); BLOOD UREA NITROGEN 11 mg/dL (7-18); CALCIUM 9.2 MG/DL (8.5-10.1); CARBON DIOXIDE 27 MMOL/L (21-32); CHLORIDE 101 MMOL/L (98-107); CREATININE 0.6 MG/DL (0.55-1.30); POTASSIUM 3.9 MMOL/L (3.5-5.1); SODIUM 137 MMOL/L (136-145)
[2019-10-22] MEDS: Heparin 5000 units/ml inj SUBQ SCH (09:01)
[2019-10-22] MEDS: DULoxetine 30mg cap ORAL SCH (09:01)
[2019-10-22 09:02] VITALS: BP 114/86
[2019-10-22] MEDS: Carvedilol 6.25mg Tab ORAL SCH (09:02)
[2019-10-22 10:05] LABS: ALANINE AMINOTRANSFERASE 32 U/L (12-78); ALBUMIN 2.8 G/DL (3.4-5.0); ALKALINE PHOSPHATASE 130 U/L (46-116); ASPARTATE AMINO TRANSFERASE 32 U/L (15-37); BILIRUBIN,DIRECT < 0.1 MG/DL (0.0-0.3); BILIRUBIN,TOTAL 0.1 MG/DL (0.2-1.0)
--- NOTE | 2019-10-22 10:59 | Nephrology Progress Note ---
Assessment/Plan Problem List: (1) Renal failure Assessment: Mainly acute secondary to dehydration (2) DKA (diabetic ketoacidoses) (3) Urinary retention (4) Encephalopathy Assessment: Toxic metabolic (5) Dehydration (6) Electrolyte imbalance Assessment 54-year-old female admitted with a diagnosis of diabetic ketoacidosis Renal failure, mainly prerenal secondary to dehydration due to hyperglycemia and excess water loss Abnormal electrolyte related to underlying DKA and dehydration Leukocytosis, underlying sepsis Toxic metabolic encephalopathy Hypothermia Suspected 2019 novel coronavirus infection Metabolic acidosis due to DKA Plan October 21:, Remains stable from renal standpoint of view. Discharge planning per PMD. October 20: Labs reviewed. Stable from renal standpoint of view. 2D echocardiogram suggests 55% ejection fraction. October 19: No labs done today. Remains tachycardic. 2D echocardiogram ordered. Low-dose Coreg started. Continue per consultants. October 18: Today's labs reviewed. Stable from renal standpoint of view. Continue per consultants. October 17: No labs done today. Remains stable from renal standpoint to view. October 16: Renal parameters are stable. Additional potassium supplement orally given. Continue per IV management. October 15: Renal parameters and electrolytes stable. Continue per consultants. Continue per ID management. October 14: Today's labs still pending. Aim to correct the electrolyte abnormalities. Continue per consultants. October 13: Continue to correct low potassium and low phosphorus and low magnesium as needed. Continue to keep blood sugar and blood pressure in check. Patient clinically improving. Patient now on medium carbohydrate diet. Hydrate as needed. Keep the electrolytes and blood chemistries under check Keep blood pressure and blood sugar under control Discussed with RN Per orders Subjective ROS Limited/Unobtainable: No Constitutional: Reports: malaise, weakness Objective Objective Last 24 Hour Vital Signs Date Time Temp Pulse Resp B/P (MAP) Pulse Ox O2 Delivery O2 Flow Rate FiO2 10/22/19 09:02 86 114/86 10/22/19 09:00 Room Air Room Air 10/22/19 08:00 99.0 86 18 114/86 (95) 96 10/22/19 04:00 97.2 91 24 147/81 (103) 97 10/22/19 00:00 98.1 88 22 146/79 (101) 96 10/21/19 21:12 88 131/74 10/21/19 21:00 Room Air Room Air 10/21/19 20:00 98.4 88 22 131/74 (93) 98 10/21/19 17:16 98.4 10/21/19 16:00 98.4 94 17 115/69 (84) 95 10/21/19 12:00 98.2 94 16 128/77 (94) 97 Intake and Output 10/21/19 10/22/19 19:00 07:00 Intake Total 400 ml 350 ml Balance 400 ml 350 ml Intake Oral 400 ml Other 350 ml # Voids 3 5 Current Medications Medications (Trade) Dose Ordered Sig/Saul Route PRN Reason Start Time Stop Time Status Last Admin Dose Admin Acetaminophen (Tylenol) 650 mg Q4H PRN ORAL Fever 10/17/19 04:00 11/10/19 03:59 10/21/19 16:46 Acetaminophen (Tylenol) 650 mg Q4H PRN RECTAL Temp >100.5 10/17/19 04:00 11/11/19 03:59 Acetaminophen/ Hydrocodone Bitart ([place] 5/325) 1 tab Q6H PRN ORAL For Pain 10/18/19 11:30 10/25/19 11:29 10/22/19 06:09 Acyclovir (Zovirax) 800 mg FIVE TIMES A DAY ORAL 10/21/19 16:00 11/20/19 15:59 10/22/19 09:03 Carvedilol (Coreg) 6.25 mg EVERY 12 HOURS ORAL 10/20/19 21:00 11/19/19 20:59 10/22/19 09:02 Dextrose (Dextrose 50%) 25 ml Q30M PRN IV Hypoglycemia 10/17/19 04:00 01/11/20 07:59 Dextrose (Dextrose 50%) 50 ml Q30M PRN IV Hypoglycemia 10/17/19 04:00 01/11/20 07:59 Diphenhydramine HCl (Benadryl) 50 mg HSPRN PRN ORAL Insomnia 10/17/19 04:00 11/13/19 03:59 Duloxetine HCl (Cymbalta) 30 mg TWICE A DAY ORAL 10/17/19 09:00 01/09/20 17:59 10/22/19 09:01 Heparin Sodium (Porcine) (Heparin 5000 units/ml) 5,000 units EVERY 12 HOURS SUBQ 10/17/19 09:00 11/25/19 20:59 10/22/19 09:01 Insulin Aspart (NovoLOG) BEFORE MEALS AND HS SUBQ 10/17/19 06:30 01/13/20 11:29 10/22/19 06:10 Insulin Aspart (NovoLOG) 4 units BEFORE MEALS SUBQ 10/17/19 06:30 01/11/20 08:59 10/22/19 06:11 Insulin Detemir (Levemir) 10 units QHS SUBQ 10/22/19 21:00 01/11/20 08:59 Nitroglycerin (Ntg) 0.4 mg Q5M PRN SL Prn Chest Pain 10/17/19 04:00 11/10/19 17:29 Ondansetron HCl (Zofran) 4 mg Q6H PRN IVP Nausea & Vomiting 10/17/19 04:00 11/10/19 03:59 Pantoprazole (Protonix) 40 mg EVERY 12 HOURS ORAL 10/17/19 09:00 11/13/19 20:59 10/22/19 09:01 Polyethylene Glycol (Miralax) 17 gm DAILYPRN PRN ORAL Constipation 10/17/19 04:00 11/16/19 03:59 Potassium Chloride (K-Dur) 40 meq DAILY ORAL 10/17/19 09:00 01/15/20 08:59 10/22/19 09:02 Laboratory Tests 10/22/19 06:10: White Blood Count 8.2, Red Blood Count 4.45, Hemoglobin 11.4L, Hematocrit 36.7L , Mean Corpuscular Volume 82, Mean Corpuscular Hemoglobin 25.6L, Mean Corpuscular Hemoglobin Concent 31.0L, Red Cell Distribution Width 15.0H, Platelet Count 300, Mean Platelet Volume 6.3L, Neutrophils (%) (Auto) 43.8L, Lymphocytes (%) (Auto) 43.2, Monocytes (%) (Auto) 9.5, Eosinophils (%) (Auto) 2.7, Basophils (%) (Auto) 0.8, Sodium Level 137, Potassium Level 3.9, Chloride Level 101, Carbon Dioxide Level 27, Anion Gap 9, Blood Urea Nitrogen 11, Creatinine 0.6, Estimat Glomerular Filtration Rate > 60, Glucose Level 222H, Calcium Level 9.2, Phosphorus Level 4.0, Magnesium Level 2.0, Total Bilirubin 0.1L, Direct Bilirubin < 0.1, Aspartate Amino Transf (AST/SGOT) 32, Alanine Aminotransferase (ALT/SGPT) 32, Alkaline Phosphatase 130H, Total Protein 6.6, Albumin 2.8L Height (Feet): 5 Height (Inches): 6.00 Weight (Pounds): 199 General Appearance: no apparent distress Cardiovascular: tachycardia Respiratory/Chest: lungs clear Abdomen: soft Objective No change Delvin Armas MD Oct 22, 2019 10:59
[2019-10-22] MEDS ORDERED: CYMBALTA30 MG ORAL (12:12)
[2019-10-22] MEDS ORDERED: COREG6.25 MG ORAL (12:12)
[2019-10-22] MEDS ORDERED: LEVEMIR FL100 UNIT/1 SUBQ (12:12)
[2019-10-22] MEDS ORDERED: NOVOLOG100 UNITS1 SUBQ (12:12)
--- NOTE | 2019-10-22 12:14 | Pulmonology Progress Note ---
Subjective ROS Limited/Unobtainable: No Constitutional: Reports: no symptoms HEENT: Repors: no symptoms Respiratory: Reports: no symptoms Allergies: Coded Allergies: No Known Allergies (Unverified , 04/14/18) Objective Last 24 Hour Vital Signs Date Time Temp Pulse Resp B/P (MAP) Pulse Ox O2 Delivery O2 Flow Rate FiO2 10/22/19 09:02 86 114/86 10/22/19 09:00 Room Air Room Air 10/22/19 08:00 99.0 86 18 114/86 (95) 96 10/22/19 04:00 97.2 91 24 147/81 (103) 97 10/22/19 00:00 98.1 88 22 146/79 (101) 96 10/21/19 21:12 88 131/74 10/21/19 21:00 Room Air Room Air 10/21/19 20:00 98.4 88 22 131/74 (93) 98 10/21/19 17:16 98.4 10/21/19 16:00 98.4 94 17 115/69 (84) 95 Intake and Output 10/21/19 10/22/19 19:00 07:00 Intake Total 400 ml 350 ml Balance 400 ml 350 ml Intake Oral 400 ml Other 350 ml # Voids 3 5 General Appearance: no acute distress - obese AA female HEENT: anicteric, PERRL Respiratory: lungs clear, no respiratory distress, no accessory muscle use Cardiovascular: normal rate, regular rhythm, no JVD Abdomen: soft, non tender - obese Extremities: no cyanosis, no edema Skin: no rash Neurologic: alert, oriented x 3, responsive Musculoskeletal: normal muscle bulk, other - R foot drop Laboratory Tests 10/22/19 06:10: White Blood Count 8.2, Red Blood Count 4.45, Hemoglobin 11.4L, Hematocrit 36.7L , Mean Corpuscular Volume 82, Mean Corpuscular Hemoglobin 25.6L, Mean Corpuscular Hemoglobin Concent 31.0L, Red Cell Distribution Width 15.0H, Platelet Count 300, Mean Platelet Volume 6.3L, Neutrophils (%) (Auto) 43.8L, Lymphocytes (%) (Auto) 43.2, Monocytes (%) (Auto) 9.5, Eosinophils (%) (Auto) 2.7, Basophils (%) (Auto) 0.8, Sodium Level 137, Potassium Level 3.9, Chloride Level 101, Carbon Dioxide Level 27, Anion Gap 9, Blood Urea Nitrogen 11, Creatinine 0.6, Estimat Glomerular Filtration Rate > 60, Glucose Level 222H, Calcium Level 9.2, Phosphorus Level 4.0, Magnesium Level 2.0, Total Bilirubin 0.1L, Direct Bilirubin < 0.1, Aspartate Amino Transf (AST/SGOT) 32, Alanine Aminotransferase (ALT/SGPT) 32, Alkaline Phosphatase 130H, Total Protein 6.6, Albumin 2.8L Current Medications Medications (Trade) Dose Ordered Sig/Saul Route PRN Reason Start Time Stop Time Status Last Admin Dose Admin Acetaminophen (Tylenol) 650 mg Q4H PRN ORAL Fever 10/17/19 04:00 11/10/19 03:59 10/21/19 16:46 Acetaminophen (Tylenol) 650 mg Q4H PRN RECTAL Temp >100.5 10/17/19 04:00 11/11/19 03:59 Acetaminophen/ Hydrocodone Bitart ([place] 5/325) 1 tab Q6H PRN ORAL For Pain 10/18/19 11:30 10/25/19 11:29 10/22/19 06:09 Acyclovir (Zovirax) 800 mg FIVE TIMES A DAY ORAL 10/21/19 16:00 11/20/19 15:59 10/22/19 09:03 Carvedilol (Coreg) 6.25 mg EVERY 12 HOURS ORAL 10/20/19 21:00 11/19/19 20:59 10/22/19 09:02 Dextrose (Dextrose 50%) 25 ml Q30M PRN IV Hypoglycemia 10/17/19 04:00 01/11/20 07:59 Dextrose (Dextrose 50%) 50 ml Q30M PRN IV Hypoglycemia 10/17/19 04:00 01/11/20 07:59 Diphenhydramine HCl (Benadryl) 50 mg HSPRN PRN ORAL Insomnia 10/17/19 04:00 11/13/19 03:59 Duloxetine HCl (Cymbalta) 30 mg TWICE A DAY ORAL 10/17/19 09:00 01/09/20 17:59 10/22/19 09:01 Heparin Sodium (Porcine) (Heparin 5000 units/ml) 5,000 units EVERY 12 HOURS SUBQ 10/17/19 09:00 11/25/19 20:59 10/22/19 09:01 Insulin Aspart (NovoLOG) BEFORE MEALS AND HS SUBQ 10/17/19 06:30 01/13/20 11:29 10/22/19 06:10 Insulin Aspart (NovoLOG) 4 units BEFORE MEALS SUBQ 10/17/19 06:30 01/11/20 08:59 10/22/19 06:11 Insulin Detemir (Levemir) 10 units QHS SUBQ 10/22/19 21:00 01/11/20 08:59 Nitroglycerin (Ntg) 0.4 mg Q5M PRN SL Prn Chest Pain 10/17/19 04:00 11/10/19 17:29 Ondansetron HCl (Zofran) 4 mg Q6H PRN IVP Nausea & Vomiting 10/17/19 04:00 11/10/19 03:59 Pantoprazole (Protonix) 40 mg EVERY 12 HOURS ORAL 10/17/19 09:00 11/13/19 20:59 10/22/19 09:01 Polyethylene Glycol (Miralax) 17 gm DAILYPRN PRN ORAL Constipation 10/17/19 04:00 11/16/19 03:59 Potassium Chloride (K-Dur) 40 meq DAILY ORAL 10/17/19 09:00 01/15/20 08:59 10/22/19 09:02 Assessment/Plan Problems: (1) DKA (diabetic ketoacidoses) (2) Compression neuropathy (3) Renal failure (4) Herpes zoster (5) Urinary retention (6) Right foot drop (7) Encephalopathy Assessment/Plan on Acyclovir po improving Low grade fever off insulin drip eating well BS between 90 and 150 dc home today prescription given. ID to decide about Acyclovir Gera Nunn MD Oct 22, 2019 12:14
[2019-10-22] MEDS ORDERED: VALTREX1000 MG PO (12:21)
[2019-10-22] MEDS ORDERED: Tubing IV Secondary IV ONE (13:52)
[2019-10-22] MEDS ORDERED: Levemir Flexpen SUBQ SCH (21:00)
--- NOTE | 2019-10-23 13:27 | Discharge Summary ---
Discharge Summary Discharge Summary _ DATE OF ADMISSION: 10/11/2019 DATE OF DISCHARGE: 10/22/2019 DISCHARGED BY: Dr. Winslow REASON FOR ADMISSION: 54 years old female with past medical history of diabetes mellitus type , morbid obesity, depression, presented to emergency department complaining of recurrent nausea, vomiting and sleeping over the past few days. Per patient's daughter , she went to check on her mom and found her completely unresponsive. Upon evaluation in emergency room patient was found to have severe diabetic ketoacidosis as well as abnormal chest x-ray with infiltrate. Patient subsequently was admitted to intensive care unit for altered mental status , most likely secondary to toxic metabolic encephalopathy as a result of DKA as well as a possible pneumonia , rule out COVID-19. CONSULTANTS: neurologist Dr. Holloway pulmonary/critical care Dr. Nunn ID specialist Dr. Chi foreign languages professor Dr. Armas roaster helper underground conduit installer Dr. Snyder HOSPITAL COURSE: Patient admitted to ICU. Patient started on insulin drip as per protocol and aggressive IV hydration. Patient was kept n.p.o. Patient started on empiric antibiotic . Acid base balance was closely monitored. Patient initially was kept in isolation. DVT prophylaxis provided. After anion gap closed , patient was taken off insulin drip , and started on Levemir and NovoLog as per roaster helper recommendation. Hemoglobin A1c clearly not at goal 15.3. Diabetic diet and diabetic teaching provided. Patient was encouraged to comply with the diet and medications upon discharge Renal parameters and electrolytes were closely monitored. Electrolytes further corrected as needed. Nephrotoxic's were avoided. Renal ultrasound revealed no evidence of hydronephrosis. IV fluids were discontinued. Prior to discharge BUN from 48 down to 11 and creatinine from 2.1 down to 0.6. Acute kidney injury was most likely prerenal due to dehydration and resolved with IV hydration. Supplemental oxygen provided and titrated to keep pulse oximetry above 90%. Pulmonary toilet provided.. Patient was follow-up with a chest x-ray.DVT prophylaxis provided. Patient was noted to have herpes zoster infection in the buttock area. Patient started on IV acyclovir. On admission CT of the head revealed no acute intracranial pathology. Patient had lumbar puncture to rule out CERTIFIED PROCEDURAL CODER VZV. Spinal fluid culture and gram stain negative. Fluid analysis revealed glucose 35 protein 52. RPR and HIV test nonreactive. Serology HSV IgM antibody negative . HSV 1 by DNA negative. CSF herpes 2 DNA by PCR negative . CSF VZV IgM Ab negative. Blood culture initial and repeated were negative. SARS COV 2 6 and 6 were not detected. Patient seen by neurologist. Right foot drop was most likely due to compressive neuropathy of right peroneal nerve. Per neurologist patient should be fitted with an ankle foot orthosis on the right side, can be done as outpatient. Patient was working with a physical therapist. For precaution maintained. GI prophylaxis provided. Hemoglobin and hematocrit were closely monitored with goal to keep hemoglobin above 7. Anemia work-up was consistent with anemia of chronic disease. Prior to discharge hemoglobin 11.4 , hematocrit 36.7. Drive Man seen and evaluated patient for right heel blister. Wound care provided as per underground conduit installer recommendation. No acute surgical intervention was necessarily. Patient intimally on admission showed hyperleukocytosis with WBC on 33.9. In 2 days leukocytosis resolved. Intermittent fevers resolved. Patient clinically stabilized and was ready for discharge home. Antiviral changed from IV to p.o. route, continue for additional 7 days as per ID recommendation. FINAL DIAGNOSES: Sepsis Probably pneumonia DKA - resolved Severe anion gap metabolic acidosis Diabetes mellitus [id number], hemoglobin A1c 15.3 Morbid obesity Acute kidney injury ( due to dehydration) -resolved Acute toxic metabolic encephalopathy ( due to DKA) -resolved Suspected COVID-19 -ruled out Right foot drop, 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 of right perineal nerve Herpes Zoster buttock area Status post LP Electrolyte imbalance Anemia DISCHARGE MEDICATIONS: See Medication Reconciliation list. DISCHARGE INSTRUCTIONS: Patient was discharged home. Follow-up with a primary care provider in 1 week. Britney Flannery NP Oct 23, 2019 13:27
== END 2019-10-22 13:53 | disposition home or self-care (01) | DRG 871 ==
LOC: EDSEX 13:01 → EDBD 13:01 → EMR 14:10 → ICU 14:22 → EDBEDREQ 15:04 → 2E 10-14 01:07 → 4E 10-17 01:15
PROC: B01BZZZ Fluoroscopy of Spinal Cord (ICD-10-PCS; principal; 2019-10-17)
PROC: 009U3ZX Drainage of Spinal Canal, Percutaneous Approach, Diagnostic (ICD-10-PCS; principal; 2019-10-17)
DX: A41.9 Sepsis, unspecified organism (principal); G92 Toxic encephalopathy; J18.9 Pneumonia, unspecified organism; E10.11 Type 1 diabetes mellitus with ketoacidosis with coma; N17.9 Acute kidney failure, unspecified; E87.0 Hyperosmolality and hypernatremia; E86.0 Dehydration; Z20.828 Contact with and (suspected) exposure to other viral communicable diseases; E10.65 Type 1 diabetes mellitus with hyperglycemia; E66.01 Morbid (severe) obesity due to excess calories; Z68.32 Body mass index [BMI] 32.0-32.9, adult; F32.9 Major depressive disorder, single episode, unspecified; R33.9 Retention of urine, unspecified; G62.9 Polyneuropathy, unspecified; B02.9 Zoster without complications; M21.371 Foot drop, right foot; R51 Headache; R68.0 Hypothermia, not associated with low environmental temperature; D64.9 Anemia, unspecified; R65.20 Severe sepsis without septic shock
CPT/HCPCS: 36415; 36600; 70450; 71045; 74176; 76770; 80048; 80053; 80061; 80076; 81003; 82009; 82150; 82164; 82270; 82306; 82550; 82553; 82607; 82728; 82746; 82803; 82945; 82962; 82977; 83036; 83540; 83550; 83605; 83690; 83735; 83880; 84100; 84157; 84165; 84484; 84550; 85007; 85025; 85610; 85651; 85730; 86140; 86592; 86703; 86787; 87040; 87070; 87081; 87086; 87205; 87529; 89051; 93005; 93306; 94664; 96361; 96365; 96368; 99291; C9399; J1815; J2405; J7030; J8499; S5561